=== PATIENT | female | born 1935 | race Caucasian/White ===

== ENCOUNTER 2016-12-20 07:10 | Emergency (ER) | payer MEDICARE, OTHER ==
--- NOTE | 2016-12-20 08:10 | EDM.PDOC ---
ED HPI ENT - General Chief Complaint: ENT Problem Stated Complaint: [facility] Time Seen by Provider: 12/20/16 07:18 Source of Information: Reports: Patient, EMS, RN notes reviewed - History of Present Illness INITIAL COMMENTS - FREE TEXT/NARRATIVE: 81-year-old female comes in with bleeding from the left nares. That started about 5:00 this morning. She was unable to control the bleeding at home and therefore called EMS. They did place some type a tampon into the left nares and bleeding history while stopped upon arrival to ED. She had been having difficulty with intermittent bleeding last week but had been able to control it with pressure. This morning the bleeding was worse and she also was having significant drainage down the back of her throat. She is on Coumadin for chronic atrial fib. She has not yet taken her morning Coumadin for today. No chest pain or difficulty breathing. No unusual dizziness or lightheadedness. - Related Data Allergies/ADRs: Allergies Allergy/AdvReac Type Severity Reaction Status Date / Time amoxicillin Allergy Rash Verified 12/20/16 07:20 codeine Allergy Itching Verified 12/20/16 07:20 Penicillins Allergy Itching Verified 12/20/16 07:20 Home Meds: Home Meds Carvedilol 12.5 mg PO BID 12/20/16 [History] Furosemide 40 mg PO BID 12/20/16 [History] Lisinopril 20 mg PO DAILY 12/20/16 [History] Metolazone 2.5 mg PO ASDIRECTED 12/20/16 [History] Warfarin [Coumadin] 5 mg PO DAILY 12/20/16 [History] Past Medical History HEENT History: Reports: Epistaxis Cardiovascular History: Reports: Afib, Hypertension - Past Surgical History GI Surgical History: Reports: Appendectomy, Cholecystectomy Female Surgical History: Reports: Hysterectomy Musculoskeletal Surgical History: Reports: Shoulder surgery, Other (see below) Other Musculoskeletal Surgeries/Procedures:: murali Soto Social & Family History - Tobacco Use Smoking Status *Q: Never Smoker - Caffeine Use Caffeine Use: Reports: None - Recreational Drug Use Recreational Drug Use: No ED ROS ENT - Review of Systems Review Of Systems: See Below Constitutional: Reports: no symptoms HEENT: Reports: Nosebleed, Other (There has been drainage down her throat) Respiratory: Denies: Shortness of Breath Cardiovascular: Denies: Chest pain GI/Abdominal: Denies: Abdominal pain, Nausea, Vomiting Musculoskeletal: Reports: no symptoms Skin: Reports: no symptoms Neurological: Reports: No Symptoms ED EXAM, ENT - Physical Exam Exam: See Below General Appearance: alert Nose: other (She does have some type of tampon in the left nares. That is soaked with blood, not actively bleeding at this time.). No: active bleeding Mouth/Throat: Other (The back of her throat is clear of blood at this time, no clots visible) Neck: supple, full range of motion Respiratory/Chest: no respiratory distress, lungs clear Cardiovascular: regular rate, rhythm Extremities: normal inspection, pedal edema (Mild bilateral). No: leg pain Neurological: alert, oriented, no motor/sensory deficits Skin: Warm, Dry, Normal color Course - Vital Signs Last Recorded V/S: Last Vital Signs Temp 97.3 F 12/20/16 07:16 Pulse 67 12/20/16 07:16 Resp 16 12/20/16 07:16 BP 138/78 12/20/16 07:16 Pulse Ox 97 12/20/16 07:16 - Orders/Labs/Meds Labs: Laboratory Tests 12/20/16 12/20/16 12/20/16 Range/Units 07:45 07:45 07:45 WBC 6.62 (3.98-10.04) K/mm3 RBC 4.14 (3.98-5.22) M/mm3 Hgb 12.3 (11.2-15.7) gm/L Hct 38.7 (34.1-44.9) % MCV 93.5 (79.4-94.8) fl MCH 29.7 (25.6-32.2) pg MCHC 31.8 L (32.2-35.5) g/dl RDW Std Deviation 47.6 H (36.4-46.3) fL Plt Count 249 (182-369) K/mm3 MPV 9.8 (9.4-12.3) fl Neut % (Auto) 73.6 H (34.0-71.1) % Lymph % (Auto) 13.4 L (19.3-51.7) % [place] % (Auto) 10.0 (4.7-12.5) % Eos % (Auto) 2.3 (0.7-5.8) Baso % (Auto) 0.5 (0.1-1.2) % Neut # (Auto) 4.88 (1.56-6.13) K/mm3 Lymph # (Auto) 0.89 L (1.18-3.74) K/mm3 [place] # (Auto) 0.66 H (0.24-0.36) K/mm3 Eos # (Auto) 0.15 (0.04-0.36) K/mm3 Baso # (Auto) 0.03 (0.01-0.08) K/mm3 PT 42.4 H (8.0-13.0) SECONDS INR 3.59 Sodium 147 H (136-145) mEq/L Potassium 3.8 (3.5-5.1) mEq/L Chloride 108 H (98-107) mEq/L Carbon Dioxide 29 (21-32) mEq/L Anion Gap 13.8 (5-15) BUN 20 H (7-18) mg/dL Creatinine 0.8 (0.55-1.02) mg/dL Est Cr Clr Drug Dosing 39.61 mL/min Estimated GFR (MDRD) > 60 (>60) mL/min BUN/Creatinine Ratio 25.0 H (14-18) Glucose 131 H (83-115) mg/dL Calcium 9.0 (8.5-10.1) mg/dL Total Bilirubin 0.6 (0.2-1.0) mg/dL AST 16 (15-37) U/L ALT 20 (14-59) U/L Alkaline Phosphatase 90 (46-116) U/L Total Protein 7.5 (6.4-8.2) g/dl Albumin 3.3 L (3.4-5.0) g/dl Globulin 4.2 gm/dL Albumin/Globulin Ratio 0.8 L (1-2) - Re-Assessments/Exams Free Text/Narrative Re-Assessment/Exam: 12/20/16 08:30. INR is elevated close to 4, he continues to have no active bleeding while here in the ED, slight oozing when she does dab tissue against the tampon but nothing more than that. The back of her throat remains clear of blood or clots. A glide have her not take her Coumadin today or tomorrow. Discharge instructions as documented. Departure - Departure Time of Disposition: 08:33 Disposition: Home, Self-Care 01 Clinical Impression: Epistaxis Referrals: Jaimie Sexton PA-C [Primary Care Provider] - Forms: ED Department Discharge Additional Instructions: leave the tampon placed L nares in place until Saturday. Have that removed Saturday at the clinic. Your INR this morning is high. Do not take your coumadin today and tomorrow. You can resume that Saturday regular dosage. Drink plenty of water. Pressure if needed for any further bleeding. Return to ED as needed.
[2016-12-20 09:09] VITALS: BP 148/94
== END 2016-12-20 09:07 | disposition home or self-care (01) ==
LOC: JD.ED 07:10
DX: R04.0 Epistaxis (principal); I48.91 Unspecified atrial fibrillation; I10 Essential (primary) hypertension; Z90.49 Acquired absence of other specified parts of digestive tract; Z90.710 Acquired absence of both cervix and uterus; Z88.0 Allergy status to penicillin; Z88.1 Allergy status to other antibiotic agents; Z88.5 Allergy status to narcotic agent; Z79.01 Long term (current) use of anticoagulants; Z79.899 Other long term (current) drug therapy
CPT/HCPCS: 36415; 80053; 85025; 85610; 99282; 99284

== ENCOUNTER 2018-09-29 11:24 | Inpatient (IN) | payer MEDICARE, OTHER ==
[2018-09-29] MEDS ORDERED: Sodium Chloride 0.9% 10 ML Syringe FLUSH PRN (11:38)
--- NOTE | 2018-09-29 11:39 | EDM.PDOC ---
ED HPI GENERAL MEDICAL PROBLEM - General Chief Complaint: Respiratory Problem Stated Complaint: [facility] Time Seen by Provider: 09/29/18 11:36 Source of Information: Reports: Patient, EMS, Provider History Limitations: Reports: No Limitations - History of Present Illness INITIAL COMMENTS - FREE TEXT/NARRATIVE: 83-year-old female presents to the ED per [place] [facility]. She was seen initially in the clinic in [place] and identified to be suffering an exacerbation of her congestive heart failure. A Carmona catheter placed at the clinic and was given initial dose of Lasix 40 mg IV at the clinic. At this time she states she is breathing a bit better. After 98% on 2 L/m by nasal cannula. She states she was up most of last night because of dyspnea. She states her legs are really bothering her last 3-4 days because they are so swollen they feel like they're going to explode. Eyes any wounds on the legs or losing any serous material. She is known to have chronic dependent edema. She states she's been sitting with an elevated with pillows hoping that they would get better over the weekend. It didn't seem to help. She reports developed gradual shortness of breath with increased cough of clear to white sputum over the last 3 days. Eyes any central chest pain. No recent changes to any of her medications. She did take her normal meds this morning including Lasix 40 mg by mouth. Patient is also chronically anticoagulated with Coumadin. Onset: Gradual Onset Date: 09/26/18 Duration: Day(s):, Getting Worse Location: Reports: Chest, Lower Extremity, Left (Increased shortness of breath on minimal exertion and even at rest.), Lower Extremity, Right ( Increased dependent edema with leg pain increased lower extremity edema with leg pain.) Quality: Reports: Ache, Other (She has restless leg syndrome and the increased edema has made him very sensitive and actually making her's not be able to sleep.) Severity: Severe Improves with: Reports: None Worsens with: Reports: None Context: Reports: Other (Gradually worsening shortness of breath and dependent edema.). Denies: Activity, Exercise, Lifting, Sick Contact, Trauma Associated Symptoms: Reports: Cough, cough w sputum, Loss of Appetite, Malaise, Shortness of Breath, Weakness. Denies: Confusion, Chest Pain, Diaphoresis ( Sputum is usually clear to white.), Fever/Chills, Headaches, Nausea/Vomiting Treatments SHRUB PLANTER: Reports: Other (see below) (She did take her regular medications at home this morning.) Other Treatments SHRUB PLANTER: lasix, carmona insertion - Related Data Allergies Allergy/AdvReac Type Severity Reaction Status Date / Time amoxicillin Allergy Rash Verified 09/29/18 11:34 aspirin Allergy Rash Verified 09/29/18 11:34 codeine Allergy Itching Verified 09/29/18 11:34 hydrocodone Allergy Rash Verified 09/29/18 11:34 morphine Allergy Rash Verified 09/29/18 11:34 naproxen [From Naprosyn] Allergy Rash Verified 09/29/18 11:34 Penicillins Allergy Itching Verified 09/29/18 11:34 weed pollen Allergy Rash Verified 09/29/18 11:34 Home Meds: Home Meds Warfarin [Coumadin] 5 mg PO DAILY 12/20/16 [History] Calcium Carb & Citrate/Vit D3 [Calcium + D3 ER Tablet] 2 tab PO DAILY 07/13/18 [ History] Carvedilol 12.5 mg PO BID 07/13/18 [History] Furosemide 40 mg PO BID 07/13/18 [History] Lisinopril 20 mg PO DAILY 07/13/18 [History] Potassium Chloride [Klor-Con 10] 10 meq PO DAILY 07/13/18 [History] Pramipexole [Mirapex] 1 mg PO BEDTIME 07/13/18 [History] Spironolactone [Aldactone] 25 mg PO DAILY 07/13/18 [History] metOLazone [Metolazone] 2.5 mg PO WEEKLY 07/13/18 [History] Past Medical History HEENT History: Reports: Cataract, Epistaxis Cardiovascular History: Reports: Afib, Heart Failure, Hypertension, SOB on Exertion Psychiatric History: Reports: Depression - Past Surgical History HEENT Surgical History: Reports: Cataract Surgery GI Surgical History: Reports: Appendectomy, Cholecystectomy Female Surgical History: Reports: Hysterectomy Musculoskeletal Surgical History: Reports: Shoulder Surgery Social & Family History - Family History Family Medical History: Noncontributory - Caffeine Use Caffeine Use: Reports: None ED ROS GENERAL - Review of Systems Review Of Systems: See Below Constitutional: Reports: Malaise, Weakness, Fatigue, Decreased Appetite (Did not eat yet today.). Denies: Fever, Chills HEENT: Reports: Glasses, Other (Has had previous cataract extractions.) Respiratory: Reports: Shortness of Breath, Cough (Mostly of clear to white sputum). Denies: Wheezing, Pleuritic Chest Pain Cardiovascular: Reports: Blood Pressure Problem, Dyspnea on Exertion (Increased edema in her lower extremities over the last 3 days), Edema, Orthopnea, Palpitations (Chronic atrial fibrillation). Denies: Chest Pain, Claudication ( Usually runs low.), Lightheadedness (Last 3 days.) Endocrine: Reports: Fatigue GI/Abdominal: Reports: Constipation : Reports: Frequency, Incontinence (Urge and stress components) Musculoskeletal: Reports: Joint Pain (Knees hips low back and neck and shoulders at times) Skin: Reports: Bruising (Bruises easily as she is on Coumadin.) Neurological: Reports: No Symptoms, Other (Has restless leg syndrome and uses Mirapex at bedtime) Psychiatric: Reports: No Symptoms Hematologic/Lymphatic: Reports: No Symptoms Immunologic: Reports: No Symptoms ED EXAM, GENERAL - Physical Exam Exam: See Below Exam Limited By: No Limitations General Appearance: Alert, WD/WN, Mild Distress (Mild respiratory distress.), Other (O2 sats were apparently 8889% on room air. There are 96-98% on 2 L/m by nasal cannula. She reports she is already feeling better since she was given Lasix intravenously at the clinic prior to transport to [place] per ambulance. ) Eye Exam: Bilateral Eye: Normal Inspection Throat/Mouth: Other (Tongue is mildly dry.) Head: Atraumatic, Normocephalic Neck: Normal Inspection, Limited Range of Motion, Other (No JVD appreciated.). No: Lymphadenopathy (L), Lymphadenopathy (R) Respiratory/Chest: Decreased Breath Sounds (Fine rales both lung bases. Air entry is diminished to the lower 30% of lung garsia posteriorly bilaterally), Rales Cardiovascular: No Gallop, No Murmur, Irregularly Irregular (Monitor reveals atrial fibrillation.). No: Normal Peripheral Pulses, JVD Peripheral Pulses: 0: Posterior Tibial (L) (No pulses are palpable wearing her feet due to gross edema of the lower extremities.), Posterior Tibial (R), Dorsalis Pedis (L), Dorsalis Pedis (R) GI/Abdominal: Distended (Abdomen is slightly distended and tympanitic to percussion upper abdomen compatible with mild aerophagia.), Other (Firm to palpation with no obvious organomegaly palpable. Abdominal girth limits ability to palpate solid organs.) Extremities: Pedal Edema (Has 4+ pitting edema both lower extremities up past the knees. No open wounds or ulcers on the lower extremities), Leg Pain Neurological: Alert, Oriented, CN II-XII Intact, Normal Cognition Psychiatric: Normal Affect, Normal Mood Skin Exam: Warm, Dry, Intact, Normal Color, No Rash EKG INTERPRETATION EKG Date: 09/29/18 Time: 12:00 Rhythm: Other Rate (Beats/Min): 62 Ashby: LAD-Left Ashby Deviation (Minimal left axis deviation at -1) P-Wave: Absent QRS: Other (There is a nonspecific intraventricular conduction delay.) ST-T: Other (T wave inverted leads 3 and aVF nonspecific finding mild diffuse early repolarization pattern.) QT: Prolonged (QT is moderately prolonged) EKG Interpretation Comments: Abnormal ECG Course - Vital Signs Last Recorded V/S: Last Vital Signs Temp 36.3 C 09/29/18 11:29 Pulse 74 09/29/18 11:29 Resp 14 09/29/18 11:29 BP 91/55 L 09/29/18 11:29 Pulse Ox 97 09/29/18 11:43 - Orders/Labs/Meds Orders: Active Orders 24 hr Category Date Time Status EKG Documentation Completion [RC] STAT Care 09/29/18 11:36 Active Oxygen Therapy [RC] ASDIRECTED Care 09/29/18 11:38 Active Peripheral IV Care [RC] . DIRECTED Care 09/29/18 11:38 Active Sodium Chloride 0.9% [Saline Flush] Med 09/29/18 11:38 Active 10 ml FLUSH ASDIRECTED PRN Peripheral IV Insertion Adult [OM.PC] Stat Oth 09/29/18 11:38 Ordered Medication Orders Sodium Chloride (Saline Flush) 10 ml FLUSH ASDIRECTED PRN PRN Reason: Keep Vein Open Last Admin: 09/29/18 11:42 Dose: 10 ml Labs: Laboratory Tests 09/29/18 09/29/18 09/29/18 Range/Units 11:55 11:55 11:55 WBC 5.53 (3.98-10.04) K/mm3 RBC 4.07 (3.98-5.22) M/mm3 Hgb 12.0 (11.2-15.7) gm/L Hct 38.9 (34.1-44.9) % MCV 95.6 H (79.4-94.8) fl MCH 29.5 (25.6-32.2) pg MCHC 30.8 L (32.2-35.5) g/dl RDW Std Deviation 46.1 (36.4-46.3) fL Plt Count 243 (182-369) K/mm3 MPV 9.7 (9.4-12.3) fl Neutrophils % (Manual) 75 H (40-60) % Band Neutrophils % 0 (0-10) % Lymphocytes % (Manual) 21 (20-40) % Atypical Lymphs % 0 % Monocytes % (Manual) 3 (2-10) % Eosinophils % (Manual) 1 (0.7-5.8) % Basophils % (Manual) 0 L (0.1-1.2) Platelet Estimate Adequate RBC Morph Comment Normal PT 12.7 H (9.5-12.1) SECONDS INR 1.17 Sodium 139 (136-145) mEq/L Potassium 4.3 (3.5-5.1) mEq/L Chloride 101 (98-107) mEq/L Carbon Dioxide 33 H (21-32) mEq/L Anion Gap 9.3 (5-15) BUN 29 H (7-18) mg/dL Creatinine 1.1 H (0.55-1.02) mg/dL Est Cr Clr Drug Dosing 27.83 mL/min Estimated GFR (MDRD) 47 (>60) mL/min BUN/Creatinine Ratio 26.4 H (14-18) Glucose 111 (83-115) mg/dL Calcium 9.0 (8.5-10.1) mg/dL Magnesium 2.3 (1.8-2.4) mg/dl Total Bilirubin 0.4 (0.2-1.0) mg/dL AST 21 (15-37) U/L ALT 18 (14-59) U/L Alkaline Phosphatase 86 (46-116) U/L CK-MB (CK-2) 1.5 (0-3.6) ng/ml Troponin I < 0.017 (0.00-0.056) ng/mL NT-Pro-B Natriuret Pep (0-450) pg/mL Total Protein 7.8 (6.4-8.2) g/dl Albumin 3.4 (3.4-5.0) g/dl Globulin 4.4 gm/dL Albumin/Globulin Ratio 0.8 L (1-2) 09/29/18 Range/Units 11:55 WBC (3.98-10.04) K/mm3 RBC (3.98-5.22) M/mm3 Hgb (11.2-15.7) gm/L Hct (34.1-44.9) % MCV (79.4-94.8) fl MCH (25.6-32.2) pg MCHC (32.2-35.5) g/dl RDW Std Deviation (36.4-46.3) fL Plt Count (182-369) K/mm3 MPV (9.4-12.3) fl Neutrophils % (Manual) (40-60) % Band Neutrophils % (0-10) % Lymphocytes % (Manual) (20-40) % Atypical Lymphs % % Monocytes % (Manual) (2-10) % Eosinophils % (Manual) (0.7-5.8) % Basophils % (Manual) (0.1-1.2) Platelet Estimate RBC Morph Comment PT (9.5-12.1) SECONDS INR Sodium (136-145) mEq/L Potassium (3.5-5.1) mEq/L Chloride (98-107) mEq/L Carbon Dioxide (21-32) mEq/L Anion Gap (5-15) BUN (7-18) mg/dL Creatinine (0.55-1.02) mg/dL Est Cr Clr Drug Dosing mL/min Estimated GFR (MDRD) (>60) mL/min BUN/Creatinine Ratio (14-18) Glucose (83-115) mg/dL Calcium (8.5-10.1) mg/dL Magnesium (1.8-2.4) mg/dl Total Bilirubin (0.2-1.0) mg/dL AST (15-37) U/L ALT (14-59) U/L Alkaline Phosphatase (46-116) U/L CK-MB (CK-2) (0-3.6) ng/ml Troponin I (0.00-0.056) ng/mL NT-Pro-B Natriuret Pep 1390 H (0-450) pg/mL Total Protein (6.4-8.2) g/dl Albumin (3.4-5.0) g/dl Globulin gm/dL Albumin/Globulin Ratio (1-2) Meds: Medications Generic Name Dose Route Start Last Admin Trade Name Angel PRN Reason Stop Dose Admin Sodium Chloride 10 ml 09/29/18 11:38 09/29/18 11:42 Saline Flush FLUSH 10 ml ASDIRECTED PRN Administration Keep Vein Open - Radiology Interpretation Free Text/Narrative:: 83-year-old female presents the ED per ambulance from [facility]. She attended the clinic there this morning because of increased dyspnea over the last 3-4 days. Was up all night because she could not lie down to sleep. And her legs were bothering her severely. She has restless leg syndrome aggravated by chronic dependent edema which is much worse the last few days as well. She's been trying to keep her legs elevated with pillows over the weekend but they did not go down. She denies any recent changes to any of her medications. She denies any chest pain. She has chronic atrial fibrillation with rate controlled on ECG today. She is chronically anticoagulated with Coumadin. Exam reveals fine crackles both lung bases. Marked dependent edema both lower extremities. She has a Carmona catheter in place Lasix at the clinic this morning. She took her 40 mg of Lasix orally as well as was given 40 mg intravenously prior to leaving the clinic. She has apparently has diuresed greater than 1000 mils. She reports she is feeling somewhat better in terms of her ability to get it breath. Currently satting at 98% on 2 L/m. Plan saline lock. Cardiac workup to see why she decompensated. Clinically she appears to have terminal congestive heart failure. But pressure initially was 91/46. - Re-Assessments/Exams Free Text/Narrative Re-Assessment/Exam: 09/29/18 12:17 current blood pressure is 96/58. Chest x-ray reveals moderate cardiomegaly with diffuse vascular congestion pattern. There is no pleural effusions both costophrenic angles are visible. 09/29/18 12:28 Hematology is back showing a white count of 5.53 with 75% neutrophils and no bands reported. Hemoglobin is 12.0 with hematocrit of 38.9. MCV is slightly elevated at 95.6. Platelet count normal 243,000. 01/21/19 13:13 Chemistry is back. PT is 12.7 with an INR 1.17 i.e. subtherapeutic INR for atrial fibrillation treatment. Sodium 139 with a potassium of 4.3. Port 11 with a bicarbonate of 33. And a gap is 9.3. B1 is 29 with a running of 1.1. GFR is estimated to be around 47. BUN/creatinine ratio is elevated at 26.4. Glucose is 111 with a calcium of 9.0. Magnesium is normal at 2.3. Liver function is normal. She can be fraction is 1.5 with a troponin I of less than 0.017. BNP is 1390. Total protein is 7.8 with an albumin of 3.4, 09/29/18 13:[address] Merritt --rehabilitation caseworker hospitalist and she will see her in the Ed with a view to admission to the med surgery unit on telemetry. I Have contacted [facility] as well and they will send most recent echo cardiograms on patient as well. Departure - Departure Time of Disposition: 13:26 Disposition: Admitted As Inpatient 66 Condition: Poor Clinical Impression: Lower extremity pain, bilateral, Dependent edema Acute exacerbation of CHF (congestive heart failure) Qualifiers: Heart failure type: diastolic Qualified Code(s): I50.33 - Acute on chronic diastolic (congestive) heart failure Atrial fibrillation Qualifiers: Atrial fibrillation type: chronic Qualified Code(s): I48.2 - Chronic atrial fibrillation - Discharge Information *PRESCRIPTION DRUG MONITORING PROGRAM REVIEWED*: Not Applicable *COPY OF PRESCRIPTION DRUG MONITORING REPORT IN PATIENT SAGE: Not Applicable Forms: ED Department Discharge - My Orders Last 24 Hours: My Active Orders 09/29/18 11:36 EKG Documentation Completion [RC] STAT 09/29/18 11:38 Oxygen Therapy [RC] ASDIRECTED Peripheral IV Care [RC] . DIRECTED Sodium Chloride 0.9% [Saline Flush] 10 ml FLUSH ASDIRECTED PRN Peripheral IV Insertion Adult [OM.PC] Stat - Assessment/Plan Last 24 Hours: My Active Orders 09/29/18 11:36 EKG Documentation Completion [RC] STAT 09/29/18 11:38 Oxygen Therapy [RC] ASDIRECTED Peripheral IV Care [RC] . DIRECTED Sodium Chloride 0.9% [Saline Flush] 10 ml FLUSH ASDIRECTED PRN Peripheral IV Insertion Adult [OM.PC] Stat
--- NOTE | 2018-09-29 11:57 | CR ---
Chest: Frontal view of the chest was obtained utilizing portable technique. Comparison: Prior chest x-ray of 07/15/16. Heart is enlarged. Pulmonary vessels felt to be slightly congested. Lungs otherwise are clear. Previous right shoulder surgery is seen. Scoliosis is noted within the spine. Impression: 1. Cardiomegaly with mild pulmonary vascular congestion. 2. Other incidental findings. Diagnostic code #3
[2018-09-29] MEDS: Furosemide 100 MG in Sodium Chloride 0.9% 90 ML IV SCH (17:41)
[2018-09-29] MEDS ORDERED: Loratadine 10 MG Tab PO PRN (19:00)
--- NOTE | 2018-09-29 19:00 | PCM.HP ---
H&P History of Present Illness - General Date of Service: 09/29/18 Admit Problem/Dx: Admission Diagnosis/Problem Admission Diagnosis/Problem Dyspnea Source of Information: Patient, Provider History Limitations: Reports: No Limitations - History of Present Illness Initial Comments - Free Text/Narative: 83 year old female with PMH of HFpEF, her last 2D echo was 12/25. It documented a LVEF of 55-60%, diastolic dysfunction is indeterminate in A Fib. The NYHA function class is unknown. She has been experiencing progressive SOB associated with fatigue. Denies orthopnea, PND. No chest pain, fever/chills, nausea/vomiting has been noted. The patient had been sen in [place] prior to ED evaluation. At that time a Arce was placed and Lasix 40 mg IV was given. The patient is DNR/DNI, and will be admitted to [place] with telemetry. Onset of Symptoms: Reports: Gradual Symptom Onset Date: 09/26/18 Duration of Symptoms: Reports: Day(s):, Getting Worse Location: Reports: Generalized Quality: Reports: Same as Previous Episode Severity: Moderate Improves with: Reports: Medication Worsens with: Reports: Movement Context: Reports: Exertion Associated Symptoms: Reports: Cough, Nausea/Vomiting, Shortness of Breath, Weakness - Related Data Allergies/Adverse Reactions: Allergies Allergy/AdvReac Type Severity Reaction Status Date / Time amoxicillin Allergy Rash Verified 09/29/18 11:34 aspirin Allergy Rash Verified 09/29/18 11:34 codeine Allergy Itching Verified 09/29/18 11:34 hydrocodone Allergy Rash Verified 09/29/18 11:34 morphine Allergy Rash Verified 09/29/18 11:34 naproxen [From Naprosyn] Allergy Rash Verified 09/29/18 11:34 Penicillins Allergy Itching Verified 09/29/18 11:34 weed pollen Allergy Rash Verified 09/29/18 11:34 Home Medications: Home Meds Warfarin [Coumadin] 5 mg PO DAILY 12/20/16 [History] Carvedilol 12.5 mg PO BIDMEALS 07/13/18 [History] Furosemide 80 mg PO DAILY 07/13/18 [History] Lisinopril 20 mg PO DAILY 07/13/18 [History] Pramipexole [Mirapex] 1 - 2 mg PO BEDTIME 07/13/18 [History] metOLazone [Metolazone] 2.5 mg PO TUSA 07/13/18 [History] B2/Vit A,C & E/Lut/Zeaxanth/Mn [Icaps] 1 tab PO DAILY 09/29/18 [History] Cholecalciferol (Vitamin D3) [Vitamin D3] 1,000 unit PO DAILY 09/29/18 [History] Loratadine [Claritin] 10 mg PO DAILY PRN 09/29/18 [History] Spironolactone [Aldactone] 25 mg PO DAILY 09/29/18 [History] Past Medical History HEENT History: Reports: Cataract, Epistaxis, Impaired Vision Other HEENT History: Left side "Wall eye" Cardiovascular History: Reports: Afib, Heart Failure, Hypertension, SOB on Exertion Respiratory History: Reports: Sleep Apnea Gastrointestinal History: Reports: Cholelithiasis Genitourinary History: Reports: Urinary Incontinence [employer] ENG[employer]ER History: Reports: Musculoskeletal History: Reports: Arthritis, Osteoporosis Neurological History: Reports: Concussion, Other (See Below) Other Neuro History: mild concussion, restless legs Psychiatric History: Reports: Anxiety, Depression Endocrine/Metabolic History: Reports: Diabetes, Type II, Obesity/BMI 30+ Hematologic History: Reports: Anticoagulation Therapy Dermatologic History: Reports: Urticaria - Infectious Disease History Infectious Disease History: Reports: Chicken Pox, Measles, Mumps - Past Surgical History HEENT Surgical History: Reports: Cataract Surgery Cardiovascular Surgical History: Reports: None GI Surgical History: Reports: Appendectomy, Cholecystectomy, Colonoscopy Female Surgical History: Reports: Hysterectomy Endocrine Surgical History: Reports: None Neurological Surgical History: Reports: None Musculoskeletal Surgical History: Reports: Shoulder Surgery Other Musculoskeletal Surgeries/Procedures:: Rotator cuff sx bilaterally. Left great toe-bunion removal Dermatological Surgical History: Reports: None Social & Family History - Family History Family Medical History: Noncontributory HEENT: Reports: Cataract, Impaired Vision, Macular Degeneration Cardiac: Reports: Afib, Heart Failure, DE Respiratory: Reports: Sleep Apnea Musculoskeletal: Reports: Arthritis, Back pain, Chronic Neurological: Reports: Migraines Endocrine/Metabolic: Reports: Diabetes, type II, Obesity/MBI 30+ Dermatologic: Reports: Urticaria Oncologic: Reports: Colon, Liver, Lung, Pancreatic, Prostate, Uterine, Other ( See Below) - Tobacco Use Smoking Status *Q: Never Smoker Second Hand Smoke Exposure: Yes - Caffeine Use Caffeine Use: Reports: None - Recreational Drug Use Recreational Drug Use: No H&P Review of Systems - Review of Systems: Review Of Systems: See Below General: Reports: Weakness, Fatigue, Weight Gain HEENT: Reports: No Symptoms Pulmonary: Reports: Shortness of Breath Cardiovascular: Reports: Palpitations, Lightheadedness Gastrointestinal: Reports: No Symptoms, Mucous in Stool Genitourinary: Reports: No Symptoms Musculoskeletal: Reports: No Symptoms Skin: Reports: No Symptoms Psychiatric: Reports: No Symptoms Neurological: Reports: No Symptoms Hematologic/Lymphatic: Reports: No Symptoms Immunologic: Reports: No Symptoms Exam - Exam Exam: See Below - Vital Signs Vital Signs: Last Vital Signs Temp 36.4 C 09/29/18 14:18 Pulse 53 L 09/29/18 15:26 Resp 18 09/29/18 14:22 BP 114/72 09/29/18 14:29 Pulse Ox 92 L 09/29/18 15:26 Weight: 100.244 kg - Exam Quality Assessment: Supplemental Oxygen, DVT Prophylaxis General: Alert, Oriented, Cooperative, Mild Distress HEENT: Conjunctiva Clear, EACs Clear, EOMI, Pupils Equal, Pupils Reactive, PERRLA Neck: Supple, Trachea Midline Lungs: Normal Respiratory Effort Cardiovascular: Regular Rate, Regular Rhythm GI/Abdominal Exam: Normal Bowel Sounds, Soft, Non-Tender, No Organomegaly, No Distention, No Abnormal Bruit, No Mass (Female) Exam: Deferred Rectal (Female) Exam: Deferred Back Exam: Normal Inspection Extremities: Pedal Edema (+3-4), Leg Pain, Increased Warmth Skin: Warm Neurological: Cranial Nerves Intact Neuro Extensive - Mental Status: Alert, Oriented x3 Neuro Extensive - Motor, Sensory, Reflexes: CN II-XII Intact Psychiatric: Alert, Normal Affect, Normal Mood - Patient Data Lab Results Last 24 hrs: Laboratory Results - last 24 hr 09/29/18 09/29/18 09/29/18 Range/Units 11:55 11:55 11:55 WBC 5.53 (3.98-10.04) K/mm3 RBC 4.07 (3.98-5.22) M/mm3 Hgb 12.0 (11.2-15.7) gm/L Hct 38.9 (34.1-44.9) % MCV 95.6 H (79.4-94.8) fl MCH 29.5 (25.6-32.2) pg MCHC 30.8 L (32.2-35.5) g/dl RDW Std Deviation 46.1 (36.4-46.3) fL Plt Count 243 (182-369) K/mm3 MPV 9.7 (9.4-12.3) fl Neutrophils % (Manual) 75 H (40-60) % Band Neutrophils % 0 (0-10) % Lymphocytes % (Manual) 21 (20-40) % Atypical Lymphs % 0 % Monocytes % (Manual) 3 (2-10) % Eosinophils % (Manual) 1 (0.7-5.8) % Basophils % (Manual) 0 L (0.1-1.2) Platelet Estimate Adequate RBC Morph Comment Normal PT 12.7 H (9.5-12.1) SECONDS INR 1.17 Sodium 139 (136-145) mEq/L Potassium 4.3 (3.5-5.1) mEq/L Chloride 101 (98-107) mEq/L Carbon Dioxide 33 H (21-32) mEq/L Anion Gap 9.3 (5-15) BUN 29 H (7-18) mg/dL Creatinine 1.1 H (0.55-1.02) mg/dL Est Cr Clr Drug Dosing 27.83 mL/min Estimated GFR (MDRD) 47 (>60) mL/min BUN/Creatinine Ratio 26.4 H (14-18) Glucose 111 (83-115) mg/dL Calcium 9.0 (8.5-10.1) mg/dL Magnesium 2.3 (1.8-2.4) mg/dl Total Bilirubin 0.4 (0.2-1.0) mg/dL AST 21 (15-37) U/L ALT 18 (14-59) U/L Alkaline Phosphatase 86 (46-116) U/L CK-MB (CK-2) 1.5 (0-3.6) ng/ml Troponin I < 0.017 (0.00-0.056) ng/mL NT-Pro-B Natriuret Pep (0-450) pg/mL Total Protein 7.8 (6.4-8.2) g/dl Albumin 3.4 (3.4-5.0) g/dl Globulin 4.4 gm/dL Albumin/Globulin Ratio 0.8 L (1-2) Mycoplasma pneumon IgM (NEGATIVE) 09/29/18 09/29/18 Range/Units 11:55 11:55 WBC (3.98-10.04) K/mm3 RBC (3.98-5.22) M/mm3 Hgb (11.2-15.7) gm/L Hct (34.1-44.9) % MCV (79.4-94.8) fl MCH (25.6-32.2) pg MCHC (32.2-35.5) g/dl RDW Std Deviation (36.4-46.3) fL Plt Count (182-369) K/mm3 MPV (9.4-12.3) fl Neutrophils % (Manual) (40-60) % Band Neutrophils % (0-10) % Lymphocytes % (Manual) (20-40) % Atypical Lymphs % % Monocytes % (Manual) (2-10) % Eosinophils % (Manual) (0.7-5.8) % Basophils % (Manual) (0.1-1.2) Platelet Estimate RBC Morph Comment PT (9.5-12.1) SECONDS INR Sodium (136-145) mEq/L Potassium (3.5-5.1) mEq/L Chloride (98-107) mEq/L Carbon Dioxide (21-32) mEq/L Anion Gap (5-15) BUN (7-18) mg/dL Creatinine (0.55-1.02) mg/dL Est Cr Clr Drug Dosing mL/min Estimated GFR (MDRD) (>60) mL/min BUN/Creatinine Ratio (14-18) Glucose (83-115) mg/dL Calcium (8.5-10.1) mg/dL Magnesium (1.8-2.4) mg/dl Total Bilirubin (0.2-1.0) mg/dL AST (15-37) U/L ALT (14-59) U/L Alkaline Phosphatase (46-116) U/L CK-MB (CK-2) (0-3.6) ng/ml Troponin I (0.00-0.056) ng/mL NT-Pro-B Natriuret Pep 1390 H (0-450) pg/mL Total Protein (6.4-8.2) g/dl Albumin (3.4-5.0) g/dl Globulin gm/dL Albumin/Globulin Ratio (1-2) Mycoplasma pneumon IgM Negative (NEGATIVE) Result Diagrams: 09/30/18 06:20 09/30/18 06:20 Zack Results Last 24 hrs: Microbiology 09/29/18 13:30 Influenza Type A Antigen Screen - Final Nasal Aspirate, Unspecified NEGATIVE INFLUENZA A VIRUS AG Influenza Type B Antigen Screen - Final NEGATIVE INFLUENZA B VIRUS AG Problem List Initiated/Reviewed/Updated: Yes Orders Last 24hrs: Active Orders 24 hr Category Date Time Status Admission Status [Patient Status] [ADT] Routine ADT 09/29/18 13:21 Active EKG Documentation Completion [RC] STAT Care 09/29/18 11:36 Active Oxygen Therapy [RC] ASDIRECTED Care 09/29/18 11:38 Active Peripheral IV Care [RC] . DIRECTED Care 09/29/18 11:38 Active Urinary Catheter Assessment [RC] Care 09/29/18 16:57 Active Fluid Restriction [DIET] Diet 09/29/18 Dinner Active Heart Healthy Diet [DIET] Diet 09/29/18 Dinner Active Furosemide [Lasix] 100 mg Med 09/29/18 17:30 Active Sodium Chloride 0.9% [Normal Saline] 90 ml IV TITRATE Sodium Chloride 0.9% [Saline Flush] Med 09/29/18 11:38 Active 10 ml FLUSH ASDIRECTED PRN Peripheral IV Insertion Adult [OM.PC] Stat Oth 09/29/18 11:38 Ordered Resuscitation Status Routine Resus Stat 09/29/18 15:22 Ordered Medication Orders Furosemide 100 mg/ Sodium (Chloride) 100 mls @ 4 mls/hr IV TITRATE NIRALI Last Admin: 09/29/18 17:41 Dose: 4 mg/hr, 4 mls/hr Sodium Chloride (Saline Flush) 10 ml FLUSH ASDIRECTED PRN PRN Reason: Keep Vein Open Last Admin: 09/29/18 11:42 Dose: 10 ml Assessment/Plan Comment:: Impression: Acute decompensation of DNF/HFpEF Query resp infection History of A fib on Coumadin, subtherapeutic Chronic Depression HTN Query HLD Urinary Incontinence Restless Leg Syndrome CKD, stage 3 Obesity, class 3 Plan: Lasix gtt Home meds, adjust as needed; hold ACEI while diuresing Daily labs Query resp infection Query ischemia Recheck home meds, clarify Coumadin use DVT/GI prophylaxis
[2018-09-29] MEDS: Pramipexole 0.5 MG Tab PO SCH (20:55)
[2018-09-30] MEDS: Carvedilol 6.25 MG Tab PO SCH ×2 (06:42→16:08)
[2018-09-30] MEDS: Cholecalciferol (Vitamin D3) 1,000 Unit Tab PO SCH (08:05)
[2018-09-30] MEDS: Spironolactone 25 MG Tab PO SCH (08:05)
--- NOTE | 2018-09-30 13:56 | PCM.PN ---
- General Info Date of Service: 09/30/18 Functional Status: Reports: Pain Controlled, Tolerating Diet, Ambulating, Urinating - Review of Systems General: Reports: Weakness, Fatigue HEENT: Reports: No Symptoms Pulmonary: Reports: No Symptoms Cardiovascular: Reports: No Symptoms Gastrointestinal: Reports: No Symptoms Genitourinary: Reports: No Symptoms Musculoskeletal: Reports: No Symptoms Skin: Reports: No Symptoms Neurological: Reports: No Symptoms Psychiatric: Reports: No Symptoms - Patient Data Vitals - Most Recent: Last Vital Signs Temp 36.4 C 09/30/18 11:25 Pulse 63 09/30/18 11:25 Resp 18 09/30/18 11:25 BP 122/66 09/30/18 11:25 Pulse Ox 91 L 09/30/18 11:25 Weight - Most Recent: 100.244 kg I&O - Last 24 Hours: Intake & Output 09/29/18 09/30/18 09/30/18 22:59 06:59 14:59 Intake Total 220 342 240 Output Total 1150 800 900 Balance -416 -593 -519 Lab Results Last 24 Hours: Laboratory Results - last 24 hr 09/30/18 09/30/18 09/30/18 Range/Units 06:20 06:20 06:20 WBC 5.73 (3.98-10.04) K/mm3 RBC 3.71 L (3.98-5.22) M/mm3 Hgb 11.1 L (11.2-15.7) gm/L Hct 35.6 (34.1-44.9) % MCV 96.0 H (79.4-94.8) fl MCH 29.9 (25.6-32.2) pg MCHC 31.2 L (32.2-35.5) g/dl RDW Std Deviation 45.1 (36.4-46.3) fL Plt Count 211 (182-369) K/mm3 MPV 10.3 (9.4-12.3) fl Neut % (Auto) 69.4 (34.0-71.1) % Lymph % (Auto) 16.8 L (19.3-51.7) % [place] % (Auto) 11.0 (4.7-12.5) % Eos % (Auto) 2.3 (0.7-5.8) Baso % (Auto) 0.3 (0.1-1.2) % Neut # (Auto) 3.98 (1.56-6.13) K/mm3 Lymph # (Auto) 0.96 L (1.18-3.74) K/mm3 [place] # (Auto) 0.63 H (0.24-0.36) K/mm3 Eos # (Auto) 0.13 (0.04-0.36) K/mm3 Baso # (Auto) 0.02 (0.01-0.08) K/mm3 PT (9.5-12.1) SECONDS INR Sodium 139 (136-145) mEq/L Potassium 4.0 (3.5-5.1) mEq/L Chloride 102 (98-107) mEq/L Carbon Dioxide 31 (21-32) mEq/L Anion Gap 10.0 (5-15) BUN 32 H (7-18) mg/dL Creatinine 1.1 H (0.55-1.02) mg/dL Est Cr Clr Drug Dosing 27.83 mL/min Estimated GFR (MDRD) 47 (>60) mL/min BUN/Creatinine Ratio 29.1 H (14-18) Glucose 106 (83-115) mg/dL Calcium 8.9 (8.5-10.1) mg/dL Magnesium 2.1 (1.8-2.4) mg/dl NT-Pro-B Natriuret Pep 1356 H (0-450) pg/mL 09/30/18 Range/Units 06:20 WBC (3.98-10.04) K/mm3 RBC (3.98-5.22) M/mm3 Hgb (11.2-15.7) gm/L Hct (34.1-44.9) % MCV (79.4-94.8) fl MCH (25.6-32.2) pg MCHC (32.2-35.5) g/dl RDW Std Deviation (36.4-46.3) fL Plt Count (182-369) K/mm3 MPV (9.4-12.3) fl Neut % (Auto) (34.0-71.1) % Lymph % (Auto) (19.3-51.7) % [place] % (Auto) (4.7-12.5) % Eos % (Auto) (0.7-5.8) Baso % (Auto) (0.1-1.2) % Neut # (Auto) (1.56-6.13) K/mm3 Lymph # (Auto) (1.18-3.74) K/mm3 [place] # (Auto) (0.24-0.36) K/mm3 Eos # (Auto) (0.04-0.36) K/mm3 Baso # (Auto) (0.01-0.08) K/mm3 PT 12.5 H (9.5-12.1) SECONDS INR 1.15 Sodium (136-145) mEq/L Potassium (3.5-5.1) mEq/L Chloride (98-107) mEq/L Carbon Dioxide (21-32) mEq/L Anion Gap (5-15) BUN (7-18) mg/dL Creatinine (0.55-1.02) mg/dL Est Cr Clr Drug Dosing mL/min Estimated GFR (MDRD) (>60) mL/min BUN/Creatinine Ratio (14-18) Glucose (83-115) mg/dL Calcium (8.5-10.1) mg/dL Magnesium (1.8-2.4) mg/dl NT-Pro-B Natriuret Pep (0-450) pg/mL Zack Results Last 24 Hours: Microbiology 09/29/18 13:30 Influenza Type A Antigen Screen - Final Nasal Aspirate, Unspecified NEGATIVE INFLUENZA A VIRUS AG Influenza Type B Antigen Screen - Final NEGATIVE INFLUENZA B VIRUS AG Med Orders - Current: Current Medications Carvedilol (Coreg) 6.25 mg PO BIDMEALS [facility] Last Admin: 09/30/18 06:42 Dose: 6.25 mg Cholecalciferol (Vitamin D3) 1,000 units PO DAILY [facility] Last Admin: 09/30/18 08:05 Dose: 1,000 units Furosemide 100 mg/ Sodium (Chloride) 100 mls @ 4 mls/hr IV TITRATE [facility] Last Admin: 09/29/18 17:41 Dose: 4 mg/hr, 4 mls/hr Loratadine (Claritin) 10 mg PO DAILY PRN PRN Reason: Allergies Pramipexole Dihydrochloride (Mirapex) 2 mg PO BEDTIME [facility] Last Admin: 09/29/18 20:55 Dose: 2 mg Sodium Chloride (Saline Flush) 10 ml FLUSH ASDIRECTED PRN PRN Reason: Keep Vein Open Last Admin: 09/29/18 11:42 Dose: 10 ml Spironolactone (Aldactone) 25 mg PO DAILY [facility] Last Admin: 09/30/18 08:05 Dose: 25 mg Warfarin Sodium (Coumadin) 5 mg PO DAILY@1800 [facility] - Exam Quality Assessment: Urine Catheter, DVT Prophylaxis General: Alert, Oriented, Cooperative, No Acute Distress HEENT: Pupils Equal, Pupils Reactive, EOMI Neck: Trachea Midline, No JVD Lungs: Normal Respiratory Effort Cardiovascular: Regular Rate GI/Abdominal Exam: Normal Bowel Sounds, Soft, Non-Tender, No Organomegaly, No Distention (Female) Exam: Deferred Back Exam: Normal Inspection Extremities: Normal Inspection, Non-Tender, Normal Capillary Refill, Pedal Edema Skin: Warm Neurological: No New Focal Deficit, Cranial Nerves Intact Psy/Mental Status: Normal Affect, Normal Mood - Problem List Review Problem List Initiated/Reviewed/Updated: Yes - My Orders Last 24 Hours: My Active Orders 09/29/18 15:22 Resuscitation Status Routine 09/29/18 16:57 Urinary Catheter Assessment [RC] 09/29/18 17:30 Furosemide [Lasix] 100 mg Sodium Chloride 0.9% [Normal Saline] 90 ml IV TITRATE 09/29/18 19:00 Loratadine [Claritin] 10 mg PO DAILY PRN 09/29/18 19:21 Consult to Case Management/Construction Site Crossing Guard [CONS] Routine 09/29/18 21:00 Pramipexole [Mirapex] 2 mg PO BEDTIME 09/29/18 Dinner Fluid Restriction [DIET] Heart Healthy Diet [DIET] 09/30/18 07:00 Carvedilol [Coreg] 6.25 mg PO BIDMEALS 09/30/18 09:00 Consult to Occupational Therapy [OT Evaluation and Treatment] [CONS] Routine Consult to Physical Therapy [PT Evaluation and Treatment] [CONS] Routine Cholecalciferol (Vitamin D3) [Vitamin D3] 1,000 units PO DAILY Spironolactone [Aldactone] 25 mg PO DAILY 09/30/18 18:00 Warfarin [Coumadin] 5 mg PO DAILY@1800 10/01/18 05:00 BMP [BASIC METABOLIC PANEL,BMP] [CHEM] DAILY CBC WITH AUTO DIFF [HEME] DAILY INR,PT,PROTHROMBIN TIME [COAG] DAILY MAGNESIUM [CHEM] DAILY PRO B-TYPE NATRIUR PEPT,BNPPRO [CHEM] DAILY 10/02/18 05:00 BMP [BASIC METABOLIC PANEL,BMP] [CHEM] DAILY CBC WITH AUTO DIFF [HEME] DAILY INR,PT,PROTHROMBIN TIME [COAG] DAILY MAGNESIUM [CHEM] DAILY PRO B-TYPE NATRIUR PEPT,BNPPRO [CHEM] DAILY 10/03/18 05:00 BMP [BASIC METABOLIC PANEL,BMP] [CHEM] DAILY CBC WITH AUTO DIFF [HEME] DAILY INR,PT,PROTHROMBIN TIME [COAG] DAILY MAGNESIUM [CHEM] DAILY PRO B-TYPE NATRIUR PEPT,BNPPRO [CHEM] DAILY 10/04/18 05:00 BMP [BASIC METABOLIC PANEL,BMP] [CHEM] DAILY CBC WITH AUTO DIFF [HEME] DAILY INR,PT,PROTHROMBIN TIME [COAG] DAILY MAGNESIUM [CHEM] DAILY PRO B-TYPE NATRIUR PEPT,BNPPRO [CHEM] DAILY - Plan Plan:: Impression: Acute decompensation of DNF/HFpEF Query resp infection History of A fib on Coumadin, subtherapeutic Confirmed active Coumadin use, will consult pharmacy Chronic Depression HTN Query HLD Urinary Incontinence Restless Leg Syndrome CKD, stage 3 Obesity, class 3 Plan: Lasix gtt Home meds, adjust as needed; hold ACEI while diuresing Daily labs Query resp infection Query ischemia Recheck home meds, clarify Coumadin use DVT/GI prophylaxis
[2018-09-30] MEDS: Furosemide 100 MG in Sodium Chloride 0.9% 90 ML IV SCH (16:08)
[2018-09-30] MEDS ORDERED: Warfarin 5 MG Tab PO SCH (18:00)
[2018-09-30] MEDS ORDERED: Warfarin 2.5 MG Tab PO ONE (19:30)
[2018-09-30] MEDS: Pramipexole 0.5 MG Tab PO SCH (20:04)
[2018-10-01] MEDS: Acetaminophen 325 MG Tab PO PRN ×2 (01:09→22:17)
[2018-10-01] MEDS: Carvedilol 6.25 MG Tab PO SCH ×2 (06:09→17:51)
[2018-10-01] MEDS: Spironolactone 25 MG Tab PO SCH (08:14)
[2018-10-01] MEDS: Cholecalciferol (Vitamin D3) 1,000 Unit Tab PO SCH (08:15)
--- NOTE | 2018-10-01 12:20 | PCM.PN ---
- General Info Date of Service: 10/01/18 Functional Status: Reports: Pain Controlled, Tolerating Diet, Ambulating, Urinating - Review of Systems General: Reports: No Symptoms HEENT: Reports: No Symptoms Pulmonary: Reports: No Symptoms Cardiovascular: Reports: No Symptoms Gastrointestinal: Reports: No Symptoms Genitourinary: Reports: No Symptoms Musculoskeletal: Reports: No Symptoms Skin: Reports: No Symptoms Neurological: Reports: No Symptoms Psychiatric: Reports: No Symptoms - Patient Data Vitals - Most Recent: Last Vital Signs Temp 36.2 C 10/01/18 11:37 Pulse 65 10/01/18 11:37 Resp 19 10/01/18 11:37 BP 125/93 H 10/01/18 11:37 Pulse Ox 95 10/01/18 11:37 Weight - Most Recent: 100.153 kg I&O - Last 24 Hours: Intake & Output 09/30/18 10/01/18 10/01/18 22:59 06:59 14:59 Intake Total 648 254 220 Output Total 810 1050 950 Balance -360 -888 -712 Lab Results Last 24 Hours: Laboratory Results - last 24 hr 10/01/18 10/01/18 10/01/18 Range/Units 06:00 06:00 06:00 WBC 6.16 (3.98-10.04) K/mm3 RBC 3.89 L (3.98-5.22) M/mm3 Hgb 11.5 (11.2-15.7) gm/L Hct 37.3 (34.1-44.9) % MCV 95.9 H (79.4-94.8) fl MCH 29.6 (25.6-32.2) pg MCHC 30.8 L (32.2-35.5) g/dl RDW Std Deviation 45.0 (36.4-46.3) fL Plt Count 224 (182-369) K/mm3 MPV 10.1 (9.4-12.3) fl Neut % (Auto) 69.7 (34.0-71.1) % Lymph % (Auto) 16.7 L (19.3-51.7) % [place] % (Auto) 10.7 (4.7-12.5) % Eos % (Auto) 2.4 (0.7-5.8) Baso % (Auto) 0.3 (0.1-1.2) % Neut # (Auto) 4.29 (1.56-6.13) K/mm3 Lymph # (Auto) 1.03 L (1.18-3.74) K/mm3 [place] # (Auto) 0.66 H (0.24-0.36) K/mm3 Eos # (Auto) 0.15 (0.04-0.36) K/mm3 Baso # (Auto) 0.02 (0.01-0.08) K/mm3 PT (9.5-12.1) SECONDS INR Sodium 141 (136-145) mEq/L Potassium 3.6 (3.5-5.1) mEq/L Chloride 102 (98-107) mEq/L Carbon Dioxide 32 (21-32) mEq/L Anion Gap 10.6 (5-15) BUN 31 H (7-18) mg/dL Creatinine 1.2 H (0.55-1.02) mg/dL Est Cr Clr Drug Dosing 25.51 mL/min Estimated GFR (MDRD) 43 (>60) mL/min BUN/Creatinine Ratio 25.8 H (14-18) Glucose 111 (83-115) mg/dL Calcium 8.9 (8.5-10.1) mg/dL Magnesium 2.2 (1.8-2.4) mg/dl NT-Pro-B Natriuret Pep 1933 H (0-450) pg/mL 10/01/18 Range/Units 06:00 WBC (3.98-10.04) K/mm3 RBC (3.98-5.22) M/mm3 Hgb (11.2-15.7) gm/L Hct (34.1-44.9) % MCV (79.4-94.8) fl MCH (25.6-32.2) pg MCHC (32.2-35.5) g/dl RDW Std Deviation (36.4-46.3) fL Plt Count (182-369) K/mm3 MPV (9.4-12.3) fl Neut % (Auto) (34.0-71.1) % Lymph % (Auto) (19.3-51.7) % [place] % (Auto) (4.7-12.5) % Eos % (Auto) (0.7-5.8) Baso % (Auto) (0.1-1.2) % Neut # (Auto) (1.56-6.13) K/mm3 Lymph # (Auto) (1.18-3.74) K/mm3 [place] # (Auto) (0.24-0.36) K/mm3 Eos # (Auto) (0.04-0.36) K/mm3 Baso # (Auto) (0.01-0.08) K/mm3 PT 12.3 H (9.5-12.1) SECONDS INR 1.13 Sodium (136-145) mEq/L Potassium (3.5-5.1) mEq/L Chloride (98-107) mEq/L Carbon Dioxide (21-32) mEq/L Anion Gap (5-15) BUN (7-18) mg/dL Creatinine (0.55-1.02) mg/dL Est Cr Clr Drug Dosing mL/min Estimated GFR (MDRD) (>60) mL/min BUN/Creatinine Ratio (14-18) Glucose (83-115) mg/dL Calcium (8.5-10.1) mg/dL Magnesium (1.8-2.4) mg/dl NT-Pro-B Natriuret Pep (0-450) pg/mL Med Orders - Current: Current Medications Acetaminophen (Tylenol) 650 mg PO Q4H PRN PRN Reason: Pain/Fever Last Admin: 10/01/18 01:09 Dose: 650 mg Carvedilol (Coreg) 6.25 mg PO BIDMEALS [facility] Last Admin: 10/01/18 06:09 Dose: 6.25 mg Cholecalciferol (Vitamin D3) 1,000 units PO DAILY [facility] Last Admin: 10/01/18 08:15 Dose: 1,000 units Furosemide 100 mg/ Sodium (Chloride) 100 mls @ 4 mls/hr IV TITRATE [facility] Stop: 10/01/18 16:00 Last Admin: 09/30/18 16:08 Dose: 4 mg/hr, 4 mls/hr Loratadine (Claritin) 10 mg PO DAILY PRN PRN Reason: Allergies Pramipexole Dihydrochloride (Mirapex) 2 mg PO BEDTIME [facility] Last Admin: 09/30/18 20:04 Dose: 2 mg Sodium Chloride (Saline Flush) 10 ml FLUSH ASDIRECTED PRN PRN Reason: Keep Vein Open Last Admin: 09/29/18 11:42 Dose: 10 ml Spironolactone (Aldactone) 25 mg PO DAILY [facility] Last Admin: 10/01/18 08:14 Dose: 25 mg Warfarin Sodium (Pharmacy To Dose - Warfarin) 0 dose .XX ASDIRECTED PRN PRN Reason: RX TO DOSE WARFARIN Warfarin Sodium (Coumadin) 7.5 mg PO QPM [facility] Stop: 10/01/18 18:01 Discontinued Medications Warfarin Sodium (Coumadin) 5 mg PO DAILY@1800 [facility] Last Admin: 09/30/18 17:34 Dose: 5 mg Warfarin Sodium (Coumadin) 2.5 mg PO ONETIME ONE Stop: 09/30/18 19:31 Last Admin: 09/30/18 20:04 Dose: 2.5 mg - Exam Quality Assessment: DVT Prophylaxis General: Alert, Oriented, Cooperative, No Acute Distress HEENT: Pupils Equal, Pupils Reactive, EOMI Neck: Trachea Midline, No JVD Lungs: Normal Respiratory Effort Cardiovascular: Regular Rate, Irregular Rhythm GI/Abdominal Exam: Normal Bowel Sounds, Soft, Non-Tender, No Organomegaly, No Distention (Female) Exam: Deferred Back Exam: Normal Inspection Extremities: Normal Inspection, Non-Tender, Normal Capillary Refill Skin: Warm Neurological: No New Focal Deficit Psy/Mental Status: Alert, Normal Affect, Normal Mood - Problem List Review Problem List Initiated/Reviewed/Updated: Yes - My Orders Last 24 Hours: My Active Orders 10/01/18 00:58 Acetaminophen [Tylenol] 650 mg PO Q4H PRN 10/01/18 10:54 Consult to Dietary [Consult to Wireless Operator] [CONS] Routine 10/01/18 18:00 Pharmacy to Dose - Warfarin 0 dose .XX ASDIRECTED PRN Warfarin [Coumadin] 7.5 mg PO QPM 10/02/18 05:00 BMP [BASIC METABOLIC PANEL,BMP] [CHEM] DAILY CBC WITH AUTO DIFF [HEME] DAILY INR,PT,PROTHROMBIN TIME [COAG] DAILY MAGNESIUM [CHEM] DAILY PRO B-TYPE NATRIUR PEPT,BNPPRO [CHEM] DAILY 10/03/18 05:00 BMP [BASIC METABOLIC PANEL,BMP] [CHEM] DAILY CBC WITH AUTO DIFF [HEME] DAILY INR,PT,PROTHROMBIN TIME [COAG] DAILY MAGNESIUM [CHEM] DAILY PRO B-TYPE NATRIUR PEPT,BNPPRO [CHEM] DAILY 10/04/18 05:00 BMP [BASIC METABOLIC PANEL,BMP] [CHEM] DAILY CBC WITH AUTO DIFF [HEME] DAILY INR,PT,PROTHROMBIN TIME [COAG] DAILY MAGNESIUM [CHEM] DAILY PRO B-TYPE NATRIUR PEPT,BNPPRO [CHEM] DAILY - Plan Plan:: Impression: Acute decompensation of DNF/HFpEF Query resp infection History of A fib on Coumadin, subtherapeutic Confirmed active Coumadin use, will consult pharmacy Chronic Depression HTN Query HLD Urinary Incontinence Restless Leg Syndrome CKD, stage 3 Obesity, class 3 Plan: Lasix gtt, finish today. Home meds, adjust as needed; hold ACEI while diuresing Daily labs; watch Cr Query resp infection Query ischemia Recheck home meds, clarify Coumadin use DVT/GI prophylaxis DC 24-48 hours; true accurate fluid weight loss is unknown.
[2018-10-01] MEDS ORDERED: Warfarin 7.5 MG Tab PO SCH (18:00)
[2018-10-01] MEDS ORDERED: Magnesium Hydroxide 400 MG/5 ML Susp 30 ML Cup PO ONE (18:32)
[2018-10-01] MEDS: Pramipexole 0.5 MG Tab PO SCH (21:16)
[2018-10-02] MEDS: Carvedilol 6.25 MG Tab PO SCH (06:04)
[2018-10-02] MEDS: Cholecalciferol (Vitamin D3) 1,000 Unit Tab PO SCH (08:25)
[2018-10-02] MEDS: Spironolactone 25 MG Tab PO SCH (08:25)
--- NOTE | 2018-10-02 12:13 | PCM.DCSUM1 ---
Discharge Summary - Hospital Course Free Text/Narrative:: 83 year old patient living near [place] had progressive SOB with LE swelling. Has NYHA functional class II at [place], however by history had class III. The patient has HFpEF based on a 2D echo < 12 months old. LVEF 50-55%, grade 1 diastolic dysfunction. It was never determined if she is noncompliant with her meds. She has Coumadin for A Fib, and was subtherapeutic this was restarted. She had reported stopping it for epistaxis but did not seek confirmation on when to restart it from her provider. Maintaining independence is a strong motivator based on history provided. She hasd a Arce and was on a Lasix gtt for 48 hours. LE edema decreased from 4+ to <1+ bilaterally. She ambulates well with a walker when assessed by PT. She would consider foot surgery but was discouraged by an orthopedic surgeon who does not specialize in foot procedures. Minimal medication changes were made except stopping metolazone and splitting up her Lasix 40 mg BID for improved diureses. Primary Diagnosis Acute decompensated HF, HFpEF NYHA, class III ARF A fib on Coumadin, subtherapeutic Meds See list Instructions AM daily weight Fluid restriction, 2 liters Heart healthy diet Labs, 10/06/18 BMP re: potassium; BUN/Cr INR re: subtherapeutic INR Appts [facility], 1 week Activity No driving until seen by PCP next week HPI Initial Comments: 83 year old female with PMH of HFpEF, her last 2D echo was 12/25. It documented a LVEF of 55-60%, diastolic dysfunction is indeterminate in A Fib. The NYHA function class is unknown. She has been experiencing progressive SOB associated with fatigue. Denies orthopnea, PND. No chest pain, fever/chills, nausea/vomiting has been noted. The patient had been sen in [place] prior to ED evaluation. At that time a Arce was placed and Lasix 40 mg IV was given. The patient is DNR/DNI, and will be admitted to [facility] with telemetry. Diagnosis: Stroke: No - Discharge Data Discharge Date: 10/02/18 Discharge Disposition: Home, Self-Care Condition: Good - Patient Summary/Data Consults: Consultations 09/29/18 19:21 Consult to Case Management/Certified Credit Counselor [CONS] Routine 09/30/18 09:00 Consult to Occupational Therapy [OT Evaluation and Treatment] [CONS] Routine Consult to Physical Therapy [PT Evaluation and Treatment] [CONS] Routine 10/01/18 10:54 Consult to Dietary [Consult to Correction Officer] [CONS] Routine - Patient Instructions Diet: Heart Healthy Diet Fluid Restriction: 2000 mL Activity: As Tolerated Driving: Do Not Drive Showering/Bathing: May Shower Notify Provider of: Fever, Increased Pain, Nausea and/or Vomiting - Discharge Plan *PRESCRIPTION DRUG MONITORING PROGRAM REVIEWED*: Not Applicable *COPY OF PRESCRIPTION DRUG MONITORING REPORT IN PATIENT SAGE: Not Applicable Prescriptions/Med Rec: Furosemide 40 mg PO BIDAC #60 tablet Home Medications: Home Meds Warfarin [Coumadin] 5 mg PO ASDIRECTED 12/20/16 [History] Carvedilol 12.5 mg PO BIDMEALS 07/13/18 [History] Lisinopril 20 mg PO DAILY 07/13/18 [History] Pramipexole [Mirapex] 1 - 2 mg PO BEDTIME 07/13/18 [History] B2/Vit A,C & E/Lut/Zeaxanth/Mn [Icaps] 1 tab PO DAILY 09/29/18 [History] Cholecalciferol (Vitamin D3) [Vitamin D3] 1,000 unit PO DAILY 09/29/18 [History] Loratadine [Claritin] 10 mg PO DAILY PRN 09/29/18 [History] Spironolactone [Aldactone] 25 mg PO DAILY 09/29/18 [History] Furosemide 40 mg PO BIDAC #60 tablet 10/02/18 [Rx] Pharmacy to Dose - Warfarin 0 dose .XX ASDIRECTED PRN each 10/02/18 [Rx] Other Amb Orders: BASIC METABOLIC PANEL,BMP [CHEM] Time Frame: 10/06/18, Location: None Selected INR,PT,PROTHROMBIN TIME [COAG] Time Frame: 10/06/18, Location: None Selected Oxygen Therapy Mode: Room Air Patient Handouts: Heart Failure, [id number], Living With Heart Failure, Atrial Fibrillation, [id number] Referrals: PCP,None [Primary Care Provider] - - Discharge Summary/Plan Comment DC Time >30 min.: No Discharge Summary/Plan Comment: Impression: Acute decompensation of DNF/HFpEF Query resp infection History of A fib on Coumadin, subtherapeutic Confirmed active Coumadin use, will consult pharmacy Chronic Depression HTN Query HLD Urinary Incontinence Restless Leg Syndrome CKD, stage 3 Obesity, class 3 Plan: Lasix gtt, finish today. Home meds, adjust as needed; hold ACEI while diuresing Daily labs; watch Cr Query resp infection Query ischemia Recheck home meds, clarify Coumadin use DVT/GI prophylaxis - General Info Date of Service: 09/29/18 Functional Status: Reports: Tolerating Diet, Ambulating, Urinating - Review of Systems General: Reports: No Symptoms HEENT: Reports: No Symptoms Pulmonary: Reports: No Symptoms Gastrointestinal: Reports: No Symptoms Genitourinary: Reports: No Symptoms Musculoskeletal: Reports: No Symptoms Skin: Reports: No Symptoms Neurological: Reports: No Symptoms Psychiatric: Reports: No Symptoms - Patient Data Vitals - Most Recent: Last Vital Signs Temp 36.7 C 10/02/18 08:22 Pulse 64 10/02/18 08:22 Resp 18 10/02/18 08:22 BP 117/63 10/02/18 08:22 Pulse Ox 94 L 10/02/18 08:22 Weight - Most Recent: 98.021 kg I&O - Last 24 hours: Intake & Output 10/01/18 10/02/18 10/02/18 22:59 06:59 14:59 Intake Total 452 400 300 Output Total 325 600 Balance 127 -200 300 Lab Results - Last 24 hrs: Laboratory Results - last 24 hr 10/02/18 10/02/18 10/02/18 Range/Units 07:19 07:19 07:19 WBC 5.53 (3.98-10.04) K/mm3 RBC 4.07 (3.98-5.22) M/mm3 Hgb 12.0 (11.2-15.7) gm/L Hct 39.0 (34.1-44.9) % MCV 95.8 H (79.4-94.8) fl MCH 29.5 (25.6-32.2) pg MCHC 30.8 L (32.2-35.5) g/dl RDW Std Deviation 45.6 (36.4-46.3) fL Plt Count 237 (182-369) K/mm3 MPV 9.8 (9.4-12.3) fl Neut % (Auto) 68.6 (34.0-71.1) % Lymph % (Auto) 17.0 L (19.3-51.7) % [place] % (Auto) 10.1 (4.7-12.5) % Eos % (Auto) 3.6 (0.7-5.8) Baso % (Auto) 0.5 (0.1-1.2) % Neut # (Auto) 3.79 (1.56-6.13) K/mm3 Lymph # (Auto) 0.94 L (1.18-3.74) K/mm3 [place] # (Auto) 0.56 H (0.24-0.36) K/mm3 Eos # (Auto) 0.20 (0.04-0.36) K/mm3 Baso # (Auto) 0.03 (0.01-0.08) K/mm3 PT (9.5-12.1) SECONDS INR Sodium 140 (136-145) mEq/L Potassium 4.0 (3.5-5.1) mEq/L Chloride 102 (98-107) mEq/L Carbon Dioxide 31 (21-32) mEq/L Anion Gap 11.0 (5-15) BUN 27 H (7-18) mg/dL Creatinine 1.0 (0.55-1.02) mg/dL Est Cr Clr Drug Dosing 30.62 mL/min Estimated GFR (MDRD) 53 (>60) mL/min BUN/Creatinine Ratio 27.0 H (14-18) Glucose 108 (83-115) mg/dL Calcium 9.5 (8.5-10.1) mg/dL Magnesium 2.7 H (1.8-2.4) mg/dl NT-Pro-B Natriuret Pep 1507 H (0-450) pg/mL 10/02/18 Range/Units 07:19 WBC (3.98-10.04) K/mm3 RBC (3.98-5.22) M/mm3 Hgb (11.2-15.7) gm/L Hct (34.1-44.9) % MCV (79.4-94.8) fl MCH (25.6-32.2) pg MCHC (32.2-35.5) g/dl RDW Std Deviation (36.4-46.3) fL Plt Count (182-369) K/mm3 MPV (9.4-12.3) fl Neut % (Auto) (34.0-71.1) % Lymph % (Auto) (19.3-51.7) % [place] % (Auto) (4.7-12.5) % Eos % (Auto) (0.7-5.8) Baso % (Auto) (0.1-1.2) % Neut # (Auto) (1.56-6.13) K/mm3 Lymph # (Auto) (1.18-3.74) K/mm3 [place] # (Auto) (0.24-0.36) K/mm3 Eos # (Auto) (0.04-0.36) K/mm3 Baso # (Auto) (0.01-0.08) K/mm3 PT 13.4 H (9.5-12.1) SECONDS INR 1.23 Sodium (136-145) mEq/L Potassium (3.5-5.1) mEq/L Chloride (98-107) mEq/L Carbon Dioxide (21-32) mEq/L Anion Gap (5-15) BUN (7-18) mg/dL Creatinine (0.55-1.02) mg/dL Est Cr Clr Drug Dosing mL/min Estimated GFR (MDRD) (>60) mL/min BUN/Creatinine Ratio (14-18) Glucose (83-115) mg/dL Calcium (8.5-10.1) mg/dL Magnesium (1.8-2.4) mg/dl NT-Pro-B Natriuret Pep (0-450) pg/mL Med Orders - Current: Current Medications Acetaminophen (Tylenol) 650 mg PO Q4H PRN PRN Reason: Pain/Fever Last Admin: 10/01/18 22:17 Dose: 650 mg Carvedilol (Coreg) 6.25 mg PO BIDMEALS [facility] Last Admin: 10/02/18 06:04 Dose: 6.25 mg Cholecalciferol (Vitamin D3) 1,000 units PO DAILY [facility] Last Admin: 10/02/18 08:25 Dose: 1,000 units Loratadine (Claritin) 10 mg PO DAILY PRN PRN Reason: Allergies Pramipexole Dihydrochloride (Mirapex) 2 mg PO BEDTIME [facility] Last Admin: 10/01/18 21:16 Dose: 2 mg Sodium Chloride (Saline Flush) 10 ml FLUSH ASDIRECTED PRN PRN Reason: Keep Vein Open Last Admin: 09/29/18 11:42 Dose: 10 ml Spironolactone (Aldactone) 25 mg PO DAILY [facility] Last Admin: 10/02/18 08:25 Dose: 25 mg Warfarin Sodium (Pharmacy To Dose - Warfarin) 0 dose .XX ASDIRECTED PRN PRN Reason: RX TO DOSE WARFARIN Warfarin Sodium (Coumadin) 7.5 mg PO QPM [facility] Stop: 10/02/18 18:01 Discontinued Medications Furosemide 100 mg/ Sodium (Chloride) 100 mls @ 4 mls/hr IV TITRATE [facility] Stop: 10/01/18 16:00 Last Admin: 09/30/18 16:08 Dose: 4 mg/hr, 4 mls/hr Magnesium Hydroxide (Milk Of Magnesia) 30 ml PO ONETIME ONE Stop: 10/01/18 18:33 Last Admin: 10/01/18 18:44 Dose: 30 ml Warfarin Sodium (Coumadin) 5 mg PO DAILY@1800 [facility] Last Admin: 09/30/18 17:34 Dose: 5 mg Warfarin Sodium (Coumadin) 2.5 mg PO ONETIME ONE Stop: 09/30/18 19:31 Last Admin: 09/30/18 20:04 Dose: 2.5 mg Warfarin Sodium (Coumadin) 7.5 mg PO QPM [facility] Stop: 10/01/18 18:01 Last Admin: 10/01/18 17:51 Dose: 7.5 mg - Exam Quality Assessment: Reports: DVT Prophylaxis General: Reports: Alert, Oriented, Cooperative, No Acute Distress HEENT: Reports: Pupils Equal, Pupils Reactive, EOMI Neck: Reports: Trachea Midline, No JVD Lungs: Reports: Normal Respiratory Effort Cardiovascular: Reports: Regular Rate GI/Abdominal Exam: Normal Bowel Sounds, Soft, Non-Tender, No Organomegaly (Female) Exam: Deferred Rectal (Female) Exam: Deferred Back Exam: Reports: Normal Inspection Extremities: Normal Inspection, Normal Capillary Refill, Pedal Edema (decreased to <1+) Skin: Reports: Warm Neurological: Reports: No New Focal Deficit, Normal Gait, Normal Speech Psy/Mental Status: Reports: Alert, Normal Affect, Normal Mood
[2018-10-02 15:57] VITALS: BP 126/60
[2018-10-02] MEDS ORDERED: Warfarin 7.5 MG Tab PO SCH (18:00)
== END 2018-10-02 14:13 | disposition home or self-care (01) | DRG 291 ==
LOC: JD.ED 11:24 → JD.MS 13:21 → UNDOADMIN 14:06
PROVIDERS: ADMIT Internal Medicine Cardiovascular Disease; ATTEND Internal Medicine Cardiovascular Disease
DX: I11.0 Hypertensive heart disease with heart failure (principal); I13.0 Hypertensive heart and chronic kidney disease with heart failure and stage 1 through stage 4 chronic kidney disease, or unspecified chronic kidney disease; I50.33 Acute on chronic diastolic (congestive) heart failure; I48.2 Chronic atrial fibrillation; G25.81 Restless legs syndrome; M19.90 Unspecified osteoarthritis, unspecified site; H54.7 Unspecified visual loss; G47.30 Sleep apnea, unspecified; E66.9 Obesity, unspecified; L50.9 Urticaria, unspecified; E11.22 Type 2 diabetes mellitus with diabetic chronic kidney disease; N18.3 Chronic kidney disease, stage 3 (moderate); E78.5 Hyperlipidemia, unspecified; R79.1 Abnormal coagulation profile; K59.00 Constipation, unspecified; R06.02 Shortness of breath; R05 Cough; R53.81 Other malaise; R53.1 Weakness; R06.00 Dyspnea, unspecified; R53.83 Other fatigue; R60.0 Localized edema; R42 Dizziness and giddiness; F32.9 Major depressive disorder, single episode, unspecified; N39.46 Mixed incontinence; M54.5 Low back pain; Z88.6 Allergy status to analgesic agent; Z88.1 Allergy status to other antibiotic agents; Z88.5 Allergy status to narcotic agent; Z88.0 Allergy status to penicillin; Z88.8 Allergy status to other drugs, medicaments and biological substances; Z91.048 Other nonmedicinal substance allergy status; Z79.899 Other long term (current) drug therapy; Z90.49 Acquired absence of other specified parts of digestive tract; Z90.710 Acquired absence of both cervix and uterus; Z79.01 Long term (current) use of anticoagulants; Z66 Do not resuscitate
CPT/HCPCS: 36415; 71045; 71045-26; 80048; 80053; 82553; 83735; 83880; 84484; 85007; 85025; 85027; 85610; 86738; 87804; 93005; 93010; 97110-GP; 97116-GP; 97162-GP; 97165-GO; 97530-GO; 99285; 99285-25; A9270-GY; J1940; J7030

== ENCOUNTER 2018-11-07 10:54 | Observation (INO) | payer MEDICARE, OTHER ==
--- NOTE | 2018-11-07 11:10 | EDM.PDOC ---
ED HPI GENERAL MEDICAL PROBLEM - General Stated Complaint: CONSTIPATION Time Seen by Provider: 11/07/18 11:09 Source of Information: Reports: Patient - History of Present Illness INITIAL COMMENTS - FREE TEXT/NARRATIVE: Patient is brought here today by a friend for evaluation of constipation and feeling overall weak and fatigued.. She states that she has had her diuretic adjust recently and this caused her to be feel dehydrated and she has had difficulty passing her bowels. He was evaluated in the clinic yesterday by her PCP, x-ray at that time demonstrated mild increase in stool throughout the colon. Patient received 2 enemas in the clinic without results. She was told to take MiraLAX at home, she took this and it caused her to vomit. Patient states that she has not tried any other medications at home. She does not take any stool softeners. She was also recently started on iron, has been taking this daily for the past week. Patient denies any abdominal pain. She does not feel bloated. She does not have any chest pain or shortness of breath. Primary complaint is constipation and weakness. Patient reports an 18 pound weight loss in the last month or 2. She is doing this intentionally through [employer] and increased activity. History of CHF. She was previously on the metaxalone once weekly, this was increased to daily and now stopped yesterday. - Related Data Allergies Allergy/AdvReac Type Severity Reaction Status Date / Time amoxicillin Allergy Rash Verified 11/07/18 11:25 aspirin Allergy Rash Verified 11/07/18 11:25 codeine Allergy Itching Verified 11/07/18 11:25 hydrocodone Allergy Rash Verified 11/07/18 11:25 morphine Allergy Rash Verified 11/07/18 11:25 naproxen [From Naprosyn] Allergy Rash Verified 11/07/18 11:25 Penicillins Allergy Itching Verified 11/07/18 11:25 weed pollen Allergy Rash Verified 11/07/18 11:25 Home Meds: Home Meds Warfarin [Coumadin] 5 mg PO ASDIRECTED 12/20/16 [History] Carvedilol 12.5 mg PO BIDMEALS 07/13/18 [History] Lisinopril 20 mg PO DAILY 07/13/18 [History] Pramipexole [Mirapex] 1 - 2 mg PO BEDTIME PRN 07/13/18 [History] B2/Vit A,C & E/Lut/Zeaxanth/Mn [Icaps] 1 tab PO DAILY 09/29/18 [History] Cholecalciferol (Vitamin D3) [Vitamin D3] 1,000 unit PO DAILY 09/29/18 [History] Loratadine [Claritin] 10 mg PO DAILY PRN 09/29/18 [History] Spironolactone [Aldactone] 25 mg PO DAILY 09/29/18 [History] Pharmacy to Dose - Warfarin 0 dose .XX ASDIRECTED PRN each 10/02/18 [Rx] Furosemide 80 mg PO DAILY 11/07/18 [History] Potassium Chloride 20 meq PO DAILY #10 tablet.er 11/07/18 [Rx] Past Medical History HEENT History: Reports: Impaired Vision Other HEENT History: Left side "Wall eye" Cardiovascular History: Reports: Afib (chronic), Heart Failure (diastolic), Hypertension Respiratory History: Reports: Sleep Apnea (untreated) Gastrointestinal History: Reports: Cholelithiasis Genitourinary History: Reports: Urinary Incontinence [employer]MITE [employer] REPRESENTATIVE History: Reports: Musculoskeletal History: Reports: Osteoarthritis, Osteoporosis Neurological History: Reports: Other (See Below) (Restless leg syndrome) Other Neuro History: mild concussion, restless legs Psychiatric History: Reports: Anxiety, Depression Endocrine/Metabolic History: Reports: Diabetes, Type II, Obesity/BMI 30+ Hematologic History: Reports: Anticoagulation Therapy (coumadin) Dermatologic History: Reports: Urticaria - Infectious Disease History Infectious Disease History: Reports: Chicken Pox, Measles, Mumps - Past Surgical History HEENT Surgical History: Reports: Cataract Surgery GI Surgical History: Reports: Appendectomy, Cholecystectomy, Colonoscopy Female Surgical History: Reports: Hysterectomy, Salpingo-Oophorectomy Musculoskeletal Surgical History: Reports: Shoulder Surgery (bilateral, arthroscopic), Other (See Below) (Left bunionectomy) Social & Family History - Family History Family Medical History: Noncontributory HEENT: Reports: Cataract, Impaired Vision, Macular Degeneration Cardiac: Reports: Afib, Heart Failure, [place] Respiratory: Reports: Sleep Apnea Musculoskeletal: Reports: Arthritis, Back pain, Chronic Neurological: Reports: Migraines Endocrine/Metabolic: Reports: Diabetes, type II, Obesity/MBI 30+ Dermatologic: Reports: Urticaria Oncologic: Reports: Colon, Liver, Lung, Pancreatic, Prostate, Uterine, Other ( See Below) - Caffeine Use Caffeine Use: Reports: Coffee - Living Situation & Occupation Living situation: Reports: , Alone Occupation: Retired ED ROS GENERAL - Review of Systems Review Of Systems: See Below Constitutional: Denies: Fever, Chills, Malaise, Weakness, Decreased Appetite Respiratory: Reports: No Symptoms Cardiovascular: Denies: Chest Pain, Blood Pressure Problem, Claudication, Edema , Lightheadedness GI/Abdominal: Reports: Vomiting (x1 yesterday after taking Miralax). Denies: Abdominal Pain, Decreased Appetite, Flatus, Nausea Skin: Reports: No Symptoms Neurological: Reports: No Symptoms ED EXAM, GI/ABD - Physical Exam Exam: See Below General Appearance: Alert, WD/WN, No Apparent Distress, Obese Throat/Mouth: Normal Inspection, Normal Oropharynx, Other (Dentures) Head: Atraumatic, Normocephalic Neck: Normal Inspection, Supple, Non-Tender Respiratory/Chest: No Respiratory Distress, Lungs Clear, Normal Breath Sounds Cardiovascular: Normal Peripheral Pulses, Regular Rate, Rhythm, No Murmur GI/Abdominal Exam: Normal Bowel Sounds, Soft, Tender (Mild LUQ/LLQ tenderness). No: Distended Neurological: Alert, Oriented Psychiatric: Normal Affect, Normal Mood EKG INTERPRETATION EKG Date: 11/07/18 Time: 01:28 Rhythm: NSR Rate (Beats/Min): 59 EKG Interpretation Comments: atrial fibrillation Course - Vital Signs Last Recorded V/S: Last Vital Signs Temp 97.1 F 11/07/18 11:30 Pulse 66 11/07/18 11:30 Resp 20 11/07/18 11:30 BP 114/53 L 11/07/18 11:30 Pulse Ox 95 11/07/18 11:30 Orthostatic Blood Pressure [ 83/61 Standing] Orthostatic Blood Pressure [ 101/63 Sitting] Orthostatic Blood Pressure [ 110/70 Supine] - Orders/Labs/Meds Orders: Active Orders 24 hr Category Date Time Status EKG 12 Lead [EKG Documentation Completion] [RC] STAT Care 11/07/18 11:46 Active Orthostatic Vital Signs [RC] ONETIME Care 11/07/18 11:45 Active PRO B-TYPE NATRIUR PEPT,BNPPRO [CHEM] Stat Lab 11/07/18 12:10 Received Sodium Chloride 0.9% [Saline Flush] Med 11/07/18 11:46 Active 10 ml FLUSH ASDIRECTED PRN Saline Lock Insert [OM.PC] Routine Oth 11/07/18 11:46 Ordered Medication Orders Sodium Chloride (Saline Flush) 10 ml FLUSH ASDIRECTED PRN PRN Reason: Keep Vein Open Last Admin: 11/07/18 14:32 Dose: 10 ml Admin: 11/07/18 12:29 Dose: 10 ml Labs: Laboratory Tests 11/07/18 11/07/18 11/07/18 Range/Units 12:10 12:10 12:10 WBC 7.53 (3.98-10.04) K/mm3 RBC 5.11 (3.98-5.22) M/mm3 Hgb 15.0 (11.2-15.7) gm/L Hct 45.7 H (34.1-44.9) % MCV 89.4 (79.4-94.8) fl MCH 29.4 (25.6-32.2) pg MCHC 32.8 (32.2-35.5) g/dl RDW Std Deviation 44.0 (36.4-46.3) fL Plt Count 252 (182-369) K/mm3 MPV 10.4 (9.4-12.3) fl Neutrophils % (Manual) 77 H (40-60) % Band Neutrophils % 1 (0-10) % Lymphocytes % (Manual) 19 L (20-40) % Atypical Lymphs % 0 % Monocytes % (Manual) 3 (2-10) % Eosinophils % (Manual) 0 L (0.7-5.8) % Basophils % (Manual) 0 L (0.1-1.2) Platelet Estimate Adequate RBC Morph Comment Normal Sodium 134 L (136-145) mEq/L Potassium 3.2 L (3.5-5.1) mEq/L Chloride 92 L (98-107) mEq/L Carbon Dioxide 33 H (21-32) mEq/L Anion Gap 12.2 (5-15) BUN 58 H (7-18) mg/dL Creatinine 1.2 H (0.55-1.02) mg/dL Est Cr Clr Drug Dosing 25.51 mL/min Estimated GFR (MDRD) 43 (>60) mL/min BUN/Creatinine Ratio 48.3 H (14-18) Glucose 145 H (83-115) mg/dL Calcium 10.1 (8.5-10.1) mg/dL Magnesium 3.1 H (1.8-2.4) mg/dl Total Bilirubin 0.8 (0.2-1.0) mg/dL AST 21 (15-37) U/L ALT 26 (14-59) U/L Alkaline Phosphatase 95 (46-116) U/L Troponin I 0.031 (0.00-0.056) ng/mL Total Protein 8.6 H (6.4-8.2) g/dl Albumin 3.8 (3.4-5.0) g/dl Globulin 4.8 gm/dL Albumin/Globulin Ratio 0.8 L (1-2) Urine Color (Yellow) Urine Appearance (Clear) Urine pH (5.0-8.0) Ur Specific [place] (1.005-1.030) Urine Protein (Negative) Urine Glucose (UA) (Negative) Urine Ketones (Negative) Urine Occult Blood (Negative) Urine Nitrite (Negative) Urine Bilirubin (Negative) Urine Urobilinogen (0.2-1.0) Ur Leukocyte Esterase (Negative) Urine RBC (0-5) /hpf Urine WBC (0-5) /hpf Ur Epithelial Cells (0-5) /hpf Urine Bacteria (FEW) /hpf Urine Mucus (FEW) /hpf 11/07/18 11/07/18 Range/Units 12:19 16:05 WBC (3.98-10.04) K/mm3 RBC (3.98-5.22) M/mm3 Hgb (11.2-15.7) gm/L Hct (34.1-44.9) % MCV (79.4-94.8) fl MCH (25.6-32.2) pg MCHC (32.2-35.5) g/dl RDW Std Deviation (36.4-46.3) fL Plt Count (182-369) K/mm3 MPV (9.4-12.3) fl Neutrophils % (Manual) (40-60) % Band Neutrophils % (0-10) % Lymphocytes % (Manual) (20-40) % Atypical Lymphs % % Monocytes % (Manual) (2-10) % Eosinophils % (Manual) (0.7-5.8) % Basophils % (Manual) (0.1-1.2) Platelet Estimate RBC Morph Comment Sodium (136-145) mEq/L Potassium (3.5-5.1) mEq/L Chloride (98-107) mEq/L Carbon Dioxide (21-32) mEq/L Anion Gap (5-15) BUN (7-18) mg/dL Creatinine (0.55-1.02) mg/dL Est Cr Clr Drug Dosing mL/min Estimated GFR (MDRD) (>60) mL/min BUN/Creatinine Ratio (14-18) Glucose (83-115) mg/dL Calcium (8.5-10.1) mg/dL Magnesium (1.8-2.4) mg/dl Total Bilirubin (0.2-1.0) mg/dL AST (15-37) U/L ALT (14-59) U/L Alkaline Phosphatase (46-116) U/L Troponin I 0.050 (0.00-0.056) ng/mL Total Protein (6.4-8.2) g/dl Albumin (3.4-5.0) g/dl Globulin gm/dL Albumin/Globulin Ratio (1-2) Urine Color Yellow (Yellow) Urine Appearance Clear (Clear) Urine pH 6.0 (5.0-8.0) Ur Specific [place] 1.015 (1.005-1.030) Urine Protein Negative (Negative) Urine Glucose (UA) Negative (Negative) Urine Ketones Trace H (Negative) Urine Occult Blood Negative (Negative) Urine Nitrite Negative (Negative) Urine Bilirubin Negative (Negative) Urine Urobilinogen 0.2 (0.2-1.0) Ur Leukocyte Esterase Negative (Negative) Urine RBC 0-5 (0-5) /hpf Urine WBC 0-5 (0-5) /hpf Ur Epithelial Cells 5-10 H (0-5) /hpf Urine Bacteria Moderate H (FEW) /hpf Urine Mucus Not seen (FEW) /hpf Meds: Medications Generic Name Dose Route Start Last Admin Trade Name Freq PRN Reason Stop Dose Admin Sodium Chloride 10 ml 11/07/18 11:46 11/07/18 14:32 Saline Flush FLUSH 10 ml ASDIRECTED PRN Administration Keep Vein Open Discontinued Medications Generic Name Dose Route Start Last Admin Trade Name Freq PRN Reason Stop Dose Admin Diatrizoate Meglum/Diatrizoate Sod 120 ml 11/07/18 13:30 11/07/18 14:32 Gastrografin 37% PO 11/07/18 13:31 90 ml ONETIME ONE Administration Sodium Chloride 1,000 mls @ 250 mls/hr 11/07/18 12:12 11/07/18 12:29 Normal Saline IV 11/07/18 16:11 250 mls/hr ONETIME ONE Administration Iopamidol 100 ml 11/07/18 13:30 11/07/18 14:32 Isovue-300 (61%) IVPUSH 11/07/18 13:31 100 ml ONETIME ONE Administration Polyethylene Glycol 17 gm 11/07/18 12:38 11/07/18 12:59 Miralax PO 11/07/18 12:39 17 gm ONETIME ONE Administration Potassium Chloride 20 meq 11/07/18 15:11 11/07/18 16:55 Klor-Con M20 PO 11/07/18 15:12 20 meq ONETIME ONE Administration - Re-Assessments/Exams Free Text/Narrative Re-Assessment/Exam: CBC is normal. Creatinine 1.2, GFR 43 and a BUN of 58. Her potassium is low at 3.2. Magnesium is high at 3.1. She needs to avoid using anything for her constipation that contains magnesium in it. CT abdomen and pelvis demonstrates mild increased stool without the colon. Patient was given MiraLAX here in the emergency department. She did have a "pretty good size"soft bowel movement while here. Troponin undetectable but not still within normal range so this was repeated in 4 hours. This showed elevation from .031 to 0.05, while still normal this did rise. Discussed with hospitalist/Dr. Merritt who agrees to evaluate the patient as well to see if she should be admitted observation with her non-specific feelings of weakness, electrolyte abnormalities and rising troponin. 11/07/18 17:29 Dr Merritt agrees to admit patient to observation. 11/07/18 17:50 Departure - Departure Time of Disposition: 17:57 Disposition: Refer to Observation Condition: Fair Clinical Impression: Hypokalemia, Hypermagnesemia, Weakness Constipation Qualifiers: Constipation type: unspecified constipation type Qualified Code(s): K59.00 - Constipation, unspecified - Discharge Information - My Orders Last 24 Hours: My Active Orders 11/07/18 11:45 Orthostatic Vital Signs [RC] ONETIME 11/07/18 11:46 EKG 12 Lead [EKG Documentation Completion] [RC] STAT Sodium Chloride 0.9% [Saline Flush] 10 ml FLUSH ASDIRECTED PRN Saline Lock Insert [OM.PC] Routine 11/07/18 12:10 PRO B-TYPE NATRIUR PEPT,BNPPRO [CHEM] Stat - Assessment/Plan Last 24 Hours: My Active Orders 11/07/18 11:45 Orthostatic Vital Signs [RC] ONETIME 11/07/18 11:46 EKG 12 Lead [EKG Documentation Completion] [RC] STAT Sodium Chloride 0.9% [Saline Flush] 10 ml FLUSH ASDIRECTED PRN Saline Lock Insert [OM.PC] Routine 11/07/18 12:10 PRO B-TYPE NATRIUR PEPT,BNPPRO [CHEM] Stat
[2018-11-07] MEDS ORDERED: Sodium Chloride 0.9% 1,000 ML IV ONE (12:12)
[2018-11-07] MEDS: Sodium Chloride 0.9% 10 ML Syringe FLUSH PRN ×2 (12:29→14:32)
[2018-11-07] MEDS ORDERED: Polyethylene Glycol 3350 Powder 17 GM Packet PO ONE (12:38)
[2018-11-07] MEDS ORDERED: Iopamidol 612 MG/ML 100 ML Bottle IVPUSH ONE (13:30)
[2018-11-07] MEDS ORDERED: Sodium Chloride 0.9% 10 ML Syringe IARTIC ONE (13:30)
[2018-11-07] MEDS ORDERED: Diatrizoate Meglumine/Diatrizoate Sodium 37% 120 ML Bottle PO ONE (13:30)
--- NOTE | 2018-11-07 15:02 | CT ---
CT abdomen and pelvis Technique: Multiple axial sections were obtained from above the dome of the diaphragm inferiorly through the pubic symphysis. Intravenous and oral contrast was utilized. Delayed images were also obtained through the bladder. Comparison: Prior abdominal x-ray of 11/06/18. Findings: Slight nodular areas of pleural thickening are seen within both lung bases which are believed to be incidental. Heart is enlarged. Liver contains no focal abnormality. Surgical clips are seen from prior cholecystectomy. Spleen appears within normal limits. Adrenal glands show no nodule. Pancreas is within normal limits. Right kidney shows a small nonobstructing stone within the midpole. Very small cyst is noted within the right kidney. Kidneys are otherwise unremarkable. Aorta shows no aneurysm. No retroperitoneal adenopathy or mesenteric abnormalities are seen. No pelvic mass or adenopathy is seen. Small fat-containing umbilical hernia is seen. Appendix not visualized. No pelvic mass or adenopathy is seen. Delayed images shows contrast within the ureters and bladder. Mild increased stool is seen throughout colon. Bone window settings were reviewed which shows spondylolisthesis at L5-S1 measuring 1.1 cm. This is due to bilateral spondylolytic defects. Scattered degenerative change is seen throughout the spine. Impression: 1. Incidental findings as noted above. 2. Mild increased stool within the colon. 3. Nothing acute is appreciated on CT study of the abdomen and pelvis. Diagnostic code #2
[2018-11-07] MEDS ORDERED: Potassium Chloride 20 MEQ Tab.ER PO ONE (15:11)
[2018-11-07] MEDS ORDERED: Polyethylene Glycol 3350 Powder 17 GM Packet PO PRN (19:11)
[2018-11-07] MEDS ORDERED: Docusate Sodium 100 MG Cap PO PRN (19:11)
[2018-11-07] MEDS ORDERED: Bisacodyl 5 MG Tab PO PRN (19:11)
[2018-11-07] MEDS ORDERED: Temazepam 7.5 MG Cap PO PRN (19:11)
[2018-11-07] MEDS ORDERED: Promethazine 25 MG Tab PO PRN (19:11)
[2018-11-07] MEDS ORDERED: Promethazine 6.25 MG in Sodium Chloride 0.9% 50 ML IV PRN (19:11)
--- NOTE | 2018-11-07 19:27 | PCM.HP ---
H&P History of Present Illness - General Date of Service: 11/07/18 Admit Problem/Dx: Admission Diagnosis/Problem Admission Diagnosis/Problem Weakness Source of Information: Patient, Provider History Limitations: Reports: No Limitations - History of Present Illness Initial Comments - Free Text/Narative: This is an 83 yo female with past medical h/o HTN, CHF (diastolic), Afib on Warfarin, DM2, NYASIA, Urinary Incontinence, RLS, Depression, Anxiety who comes in for constipation and hypermagnesemia, hypokalemia, hyponatremia. Pt c/o constipation, feeling overall weak, fatigued. Pt denies CP, SOB, abdominal pain , bloating. She has had an 18lb weight loss x1-2 months through Weight Watchers and increased activity. She states that she has had her diuretic adjust recently and this caused her to be feel dehydrated and she has had difficulty passing her bowels. Ab XR at clinic yesterday showed increased stool in colon. 2 enemas in clinic with no results. Miralax made her vomit. She was also recently started on iron, has been taking this daily for the past week. Her initial work up in ED shows a CBC remarkable for Hct 45.7, Neut 77%, Lymph 19%. Chemistry is significant for Na 134, K 3.2, Cl 92, CO2 33, BUN 58, Cr 1.2, GFR 43, Glu 145, Mg 3.1, Protein 8.6. UA not impressive for UTI. CT abdomen shows mild increased stool within the colon, nothing acute. She is subsequently admitted to the medical floor for observation. She is a DNR/ DNI. Her PCP is Jaimie Sexton PA-C. - Related Data Allergies/Adverse Reactions: Allergies Allergy/AdvReac Type Severity Reaction Status Date / Time amoxicillin Allergy Rash Verified 11/07/18 11:25 aspirin Allergy Rash Verified 11/07/18 11:25 codeine Allergy Itching Verified 11/07/18 11:25 hydrocodone Allergy Rash Verified 11/07/18 11:25 morphine Allergy Rash Verified 11/07/18 11:25 naproxen [From Naprosyn] Allergy Rash Verified 11/07/18 11:25 Penicillins Allergy Itching Verified 11/07/18 11:25 weed pollen Allergy Rash Verified 11/07/18 11:25 Home Medications: Home Meds Warfarin [Coumadin] 5 mg PO ASDIRECTED 04/13/17 [History] Carvedilol 12.5 mg PO BIDMEALS 07/13/18 [History] Lisinopril 20 mg PO DAILY 07/13/18 [History] Pramipexole [Mirapex] 1 - 2 mg PO BEDTIME PRN 07/13/18 [History] B2/Vit A,C & E/Lut/Zeaxanth/Mn [Icaps] 1 tab PO DAILY 09/29/18 [History] Cholecalciferol (Vitamin D3) [Vitamin D3] 1,000 unit PO DAILY 09/29/18 [History] Loratadine [Claritin] 10 mg PO DAILY PRN 09/29/18 [History] Spironolactone [Aldactone] 25 mg PO DAILY 09/29/18 [History] Pharmacy to Dose - Warfarin 0 dose .XX ASDIRECTED PRN each 10/02/18 [Rx] Furosemide 80 mg PO DAILY 11/07/18 [History] Potassium Chloride 20 meq PO DAILY #10 tablet.er 11/07/18 [Rx] Past Medical History HEENT History: Reports: Impaired Vision Other HEENT History: Left side "Wall eye" Cardiovascular History: Reports: Afib (chronic), Heart Failure (diastolic), Hypertension Respiratory History: Reports: Sleep Apnea (untreated) Gastrointestinal History: Reports: Cholelithiasis Genitourinary History: Reports: Urinary Incontinence 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: Reports: Musculoskeletal History: Reports: Osteoarthritis, Osteoporosis Neurological History: Reports: Other (See Below) (Restless leg syndrome) Other Neuro History: mild concussion, restless legs Psychiatric History: Reports: Anxiety, Depression Endocrine/Metabolic History: Reports: Diabetes, Type II, Obesity/BMI 30+ Hematologic History: Reports: Anticoagulation Therapy (coumadin) Dermatologic History: Reports: Urticaria - Infectious Disease History Infectious Disease History: Reports: Chicken Pox, Measles, Mumps - Past Surgical History HEENT Surgical History: Reports: Cataract Surgery GI Surgical History: Reports: Appendectomy, Cholecystectomy, Colonoscopy Female Surgical History: Reports: Hysterectomy, Salpingo-Oophorectomy Musculoskeletal Surgical History: Reports: Shoulder Surgery (bilateral, arthroscopic), Other (See Below) (Left bunionectomy) Social & Family History - Family History Family Medical History: Noncontributory HEENT: Reports: Cataract, Impaired Vision, Macular Degeneration Cardiac: Reports: Afib, Heart Failure, [place] Respiratory: Reports: Sleep Apnea Musculoskeletal: Reports: Arthritis, Back pain, Chronic Neurological: Reports: Migraines Endocrine/Metabolic: Reports: Diabetes, type II, Obesity/MBI 30+ Dermatologic: Reports: Urticaria Oncologic: Reports: Colon, Liver, Lung, Pancreatic, Prostate, Uterine, Other ( See Below) - Tobacco Use Smoking Status *Q: Never Smoker Second Hand Smoke Exposure: No - Caffeine Use Caffeine Use: Reports: Coffee - Recreational Drug Use Recreational Drug Use: No - Living Situation & Occupation Living situation: Reports: , Alone Occupation: Retired H&P Review of Systems - Review of Systems: Review Of Systems: See Below General: Reports: No Symptoms. Denies: Fever, Chills HEENT: Reports: No Symptoms Pulmonary: Reports: No Symptoms Cardiovascular: Reports: No Symptoms Gastrointestinal: Reports: Abdominal Pain, Constipation. Denies: Hematochezia Genitourinary: Reports: No Symptoms Musculoskeletal: Reports: No Symptoms Skin: Reports: No Symptoms Psychiatric: Reports: No Symptoms Neurological: Reports: No Symptoms Hematologic/Lymphatic: Reports: No Symptoms Immunologic: Reports: No Symptoms Exam - Exam Exam: See Below - Vital Signs Vital Signs: Last Vital Signs Temp 97.1 F 11/07/18 11:30 Pulse 66 11/07/18 11:30 Resp 20 11/07/18 11:30 BP 114/53 L 11/07/18 11:30 Pulse Ox 95 11/07/18 11:30 Orthostatic Blood Pressure [ 83/61 Standing] Orthostatic Blood Pressure [ 101/63 Sitting] Orthostatic Blood Pressure [ 110/70 Supine] Weight: 189 lb - Exam Quality Assessment: DVT Prophylaxis General: Alert, Oriented, Cooperative HEENT: Conjunctiva Clear, EACs Clear, EOMI, Hearing Intact, Mucosa Moist & [place] , Nares Patent, Normal Nasal Septum, Posterior Pharynx Clear, PERRLA Neck: Supple, Trachea Midline, 2 Lungs: Clear to Auscultation, Normal Respiratory Effort Cardiovascular: Regular Rate, Regular Rhythm GI/Abdominal Exam: Normal Bowel Sounds, Soft, Non-Tender, No Organomegaly, No Distention, No Abnormal Bruit, No Mass, Pelvis Stable (Female) Exam: Deferred Rectal (Female) Exam: Deferred Back Exam: Normal Inspection Extremities: Normal Inspection, Normal Range of Motion, Non-Tender, No Pedal Edema, Normal Capillary Refill Peripheral Pulses: 2+: Posterior Tibial (L), Posterior Tibial (R), Dorsalis Pedis (L), Dorsalis Pedis (R) Skin: Warm, Dry, Intact Neurological: Cranial Nerves Intact (grossly) Neuro Extensive - Mental Status: Alert, Oriented x3, Normal Mood/Affect, Normal Cognition, Memory Intact Psychiatric: Alert, Normal Affect, Normal Mood - Patient Data Lab Results Last 24 hrs: Laboratory Results - last 24 hr 11/07/18 11/07/18 11/07/18 Range/Units 12:10 12:10 12:10 WBC 7.53 (3.98-10.04) K/mm3 RBC 5.11 (3.98-5.22) M/mm3 Hgb 15.0 (11.2-15.7) gm/L Hct 45.7 H (34.1-44.9) % MCV 89.4 (79.4-94.8) fl MCH 29.4 (25.6-32.2) pg MCHC 32.8 (32.2-35.5) g/dl RDW Std Deviation 44.0 (36.4-46.3) fL Plt Count 252 (182-369) K/mm3 MPV 10.4 (9.4-12.3) fl Neutrophils % (Manual) 77 H (40-60) % Band Neutrophils % 1 (0-10) % Lymphocytes % (Manual) 19 L (20-40) % Atypical Lymphs % 0 % Monocytes % (Manual) 3 (2-10) % Eosinophils % (Manual) 0 L (0.7-5.8) % Basophils % (Manual) 0 L (0.1-1.2) Platelet Estimate Adequate RBC Morph Comment Normal Sodium 134 L (136-145) mEq/L Potassium 3.2 L (3.5-5.1) mEq/L Chloride 92 L (98-107) mEq/L Carbon Dioxide 33 H (21-32) mEq/L Anion Gap 12.2 (5-15) BUN 58 H (7-18) mg/dL Creatinine 1.2 H (0.55-1.02) mg/dL Est Cr Clr Drug Dosing 25.51 mL/min Estimated GFR (MDRD) 43 (>60) mL/min BUN/Creatinine Ratio 48.3 H (14-18) Glucose 145 H (83-115) mg/dL Calcium 10.1 (8.5-10.1) mg/dL Magnesium 3.1 H (1.8-2.4) mg/dl Total Bilirubin 0.8 (0.2-1.0) mg/dL AST 21 (15-37) U/L ALT 26 (14-59) U/L Alkaline Phosphatase 95 (46-116) U/L Troponin I 0.031 (0.00-0.056) ng/mL Total Protein 8.6 H (6.4-8.2) g/dl Albumin 3.8 (3.4-5.0) g/dl Globulin 4.8 gm/dL Albumin/Globulin Ratio 0.8 L (1-2) Urine Color (Yellow) Urine Appearance (Clear) Urine pH (5.0-8.0) Ur Specific [place] (1.005-1.030) Urine Protein (Negative) Urine Glucose (UA) (Negative) Urine Ketones (Negative) Urine Occult Blood (Negative) Urine Nitrite (Negative) Urine Bilirubin (Negative) Urine Urobilinogen (0.2-1.0) Ur Leukocyte Esterase (Negative) Urine RBC (0-5) /hpf Urine WBC (0-5) /hpf Ur Epithelial Cells (0-5) /hpf Urine Bacteria (FEW) /hpf Urine Mucus (FEW) /hpf 11/07/18 11/07/18 Range/Units 12:19 16:05 WBC (3.98-10.04) K/mm3 RBC (3.98-5.22) M/mm3 Hgb (11.2-15.7) gm/L Hct (34.1-44.9) % MCV (79.4-94.8) fl MCH (25.6-32.2) pg MCHC (32.2-35.5) g/dl RDW Std Deviation (36.4-46.3) fL Plt Count (182-369) K/mm3 MPV (9.4-12.3) fl Neutrophils % (Manual) (40-60) % Band Neutrophils % (0-10) % Lymphocytes % (Manual) (20-40) % Atypical Lymphs % % Monocytes % (Manual) (2-10) % Eosinophils % (Manual) (0.7-5.8) % Basophils % (Manual) (0.1-1.2) Platelet Estimate RBC Morph Comment Sodium (136-145) mEq/L Potassium (3.5-5.1) mEq/L Chloride (98-107) mEq/L Carbon Dioxide (21-32) mEq/L Anion Gap (5-15) BUN (7-18) mg/dL Creatinine (0.55-1.02) mg/dL Est Cr Clr Drug Dosing mL/min Estimated GFR (MDRD) (>60) mL/min BUN/Creatinine Ratio (14-18) Glucose (83-115) mg/dL Calcium (8.5-10.1) mg/dL Magnesium (1.8-2.4) mg/dl Total Bilirubin (0.2-1.0) mg/dL AST (15-37) U/L ALT (14-59) U/L Alkaline Phosphatase (46-116) U/L Troponin I 0.050 (0.00-0.056) ng/mL Total Protein (6.4-8.2) g/dl Albumin (3.4-5.0) g/dl Globulin gm/dL Albumin/Globulin Ratio (1-2) Urine Color Yellow (Yellow) Urine Appearance Clear (Clear) Urine pH 6.0 (5.0-8.0) Ur Specific [place] 1.015 (1.005-1.030) Urine Protein Negative (Negative) Urine Glucose (UA) Negative (Negative) Urine Ketones Trace H (Negative) Urine Occult Blood Negative (Negative) Urine Nitrite Negative (Negative) Urine Bilirubin Negative (Negative) Urine Urobilinogen 0.2 (0.2-1.0) Ur Leukocyte Esterase Negative (Negative) Urine RBC 0-5 (0-5) /hpf Urine WBC 0-5 (0-5) /hpf Ur Epithelial Cells 5-10 H (0-5) /hpf Urine Bacteria Moderate H (FEW) /hpf Urine Mucus Not seen (FEW) /hpf Result Diagrams: 11/07/18 12:10 11/07/18 12:10 - Problem List (1) Constipation SNOMED Code(s): 10918781 ICD Code: K59.00 - CONSTIPATION, UNSPECIFIED Status: Acute Priority: High Current Visit: Yes Qualifiers: Constipation type: unspecified constipation type Qualified Code(s): K59.00 - Constipation, unspecified (2) Hypermagnesemia SNOMED Code(s): 29690297 ICD Code: E83.41 - HYPERMAGNESEMIA Status: Acute Priority: High Current Visit: Yes (3) Hypokalemia SNOMED Code(s): 43995769 ICD Code: E87.6 - HYPOKALEMIA Status: Acute Priority: High Current Visit: Yes (4) Hyponatremia SNOMED Code(s): 65020913 ICD Code: E87.1 - HYPO-OSMOLALITY AND HYPONATREMIA Status: Acute Priority : High Current Visit: Yes Problem List Initiated/Reviewed/Updated: Yes Orders Last 24hrs: Active Orders 24 hr Category Date Time Status Patient Status [ADT] Routine ADT 11/07/18 17:57 Active Antiembolic Devices [RC] PER UNIT ROUTINE Care 11/07/18 19:14 Ordered Dietary Supplements [RC] TIDMEALS Care 11/07/18 19:08 Ordered EKG 12 Lead [EKG Documentation Completion] [RC] STAT Care 11/07/18 11:46 Active Enema [RC] ASDIRECTED Care 11/07/18 19:10 Ordered Height and Weight [RC] DAILY Care 11/07/18 19:11 Ordered Intake and Output [RC] QSHIFT Care 11/07/18 19:12 Ordered May Shower [RC] ASDIRECTED Care 11/07/18 19:11 Ordered Orthostatic Vital Signs [RC] ONETIME Care 11/07/18 11:45 Active Oxygen Therapy [RC] PRN Care 11/07/18 19:11 Ordered Up ad Inge [RC] ASDIRECTED Care 11/07/18 19:11 Ordered VTE/DVT Education [RC] PER UNIT ROUTINE Care 11/07/18 19:11 Ordered Vital Signs [RC] Q6H Care 11/07/18 19:11 Ordered Consult to Tire Curer [CONS] Routine Cons 11/07/18 19:11 Ordered Clear Liquid Diet [DIET] Diet 11/08/18 Breakfast Ordered BASIC METABOLIC PANEL,BMP [CHEM] AM Lab 11/08/18 05:11 Ordered BASIC METABOLIC PANEL,BMP [CHEM] AM Lab 11/09/18 05:11 Ordered BASIC METABOLIC PANEL,BMP [CHEM] AM Lab 11/10/18 05:11 Ordered BASIC METABOLIC PANEL,BMP [CHEM] AM Lab 11/11/18 05:11 Ordered BASIC METABOLIC PANEL,BMP [CHEM] AM Lab 11/12/18 05:11 Ordered C-REACTIVE PROTEIN [CHEM] AM Lab 11/08/18 05:11 Ordered C-REACTIVE PROTEIN [CHEM] AM Lab 11/09/18 05:11 Ordered C-REACTIVE PROTEIN [CHEM] AM Lab 11/10/18 05:11 Ordered C-REACTIVE PROTEIN [CHEM] AM Lab 11/11/18 05:11 Ordered C-REACTIVE PROTEIN [CHEM] AM Lab 11/12/18 05:11 Ordered CBC WITH AUTO DIFF [HEME] AM Lab 11/08/18 05:11 Ordered CBC WITH AUTO DIFF [HEME] AM Lab 11/09/18 05:11 Ordered CBC WITH AUTO DIFF [HEME] AM Lab 11/10/18 05:11 Ordered CBC WITH AUTO DIFF [HEME] AM Lab 11/11/18 05:11 Ordered CBC WITH AUTO DIFF [HEME] AM Lab 11/12/18 05:11 Ordered MAGNESIUM [CHEM] AM Lab 11/08/18 05:11 Ordered MAGNESIUM [CHEM] AM Lab 11/09/18 05:11 Ordered MAGNESIUM [CHEM] AM Lab 11/10/18 05:11 Ordered MAGNESIUM [CHEM] AM Lab 11/11/18 05:11 Ordered MAGNESIUM [CHEM] AM Lab 11/12/18 05:11 Ordered PRO B-TYPE NATRIUR PEPT,BNPPRO [CHEM] AM Lab 11/08/18 05:11 Ordered PRO B-TYPE NATRIUR PEPT,BNPPRO [CHEM] AM Lab 11/09/18 05:11 Ordered PRO B-TYPE NATRIUR PEPT,BNPPRO [CHEM] AM Lab 11/10/18 05:11 Ordered PRO B-TYPE NATRIUR PEPT,BNPPRO [CHEM] AM Lab 11/11/18 05:11 Ordered PRO B-TYPE NATRIUR PEPT,BNPPRO [CHEM] AM Lab 11/12/18 05:11 Ordered PRO B-TYPE NATRIUR PEPT,BNPPRO [CHEM] Stat Lab 11/07/18 12:10 Received Acetaminophen [Tylenol] Med 11/07/18 19:11 Ordered 650 mg PO Q4H PRN Alum Hydrox/Mag Hydrox/Simeth [Mag-Al Plus] Med 11/07/18 21:00 Ordered 30 ml PO TID Bisacodyl [Dulcolax] Med 11/07/18 19:11 Ordered 5 mg PO DAILY PRN Docusate Sodium [Colace] Med 11/07/18 19:11 Ordered 100 mg PO BID PRN Docusate Sodium/Sennosides [Senna Plus] Med 11/07/18 19:11 Ordered 1 tab PO BID PRN Polyethylene Glycol 3350 [MiraLAX] Med 11/07/18 19:11 Ordered 17 gm PO DAILY PRN Promethazine [Phenergan] Med 11/07/18 19:11 Ordered 25 mg PO Q6H PRN Promethazine [Phenergan] 6.25 mg Med 11/07/18 19:11 Ordered Sodium Chloride 0.9% [Normal Saline] 50 ml IV Q6H Sodium Chloride 0.9% [Normal Saline] 1,000 ml Med 11/07/18 19:15 Ordered IV ASDIRECTED Sodium Chloride 0.9% [Saline Flush] Med 11/07/18 11:46 Active 10 ml FLUSH ASDIRECTED PRN Temazepam [Restoril] Med 11/07/18 19:11 Ordered 7.5 mg PO BEDTIME PRN Saline Lock Insert [OM.PC] Routine Oth 11/07/18 11:46 Ordered Resuscitation Status Routine Resus Stat 11/07/18 19:11 Ordered Medication Orders Acetaminophen (Tylenol) 650 mg PO Q4H PRN PRN Reason: Pain (Mild 1-3)/fever Al Hydroxide/Mg Hydroxide (Mag-Al Plus) 30 ml PO TIDMEALS NIRALI Bisacodyl (Dulcolax) 5 mg PO DAILY PRN PRN Reason: Constipation Docusate Sodium (Colace) 100 mg PO BID PRN PRN Reason: Constipation Sodium Chloride (Normal Saline) 1,000 mls @ 75 mls/hr IV ASDIRECTED NIRALI Promethazine HCl 6.25 mg/ (Sodium Chloride) 50.25 mls @ 100 mls/hr IV Q6H PRN PRN Reason: Nausea/Vomiting Polyethylene Glycol (Miralax) 17 gm PO DAILY PRN PRN Reason: Constipation Promethazine HCl (Phenergan) 25 mg PO Q6H PRN PRN Reason: Nausea/Vomiting Senna/Docusate Sodium (Senna Plus) 1 tab PO BID PRN PRN Reason: Constipation Sodium Chloride (Saline Flush) 10 ml FLUSH ASDIRECTED PRN PRN Reason: Keep Vein Open Last Admin: 11/07/18 14:32 Dose: 10 ml Admin: 11/07/18 12:29 Dose: 10 ml Temazepam (Restoril) 7.5 mg PO BEDTIME PRN PRN Reason: Sleep Assessment/Plan Comment:: Assessment/Plan: Acute: Constipation * Risk factors: Recently dieting (lost 18lb on weight watchers and inc activity) , recent adjustment to diuretic causing dehydration, started on daily iron supplement x 1 week * Mylanta and Prune juice at meals * Fleet enema * Dietary consult for healthy weight loss diet for diabetic and high fiber Chronic: HTN CHF, diastolic Afib on Warfarin DM2 * A1C pending * Glucose checks and ISS QID NYASIA Urinary Incontinence RLS Depression Anxiety Plan: Admit to Observation Home meds as above Routine AM Labs Clear liquid diet---> advance as tolerated (ADA) DVT/GI Prophylaxis: On warfarin/ Pepcid Code status: DNR/DNI; PCP: Jaimie Sexton PA-C
[2018-11-07] MEDS ORDERED: 50% Dextrose in Water 50 ML Syringe IVPUSH PRN (19:47)
[2018-11-07] MEDS: Insulin Lispro 100 Units/ML 3 ML Vial SUBCUT SCH (21:36)
[2018-11-07] MEDS: Aluminum Hydroxide/Magnesium Hydroxide/Simethicone Susp 30 ML Cup PO SCH (21:36)
[2018-11-07] MEDS: Sodium Chloride 0.9% 1,000 ML IV SCH (21:38)
[2018-11-08] MEDS: Acetaminophen 325 MG Tab PO PRN (05:32)
[2018-11-08] MEDS: Insulin Lispro 100 Units/ML 3 ML Vial SUBCUT SCH ×4 (07:50→22:07)
[2018-11-08] MEDS: Famotidine 20 MG Tab PO SCH (09:04)
[2018-11-08] MEDS: Aluminum Hydroxide/Magnesium Hydroxide/Simethicone Susp 30 ML Cup PO SCH ×3 (09:04→17:51)
--- NOTE | 2018-11-08 10:41 | PCM.PN ---
- General Info Date of Service: 11/08/18 Admission Dx/Problem (Free Text): Feels much better after IVF and at least 2 BMs. Functional Status: Reports: Pain Controlled, Tolerating Diet, Ambulating, Urinating - Review of Systems General: Reports: Weakness (decreased) HEENT: Reports: No Symptoms Pulmonary: Reports: No Symptoms Cardiovascular: Reports: No Symptoms Gastrointestinal: Reports: No Symptoms Genitourinary: Reports: No Symptoms Musculoskeletal: Reports: No Symptoms Skin: Reports: No Symptoms Neurological: Reports: No Symptoms Psychiatric: Reports: No Symptoms - Patient Data Vitals - Most Recent: Last Vital Signs Temp 36.4 C 11/08/18 01:38 Pulse 63 11/08/18 09:21 Resp 16 11/08/18 01:38 BP 101/79 11/08/18 09:21 Pulse Ox 95 11/08/18 09:21 Orthostatic Blood Pressure [ 83/61 Standing] Orthostatic Blood Pressure [ 101/63 Sitting] Orthostatic Blood Pressure [ 110/70 Supine] Weight - Most Recent: 90.537 kg I&O - Last 24 Hours: Intake & Output 11/07/18 11/08/18 11/08/18 22:59 06:59 14:59 Intake Total 743 Balance 743 Lab Results Last 24 Hours: Laboratory Results - last 24 hr 11/07/18 11/07/18 11/07/18 Range/Units 12:10 12:10 12:10 WBC 7.53 (3.98-10.04) K/mm3 RBC 5.11 (3.98-5.22) M/mm3 Hgb 15.0 (11.2-15.7) gm/L Hct 45.7 H (34.1-44.9) % MCV 89.4 (79.4-94.8) fl MCH 29.4 (25.6-32.2) pg MCHC 32.8 (32.2-35.5) g/dl RDW Std Deviation 44.0 (36.4-46.3) fL Plt Count 252 (182-369) K/mm3 MPV 10.4 (9.4-12.3) fl Neut % (Auto) (34.0-71.1) % Lymph % (Auto) (19.3-51.7) % [place] % (Auto) (4.7-12.5) % Eos % (Auto) (0.7-5.8) Baso % (Auto) (0.1-1.2) % Neut # (Auto) (1.56-6.13) K/mm3 Lymph # (Auto) (1.18-3.74) K/mm3 [place] # (Auto) (0.24-0.36) K/mm3 Eos # (Auto) (0.04-0.36) K/mm3 Baso # (Auto) (0.01-0.08) K/mm3 Neutrophils % (Manual) 77 H (40-60) % Band Neutrophils % 1 (0-10) % Lymphocytes % (Manual) 19 L (20-40) % Atypical Lymphs % 0 % Monocytes % (Manual) 3 (2-10) % Eosinophils % (Manual) 0 L (0.7-5.8) % Basophils % (Manual) 0 L (0.1-1.2) Manual Slide Review Platelet Estimate Adequate RBC Morph Comment Normal Sodium 134 L (136-145) mEq/L Potassium 3.2 L (3.5-5.1) mEq/L Chloride 92 L (98-107) mEq/L Carbon Dioxide 33 H (21-32) mEq/L Anion Gap 12.2 (5-15) BUN 58 H (7-18) mg/dL Creatinine 1.2 H (0.55-1.02) mg/dL Est Cr Clr Drug Dosing 25.51 mL/min Estimated GFR (MDRD) 43 (>60) mL/min BUN/Creatinine Ratio 48.3 H (14-18) Glucose 145 H (83-115) mg/dL POC Glucose (83-110) mg/dL Calcium 10.1 (8.5-10.1) mg/dL Magnesium 3.1 H (1.8-2.4) mg/dl Total Bilirubin 0.8 (0.2-1.0) mg/dL AST 21 (15-37) U/L ALT 26 (14-59) U/L Alkaline Phosphatase 95 (46-116) U/L Troponin I 0.031 (0.00-0.056) ng/mL C-Reactive Protein (<1.0) mg/dL Total Protein 8.6 H (6.4-8.2) g/dl Albumin 3.8 (3.4-5.0) g/dl Globulin 4.8 gm/dL Albumin/Globulin Ratio 0.8 L (1-2) Urine Color (Yellow) Urine Appearance (Clear) Urine pH (5.0-8.0) Ur Specific [place] (1.005-1.030) Urine Protein (Negative) Urine Glucose (UA) (Negative) Urine Ketones (Negative) Urine Occult Blood (Negative) Urine Nitrite (Negative) Urine Bilirubin (Negative) Urine Urobilinogen (0.2-1.0) Ur Leukocyte Esterase (Negative) Urine RBC (0-5) /hpf Urine WBC (0-5) /hpf Ur Epithelial Cells (0-5) /hpf Urine Bacteria (FEW) /hpf Urine Mucus (FEW) /hpf 11/07/18 11/07/18 11/07/18 Range/Units 12:19 16:05 21:33 WBC (3.98-10.04) K/mm3 RBC (3.98-5.22) M/mm3 Hgb (11.2-15.7) gm/L Hct (34.1-44.9) % MCV (79.4-94.8) fl MCH (25.6-32.2) pg MCHC (32.2-35.5) g/dl RDW Std Deviation (36.4-46.3) fL Plt Count (182-369) K/mm3 MPV (9.4-12.3) fl Neut % (Auto) (34.0-71.1) % Lymph % (Auto) (19.3-51.7) % [place] % (Auto) (4.7-12.5) % Eos % (Auto) (0.7-5.8) Baso % (Auto) (0.1-1.2) % Neut # (Auto) (1.56-6.13) K/mm3 Lymph # (Auto) (1.18-3.74) K/mm3 [place] # (Auto) (0.24-0.36) K/mm3 Eos # (Auto) (0.04-0.36) K/mm3 Baso # (Auto) (0.01-0.08) K/mm3 Neutrophils % (Manual) (40-60) % Band Neutrophils % (0-10) % Lymphocytes % (Manual) (20-40) % Atypical Lymphs % % Monocytes % (Manual) (2-10) % Eosinophils % (Manual) (0.7-5.8) % Basophils % (Manual) (0.1-1.2) Manual Slide Review Platelet Estimate RBC Morph Comment Sodium (136-145) mEq/L Potassium (3.5-5.1) mEq/L Chloride (98-107) mEq/L Carbon Dioxide (21-32) mEq/L Anion Gap (5-15) BUN (7-18) mg/dL Creatinine (0.55-1.02) mg/dL Est Cr Clr Drug Dosing mL/min Estimated GFR (MDRD) (>60) mL/min BUN/Creatinine Ratio (14-18) Glucose (83-115) mg/dL POC Glucose 136 H (83-110) mg/dL Calcium (8.5-10.1) mg/dL Magnesium (1.8-2.4) mg/dl Total Bilirubin (0.2-1.0) mg/dL AST (15-37) U/L ALT (14-59) U/L Alkaline Phosphatase (46-116) U/L Troponin I 0.050 (0.00-0.056) ng/mL C-Reactive Protein (<1.0) mg/dL Total Protein (6.4-8.2) g/dl Albumin (3.4-5.0) g/dl Globulin gm/dL Albumin/Globulin Ratio (1-2) Urine Color Yellow (Yellow) Urine Appearance Clear (Clear) Urine pH 6.0 (5.0-8.0) Ur Specific [place] 1.015 (1.005-1.030) Urine Protein Negative (Negative) Urine Glucose (UA) Negative (Negative) Urine Ketones Trace H (Negative) Urine Occult Blood Negative (Negative) Urine Nitrite Negative (Negative) Urine Bilirubin Negative (Negative) Urine Urobilinogen 0.2 (0.2-1.0) Ur Leukocyte Esterase Negative (Negative) Urine RBC 0-5 (0-5) /hpf Urine WBC 0-5 (0-5) /hpf Ur Epithelial Cells 5-10 H (0-5) /hpf Urine Bacteria Moderate H (FEW) /hpf Urine Mucus Not seen (FEW) /hpf 11/08/18 11/08/18 11/08/18 Range/Units 06:26 06:27 06:27 WBC 5.41 (3.98-10.04) K/mm3 RBC 4.60 (3.98-5.22) M/mm3 Hgb 13.5 (11.2-15.7) gm/L Hct 42.3 (34.1-44.9) % MCV 92.0 (79.4-94.8) fl MCH 29.3 (25.6-32.2) pg MCHC 31.9 L (32.2-35.5) g/dl RDW Std Deviation 45.8 (36.4-46.3) fL Plt Count 224 (182-369) K/mm3 MPV 10.5 (9.4-12.3) fl Neut % (Auto) 64.1 (34.0-71.1) % Lymph % (Auto) 18.1 L (19.3-51.7) % [place] % (Auto) 15.2 H (4.7-12.5) % Eos % (Auto) 2.0 (0.7-5.8) Baso % (Auto) 0.4 (0.1-1.2) % Neut # (Auto) 3.47 (1.56-6.13) K/mm3 Lymph # (Auto) 0.98 L (1.18-3.74) K/mm3 [place] # (Auto) 0.82 H (0.24-0.36) K/mm3 Eos # (Auto) 0.11 (0.04-0.36) K/mm3 Baso # (Auto) 0.02 (0.01-0.08) K/mm3 Neutrophils % (Manual) (40-60) % Band Neutrophils % (0-10) % Lymphocytes % (Manual) (20-40) % Atypical Lymphs % % Monocytes % (Manual) (2-10) % Eosinophils % (Manual) (0.7-5.8) % Basophils % (Manual) (0.1-1.2) Manual Slide Review Normal smear Platelet Estimate RBC Morph Comment Sodium 137 (136-145) mEq/L Potassium 3.2 L (3.5-5.1) mEq/L Chloride 98 (98-107) mEq/L Carbon Dioxide 35 H (21-32) mEq/L Anion Gap 7.2 (5-15) BUN 36 H (7-18) mg/dL Creatinine 1.0 (0.55-1.02) mg/dL Est Cr Clr Drug Dosing 30.62 mL/min Estimated GFR (MDRD) 53 (>60) mL/min BUN/Creatinine Ratio 36.0 H (14-18) Glucose 107 (83-115) mg/dL POC Glucose 114 H (83-110) mg/dL Calcium 8.8 (8.5-10.1) mg/dL Magnesium 2.8 H (1.8-2.4) mg/dl Total Bilirubin (0.2-1.0) mg/dL AST (15-37) U/L ALT (14-59) U/L Alkaline Phosphatase (46-116) U/L Troponin I (0.00-0.056) ng/mL C-Reactive Protein < 0.2 (<1.0) mg/dL Total Protein (6.4-8.2) g/dl Albumin (3.4-5.0) g/dl Globulin gm/dL Albumin/Globulin Ratio (1-2) Urine Color (Yellow) Urine Appearance (Clear) Urine pH (5.0-8.0) Ur Specific [place] (1.005-1.030) Urine Protein (Negative) Urine Glucose (UA) (Negative) Urine Ketones (Negative) Urine Occult Blood (Negative) Urine Nitrite (Negative) Urine Bilirubin (Negative) Urine Urobilinogen (0.2-1.0) Ur Leukocyte Esterase (Negative) Urine RBC (0-5) /hpf Urine WBC (0-5) /hpf Ur Epithelial Cells (0-5) /hpf Urine Bacteria (FEW) /hpf Urine Mucus (FEW) /hpf 11/08/18 Range/Units 10:07 WBC (3.98-10.04) K/mm3 RBC (3.98-5.22) M/mm3 Hgb (11.2-15.7) gm/L Hct (34.1-44.9) % MCV (79.4-94.8) fl MCH (25.6-32.2) pg MCHC (32.2-35.5) g/dl RDW Std Deviation (36.4-46.3) fL Plt Count (182-369) K/mm3 MPV (9.4-12.3) fl Neut % (Auto) (34.0-71.1) % Lymph % (Auto) (19.3-51.7) % [place] % (Auto) (4.7-12.5) % Eos % (Auto) (0.7-5.8) Baso % (Auto) (0.1-1.2) % Neut # (Auto) (1.56-6.13) K/mm3 Lymph # (Auto) (1.18-3.74) K/mm3 [place] # (Auto) (0.24-0.36) K/mm3 Eos # (Auto) (0.04-0.36) K/mm3 Baso # (Auto) (0.01-0.08) K/mm3 Neutrophils % (Manual) (40-60) % Band Neutrophils % (0-10) % Lymphocytes % (Manual) (20-40) % Atypical Lymphs % % Monocytes % (Manual) (2-10) % Eosinophils % (Manual) (0.7-5.8) % Basophils % (Manual) (0.1-1.2) Manual Slide Review Platelet Estimate RBC Morph Comment Sodium (136-145) mEq/L Potassium (3.5-5.1) mEq/L Chloride (98-107) mEq/L Carbon Dioxide (21-32) mEq/L Anion Gap (5-15) BUN (7-18) mg/dL Creatinine (0.55-1.02) mg/dL Est Cr Clr Drug Dosing mL/min Estimated GFR (MDRD) (>60) mL/min BUN/Creatinine Ratio (14-18) Glucose (83-115) mg/dL POC Glucose 213 H (83-110) mg/dL Calcium (8.5-10.1) mg/dL Magnesium (1.8-2.4) mg/dl Total Bilirubin (0.2-1.0) mg/dL AST (15-37) U/L ALT (14-59) U/L Alkaline Phosphatase (46-116) U/L Troponin I (0.00-0.056) ng/mL C-Reactive Protein (<1.0) mg/dL Total Protein (6.4-8.2) g/dl Albumin (3.4-5.0) g/dl Globulin gm/dL Albumin/Globulin Ratio (1-2) Urine Color (Yellow) Urine Appearance (Clear) Urine pH (5.0-8.0) Ur Specific [place] (1.005-1.030) Urine Protein (Negative) Urine Glucose (UA) (Negative) Urine Ketones (Negative) Urine Occult Blood (Negative) Urine Nitrite (Negative) Urine Bilirubin (Negative) Urine Urobilinogen (0.2-1.0) Ur Leukocyte Esterase (Negative) Urine RBC (0-5) /hpf Urine WBC (0-5) /hpf Ur Epithelial Cells (0-5) /hpf Urine Bacteria (FEW) /hpf Urine Mucus (FEW) /hpf Med Orders - Current: Current Medications Acetaminophen (Tylenol) 650 mg PO Q4H PRN PRN Reason: Pain (Mild 1-3)/fever Last Admin: 11/08/18 05:32 Dose: 650 mg Al Hydroxide/Mg Hydroxide (Mag-Al Plus) 30 ml PO TIDMEALS [facility] Last Admin: 11/08/18 09:04 Dose: 30 ml Bisacodyl (Dulcolax) 5 mg PO DAILY PRN PRN Reason: Constipation Dextrose/Water (Dextrose 50% In Water) 50 ml IVPUSH ASDIRECTED PRN PRN Reason: Hypoglycemia Docusate Sodium (Colace) 100 mg PO BID PRN PRN Reason: Constipation Last Admin: 11/07/18 21:37 Dose: 100 mg Famotidine (Pepcid) 20 mg PO DAILY [facility] Last Admin: 11/08/18 09:04 Dose: 20 mg Sodium Chloride (Normal Saline) 1,000 mls @ 75 mls/hr IV ASDIRECTED [facility] Last Admin: 11/07/18 21:38 Dose: 75 mls/hr Promethazine HCl 6.25 mg/ (Sodium Chloride) 50.25 mls @ 100 mls/hr IV Q6H PRN PRN Reason: Nausea/Vomiting Insulin Human Lispro (Humalog) 0 unit SUBCUT QIDACANDBED [facility]; Protocol Last Admin: 11/08/18 07:50 Dose: Not Given Polyethylene Glycol (Miralax) 17 gm PO DAILY PRN PRN Reason: Constipation Promethazine HCl (Phenergan) 25 mg PO Q6H PRN PRN Reason: Nausea/Vomiting Senna/Docusate Sodium (Senna Plus) 1 tab PO BID PRN PRN Reason: Constipation Last Admin: 11/07/18 21:37 Dose: 1 tab Sodium Chloride (Saline Flush) 10 ml FLUSH ASDIRECTED PRN PRN Reason: Keep Vein Open Last Admin: 11/07/18 14:32 Dose: 10 ml Temazepam (Restoril) 7.5 mg PO BEDTIME PRN PRN Reason: Sleep Discontinued Medications Diatrizoate Meglum/Diatrizoate Sod (Gastrografin 37%) 120 ml PO ONETIME ONE Stop: 11/07/18 13:31 Last Admin: 11/07/18 14:32 Dose: 90 ml Sodium Chloride (Normal Saline) 1,000 mls @ 250 mls/hr IV ONETIME ONE Stop: 11/07/18 16:11 Last Admin: 11/07/18 12:29 Dose: 250 mls/hr Iopamidol (Isovue-300 (61%)) 100 ml IVPUSH ONETIME ONE Stop: 11/07/18 13:31 Last Admin: 11/07/18 14:32 Dose: 100 ml Polyethylene Glycol (Miralax) 17 gm PO ONETIME ONE Stop: 11/07/18 12:39 Last Admin: 11/07/18 12:59 Dose: 17 gm Potassium Chloride (Klor-Con M20) 20 meq PO ONETIME ONE Stop: 11/07/18 15:12 Last Admin: 11/07/18 16:55 Dose: 20 meq - Exam Quality Assessment: DVT Prophylaxis General: Alert, Oriented, Cooperative, No Acute Distress HEENT: Pupils Equal, Pupils Reactive, EOMI Neck: Trachea Midline, No JVD Lungs: Normal Respiratory Effort Cardiovascular: Regular Rate GI/Abdominal Exam: Normal Bowel Sounds, Soft, Non-Tender, No Organomegaly, No Distention (Female) Exam: Deferred Back Exam: Normal Inspection Extremities: Normal Inspection, Non-Tender, Normal Capillary Refill Skin: Warm Neurological: No New Focal Deficit Psy/Mental Status: Alert, Normal Affect, Normal Mood - Problem List Review Problem List Initiated/Reviewed/Updated: Yes - Plan Plan:: Assessment/Plan: Acute: Constipation * Risk factors: Recently dieting (lost 18lb on weight watchers and inc activity) , recent adjustment to diuretic causing dehydration, started on daily iron supplement x 1 week * Mylanta and Prune juice at meals * Fleet enema * Dietary consult for healthy weight loss diet for diabetic and high fiber Chronic: HTN CHF, diastolic Afib on Warfarin DM2 * A1C pending * Glucose checks and ISS QID [place] Urinary Incontinence RLS Depression Anxiety Plan: Admit to Observation Home meds as above Routine AM Labs Clear liquid diet---> advance as tolerated (ADA) DVT/GI Prophylaxis: On warfarin/ Pepcid Code status: DNR/DNI; PCP: Jaimie Sexton PA-C DC 24 hours, will adjust home meds as needed.
[2018-11-08] MEDS: Sodium Chloride 0.9% 1,000 ML IV SCH (11:20)
[2018-11-08] MEDS ORDERED: Docusate Sodium 100 MG Cap PO SCH (14:45)
[2018-11-08] MEDS: Potassium Chloride 20 MEQ Tab.ER PO SCH ×2 (14:54→22:02)
[2018-11-09] MEDS: Acetaminophen 325 MG Tab PO PRN (03:00)
[2018-11-09] MEDS: Sodium Chloride 0.9% 1,000 ML IV SCH (04:30)
[2018-11-09] MEDS: Insulin Lispro 100 Units/ML 3 ML Vial SUBCUT SCH (08:09)
[2018-11-09] MEDS: Famotidine 20 MG Tab PO SCH (08:32)
[2018-11-09 08:39] VITALS: BP 120/84
--- NOTE | 2018-11-09 09:12 | PCM.DCSUM1 ---
Discharge Summary - Hospital Course Free Text/Narrative:: 83 year old female with abnormal electrolytes associated with dehydration and constipation. The patient received IV hydration and minor adjustments of medication. Dietary restrictions were also used as well as laxatives. The patient was DCd with resumption of her home meds ad education on bowel healthy habits. Labs have been scheduled for abnormal electrolytes including: Na, K, Mg. HPI Initial Comments: This is an 83 yo female with past medical h/o HTN, CHF (diastolic), Afib on Warfarin, DM2, [place]ASIA, Urinary Incontinence, RLS, Depression, Anxiety who comes in for constipation and hypermagnesemia, hypokalemia, hyponatremia. Pt c/o constipation, feeling overall weak, fatigued. Pt denies CP, SOB, abdominal pain , bloating. She has had an 18lb weight loss x1-2 months through Weight Watchers and increased activity. She states that she has had her diuretic adjust recently and this caused her to be feel dehydrated and she has had difficulty passing her bowels. Ab XR at clinic yesterday showed increased stool in colon. 2 enemas in clinic with no results. Miralax made her vomit. She was also recently started on iron, has been taking this daily for the past week. Her initial work up in ED shows a CBC remarkable for Hct 45.7, Neut 77%, Lymph 19%. Chemistry is significant for Na 134, K 3.2, Cl 92, CO2 33, BUN 58, Cr 1.2, GFR 43, Glu 145, Mg 3.1, Protein 8.6. UA not impressive for UTI. CT abdomen shows mild increased stool within the colon, nothing acute. She is subsequently admitted to the medical floor for observation. She is a DNR/ DNI. Her PCP is Jaimie Sexton PA-C. Diagnosis: Stroke: No - Discharge Data Discharge Date: 11/09/18 Discharge Disposition: Home, Self-Care 01 Condition: Good - Patient Summary/Data Consults: Consultations 11/07/18 19:11 Consult to Statement Processor [CONS] Routine - Patient Instructions Diet: Usual Diet as Tolerated Activity: As Tolerated Driving: Do Not Drive Showering/Bathing: May Shower Notify Provider of: Fever, Increased Pain, Nausea and/or Vomiting - Discharge Plan *PRESCRIPTION DRUG MONITORING PROGRAM REVIEWED*: Not Applicable *COPY OF PRESCRIPTION DRUG MONITORING REPORT IN PATIENT SAGE: Not Applicable Prescriptions/Med Rec: Bisacodyl [Dulcolax] 5 mg PO DAILY PRN #14 tablet PRN Reason: Constipation Docusate Sodium [Colace] 100 mg PO DAILY #100 cap Potassium Chloride 20 meq PO DAILY #10 tablet.er Home Medications: Home Meds Warfarin [Coumadin] 5 mg PO ASDIRECTED 12/20/16 [History] Carvedilol 12.5 mg PO BIDMEALS 07/13/18 [History] Lisinopril 20 mg PO DAILY 07/13/18 [History] Pramipexole [Mirapex] 1 - 2 mg PO BEDTIME PRN 07/13/18 [History] B2/Vit A,C & E/Lut/Zeaxanth/Mn [Icaps] 1 tab PO DAILY 09/29/18 [History] Cholecalciferol (Vitamin D3) [Vitamin D3] 1,000 unit PO DAILY 09/29/18 [History] Loratadine [Claritin] 10 mg PO DAILY PRN 09/29/18 [History] Spironolactone [Aldactone] 25 mg PO DAILY 09/29/18 [History] Pharmacy to Dose - Warfarin 0 dose .XX ASDIRECTED PRN each 10/02/18 [Rx] Potassium Chloride 20 meq PO DAILY #10 tablet.er 11/07/18 [Rx] Bisacodyl [Dulcolax] 5 mg PO DAILY PRN #14 tablet 11/09/18 [Rx] Docusate Sodium [Colace] 100 mg PO DAILY #100 cap 11/09/18 [Rx] Furosemide 80 mg PO DAILY #0 11/09/18 [Rx] Other Amb Orders: BASIC METABOLIC PANEL,BMP [CHEM] Time Frame: 11/12/18, Location: None Selected MAGNESIUM [CHEM] Time Frame: 11/12/18, Location: None Selected Oxygen Therapy Mode: Room Air Patient Handouts: Constipation, Adult Forms: ED Department Discharge Referrals: Jaimie Sexton PA-C [Primary Care Provider] - (Please follow up in 1 week.) - Discharge Summary/Plan Comment DC Time >30 min.: No Discharge Summary/Plan Comment: Assessment/Plan: Acute: Constipation * Risk factors: Recently dieting (lost 18lb on weight watchers and inc activity) , recent adjustment to diuretic causing dehydration, started on daily iron supplement x 1 week * Mylanta and Prune juice at meals * Fleet enema * Dietary consult for healthy weight loss diet for diabetic and high fiber Chronic: HTN CHF, diastolic Afib on Warfarin DM2 * A1C pending * Glucose checks and ISS QID [place] Urinary Incontinence RLS Depression Anxiety Plan: Admit to Observation Home meds as above Routine AM Labs Clear liquid diet---> advance as tolerated (ADA) DVT/GI Prophylaxis: On warfarin/ Pepcid Code status: DNR/DNI; PCP: Jaimie Sexton PA-C DC 24 hours, will adjust home meds as needed. - General Info Date of Service: 11/07/18 Functional Status: Reports: Tolerating Diet, Ambulating, Urinating - Review of Systems General: Reports: No Symptoms HEENT: Reports: No Symptoms Pulmonary: Reports: No Symptoms Cardiovascular: Reports: No Symptoms Gastrointestinal: Reports: No Symptoms Genitourinary: Reports: No Symptoms Musculoskeletal: Reports: No Symptoms Skin: Reports: No Symptoms Neurological: Reports: No Symptoms Psychiatric: Reports: No Symptoms - Patient Data Vitals - Most Recent: Last Vital Signs Temp 36.2 C 11/09/18 08:38 Pulse 54 L 11/09/18 08:38 Resp 18 11/09/18 08:38 BP 120/84 11/09/18 08:38 Pulse Ox 96 11/09/18 08:38 Orthostatic Blood Pressure [ 83/61 Standing] Orthostatic Blood Pressure [ 101/63 Sitting] Orthostatic Blood Pressure [ 110/70 Supine] Weight - Most Recent: 91.081 kg I&O - Last 24 hours: Intake & Output 11/08/18 11/09/18 11/09/18 22:59 06:59 14:59 Intake Total 0 1050 Balance 2080 1050 Lab Results - Last 24 hrs: Laboratory Results - last 24 hr 11/08/18 11/08/18 11/09/18 Range/Units 10:07 16:59 06:30 Sodium 138 (136-145) mEq/L Potassium 4.2 (3.5-5.1) mEq/L Chloride 103 (98-107) mEq/L Carbon Dioxide 29 (21-32) mEq/L Anion Gap 10.2 (5-15) BUN 17 (7-18) mg/dL Creatinine 0.8 (0.55-1.02) mg/dL Est Cr Clr Drug Dosing 38.27 mL/min Estimated GFR (MDRD) > 60 (>60) mL/min BUN/Creatinine Ratio 21.3 H (14-18) Glucose 101 (83-115) mg/dL POC Glucose 213 H 106 (83-110) mg/dL Calcium 8.9 (8.5-10.1) mg/dL Magnesium 2.6 H (1.8-2.4) mg/dl C-Reactive Protein 0.3 (<1.0) mg/dL Med Orders - Current: Current Medications Acetaminophen (Tylenol) 650 mg PO Q4H PRN PRN Reason: Pain (Mild 1-3)/fever Last Admin: 11/08/18 05:32 Dose: 650 mg Bisacodyl (Dulcolax) 5 mg PO DAILY PRN PRN Reason: Constipation Dextrose/Water (Dextrose 50% In Water) 50 ml IVPUSH ASDIRECTED PRN PRN Reason: Hypoglycemia Famotidine (Pepcid) 20 mg PO DAILY [facility] Last Admin: 11/09/18 08:32 Dose: 20 mg Sodium Chloride (Normal Saline) 1,000 mls @ 50 mls/hr IV ASDIRECTED [facility] Last Infusion: 11/08/18 13:52 Dose: 50 mls/hr Promethazine HCl 6.25 mg/ (Sodium Chloride) 50.25 mls @ 100 mls/hr IV Q6H PRN PRN Reason: Nausea/Vomiting Insulin Human Lispro (Humalog) 0 unit SUBCUT QIDACANDBED [facility]; Protocol Last Admin: 11/09/18 08:09 Dose: Not Given Polyethylene Glycol (Miralax) 17 gm PO DAILY PRN PRN Reason: Constipation Promethazine HCl (Phenergan) 25 mg PO Q6H PRN PRN Reason: Nausea/Vomiting Senna/Docusate Sodium (Senna Plus) 1 tab PO BID PRN PRN Reason: Constipation Last Admin: 11/07/18 21:37 Dose: 1 tab Sodium Chloride (Saline Flush) 10 ml FLUSH ASDIRECTED PRN PRN Reason: Keep Vein Open Last Admin: 11/07/18 14:32 Dose: 10 ml Temazepam (Restoril) 7.5 mg PO BEDTIME PRN PRN Reason: Sleep Discontinued Medications Al Hydroxide/Mg Hydroxide (Mag-Al Plus) 30 ml PO TIDMEALS [facility] Last Admin: 11/08/18 17:51 Dose: Not Given Diatrizoate Meglum/Diatrizoate Sod (Gastrografin 37%) 120 ml PO ONETIME ONE Stop: 11/07/18 13:31 Last Admin: 11/07/18 14:32 Dose: 90 ml Docusate Sodium (Colace) 100 mg PO BID PRN PRN Reason: Constipation Last Admin: 11/07/18 21:37 Dose: 100 mg Docusate Sodium (Colace) 100 mg PO BID [facility] Last Admin: 11/08/18 14:43 Dose: Not Given Sodium Chloride (Normal Saline) 1,000 mls @ 250 mls/hr IV ONETIME ONE Stop: 11/07/18 16:11 Last Admin: 11/07/18 12:29 Dose: 250 mls/hr Iopamidol (Isovue-300 (61%)) 100 ml IVPUSH ONETIME ONE Stop: 11/07/18 13:31 Last Admin: 11/07/18 14:32 Dose: 100 ml Polyethylene Glycol (Miralax) 17 gm PO ONETIME ONE Stop: 11/07/18 12:39 Last Admin: 11/07/18 12:59 Dose: 17 gm Potassium Chloride (Klor-Con M20) 20 meq PO ONETIME ONE Stop: 11/07/18 15:12 Last Admin: 11/07/18 16:55 Dose: 20 meq Potassium Chloride (Klor-Con M20) 40 meq PO BID [facility] Stop: 11/08/18 21:01 Last Admin: 11/08/18 22:02 Dose: 40 meq - Exam Quality Assessment: Reports: DVT Prophylaxis General: Reports: Alert, Oriented, Cooperative, No Acute Distress HEENT: Reports: Pupils Equal, Pupils Reactive, EOMI Neck: Reports: Trachea Midline, No JVD Lungs: Reports: Normal Respiratory Effort Cardiovascular: Reports: Regular Rate GI/Abdominal Exam: Normal Bowel Sounds, Soft, Non-Tender, No Organomegaly, No Distention (Female) Exam: Deferred Rectal (Female) Exam: Deferred Back Exam: Reports: Normal Inspection Extremities: Normal Inspection, Non-Tender, Normal Capillary Refill Skin: Reports: Warm, Dry Neurological: Reports: No New Focal Deficit Psy/Mental Status: Reports: Alert, Normal Affect, Normal Mood
[2018-11-10] MEDS ORDERED: Docusate Sodium 100 MG Cap PO SCH (09:00)
[2018-11-10 18:48] LABS: HEMOGLOBIN A1C 6.5 % (4.50-6.20)
== END 2018-11-09 10:59 | disposition home or self-care (01) ==
LOC: JD.ED 10:54 → JD.ICU 17:57 → JD.MS 18:52
PROVIDERS: ADMIT Internal Medicine Cardiovascular Disease; ATTEND Internal Medicine Cardiovascular Disease
DX: K59.00 Constipation, unspecified (principal); E87.6 Hypokalemia; E83.41 Hypermagnesemia; E87.1 Hypo-osmolality and hyponatremia; E86.0 Dehydration; I48.91 Unspecified atrial fibrillation; I11.0 Hypertensive heart disease with heart failure; M19.90 Unspecified osteoarthritis, unspecified site; F41.9 Anxiety disorder, unspecified; F32.9 Major depressive disorder, single episode, unspecified; E11.9 Type 2 diabetes mellitus without complications; E66.9 Obesity, unspecified; G47.33 Obstructive sleep apnea (adult) (pediatric); I50.30 Unspecified diastolic (congestive) heart failure; Z88.1 Allergy status to other antibiotic agents; Z88.6 Allergy status to analgesic agent; Z88.5 Allergy status to narcotic agent; Z91.09 Other allergy status, other than to drugs and biological substances; Z79.01 Long term (current) use of anticoagulants; Z79.899 Other long term (current) drug therapy
CPT/HCPCS: 36415; 74177; 80048; 80053; 81001; 82962; 83036; 83735; 83880; 84484; 85007; 85025; 85027; 86140; 93005; 96360; 96361; 99284; A9270; J7040; Q9963; Q9967; 93010; G0378

== ENCOUNTER 2020-05-20 13:00 | Emergency (ER) | payer MEDICARE, OTHER ==
--- NOTE | 2020-05-20 13:34 | CT ---
Head CT Technique: Multiple axial sections through the brain were obtained. Intravenous contrast was not utilized. Comparison: No prior intracranial imaging is available. Findings: Ventricles along with basal cisterns and sulci over the convexities appear mildly prominent. No abnormal parenchymal densities are seen. Small subcutaneous hematoma is seen within this upper left scalp. No evidence of intracranial hemorrhage. No midline shift or mass-effect is seen. Visualized paranasal sinuses shows nothing acute. No acute findings within the mastoid sinus. No acute calvarial abnormality is seen. Small lipoma is noted within the right forehead. Impression: 1. Findings as noted above. 2. No acute intracranial abnormality is appreciated. Diagnostic code #2 This report was dictated in MDT
--- NOTE | 2020-05-20 13:44 | EDM.PDOC ---
ED HPI GENERAL MEDICAL PROBLEM - General Chief Complaint: General Stated Complaint: [facility] Time Seen by Provider: 05/20/20 13:06 Source of Information: Reports: Patient, EMS History Limitations: Reports: No Limitations - History of Present Illness INITIAL COMMENTS - FREE TEXT/NARRATIVE: The patient presents by [facility] for a fall. She is on eliquis and she did hit her head. She has no LOC and she has a mild headache now. She has no neck pain, chest pain, shortness of breath, hip or leg pain. She no numbness or weakness. She does have some erythema and edema of the left leg. She was seen at the [facility] and they have her on antibiotics. Onset: Sudden Duration: Minutes: Location: Reports: Head Quality: Reports: Ache Severity: Mild Improves with: Reports: None Worsens with: Reports: None Associated Symptoms: Reports: Headaches. Denies: Fever/Chills, Nausea/Vomiting - Related Data Allergies Allergy/AdvReac Type Severity Reaction Status Date / Time amoxicillin Allergy Rash Verified 11/08/18 09:49 aspirin Allergy Rash Verified 11/08/18 09:49 codeine Allergy Itching Verified 11/08/18 09:49 hydrocodone Allergy Rash Verified 11/08/18 09:49 morphine Allergy Rash Verified 11/08/18 09:49 naproxen [From Naprosyn] Allergy Rash Verified 11/08/18 09:49 Penicillins Allergy Itching Verified 11/08/18 09:49 weed pollen Allergy Rash Verified 11/08/18 09:49 Home Meds: Home Meds Lisinopril 20 mg PO DAILY 07/13/18 [History] Pramipexole [Mirapex] 1 - 2 mg PO BEDTIME PRN 07/13/18 [History] carvediloL [Carvedilol] 12.5 mg PO BIDMEALS 07/13/18 [History] B2/Vits A,C,E/Lut/Zeaxanth/Min [Icaps] 1 tab PO DAILY 09/29/18 [History] Cholecalciferol (Vitamin D3) [Vitamin D3] 1,000 unit PO DAILY 09/29/18 [History] Loratadine [Claritin] 10 mg PO DAILY PRN 09/29/18 [History] Spironolactone [Aldactone] 25 mg PO DAILY 09/29/18 [History] Potassium Chloride 20 meq PO DAILY #10 tablet.er 11/07/18 [Rx] Docusate Sodium [Colace] 100 mg PO DAILY #100 cap 11/09/18 [Rx] Furosemide 80 mg PO DAILY #0 11/09/18 [Rx] bisacodyL [Dulcolax] 5 mg PO DAILY PRN #14 tablet 11/09/18 [Rx] Apixaban [Eliquis] 5 mg PO BID 05/20/20 [History] cephALEXin [Keflex] 500 mg PO TID 05/20/20 [History] Past Medical History HEENT History: Reports: Impaired Vision Other HEENT History: Left side "Wall eye" Cardiovascular History: Reports: Afib, Heart Failure, Hypertension Respiratory History: Reports: Sleep Apnea Other Respiratory History: has c-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 Gastrointestinal History: Reports: Cholelithiasis Genitourinary History: Reports: Urinary Incontinence [employer] History: Reports: Musculoskeletal History: Reports: Osteoarthritis, Osteoporosis Neurological History: Reports: Other (See Below) Other Neuro History: mild concussion, restless legs Psychiatric History: Reports: Anxiety, Depression Endocrine/Metabolic History: Reports: Diabetes, Type II, Obesity/BMI 30+ Hematologic History: Reports: Anticoagulation Therapy Dermatologic History: Reports: Urticaria - Infectious Disease History Infectious Disease History: Reports: Chicken Pox, Measles, Mumps - Past Surgical History HEENT Surgical History: Reports: Cataract Surgery GI Surgical History: Reports: Appendectomy, Cholecystectomy, Colonoscopy Female Surgical History: Reports: Hysterectomy, Salpingo-Oophorectomy Musculoskeletal Surgical History: Reports: Shoulder Surgery, Other (See Below) Social & Family History - Family History Family Medical History: Noncontributory HEENT: Reports: Cataract, Impaired Vision, Macular Degeneration Cardiac: Reports: Afib, Heart Failure, MA Respiratory: Reports: Sleep Apnea Musculoskeletal: Reports: Arthritis, Back pain, Chronic Neurological: Reports: Migraines Endocrine/Metabolic: Reports: Diabetes, type II, Obesity/MBI 30+ Dermatologic: Reports: Urticaria Oncologic: Reports: Colon, Liver, Lung, Pancreatic, Prostate, Uterine, Other (See Below) - Tobacco Use Smoking Status *Q: Never Smoker - Caffeine Use Caffeine Use: Reports: Coffee - Recreational Drug Use Recreational Drug Use: No - Living Situation & Occupation Living situation: Reports: , Alone Occupation: Retired [employer] Review of Systems Review Of Systems: See Below Constitutional: Reports: No Symptoms HEENT: Reports: No Symptoms Respiratory: Reports: No Symptoms Cardiovascular: Reports: No Symptoms Endocrine: Reports: No Symptoms GI/Abdominal: Reports: No Symptoms : Reports: No Symptoms Musculoskeletal: Reports: Other (left leg erythema and edema) Neurological: Reports: Headache ED EXAM, GENERAL - Physical Exam Exam: See Below Exam Limited By: No Limitations General Appearance: Alert, No Apparent Distress Ears: Normal External Exam Nose: Normal Inspection Throat/Mouth: Normal Inspection Head: Atraumatic, Normocephalic Neck: Normal Inspection, Supple, Non-Tender Respiratory/Chest: No Respiratory Distress, Lungs Clear, Normal Breath Sounds Cardiovascular: Regular Rate, Rhythm, No Edema, No Murmur GI/Abdominal: Soft, Non-Tender, No Organomegaly, No Mass Back Exam: Normal Inspection Extremities: Other (Erythema and edema of left lower leg) Neurological: Alert, Oriented, No Motor/Sensory Deficits Course - Vital Signs Last Recorded V/S: Last Vital Signs Temp 97.2 F 05/20/20 13:27 Pulse 77 05/20/20 13:27 Resp 20 05/20/20 13:27 BP 119/81 05/20/20 13:27 Pulse Ox 94 L 05/20/20 13:27 - Re-Assessments/Exams Free Text/Narrative Re-Assessment/Exam: 05/20/20 13:[address] of her head and it shows nothing acute. Departure - Departure Time of Disposition: 13:50 Disposition: Home, Self-Care 01 Condition: Good Clinical Impression: Left leg cellulitis Fall Qualifiers: Encounter type: initial encounter Qualified Code(s): W19.XXXA - Unspecified fall, initial encounter Head injury Qualifiers: Encounter type: initial encounter Qualified Code(s): S09.90XA - Unspecified injury of head, initial encounter - Discharge Information *PRESCRIPTION DRUG MONITORING PROGRAM REVIEWED*: Not Applicable *COPY OF PRESCRIPTION DRUG MONITORING REPORT IN PATIENT SAGE: Not Applicable Referrals: Jaimie Sexton PA-C [Primary Care Provider] - 1 Week Forms: ED Department Discharge Additional Instructions: Take the keflex of prescribed. Clean your leg with warm soapy water 2 times per day and apply antibiotic ointment after. Please return if you are worse. Sepsis Event Note (ED) - Evaluation Sepsis Screening Result: No Definite Risk - Focused Exam Vital Signs: Vital Signs Temp Pulse Resp BP Pulse Ox 05/20/20 13:27 97.2 F 77 20 119/81 94 L
[2020-05-20 14:42] VITALS: BP 117/78; PULSE 80
== END 2020-05-20 14:12 | disposition home or self-care (01) ==
LOC: JD.ED 13:00 → SUPCPDRO 13:00 → JD.ED 14:30
DX: S09.90XA Unspecified injury of head, initial encounter (principal); L03.116 Cellulitis of left lower limb; I48.91 Unspecified atrial fibrillation; I11.0 Hypertensive heart disease with heart failure; I50.9 Heart failure, unspecified; E11.9 Type 2 diabetes mellitus without complications; E66.9 Obesity, unspecified; Z68.41 Body mass index [BMI] 40.0-44.9, adult; Z88.1 Allergy status to other antibiotic agents; Z88.6 Allergy status to analgesic agent; Z88.5 Allergy status to narcotic agent; Z88.0 Allergy status to penicillin; Z91.048 Other nonmedicinal substance allergy status; Z79.01 Long term (current) use of anticoagulants; Z79.899 Other long term (current) drug therapy; W19.XXXA Unspecified fall, initial encounter
CPT/HCPCS: 70450; 70450-26; 99283; 99284-25

== ENCOUNTER 2020-09-05 11:30 | Inpatient (IN) | payer MEDICARE, OTHER ==
[2020-09-05] MEDS ORDERED: Sodium Chloride 0.9% 10 ML Syringe FLUSH PRN (12:16)
[2020-09-05] MEDS ORDERED: Furosemide 40 MG/4 ML VIAL IVPUSH ONE (12:20)
--- NOTE | 2020-09-05 12:22 | EDM.PDOC ---
ED HPI GENERAL MEDICAL PROBLEM - General Chief Complaint: Lower Extremity Injury/Pain Stated Complaint: SENT BY [facility] FOR LEG ISSUES Time Seen by Provider: 09/05/20 12:04 Source of Information: Reports: Patient, Provider (I did speak with her provider in [facility] Shanti Sexton and patient was referred to the ED for further evaluation work-up of developing cellulitis left lower extremity due to chronic severe dependent edema and heart failure.) History Limitations: Reports: No Limitations - History of Present Illness INITIAL COMMENTS - FREE TEXT/NARRATIVE: 85-year-old female sent to the ED by primary care provider Shanti Sexton at [facility]. She had not seen this patient since May. Patient apparently has chronic dependent edema and congestive heart failure. Gradually getting worse over the last 2 weeks. She is developed increased pain swelling and redness in both lower extremities worse on the left as compared to the right. She denies any obvious fever or chills. Denies any change in appetite. She is short of breath on minimal exertion. She has orthopnea and cannot lay flat for the last 2 weeks and has been sleeping in the easy chair upright. This of course is created some increased dependent edema. The history suggest that she has been on high-dose Lasix for many years. Patient feels the Lasix is no longer helping. There is some suggestion in the Shanti's notes that the patient was also on insulin every other day but this is not listed in her current med list. Patient is also apparently on Eliquis 5 mg BID . Notes indicate that she is currently on 80 mg of Lasix once daily in the morning and Aldactone 25 mg once every morning. Patient reports dyspnea on minimal exertion. She apparently does use a walker to aid her gait at home. Onset: Gradual Onset Date: 08/22/20 (She states she is developed increased shortness of breath and orthopnea and increased dependent edema over the last 14 days or so.) Duration: Week(s):, Chronic, Getting Worse Location: Reports: Chest (Dyspnea on minimal exertion and orthopnea.), Lower E xtremity, Left (Pain swelling and redness left lower extremity with oozing of serous fluid.), Lower Extremity, Right (Pain and redness and swelling both lower extremities with oozing of serous fluid.) Quality: Reports: Ache (Left leg.) Severity: Moderate Improves with: Reports: None Worsens with: Reports: Movement Context: Denies: Activity, Exercise, Lifting, Sick Contact, Trauma, Other Associated Symptoms: Reports: Cough (Minimal cough.), Malaise, Shortness of Breath, Weakness (Generalized but mostly in her legs.). Denies: No Other Symptoms, Confusion, Chest Pain, cough w sputum ( Denies any sputum production), Diaphoresis, Fever/Chills, Headaches, Loss of Appetite, Nausea/Vomiting, Rash, Seizure (Held on exertion. 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 GRADER: Reports: Other (see below) (No recent changes to medications.) Bilateral Lower Leg Pain Score (Numeric/FACES): 4 - Related Data Allergies Allergy/AdvReac Type Severity Reaction Status Date / Time amoxicillin Allergy Rash Verified 09/05/20 12:09 aspirin Allergy Rash Verified 09/05/20 12:09 codeine Allergy Itching Verified 09/05/20 12:09 hydrocodone Allergy Rash Verified 09/05/20 12:09 morphine Allergy Rash Verified 09/05/20 12:09 naproxen [From Naprosyn] Allergy Rash Verified 09/05/20 12:09 Penicillins Allergy Itching Verified 09/05/20 12:09 weed pollen Allergy Rash Verified 09/05/20 12:09 Home Meds: Home Meds Lisinopril 20 mg PO DAILY 07/13/18 [History] Pramipexole [Mirapex] 1 - 2 mg PO BEDTIME PRN 07/13/18 [History] carvediloL [Carvedilol] 12.5 mg PO BIDMEALS 07/13/18 [History] B2/Vits A,C,E/Lut/Zeaxanth/Min [Icaps] 1 tab PO DAILY 09/29/18 [History] Cholecalciferol (Vitamin D3) [Vitamin D3] 1,000 unit PO DAILY 09/29/18 [History] Loratadine [Claritin] 10 mg PO DAILY PRN 09/29/18 [History] Spironolactone [Aldactone] 25 mg PO DAILY 09/29/18 [History] Potassium Chloride 20 meq PO DAILY #10 tablet.er 11/07/18 [Rx] Docusate Sodium [Colace] 100 mg PO DAILY #100 cap 11/09/18 [Rx] Furosemide 80 mg PO DAILY #0 11/09/18 [Rx] bisacodyL [Dulcolax] 5 mg PO DAILY PRN #14 tablet 11/09/18 [Rx] Apixaban [Eliquis] 5 mg PO BID 05/20/20 [History] cephALEXin [Keflex] 500 mg PO TID 05/20/20 [History] Past Medical History HEENT History: Reports: Impaired Vision Other HEENT History: 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 She reports very poor vision left visual field since . Cardiovascular History: Reports: Afib (History of atrial fibrillation and is on Eliquis 5 mg twice daily.), Heart Failure, Hypertension Respiratory History: Reports: Sleep Apnea Other Respiratory History: has c-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 Gastrointestinal History: Reports: Cholelithiasis Genitourinary History: Reports: Urinary Incontinence [facility] NURSE History: Reports: Musculoskeletal History: Reports: Osteoarthritis, Osteoporosis Neurological History: Reports: Other (See Below) Other Neuro History: mild concussion, restless legs. She reports severe restless leg syndrome and attempts at medication usage made her very sick. She states restless legs keep her up at night and this is another reason that she sits in the easy chair to sleep. Psychiatric History: Reports: Anxiety, Depression Endocrine/Metabolic History: Reports: Diabetes, Type II, Obesity/BMI 30+ Hematologic History: Reports: Anticoagulation Therapy Dermatologic History: Reports: Urticaria - Infectious Disease History Infectious Disease History: Reports: Chicken Pox, Measles, Mumps - Past Surgical History HEENT Surgical History: Reports: Cataract Surgery GI Surgical History: Reports: Appendectomy, Cholecystectomy, Colonoscopy Female Surgical History: Reports: Hysterectomy, Salpingo-Oophorectomy Musculoskeletal Surgical History: Reports: Shoulder Surgery, Other (See Below) Social & Family History - Family History Family Medical History: No Pertinent Family History HEENT: Reports: Cataract, Impaired Vision, Macular Degeneration Cardiac: Reports: Afib, Heart Failure, [place] Respiratory: Reports: Sleep Apnea Musculoskeletal: Reports: Arthritis, Back pain, Chronic Neurological: Reports: Migraines Endocrine/Metabolic: Reports: Diabetes, type II, Obesity/MBI 30+ Dermatologic: Reports: Urticaria Oncologic: Reports: Colon, Liver, Lung, Pancreatic, Prostate, Uterine, Other (See Below) - Caffeine Use Caffeine Use: Reports: Coffee - Living Situation & Occupation Living situation: Reports: , Alone Occupation: Retired Review of Systems - Review of Systems Review Of Systems: See Below Constitutional: Reports: No Symptoms Eyes: Reports: Other (Patient does have bilateral mild macular degeneration.) Ears: Reports: No Symptoms Nose: Reports: No Symptoms Mouth/Throat: Reports: Other (Ports her mouth and tongue are always dry.) Respiratory: Reports: Shortness of Breath, Other (Orthopnea for the last 2 weeks. She has had to sleep in an upright in an easy chair.). Denies: Wheezing, Pleuritic Chest Pain, Cough, Hemoptysis Cardiovascular: Reports: Edema (Dependent edema with history of cellulitis lower extremities.), Irregular Heart Rate (Struve atrial fibrillation). Denies: Chest Pain, Lightheadedness, Palpitations, Syncope, Other GI/Abdominal: Reports: Constipation. Denies: Decreased Appetite Genitourinary: Reports: Other (Occasional stress and urge incontinence.) Musculoskeletal: Reports: Joint Pain (Knees hips low back neck and shoulders at times.) Skin: Reports: Erythema (With lower extremities left lower extremity worse than the right. Erythema and skin breakdown encompasses approximately the two thirds of the distal tib-fib and leg.), Other (Wounds were dressed today in the clinic with Telfa dressings and wrapped with Дмитрий wraps.) Neurological: Reports: Difficulty Walking (Street of rest severe restless leg syndrome. Uses a walker to aid her gait.), Other Psychiatric: Reports: No Symptoms ED EXAM, GENERAL - Physical Exam Exam: See Below Exam Limited By: No Limitations General Appearance: Alert, WD/WN, No Apparent Distress, Other (Temperature is 36.2. Heart rate was 88 and I thought sinus on exam. Respiratory rate is 18/min. O2 sats 92% room air placed on 2 L of oxygen per nasal cannula. BP 130/87.) Throat/Mouth: Other Head: Atraumatic (Tongue is dry and coated.), Normocephalic Neck: Normal Inspection, Supple, Non-Tender, Full Range of Motion. No: Carotid Bruit, Lymphadenopathy (L), Lymphadenopathy (R), Thyromegaly Respiratory/Chest: No Respiratory Distress, Lungs Clear, No Accessory Muscle Use, Decreased Breath Sounds (Decreased air entry to the lower). No: Normal Breath Sounds, Respiratory Distress, Rales, Rhonchi ( 30% of lung garsia posteriorly. No adventitious sounds noted.), Wheezing Cardiovascular: No Gallop, No Murmur, No Rub, JVD (3 cm below the angle of the mandible.). No: Normal Peripheral Pulses, No Edema Peripheral Pulses: 0: Posterior Tibial (L), Posterior Tibial (R), Dorsalis Pedis (L), Dorsalis Pedis (R), 2+: Carotid (L), Carotid (R) GI/Abdominal: Normal Bowel Sounds, Soft, Non-Tender, No Organomegaly, No Mass, Pelvis Stable Back Exam: Normal Inspection, Full Range of Motion, Other (Crease lordotic curvature. Diffuse tenderness on palpation paraspinal tissues adjacent to the lumbar vertebra.). No: CVA Tenderness (L), CVA Tenderness (R) Extremities: Pedal Edema (Diffuse significant edema I 4+ pitting up to knees bilaterally.), Other (No gangrene of the toes. No palpable pulses dorsal foot or posterior tibials. Feet are both cool to touch. There is marked erythema of both lower extremities involving two thirds of the distal leg bilaterally. It is circumferential with superficial skin loss in multiple areas on both extremities. The left leg feels warm to touch and clinically is developing a cellulitis in this area. The right leg is erythematous but not warm to palpation or tender.) Neurological: Alert, Oriented, CN II-XII Intact, Normal Cognition. No: Normal Gait Psychiatric: Normal Affect, Normal Mood Skin Exam: Warm, Dry, Erythema (Left lower extremity both lower extremities), Increased Warmth. No: Intact, Normal Color #1 Interpretation EKG Date: 09/05/20 Time: 12:49 Rhythm: A-Fib (With rate of 64 to 125/min) Rate (Beats/Min): 82 [place]: Normal P-Wave: Variable QRS: Other (Nonspecific intraventricular conduction delay decreased voltage limb leads) QT: Prolonged (Mildly prolonged) EKG Interpretation Comments: Abnormal ECG Course - Vital Signs Last Recorded V/S: Last Vital Signs Temp 36.2 C 09/05/20 12:10 Pulse 88 09/05/20 12:10 Resp 18 09/05/20 12:10 BP 130/87 09/05/20 12:10 Pulse Ox 92 L 09/05/20 12:10 - Orders/Labs/Meds Orders: Active Orders 24 hr Category Date Time Status EKG Documentation Completion [RC] STAT Care 09/05/20 12:15 Active Oxygen Therapy [RC] ASDIRECTED Care 09/05/20 12:16 Active Peripheral IV Care [RC] . DIRECTED Care 09/05/20 12:16 Active Sodium Chloride 0.9% [Saline Flush] Med 09/05/20 12:16 Active 10 ml FLUSH ASDIRECTED PRN cefTRIAXone [Rocephin] 2 gm Med 09/05/20 14:15 Ordered Sodium Chloride 0.9% [Normal Saline] 100 ml IV Q24H Peripheral IV Insertion Adult [OM.PC] Stat Oth 09/05/20 12:16 Ordered Medication Orders Sodium Chloride (Saline Flush) 10 ml FLUSH ASDIRECTED PRN PRN Reason: Keep Vein Open Last Admin: 09/05/20 13:32 Dose: 10 ml Documented by: GORDO Labs: Laboratory Tests 09/05/20 09/05/20 09/05/20 Range/Units 12:32 12:32 12:32 WBC 9.17 (3.98-10.04) K/mm3 RBC 4.62 (3.98-5.22) M/mm3 Hgb 13.5 (11.2-15.7) gm/dl Hct 42.9 (34.1-44.9) % MCV 92.9 (79.4-94.8) fl MCH 29.2 (25.6-32.2) pg MCHC 31.5 L (32.2-35.5) g/dl RDW Std Deviation 45.8 (36.4-46.3) fL Plt Count 377 H D (182-369) K/mm3 MPV 9.5 (9.4-12.3) fl Neut % (Auto) 80.6 H (34.0-71.1) % Lymph % (Auto) 8.4 L (19.3-51.7) % [place] % (Auto) 7.5 (4.7-12.5) % Eos % (Auto) 2.9 (0.7-5.8) Baso % (Auto) 0.4 (0.1-1.2) % Neut # (Auto) 7.38 H (1.56-6.13) K/mm3 Lymph # (Auto) 0.77 L (1.18-3.74) K/mm3 [place] # (Auto) 0.69 H (0.24-0.36) K/mm3 Eos # (Auto) 0.27 (0.04-0.36) K/mm3 Baso # (Auto) 0.04 (0.01-0.08) K/mm3 Manual Slide Review Normal smear ESR (0-20) mm/hr PT 12.7 H (9.7-12.0) SECONDS INR 1.19 APTT 36.2 H (21.7-31.4) SECONDS Sodium 137 (136-145) mEq/L Potassium 4.2 (3.5-5.1) mEq/L Chloride 101 (98-107) mEq/L Carbon Dioxide 30 (21-32) mEq/L Anion Gap 10.2 (5-15) BUN 23 H (7-18) mg/dL Creatinine 1.0 (0.55-1.02) mg/dL Est Cr Clr Drug Dosing TNP Estimated GFR (MDRD) 53 (>60) mL/min BUN/Creatinine Ratio 23.0 H (14-18) Glucose 121 H (83-115) mg/dL Lactic Acid (0.4-2.0) mmol/L Calcium 9.5 (8.5-10.1) mg/dL Magnesium 2.3 (1.8-2.4) mg/dl Total Bilirubin 0.6 (0.2-1.0) mg/dL AST 27 (15-37) U/L ALT 17 (14-59) U/L Alkaline Phosphatase 91 (46-116) U/L Troponin I < 0.017 (0.00-0.056) ng/mL C-Reactive Protein 3.5 H* (<1.0) mg/dL NT-Pro-B Natriuret Pep (0-450) pg/mL Total Protein 8.9 H (6.4-8.2) g/dl Albumin 3.3 L (3.4-5.0) g/dl Globulin 5.6 gm/dL Albumin/Globulin Ratio 0.6 L (1-2) Urine Color (Yellow) Urine Appearance (Clear) Urine pH (5.0-8.0) Ur Specific [place] (1.005-1.030) Urine Protein (Negative) Urine Glucose (UA) (Negative) Urine Ketones (Negative) Urine Occult Blood (Negative) Urine Nitrite (Negative) Urine Bilirubin (Negative) Urine Urobilinogen (0.2-1.0) Ur Leukocyte Esterase (Negative) Urine RBC (0-5) /hpf Urine WBC (0-5) /hpf Ur Squamous Epith Cells (0-5) /hpf Urine Bacteria (FEW) /hpf Urine Mucus (FEW) /hpf SARS-CoV-2 RNA (AMADOU) (NEGATIVE) 09/05/20 09/05/20 09/05/20 Range/Units 12:32 12:32 12:32 WBC (3.98-10.04) K/mm3 RBC (3.98-5.22) M/mm3 Hgb (11.2-15.7) gm/dl Hct (34.1-44.9) % MCV (79.4-94.8) fl MCH (25.6-32.2) pg MCHC (32.2-35.5) g/dl RDW Std Deviation (36.4-46.3) fL Plt Count (182-369) K/mm3 MPV (9.4-12.3) fl Neut % (Auto) (34.0-71.1) % Lymph % (Auto) (19.3-51.7) % [place] % (Auto) (4.7-12.5) % Eos % (Auto) (0.7-5.8) Baso % (Auto) (0.1-1.2) % Neut # (Auto) (1.56-6.13) K/mm3 Lymph # (Auto) (1.18-3.74) K/mm3 [place] # (Auto) (0.24-0.36) K/mm3 Eos # (Auto) (0.04-0.36) K/mm3 Baso # (Auto) (0.01-0.08) K/mm3 Manual Slide Review ESR 77 H (0-20) mm/hr PT (9.7-12.0) SECONDS INR APTT (21.7-31.4) SECONDS Sodium (136-145) mEq/L Potassium (3.5-5.1) mEq/L Chloride (98-107) mEq/L Carbon Dioxide (21-32) mEq/L Anion Gap (5-15) BUN (7-18) mg/dL Creatinine (0.55-1.02) mg/dL Est Cr Clr Drug Dosing Estimated GFR (MDRD) (>60) mL/min BUN/Creatinine Ratio (14-18) Glucose (83-115) mg/dL Lactic Acid 1.1 (0.4-2.0) mmol/L Calcium (8.5-10.1) mg/dL Magnesium (1.8-2.4) mg/dl Total Bilirubin (0.2-1.0) mg/dL AST (15-37) U/L ALT (14-59) U/L Alkaline Phosphatase (46-116) U/L Troponin I (0.00-0.056) ng/mL C-Reactive Protein (<1.0) mg/dL NT-Pro-B Natriuret Pep 1285 H (0-450) pg/mL Total Protein (6.4-8.2) g/dl Albumin (3.4-5.0) g/dl Globulin gm/dL Albumin/Globulin Ratio (1-2) Urine Color (Yellow) Urine Appearance (Clear) Urine pH (5.0-8.0) Ur Specific [place] (1.005-1.030) Urine Protein (Negative) Urine Glucose (UA) (Negative) Urine Ketones (Negative) Urine Occult Blood (Negative) Urine Nitrite (Negative) Urine Bilirubin (Negative) Urine Urobilinogen (0.2-1.0) Ur Leukocyte Esterase (Negative) Urine RBC (0-5) /hpf Urine WBC (0-5) /hpf Ur Squamous Epith Cells (0-5) /hpf Urine Bacteria (FEW) /hpf Urine Mucus (FEW) /hpf SARS-CoV-2 RNA (AMADOU) (NEGATIVE) 09/05/20 09/05/20 Range/Units 12:52 13:40 WBC (3.98-10.04) K/mm3 RBC (3.98-5.22) M/mm3 Hgb (11.2-15.7) gm/dl Hct (34.1-44.9) % MCV (79.4-94.8) fl MCH (25.6-32.2) pg MCHC (32.2-35.5) g/dl RDW Std Deviation (36.4-46.3) fL Plt Count (182-369) K/mm3 MPV (9.4-12.3) fl Neut % (Auto) (34.0-71.1) % Lymph % (Auto) (19.3-51.7) % [place] % (Auto) (4.7-12.5) % Eos % (Auto) (0.7-5.8) Baso % (Auto) (0.1-1.2) % Neut # (Auto) (1.56-6.13) K/mm3 Lymph # (Auto) (1.18-3.74) K/mm3 [place] # (Auto) (0.24-0.36) K/mm3 Eos # (Auto) (0.04-0.36) K/mm3 Baso # (Auto) (0.01-0.08) K/mm3 Manual Slide Review ESR (0-20) mm/hr PT (9.7-12.0) SECONDS INR APTT (21.7-31.4) SECONDS Sodium (136-145) mEq/L Potassium (3.5-5.1) mEq/L Chloride (98-107) mEq/L Carbon Dioxide (21-32) mEq/L Anion Gap (5-15) BUN (7-18) mg/dL Creatinine (0.55-1.02) mg/dL Est Cr Clr Drug Dosing Estimated GFR (MDRD) (>60) mL/min BUN/Creatinine Ratio (14-18) Glucose (83-115) mg/dL Lactic Acid (0.4-2.0) mmol/L Calcium (8.5-10.1) mg/dL Magnesium (1.8-2.4) mg/dl Total Bilirubin (0.2-1.0) mg/dL AST (15-37) U/L ALT (14-59) U/L Alkaline Phosphatase (46-116) U/L Troponin I (0.00-0.056) ng/mL C-Reactive Protein (<1.0) mg/dL NT-Pro-B Natriuret Pep (0-450) pg/mL Total Protein (6.4-8.2) g/dl Albumin (3.4-5.0) g/dl Globulin gm/dL Albumin/Globulin Ratio (1-2) Urine Color Yellow (Yellow) Urine Appearance Clear (Clear) Urine pH 6.0 (5.0-8.0) Ur Specific [place] 1.020 (1.005-1.030) Urine Protein Negative (Negative) Urine Glucose (UA) Negative (Negative) Urine Ketones Negative (Negative) Urine Occult Blood Negative (Negative) Urine Nitrite Negative (Negative) Urine Bilirubin Negative (Negative) Urine Urobilinogen 0.2 (0.2-1.0) Ur Leukocyte Esterase Trace H (Negative) Urine RBC 0-5 (0-5) /hpf Urine WBC 5-10 H (0-5) /hpf Ur Squamous Epith Cells 0-5 (0-5) /hpf Urine Bacteria Few (FEW) /hpf Urine Mucus Not seen (FEW) /hpf SARS-CoV-2 RNA (AMADOU) Negative (NEGATIVE) Meds: Medications Generic Name Dose Route Start Last Admin Trade Name Freq PRN Reason Stop Dose Admin Sodium Chloride 10 ml 09/05/20 12:16 09/05/20 13:32 Saline Flush FLUSH 10 ml ASDIRECTED PRN Administration Keep Vein Open Discontinued Medications Generic Name Dose Route Start Last Admin Trade Name Freq PRN Reason Stop Dose Admin Furosemide 60 mg 09/05/20 12:20 09/05/20 13:32 Lasix IVPUSH 09/05/20 12:21 60 mg NOW ONE Administration - Radiology Interpretation Free Text/Narrative:: 85-year-old female presents to the ED at the request of her primary care provider Shanti Sexton from [facility]. Patient has not been seen through the clinic for about 3 months. When she was seen last in May she had a cellulitis of left lower extremity was on a course of cephalexin which apparently did clear things up. Patient has a history of chronic right-sided heart failure and is on Lasix 80 mg daily. Over the last 2 weeks patient has developed increased lower extremity edema and now erythema and increased pain left lower extremity compared with the developing cellulitis on exam. She is superficial skin breakdown circumferentially on both lower extremities involving the lower two thirds of both legs. They are oozing serous material from both legs. Wounds have been dressed today at through the clinic. Patient has no fever. Lungs were clear to all station percussion. Patient clinically has significant peripheral vascular disease with no palpable pulses in either foot. Plan routine labs. Blood cultures will not be ordered since she is afebrile. There is really nothing to culture from left lower extremity. Saline lock to be started and Lasix 80 mg to be given IV. Cardiac labs to be done. ECG as well. - Re-Assessments/Exams Free Text/Narrative Re-Assessment/Exam: 09/05/20 13:28: Chest x-ray done portably reveals moderate cardiomegaly minimal upper lobe pulmonary vascular congestion appreciated lungs are otherwise clear bony structures are grossly intact. 09/05/20 14:11 White count is normal at 9.17 with a left shift however 80.6% neutrophils. Hemoglobin is 13.5 with hematocrit of 42.9. Platelet count is elevated at 377,000. Sed rate is elevated at 77. PT is 12.7 with an INR of 1.19. PTT is 36.2. Sodium 137 with potassium of 4.2. Chloride 101 with a bicarb of 30. Anion gap is 10.2. BUN is 23 with a creatinine of 1.0 and a GFR of 53. Glucose 121. Lactic acid 1.1. Calcium 9.5. Magnesium 2.3. Liver function normal. Troponin I less than 0.017. C-reactive protein mildly elevated at 3.5. BNP 1285. Total protein 8.9 with an albumin fraction of 3.3. I.e. elevated total protein suggest protein electrophoresis. Urinalysis shows trace leukocyte Estrace with 5-10 WBCs per high-power field. Urine culture ordered. COVID-19 screen is negative. 09/05/20 14:15 I have discussed the case with on-call hospitalist Dr. Morgan and the patient will be admitted to the [facility] surgery floor for treatment of cellulitis left lower extremity and chronic dependent edema with primarily right-sided heart failure. Her renal function is satisfactory and she reports a rash to her skin and itching from penicillin in the past. No anaphylactic reaction. She will therefore receive Rocephin 2 gm IV at this time for cellulitis left lower extremity. Departure - Departure Time of Disposition: 14:26 Disposition: Admitted As Inpatient 66 Condition: Fair Clinical Impression: Cellulitis of leg, left, Chronic atrial fibrillation Congestive heart failure Qualifiers: Heart failure type: unspecified Heart failure chronicity: chronic Qualified Code(s): I50.9 - Heart failure, unspecified - Discharge Information *PRESCRIPTION DRUG MONITORING PROGRAM REVIEWED*: Not Applicable *COPY OF PRESCRIPTION DRUG MONITORING REPORT IN PATIENT SAGE: Not Applicable Referrals: Jaimie Sexton PA-C [Primary Care Provider] - Forms: ED Department Discharge Sepsis Event Note (ED) - Evaluation Sepsis Screening Result: No Definite Risk - Focused Exam Vital Signs: Vital Signs Temp Pulse Resp BP Pulse Ox 09/05/20 12:10 36.2 C 88 18 130/87 92 L - My Orders Last 24 Hours: My Active Orders 09/05/20 12:15 EKG Documentation Completion [RC] STAT 09/05/20 12:16 Oxygen Therapy [RC] ASDIRECTED Peripheral IV Care [RC] . DIRECTED Sodium Chloride 0.9% [Saline Flush] 10 ml FLUSH ASDIRECTED PRN Peripheral IV Insertion Adult [OM.PC] Stat 09/05/20 14:15 cefTRIAXone [Rocephin] 2 gm Sodium Chloride 0.9% [Normal Saline] 100 ml IV Q24H - Assessment/Plan Last 24 Hours: My Active Orders 09/05/20 12:15 EKG Documentation Completion [RC] STAT 09/05/20 12:16 Oxygen Therapy [RC] ASDIRECTED Peripheral IV Care [RC] . DIRECTED Sodium Chloride 0.9% [Saline Flush] 10 ml FLUSH ASDIRECTED PRN Peripheral IV Insertion Adult [OM.PC] Stat 09/05/20 14:15 cefTRIAXone [Rocephin] 2 gm Sodium Chloride 0.9% [Normal Saline] 100 ml IV Q24H
--- NOTE | 2020-09-05 13:19 | CR ---
Chest: Portable view of the chest was obtained. Comparison: Prior chest x-ray of 12/03/18. Heart is enlarged. Minimal upper lobe pulmonary vascular redistribution is seen. Lungs otherwise are clear. Bony structures are grossly intact. Impression: 1. Cardiomegaly and slight upper lobe pulmonary vascular redistribution. Diagnostic code #3
[2020-09-05] MEDS: cefTRIAXone 2 GM in Sodium Chloride 0.9% 100 ML IV SCH (15:27)
[2020-09-05] MEDS ORDERED: Ondansetron 4 MG/2 ML SDV IV PRN (16:21)
--- NOTE | 2020-09-05 16:37 | PCM.HP.2 ---
H&P History of Present Illness - General Date of Service: 09/05/20 Admit Problem/Dx: Admission Diagnosis/Problem Admission Diagnosis/Problem Cellulitis - History of Present Illness Initial Comments - Free Text/Narative: 85-year-old female with history of congestive heart failure with pulmonary hypertension presented to the emergency department from the [facility] secondary to increased swelling of her lower extremities with erythema and weeping. Patient states that over the last 2 to 3 weeks her legs have been increasing in size and redness. She has been putting topical antibiotic ointment on them and wrapping them without success. She also states that she has had worsening shortness of breath and he can only walk 5 feet without getting short of breath. She sleeps in a recliner because of back pain but does state that she would get short of breath if she laid flat. Patient denies any fever or chills. No chest pain. She states she is a prediabetic and has atrial fibrillation in which she takes Eliquis 5 mg twice daily. In the emergency department patient was found to have a proBNP of 1285, sed rate of 77, and C-reactive protein of 3.5. White count was normal with a normal slide review. She was given 80 mg of IV Lasix and 2 g of Rocephin. Bilateral Lower Leg Pain Score (Numeric/FACES): 4 - Related Data Allergies/Adverse Reactions: Allergies Allergy/AdvReac Type Severity Reaction Status Date / Time amoxicillin Allergy Rash Verified 09/05/20 12:09 aspirin Allergy Rash Verified 09/05/20 12:09 codeine Allergy Itching Verified 09/05/20 12:09 hydrocodone Allergy Rash Verified 09/05/20 12:09 morphine Allergy Rash Verified 09/05/20 12:09 naproxen [From Naprosyn] Allergy Rash Verified 09/05/20 12:09 Penicillins Allergy Itching Verified 09/05/20 12:09 weed pollen Allergy Rash Verified 09/05/20 12:09 Home Medications: Home Meds carvediloL [Carvedilol] 12.5 mg PO BIDMEALS 07/13/18 [History] B2/Vits A,C,E/Lut/Zeaxanth/Min [Icaps] 1 tab PO DAILY 09/29/18 [History] Furosemide 80 mg PO DAILY #0 11/09/18 [Rx] Apixaban [Eliquis] 5 mg PO BID 05/20/20 [History] Acetaminophen 500 mg PO ASDIRECTED PRN 09/05/20 [History] Calcium Carb/Vitamin D3/Vit K1 [Calcium + D Soft Chewable Tab] 1 tab PO BID 09/05/20 [History] Docusate Sodium [Dulcoease] 100 mg PO BID PRN 09/05/20 [History] Iron,Carbonyl/Ascorbic Acid [Vitron-C Tablet] 1 tab PO DAILY 09/05/20 [History] Multivitamin [Multi-Vitamin Daily] 1 tab PO DAILY 09/05/20 [History] Nystatin [Nystatin Crm] 15 gm TOP BID 09/05/20 [History] Potassium Chloride 20 meq PO BID 09/05/20 [History] Spironolactone [Aldactone] 25 mg PO DAILY 09/05/20 [History] Ubidecarenone [Co Q-10] 100 mg PO DAILY 09/05/20 [History] metOLazone [Metolazone] 2.5 mg PO ASDIRECTED 09/05/20 [History] Past Medical History HEENT History: Reports: Impaired Vision Other HEENT History: 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 She reports very poor vision left visual field since . Cardiovascular History: Reports: Afib, Heart Failure, Hypertension, SOB on Exertion Respiratory History: Reports: Sleep Apnea Other Respiratory History: has c-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 Gastrointestinal History: Reports: Cholelithiasis Genitourinary History: Reports: Urinary Incontinence [employer] History: Reports: Musculoskeletal History: Reports: Osteoarthritis, Osteoporosis Neurological History: Reports: Other (See Below) Other Neuro History: mild concussion, restless legs. She reports severe restless leg syndrome and attempts at medication usage made her very sick. She states restless legs keep her up at night and this is another reason that she sits in the easy chair to sleep. Psychiatric History: Reports: Anxiety, Depression Endocrine/Metabolic History: Reports: Diabetes, Type II, Obesity/BMI 30+ Hematologic History: Reports: Anticoagulation Therapy Dermatologic History: Reports: Urticaria - Infectious Disease History Infectious Disease History: Reports: Chicken Pox, Measles, Mumps - Past Surgical History HEENT Surgical History: Reports: Cataract Surgery Cardiovascular Surgical History: Reports: None GI Surgical History: Reports: Appendectomy, Cholecystectomy, Colonoscopy Female Surgical History: Reports: Hysterectomy, Salpingo-Oophorectomy Endocrine Surgical History: Reports: None Neurological Surgical History: Reports: None Musculoskeletal Surgical History: Reports: Shoulder Surgery, Other (See Below) Other Musculoskeletal Surgeries/Procedures:: Rotator cuff sx bilaterally. Left great toe-bunion removal Dermatological Surgical History: Reports: None Social & Family History - Family History Family Medical History: No Pertinent Family History HEENT: Reports: Cataract, Impaired Vision, Macular Degeneration Cardiac: Reports: Afib, Heart Failure, [place] Respiratory: Reports: Sleep Apnea Musculoskeletal: Reports: Arthritis, Back pain, Chronic Neurological: Reports: Migraines Endocrine/Metabolic: Reports: Diabetes, type II, Obesity/MBI 30+ Dermatologic: Reports: Urticaria Oncologic: Reports: Colon, Liver, Lung, Pancreatic, Prostate, Uterine, Other (See Below) - Tobacco Use Tobacco Use Status *Q: Never Tobacco User - Caffeine Use Caffeine Use: Reports: Coffee - Recreational Drug Use Recreational Drug Use: No - Living Situation & Occupation Living situation: Reports: , Alone Occupation: Retired H&P Review of Systems - Review of Systems: Review Of Systems: Comprehensive ROS is negative, except as noted in HPI. Exam - Exam Exam: See Below - Vital Signs Vital Signs: Last Vital Signs Temp 98.1 F 09/05/20 15:23 Pulse 71 09/05/20 15:23 Resp 20 09/05/20 15:23 BP 120/49 L 09/05/20 15:23 Pulse Ox 93 L 09/05/20 15:23 Weight: 209 lb 4.8 oz - Exam Quality Assessment: No: Supplemental Oxygen General: Alert, Oriented, 4 HEENT: Conjunctiva Clear, Hearing Intact, Mucosa Moist & [place], Normal Nasal Septum Neck: Supple, Trachea Midline, 2 Lungs: Clear to Auscultation, Normal Respiratory Effort Cardiovascular: Irregular Rhythm (Rate and rhythm) GI/Abdominal Exam: Normal Bowel Sounds, Soft, Non-Tender, No Organomegaly, No Distention, No Abnormal Bruit Extremities: Normal Capillary Refill, Pedal Edema (4+ pitting edema below the knee.), Leg Pain, Increased Warmth, Redness (Up to proximal tib-fib), Other (Tender along the lower extremity bilaterally) Peripheral Pulses: 0: Dorsalis Pedis (L) (Unable to obtain secondary to edema), Dorsalis Pedis (R) (Unable to obtain secondary to edema), 1+: Posterior Tibial (L), Posterior Tibial (R) - Patient Data Lab Results Last 24 hrs: Laboratory Results - last 24 hr 09/05/20 09/05/20 09/05/20 Range/Units 12:32 12:32 12:32 WBC 9.17 (3.98-10.04) K/mm3 RBC 4.62 (3.98-5.22) M/mm3 Hgb 13.5 (11.2-15.7) gm/dl Hct 42.9 (34.1-44.9) % MCV 92.9 (79.4-94.8) fl MCH 29.2 (25.6-32.2) pg MCHC 31.5 L (32.2-35.5) g/dl RDW Std Deviation 45.8 (36.4-46.3) fL Plt Count 377 H D (182-369) K/mm3 MPV 9.5 (9.4-12.3) fl Neut % (Auto) 80.6 H (34.0-71.1) % Lymph % (Auto) 8.4 L (19.3-51.7) % [place]roy[place] % (Auto) 7.5 (4.7-12.5) % Eos % (Auto) 2.9 (0.7-5.8) Baso % (Auto) 0.4 (0.1-1.2) % Neut # (Auto) 7.38 H (1.56-6.13) K/mm3 Lymph # (Auto) 0.77 L (1.18-3.74) K/mm3 [place] # (Auto) 0.69 H (0.24-0.36) K/mm3 Eos # (Auto) 0.27 (0.04-0.36) K/mm3 Baso # (Auto) 0.04 (0.01-0.08) K/mm3 Manual Slide Review Normal smear ESR (0-20) mm/hr PT 12.7 H (9.7-12.0) SECONDS INR 1.19 APTT 36.2 H (21.7-31.4) SECONDS Sodium 137 (136-145) mEq/L Potassium 4.2 (3.5-5.1) mEq/L Chloride 101 (98-107) mEq/L Carbon Dioxide 30 (21-32) mEq/L Anion Gap 10.2 (5-15) BUN 23 H (7-18) mg/dL Creatinine 1.0 (0.55-1.02) mg/dL Est Cr Clr Drug Dosing TNP Estimated GFR (MDRD) 53 (>60) mL/min BUN/Creatinine Ratio 23.0 H (14-18) Glucose 121 H (83-115) mg/dL Lactic Acid (0.4-2.0) mmol/L Calcium 9.5 (8.5-10.1) mg/dL Magnesium 2.3 (1.8-2.4) mg/dl Total Bilirubin 0.6 (0.2-1.0) mg/dL AST 27 (15-37) U/L ALT 17 (14-59) U/L Alkaline Phosphatase 91 (46-116) U/L Troponin I < 0.017 (0.00-0.056) ng/mL C-Reactive Protein 3.5 H* (<1.0) mg/dL NT-Pro-B Natriuret Pep (0-450) pg/mL Total Protein 8.9 H (6.4-8.2) g/dl Albumin 3.3 L (3.4-5.0) g/dl Globulin 5.6 gm/dL Albumin/Globulin Ratio 0.6 L (1-2) Urine Color (Yellow) Urine Appearance (Clear) Urine pH (5.0-8.0) Ur Specific Barrow (1.005-1.030) Urine Protein (Negative) Urine Glucose (UA) (Negative) Urine Ketones (Negative) Urine Occult Blood (Negative) Urine Nitrite (Negative) Urine Bilirubin (Negative) Urine Urobilinogen (0.2-1.0) Ur Leukocyte Esterase (Negative) Urine RBC (0-5) /hpf Urine WBC (0-5) /hpf Ur Squamous Epith Cells (0-5) /hpf Urine Bacteria (FEW) /hpf Urine Mucus (FEW) /hpf SARS-CoV-2 RNA (AMADOU) (NEGATIVE) 09/05/20 09/05/20 09/05/20 Range/Units 12:32 12:32 12:32 WBC (3.98-10.04) K/mm3 RBC (3.98-5.22) M/mm3 Hgb (11.2-15.7) gm/dl Hct (34.1-44.9) % MCV (79.4-94.8) fl MCH (25.6-32.2) pg MCHC (32.2-35.5) g/dl RDW Std Deviation (36.4-46.3) fL Plt Count (182-369) K/mm3 MPV (9.4-12.3) fl Neut % (Auto) (34.0-71.1) % Lymph % (Auto) (19.3-51.7) % Arroy[place] % (Auto) (4.7-12.5) % Eos % (Auto) (0.7-5.8) Baso % (Auto) (0.1-1.2) % Neut # (Auto) (1.56-6.13) K/mm3 Lymph # (Auto) (1.18-3.74) K/mm3 Arroy[place] # (Auto) (0.24-0.36) K/mm3 Eos # (Auto) (0.04-0.36) K/mm3 Baso # (Auto) (0.01-0.08) K/mm3 Manual Slide Review ESR 77 H (0-20) mm/hr PT (9.7-12.0) SECONDS INR APTT (21.7-31.4) SECONDS Sodium (136-145) mEq/L Potassium (3.5-5.1) mEq/L Chloride (98-107) mEq/L Carbon Dioxide (21-32) mEq/L Anion Gap (5-15) BUN (7-18) mg/dL Creatinine (0.55-1.02) mg/dL Est Cr Clr Drug Dosing Estimated GFR (MDRD) (>60) mL/min BUN/Creatinine Ratio (14-18) Glucose (83-115) mg/dL Lactic Acid 1.1 (0.4-2.0) mmol/L Calcium (8.5-10.1) mg/dL Magnesium (1.8-2.4) mg/dl Total Bilirubin (0.2-1.0) mg/dL AST (15-37) U/L ALT (14-59) U/L Alkaline Phosphatase (46-116) U/L Troponin I (0.00-0.056) ng/mL C-Reactive Protein (<1.0) mg/dL NT-Pro-B Natriuret Pep 1285 H (0-450) pg/mL Total Protein (6.4-8.2) g/dl Albumin (3.4-5.0) g/dl Globulin gm/dL Albumin/Globulin Ratio (1-2) Urine Color (Yellow) Urine Appearance (Clear) Urine pH (5.0-8.0) Ur Specific Barrow (1.005-1.030) Urine Protein (Negative) Urine Glucose (UA) (Negative) Urine Ketones (Negative) Urine Occult Blood (Negative) Urine Nitrite (Negative) Urine Bilirubin (Negative) Urine Urobilinogen (0.2-1.0) Ur Leukocyte Esterase (Negative) Urine RBC (0-5) /hpf Urine WBC (0-5) /hpf Ur Squamous Epith Cells (0-5) /hpf Urine Bacteria (FEW) /hpf Urine Mucus (FEW) /hpf SARS-CoV-2 RNA (AMADOU) (NEGATIVE) 09/05/20 09/05/20 Range/Units 12:52 13:40 WBC (3.98-10.04) K/mm3 RBC (3.98-5.22) M/mm3 Hgb (11.2-15.7) gm/dl Hct (34.1-44.9) % MCV (79.4-94.8) fl MCH (25.6-32.2) pg MCHC (32.2-35.5) g/dl RDW Std Deviation (36.4-46.3) fL Plt Count (182-369) K/mm3 MPV (9.4-12.3) fl Neut % (Auto) (34.0-71.1) % Lymph % (Auto) (19.3-51.7) % Arroyo % (Auto) (4.7-12.5) % Eos % (Auto) (0.7-5.8) Baso % (Auto) (0.1-1.2) % Neut # (Auto) (1.56-6.13) K/mm3 Lymph # (Auto) (1.18-3.74) K/mm3 [place] # (Auto) (0.24-0.36) K/mm3 Eos # (Auto) (0.04-0.36) K/mm3 Baso # (Auto) (0.01-0.08) K/mm3 Manual Slide Review ESR (0-20) mm/hr PT (9.7-12.0) SECONDS INR APTT (21.7-31.4) SECONDS Sodium (136-145) mEq/L Potassium (3.5-5.1) mEq/L Chloride (98-107) mEq/L Carbon Dioxide (21-32) mEq/L Anion Gap (5-15) BUN (7-18) mg/dL Creatinine (0.55-1.02) mg/dL Est Cr Clr Drug Dosing Estimated GFR (MDRD) (>60) mL/min BUN/Creatinine Ratio (14-18) Glucose (83-115) mg/dL Lactic Acid (0.4-2.0) mmol/L Calcium (8.5-10.1) mg/dL Magnesium (1.8-2.4) mg/dl Total Bilirubin (0.2-1.0) mg/dL AST (15-37) U/L ALT (14-59) U/L Alkaline Phosphatase (46-116) U/L Troponin I (0.00-0.056) ng/mL C-Reactive Protein (<1.0) mg/dL NT-Pro-B Natriuret Pep (0-450) pg/mL Total Protein (6.4-8.2) g/dl Albumin (3.4-5.0) g/dl Globulin gm/dL Albumin/Globulin Ratio (1-2) Urine Color Yellow (Yellow) Urine Appearance Clear (Clear) Urine pH 6.0 (5.0-8.0) Ur Specific B[place] 1.020 (1.005-1.030) Urine Protein Negative (Negative) Urine Glucose (UA) Negative (Negative) Urine Ketones Negative (Negative) Urine Occult Blood Negative (Negative) Urine Nitrite Negative (Negative) Urine Bilirubin Negative (Negative) Urine Urobilinogen 0.2 (0.2-1.0) Ur Leukocyte Esterase Trace H (Negative) Urine RBC 0-5 (0-5) /hpf Urine WBC 5-10 H (0-5) /hpf Ur Squamous Epith Cells 0-5 (0-5) /hpf Urine Bacteria Few (FEW) /hpf Urine Mucus Not seen (FEW) /hpf SARS-CoV-2 RNA (AMADOU) Negative (NEGATIVE) Result Diagrams: 09/05/20 12:32 09/05/20 12:32 Imaging Impressions Last 24 hrs: Chest x-ray shows some cardiomegaly with mild pulmonary vascular congestion. Sepsis Event Note - Evaluation Sepsis Screening Result: No Definite Risk - Focused Exam Vital Signs: Vital Signs Temp Temp Pulse Pulse Resp BP BP 09/05/20 15:23 98.1 F 71 20 120/49 L 09/05/20 12:10 97.1 F 88 18 130/87 Pulse Ox 09/05/20 15:23 93 L 09/05/20 12:10 92 L - Problem List (1) Bilateral cellulitis of lower leg SNOMED Code(s): 976885506 ICD Code: L03.116 - CELLULITIS OF LEFT LOWER LIMB; L03.115 - CELLULITIS OF RIGHT LOWER LIMB Status: Acute Current Visit: Yes (2) Chronic atrial fibrillation SNOMED Code(s): 922668826 ICD Code: I48.20 - CHRONIC ATRIAL FIBRILLATION, UNSPECIFIED Status: Acute Current Visit: Yes (3) Congestive heart failure SNOMED Code(s): 83920968 ICD Code: I50.9 - HEART FAILURE, UNSPECIFIED Status: Acute Current Visit: Yes Qualifiers: Heart failure type: unspecified Heart failure chronicity: chronic Qualified Code(s): I50.9 - Heart failure, unspecified (4) Acute exacerbation of CHF (congestive heart failure) SNOMED Code(s): 868840609, 30835204426622 ICD Code: I50.9 - HEART FAILURE, UNSPECIFIED Status: Acute Current Visit: No Qualifiers: Heart failure type: diastolic Qualified Code(s): I50.33 - Acute on chronic diastolic (congestive) heart failure (5) Dependent edema SNOMED Code(s): 975739722 ICD Code: R60.9 - EDEMA, UNSPECIFIED Status: Acute Current Visit: No (6) Peripheral edema SNOMED Code(s): 800612615 ICD Code: R60.9 - EDEMA, UNSPECIFIED Status: Acute Current Visit: No Problem List Initiated/Reviewed/Updated: Yes Orders Last 24hrs: Active Orders 24 hr Category Date Time Status Admission Status [Patient Status] [ADT] Routine ADT 09/05/20 16:10 Active EKG Documentation Completion [RC] STAT Care 09/05/20 12:15 Active Intake and Output Strict [RC] Q2HR Care 09/05/20 16:19 Active Oxygen Therapy [RC] ASDIRECTED Care 09/05/20 12:16 Active Peripheral IV Care [RC] . DIRECTED Care 09/05/20 12:16 Active Up With Assistance [RC] ASDIRECTED Care 09/05/20 16:21 Ordered VTE/DVT Education [RC] PER UNIT ROUTINE Care 09/05/20 16:21 Ordered Vital Signs [RC] Q4H Care 09/05/20 16:21 Ordered PT Evaluation and Treatment [CONS] Routine Cons 09/05/20 16:11 Ordered Heart Healthy Diet [DIET] Diet 09/05/20 Dinner Active Echo Comp wo Cont [US] Routine Exams 09/06/20 Ordered C-REACTIVE PROTEIN [CHEM] AM Lab 09/06/20 05:11 Ordered CBC WITH AUTO DIFF [HEME] AM Lab 09/06/20 05:11 Ordered CMP [COMPREHENSIVE METABOLIC PN,CMP] [CHEM] AM Lab 09/06/20 05:11 Ordered CULTURE URINE [RM] Stat Lab 09/05/20 13:46 Received GLYCOSYLATED HEMOGLOBIN,HGBA1C [CHEM] AM Lab 09/06/20 05:11 Ordered MAGNESIUM [CHEM] AM Lab 09/06/20 05:11 Ordered PHOSPHORUS [CHEM] AM Lab 09/06/20 05:11 Ordered PROCALCITONIN [REF] Routine Lab 09/05/20 16:27 Ordered Acetaminophen [TylenoL] Med 09/05/20 16:21 Ordered 650 mg PO Q4H PRN Furosemide [Lasix] Med 09/06/20 09:00 Ordered 40 mg IVPUSH DAILY Ondansetron [Zofran] Med 09/05/20 16:21 Ordered 4 mg IV Q4H PRN Sodium Chloride 0.9% [Saline Flush] Med 09/05/20 12:16 Active 10 ml FLUSH ASDIRECTED PRN cefTRIAXone [Rocephin] 2 gm Med 09/05/20 14:15 Active Sodium Chloride 0.9% [Normal Saline] 100 ml IV Q24H Peripheral IV Insertion Adult [OM.PC] Stat Oth 09/05/20 12:16 Ordered Code Status [Resuscitation Status] Routine Resus Stat 09/05/20 16:16 Ordered Medication Orders Acetaminophen (Tylenol) 650 mg PO Q4H PRN PRN Reason: Pain (Mild 1-3)/fever Ceftriaxone Sodium 2 gm/ (Sodium Chloride) 100 mls @ 200 mls/hr IV Q24H [facility] Last Admin: 09/05/20 15:27 Dose: 200 mls/hr Documented by: MONROE Ondansetron HCl (Zofran) 4 mg IV Q4H PRN PRN Reason: Nausea/Vomiting Sodium Chloride (Saline Flush) 10 ml FLUSH ASDIRECTED PRN PRN Reason: Keep Vein Open Last Admin: 09/05/20 13:32 Dose: 10 ml Documented by: GORDO Assessment/Plan Comment:: Assessment 09/05/2020 85-year-old female with history of heart failure with preserved ejection fraction presents to emergency department with 2 weeks of worsening erythema and swelling of her lower extremities. Lower extremity cellulitis Exacerbation of CHF * Last echocardiogram 2018 showed: Left ventricular ejection fraction 55 to 60% with normal left ventricular systolic function. The right ventricular systolic pressure was moderately to severely elevated at 56.0 mmHg. Severe biatrial dilatation. * Patient does not use her CPAP machine. * She states that oral Lasix is stopped working for her but she is on 80 mg daily * Spironolactone 25 mg daily * Also on Eliquis 5 mg twice daily for stroke prevention * Blood cultures were not done in the emergency department prior to antibiotics Atrial fibrillation * EKG showed rate controlled around 82. She did have episodes of 100 and above in the ED. * On Coreg for rate control. Obstructive sleep apnea Restless leg syndrome * She states that she does not wear her CPAP because of her restless leg synd sara. It appears she is on Mirapex at bedtime. * Education was given in regards to obstructive sleep apnea and pulmonary hypertension. Prediabetes * No recent hemoglobin A1c available Plan * Admit to medical floor on telemetry * Continue Rocephin 2 g every 24 hours * IV Lasix for diuresis * Strict I's and O's and daily weights * Echocardiogram * PT consult * Heart healthy diet * Continue Eliquis, spironolactone, Coreg * CODE STATUS: DNR/DNI * VTE prophylaxis with Eliquis * Length of stay likely 2 days. - Mortality Measure Prognosis:: Good
[2020-09-05] MEDS: Carvedilol 12.5 MG Tab PO SCH (17:55)
[2020-09-05] MEDS: Apixaban 5 MG Tab PO SCH (20:39)
[2020-09-05] MEDS: Acetaminophen 325 MG Tab PO PRN (22:55)
[2020-09-05] MEDS ORDERED: oxyCODONE 5 MG Tab PO PRN ×2 (23:42)
[2020-09-06] MEDS: Acetaminophen 325 MG Tab PO PRN ×2 (03:25→22:34)
[2020-09-06] MEDS: Furosemide 100 MG/10 ML SDV IVPUSH SCH (06:07)
[2020-09-06] MEDS: Carvedilol 12.5 MG Tab PO SCH ×2 (06:08→21:11)
[2020-09-06] MEDS ORDERED: Potassium Chloride 20 MEQ Tab.ER PO ONE (07:00)
[2020-09-06] MEDS ORDERED: Metolazone 5 MG Tab PO ONE (07:00)
[2020-09-06 08:18] LABS: HEMOGLOBIN A1C 6.8 % (4.50-6.20)
[2020-09-06] MEDS ORDERED: Furosemide 40 MG/4 ML VIAL IVPUSH SCH (09:00)
[2020-09-06] MEDS: Apixaban 5 MG Tab PO SCH ×2 (09:20→21:11)
[2020-09-06] MEDS: Spironolactone 25 MG Tab PO SCH (09:20)
[2020-09-06] MEDS: cefTRIAXone 2 GM in Sodium Chloride 0.9% 100 ML IV SCH (13:17)
--- NOTE | 2020-09-06 13:18 | PCM.PN ---
- General Info Date of Service: 09/06/20 Admission Dx/Problem (Free Text): Admission Diagnosis/Problem Admission Diagnosis/Problem Cellulitis Subjective Update: Patient mated for lower extremity edema and congestive heart failure with cellulitis had a 2 pound weight gain overnight even after getting 80 mg of IV Lasix. I's and O's were positive overnight. Patient apparently drank over a liter overnight. She was given IV Lasix and metaxalone p.o. this morning with good urine output. She was placed on a fluid restriction. Appetite is good. She has not a bowel movement. Functional Status: Reports: Pain Controlled - Review of Systems General: Reports: No Symptoms HEENT: Reports: No Symptoms Pulmonary: Reports: No Symptoms Cardiovascular: Reports: Edema - Patient Data Vitals - Most Recent: Last Vital Signs Temp 97.5 F 09/06/20 11:37 Pulse 64 09/06/20 11:37 Resp 16 09/06/20 11:37 BP 132/87 09/06/20 11:37 Pulse Ox 93 L 09/06/20 11:37 Weight - Most Recent: 211 lb I&O - Last 24 Hours: Intake & Output 09/05/20 09/06/20 09/06/20 22:59 06:59 14:59 Intake Total 797 1010 560 Output Total 200 341 6438 Balance 47 760 -790 Lab Results Last 24 Hours: Laboratory Results - last 24 hr 09/05/20 09/05/20 09/05/20 Range/Units 12:32 12:52 13:40 WBC (3.98-10.04) K/mm3 RBC (3.98-5.22) M/mm3 Hgb (11.2-15.7) gm/dl Hct (34.1-44.9) % MCV (79.4-94.8) fl MCH (25.6-32.2) pg MCHC (32.2-35.5) g/dl RDW Std Deviation (36.4-46.3) fL Plt Count (182-369) K/mm3 MPV (9.4-12.3) fl Neut % (Auto) (34.0-71.1) % Lymph % (Auto) (19.3-51.7) % [place] % (Auto) (4.7-12.5) % Eos % (Auto) (0.7-5.8) Baso % (Auto) (0.1-1.2) % Neut # (Auto) (1.56-6.13) K/mm3 Lymph # (Auto) (1.18-3.74) K/mm3 [place] # (Auto) (0.24-0.36) K/mm3 Eos # (Auto) (0.04-0.36) K/mm3 Baso # (Auto) (0.01-0.08) K/mm3 Sodium (136-145) mEq/L Potassium (3.5-5.1) mEq/L Chloride (98-107) mEq/L Carbon Dioxide (21-32) mEq/L Anion Gap (5-15) BUN (7-18) mg/dL Creatinine (0.55-1.02) mg/dL Est Cr Clr Drug Dosing mL/min Estimated GFR (MDRD) (>60) mL/min BUN/Creatinine Ratio (14-18) Glucose (83-115) mg/dL POC Glucose (83-110) mg/dL Hemoglobin A1c (4.50-6.20) % Calcium (8.5-10.1) mg/dL Phosphorus (2.6-4.7) mg/dL Magnesium (1.8-2.4) mg/dl Total Bilirubin (0.2-1.0) mg/dL AST (15-37) U/L ALT (14-59) U/L Alkaline Phosphatase (46-116) U/L C-Reactive Protein (<1.0) mg/dL NT-Pro-B Natriuret Pep 1285 H (0-450) pg/mL Total Protein (6.4-8.2) g/dl Albumin (3.4-5.0) g/dl Globulin gm/dL Albumin/Globulin Ratio (1-2) Urine Color Yellow (Yellow) Urine Appearance Clear (Clear) Urine pH 6.0 (5.0-8.0) Ur Specific [place] 1.020 (1.005-1.030) Urine Protein Negative (Negative) Urine Glucose (UA) Negative (Negative) Urine Ketones Negative (Negative) Urine Occult Blood Negative (Negative) Urine Nitrite Negative (Negative) Urine Bilirubin Negative (Negative) Urine Urobilinogen 0.2 (0.2-1.0) Ur Leukocyte Esterase Trace H (Negative) Urine RBC 0-5 (0-5) /hpf Urine WBC 5-10 H (0-5) /hpf Ur Squamous Epith Cells 0-5 (0-5) /hpf Urine Bacteria Few (FEW) /hpf Urine Mucus Not seen (FEW) /hpf SARS-CoV-2 RNA (AMADOU) Negative (NEGATIVE) 09/06/20 09/06/20 09/06/20 Range/Units 04:26 04:26 04:26 WBC 6.88 (3.98-10.04) K/mm3 RBC 3.97 L (3.98-5.22) M/mm3 Hgb 11.8 D (11.2-15.7) gm/dl Hct 36.3 (34.1-44.9) % MCV 91.4 (79.4-94.8) fl MCH 29.7 (25.6-32.2) pg MCHC 32.5 (32.2-35.5) g/dl RDW Std Deviation 45.5 (36.4-46.3) fL Plt Count 305 (182-369) K/mm3 MPV 9.8 (9.4-12.3) fl Neut % (Auto) 67.3 (34.0-71.1) % Lymph % (Auto) 16.0 L (19.3-51.7) % [place] % (Auto) 11.9 (4.7-12.5) % Eos % (Auto) 4.4 (0.7-5.8) Baso % (Auto) 0.4 (0.1-1.2) % Neut # (Auto) 4.63 (1.56-6.13) K/mm3 Lymph # (Auto) 1.10 L (1.18-3.74) K/mm3 [place] # (Auto) 0.82 H (0.24-0.36) K/mm3 Eos # (Auto) 0.30 (0.04-0.36) K/mm3 Baso # (Auto) 0.03 (0.01-0.08) K/mm3 Sodium 137 (136-145) mEq/L Potassium 3.6 (3.5-5.1) mEq/L Chloride 100 (98-107) mEq/L Carbon Dioxide 28 (21-32) mEq/L Anion Gap 12.6 (5-15) BUN 24 H (7-18) mg/dL Creatinine 1.2 H (0.55-1.02) mg/dL Est Cr Clr Drug Dosing 24.62 mL/min Estimated GFR (MDRD) 43 (>60) mL/min BUN/Creatinine Ratio 20.0 H (14-18) Glucose 206 H (83-115) mg/dL POC Glucose (83-110) mg/dL Hemoglobin A1c 6.80 H (4.50-6.20) % Calcium 8.6 (8.5-10.1) mg/dL Phosphorus 3.3 (2.6-4.7) mg/dL Magnesium 2.2 (1.8-2.4) mg/dl Total Bilirubin 0.4 (0.2-1.0) mg/dL AST 13 L (15-37) U/L ALT 13 L (14-59) U/L Alkaline Phosphatase 73 (46-116) U/L C-Reactive Protein 4.6 H* (<1.0) mg/dL NT-Pro-B Natriuret Pep (0-450) pg/mL Total Protein 7.4 (6.4-8.2) g/dl Albumin 2.6 L (3.4-5.0) g/dl Globulin 4.8 gm/dL Albumin/Globulin Ratio 0.5 L (1-2) Urine Color (Yellow) Urine Appearance (Clear) Urine pH (5.0-8.0) Ur Specific [place] (1.005-1.030) Urine Protein (Negative) Urine Glucose (UA) (Negative) Urine Ketones (Negative) Urine Occult Blood (Negative) Urine Nitrite (Negative) Urine Bilirubin (Negative) Urine Urobilinogen (0.2-1.0) Ur Leukocyte Esterase (Negative) Urine RBC (0-5) /hpf Urine WBC (0-5) /hpf Ur Squamous Epith Cells (0-5) /hpf Urine Bacteria (FEW) /hpf Urine Mucus (FEW) /hpf SARS-CoV-2 RNA (AMADOU) (NEGATIVE) 09/06/20 Range/Units 11:33 WBC (3.98-10.04) K/mm3 RBC (3.98-5.22) M/mm3 Hgb (11.2-15.7) gm/dl Hct (34.1-44.9) % MCV (79.4-94.8) fl MCH (25.6-32.2) pg MCHC (32.2-35.5) g/dl RDW Std Deviation (36.4-46.3) fL Plt Count (182-369) K/mm3 MPV (9.4-12.3) fl Neut % (Auto) (34.0-71.1) % Lymph % (Auto) (19.3-51.7) % [place] % (Auto) (4.7-12.5) % Eos % (Auto) (0.7-5.8) Baso % (Auto) (0.1-1.2) % Neut # (Auto) (1.56-6.13) K/mm3 Lymph # (Auto) (1.18-3.74) K/mm3 [place] # (Auto) (0.24-0.36) K/mm3 Eos # (Auto) (0.04-0.36) K/mm3 Baso # (Auto) (0.01-0.08) K/mm3 Sodium (136-145) mEq/L Potassium (3.5-5.1) mEq/L Chloride (98-107) mEq/L Carbon Dioxide (21-32) mEq/L Anion Gap (5-15) BUN (7-18) mg/dL Creatinine (0.55-1.02) mg/dL Est Cr Clr Drug Dosing mL/min Estimated GFR (MDRD) (>60) mL/min BUN/Creatinine Ratio (14-18) Glucose (83-115) mg/dL POC Glucose 150 H (83-110) mg/dL Hemoglobin A1c (4.50-6.20) % Calcium (8.5-10.1) mg/dL Phosphorus (2.6-4.7) mg/dL Magnesium (1.8-2.4) mg/dl Total Bilirubin (0.2-1.0) mg/dL AST (15-37) U/L ALT (14-59) U/L Alkaline Phosphatase (46-116) U/L C-Reactive Protein (<1.0) mg/dL NT-Pro-B Natriuret Pep (0-450) pg/mL Total Protein (6.4-8.2) g/dl Albumin (3.4-5.0) g/dl Globulin gm/dL Albumin/Globulin Ratio (1-2) Urine Color (Yellow) Urine Appearance (Clear) Urine pH (5.0-8.0) Ur Specific [place] (1.005-1.030) Urine Protein (Negative) Urine Glucose (UA) (Negative) Urine Ketones (Negative) Urine Occult Blood (Negative) Urine Nitrite (Negative) Urine Bilirubin (Negative) Urine Urobilinogen (0.2-1.0) Ur Leukocyte Esterase (Negative) Urine RBC (0-5) /hpf Urine WBC (0-5) /hpf Ur Squamous Epith Cells (0-5) /hpf Urine Bacteria (FEW) /hpf Urine Mucus (FEW) /hpf SARS-CoV-2 RNA (AMADOU) (NEGATIVE) Med Orders - Current: Current Medications Acetaminophen (Tylenol) 650 mg PO Q4H PRN PRN Reason: Pain (Mild 1-3)/fever Last Admin: 09/06/20 03:25 Dose: 650 mg Documented by: Apixaban (Eliquis) 5 mg PO BID [facility] Last Admin: 09/06/20 09:20 Dose: 5 mg Documented by: Carvedilol (Coreg) 12.5 mg PO BIDMEALS [facility] Last Admin: 09/06/20 06:08 Dose: 12.5 mg Documented by: Docusate Sodium (Colace) 100 mg PO BID PRN PRN Reason: Constipation Furosemide (Lasix) 60 mg IVPUSH Q24H [facility] Last Admin: 09/06/20 06:07 Dose: 60 mg Documented by: Ceftriaxone Sodium 2 gm/ (Sodium Chloride) 100 mls @ 200 mls/hr IV Q24H [facility] Last Admin: 09/06/20 13:17 Dose: 200 mls/hr Documented by: Insulin Human Lispro (Humalog) 0 unit SUBCUT QIDACANDBED [facility]; Protocol Last Admin: 09/06/20 12:05 Dose: 1 unit Documented by: Ondansetron HCl (Zofran) 4 mg IV Q4H PRN PRN Reason: Nausea/Vomiting Oxycodone HCl (Oxycodone) 5 mg PO Q4H PRN PRN Reason: Pain (moderate 4-6) Oxycodone HCl (Oxycodone) 10 mg PO Q4H PRN PRN Reason: Pain (severe 7-10) Sodium Chloride (Saline Flush) 10 ml FLUSH ASDIRECTED PRN PRN Reason: Keep Vein Open Last Admin: 09/05/20 13:32 Dose: 10 ml Documented by: Spironolactone (Aldactone) 25 mg PO DAILY NIRALI Last Admin: 09/06/20 09:20 Dose: 25 mg Documented by: Discontinued Medications Furosemide (Lasix) 60 mg IVPUSH NOW ONE Stop: 09/05/20 12:21 Last Admin: 09/05/20 13:32 Dose: 60 mg Documented by: Furosemide (Lasix) 40 mg IVPUSH DAILY [facility] Metolazone (Zaroxolyn) 5 mg PO ONETIME ONE Stop: 09/06/20 07:01 Last Admin: 09/06/20 06:08 Dose: 5 mg Documented by: Potassium Chloride (Klor-Con M20) 40 meq PO ONETIME ONE Stop: 09/06/20 07:01 Last Admin: 09/06/20 06:08 Dose: 40 meq Documented by: - Exam Quality Assessment: No: Supplemental Oxygen General: Alert, Oriented HEENT: Pupils Equal, Mucous Membr. Moist/[place] Neck: Supple Lungs: Clear to Auscultation, Normal Respiratory Effort Cardiovascular: Regular Rate, Regular Rhythm GI/Abdominal Exam: Normal Bowel Sounds, Soft, Non-Tender, No Distention Extremities: Pedal Edema, Other (Wrapped with Дмитрий wraps) Skin: Warm, Dry, Intact Psy/Mental Status: Alert, Normal Affect, Normal Mood Sepsis Event Note - Evaluation Sepsis Screening Result: No Definite Risk - Focused Exam Vital Signs: Vital Signs Temp Pulse Resp BP BP Pulse Ox 09/06/20 11:37 97.5 F 64 16 132/87 93 L 09/06/20 09:25 103/58 L 09/06/20 09:20 97.9 F 58 L 18 92/62 92 L 09/06/20 06:08 70 114/62 09/06/20 05:46 114/62 09/06/20 04:16 97.5 F 70 16 141/112 H 95 - Problem List & Annotations (1) Bilateral cellulitis of lower leg SNOMED Code(s): 607876318 Code(s): L03.116 - CELLULITIS OF LEFT LOWER LIMB; L03.115 - CELLULITIS OF RIGHT LOWER LIMB Status: Acute Current Visit: Yes (2) Chronic atrial fibrillation SNOMED Code(s): 505262186 Code(s): I48.20 - CHRONIC ATRIAL FIBRILLATION, UNSPECIFIED Status: Acute Current Visit: Yes (3) Congestive heart failure SNOMED Code(s): 48892479 Code(s): I50.9 - HEART FAILURE, UNSPECIFIED Status: Acute Current Visit: Yes Qualifiers: Heart failure type: unspecified Heart failure chronicity: chronic Qualified Code(s): I50.9 - Heart failure, unspecified (4) Acute exacerbation of CHF (congestive heart failure) SNOMED Code(s): 428542822, 08407403205030 Code(s): I50.9 - HEART FAILURE, UNSPECIFIED Status: Acute Current Visit: No Qualifiers: Heart failure type: diastolic Qualified Code(s): I50.33 - Acute on chronic diastolic (congestive) heart failure (5) Dependent edema SNOMED Code(s): 756965617 Code(s): R60.9 - EDEMA, UNSPECIFIED Status: Acute Current Visit: No (6) Peripheral edema SNOMED Code(s): 936028436 Code(s): R60.9 - EDEMA, UNSPECIFIED Status: Acute Current Visit: No - Problem List Review Problem List Initiated/Reviewed/Updated: Yes - My Orders Last 24 Hours: My Active Orders 09/05/20 16:10 Admission Status [Patient Status] [ADT] Routine 09/05/20 16:11 PT Evaluation and Treatment [CONS] Routine 09/05/20 16:16 Code Status [Resuscitation Status] Routine 09/05/20 16:19 Intake and Output Strict [RC] Q2HR 09/05/20 16:21 Up With Assistance [RC] BID VTE/DVT Education [RC] DAILY Vital Signs [RC] Q4HR Acetaminophen [TylenoL] 650 mg PO Q4H PRN Ondansetron [Zofran] 4 mg IV Q4H PRN 09/05/20 16:27 PROCALCITONIN [REF] Routine 09/05/20 16:54 Docusate Sodium [Colace] 100 mg PO BID PRN 09/05/20 Dinner Heart Healthy Diet [DIET] carvediloL [Coreg] 12.5 mg PO BIDMEALS 09/05/20 21:00 Apixaban [Eliquis] 5 mg PO BID 09/05/20 23:42 oxyCODONE 10 mg PO Q4H PRN oxyCODONE 5 mg PO Q4H PRN 09/06/20 07:00 Furosemide [Lasix] 60 mg IVPUSH Q24H 09/06/20 09:00 Spironolactone [Aldactone] 25 mg PO DAILY 09/06/20 09:57 Blood Glucose Check, Bedside [] WITHMEALSANDBED 09/06/20 Lunch Fluid Restriction [DIET] Insulin Lispro [HumaLOG] See Protocol SUBCUT QIDACANDBED - Plan Plan:: Assessment 09/05/2020 85-year-old female with history of heart failure with preserved ejection fraction presents to emergency department with 2 weeks of worsening erythema and swelling of her lower extremities. Lower extremity cellulitis Exacerbation of CHF * Last echocardiogram 2017 showed: Left ventricular ejection fraction 55 to 60% with normal left ventricular systolic function. The right ventricular systolic pressure was moderately to severely elevated at 56.0 mmHg. Severe biatrial dilatation. * Patient does not use her CPAP machine. * She states that oral Lasix is stopped working for her but she is on 80 mg daily * Spironolactone 25 mg daily * Also on Eliquis 5 mg twice daily for stroke prevention * Blood cultures were not done in the emergency department prior to antibiotics Atrial fibrillation * EKG showed rate controlled around 82. She did have episodes of 100 and above in the ED. * On Coreg for rate control. Obstructive sleep apnea Restless leg syndrome * She states that she does not wear her CPAP because of her restless leg syndrome. It appears she is on Mirapex at bedtime. * Education was given in regards to obstructive sleep apnea and pulmonary hypertension. Prediabetes * No recent hemoglobin A1c available Plan * Admit to medical floor on telemetry * Continue Rocephin 2 g every 24 hours * IV Lasix for diuresis * Strict I's and O's and daily weights * Echocardiogram * PT consult * Heart healthy diet * Continue Eliquis, spironolactone, Coreg * CODE STATUS: DNR/DNI * VTE prophylaxis with Eliquis * Length of stay likely 2 days. 09/06/2020 Patient has had no significant change overnight, which is not surprising. Increase in Lasix dose today should help with the edema and antibiotics are on board and should have significant improvement over 24-48 hrs. Fluid restriction was placed and patient will be followed closely. Letter jeff will be followed. Her hemoglobin A1c was 6.8 so a sliding-scale insulin was started. Fasting blood sugar this morning was 206, which may be up secondary to infection. Anticipate length of stay 2 more days.
[2020-09-06] MEDS ORDERED: Furosemide 40 MG/4 ML VIAL IVPUSH ONE (13:24)
[2020-09-06] MEDS: Docusate Sodium 100 MG Cap PO PRN (21:17)
[2020-09-07] MEDS: diphenhydrAMINE 25 MG Cap PO PRN ×2 (02:08→19:51)
[2020-09-07] MEDS: Furosemide 100 MG/10 ML SDV IVPUSH SCH (07:09)
--- NOTE | 2020-09-07 07:58 | PCM.PN ---
- General Info Date of Service: 09/07/20 Admission Dx/Problem (Free Text): Admission Diagnosis/Problem Admission Diagnosis/Problem Cellulitis Subjective Update: The patient is an 85-year-old lady who was admitted on September 05, 2020 out of concern for bilateral lower leg edema and infection. The patient has a history of pulmonary hypertension with congestive heart failure and she is on medication for this. The patient says that today she is doing much better. She feels better. She has been breathing well. She has denied shortness of breath. The patient also has denied any pain and she has been tolerating her diet. Functional Status: Reports: Pain Controlled, Tolerating Diet - Review of Systems General: Reports: No Symptoms HEENT: Reports: No Symptoms Pulmonary: Reports: No Symptoms Cardiovascular: Reports: No Symptoms Gastrointestinal: Reports: No Symptoms Genitourinary: Reports: No Symptoms Musculoskeletal: Reports: No Symptoms Skin: Reports: No Symptoms Neurological: Reports: No Symptoms Psychiatric: Reports: No Symptoms - Patient Data Vitals - Most Recent: Last Vital Signs Temp 36.6 C 09/07/20 04:19 Pulse 68 09/07/20 04:19 Resp 18 09/07/20 04:19 BP 109/58 L 09/07/20 04:19 Pulse Ox 94 L 09/07/20 04:19 Weight - Most Recent: 94.03 kg I&O - Last 24 Hours: Intake & Output 09/06/20 09/07/20 09/07/20 22:59 06:59 14:59 Intake Total 500 100 Output Total 1700 450 Balance -1200 -350 Lab Results Last 24 Hours: Laboratory Results - last 24 hr 09/05/20 09/06/20 09/06/20 Range/Units 16:27 04:26 11:33 Sodium (136-145) mEq/L Potassium (3.5-5.1) mEq/L Chloride (98-107) mEq/L Carbon Dioxide (21-32) mEq/L Anion Gap (5-15) BUN (7-18) mg/dL Creatinine (0.55-1.02) mg/dL Est Cr Clr Drug Dosing mL/min Estimated GFR (MDRD) (>60) mL/min BUN/Creatinine Ratio (14-18) Glucose (83-115) mg/dL POC Glucose 150 H (83-110) mg/dL Hemoglobin A1c 6.80 H (4.50-6.20) % Calcium (8.5-10.1) mg/dL Magnesium (1.8-2.4) mg/dl Procalcitonin <0.05 ng/mL 09/06/20 09/06/20 09/06/20 Range/Units 17:13 20:50 22:23 Sodium 139 (136-145) mEq/L Potassium 3.1 L (3.5-5.1) mEq/L Chloride 98 (98-107) mEq/L Carbon Dioxide 34 H (21-32) mEq/L Anion Gap 10.1 (5-15) BUN 32 H (7-18) mg/dL Creatinine 1.5 H (0.55-1.02) mg/dL Est Cr Clr Drug Dosing 19.70 mL/min Estimated GFR (MDRD) 33 (>60) mL/min BUN/Creatinine Ratio 21.3 H (14-18) Glucose 138 H (83-115) mg/dL POC Glucose 122 H 172 H (83-110) mg/dL Hemoglobin A1c (4.50-6.20) % Calcium 8.7 (8.5-10.1) mg/dL Magnesium 2.2 (1.8-2.4) mg/dl Procalcitonin ng/mL 09/07/20 Range/Units 07:12 Sodium (136-145) mEq/L Potassium (3.5-5.1) mEq/L Chloride (98-107) mEq/L Carbon Dioxide (21-32) mEq/L Anion Gap (5-15) BUN (7-18) mg/dL Creatinine (0.55-1.02) mg/dL Est Cr Clr Drug Dosing mL/min Estimated GFR (MDRD) (>60) mL/min BUN/Creatinine Ratio (14-18) Glucose (83-115) mg/dL POC Glucose 169 H (83-110) mg/dL Hemoglobin A1c (4.50-6.20) % Calcium (8.5-10.1) mg/dL Magnesium (1.8-2.4) mg/dl Procalcitonin ng/mL Med Orders - Current: Current Medications Acetaminophen (Tylenol) 650 mg PO Q4H PRN PRN Reason: Pain (Mild 1-3)/fever Last Admin: 09/06/20 22:34 Dose: 650 mg Documented by: Apixaban (Eliquis) 5 mg PO BID [facility] Last Admin: 09/06/20 21:11 Dose: 5 mg Documented by: Carvedilol (Coreg) 12.5 mg PO BID [facility] Last Admin: 09/06/20 21:11 Dose: 12.5 mg Documented by: Diphenhydramine HCl (Benadryl) 25 mg PO Q4H PRN PRN Reason: Itching Last Admin: 09/07/20 02:08 Dose: 25 mg Documented by: Docusate Sodium (Colace) 100 mg PO BID PRN PRN Reason: Constipation Last Admin: 09/06/20 21:17 Dose: 100 mg Documented by: Furosemide (Lasix) 60 mg IVPUSH Q24H [facility] Last Admin: 09/07/20 07:09 Dose: 60 mg Documented by: Ceftriaxone Sodium 2 gm/ (Sodium Chloride) 100 mls @ 200 mls/hr IV Q24H [facility] Last Admin: 09/06/20 13:17 Dose: 200 mls/hr Documented by: Insulin Human Lispro (Humalog) 0 unit SUBCUT QIDACANDBED [facility]; Protocol Last Admin: 09/06/20 22:35 Dose: 1 unit Documented by: Ondansetron HCl (Zofran) 4 mg IV Q4H PRN PRN Reason: Nausea/Vomiting Oxycodone HCl (Oxycodone) 5 mg PO Q4H PRN PRN Reason: Pain (moderate 4-6) Last Admin: 09/06/20 22:35 Dose: 5 mg Documented by: Oxycodone HCl (Oxycodone) 10 mg PO Q4H PRN PRN Reason: Pain (severe 7-10) Sodium Chloride (Saline Flush) 10 ml FLUSH ASDIRECTED PRN PRN Reason: Keep Vein Open Last Admin: 09/05/20 13:32 Dose: 10 ml Documented by: Spironolactone (Aldactone) 25 mg PO DAILY [facility] Last Admin: 09/06/20 09:20 Dose: 25 mg Documented by: Discontinued Medications Carvedilol (Coreg) 12.5 mg PO BIDMEALS [facility] Last Admin: 09/06/20 06:08 Dose: 12.5 mg Documented by: Furosemide (Lasix) 60 mg IVPUSH NOW ONE Stop: 12/28/20 12:21 Last Admin: 09/05/20 13:32 Dose: 60 mg Documented by: Furosemide (Lasix) 40 mg IVPUSH DAILY NIRALI Furosemide (Lasix) 60 mg IVPUSH NOW ONE Stop: 09/06/20 13:25 Last Admin: 09/06/20 13:58 Dose: 60 mg Documented by: Metolazone (Zaroxolyn) 5 mg PO ONETIME ONE Stop: 09/06/20 07:01 Last Admin: 09/06/20 06:08 Dose: 5 mg Documented by: Potassium Chloride (Klor-Con M20) 40 meq PO ONETIME ONE Stop: 09/06/20 07:01 Last Admin: 09/06/20 06:08 Dose: 40 meq Documented by: - Exam Quality Assessment: DVT Prophylaxis. No: Supplemental Oxygen General: Alert, Oriented, Cooperative, No Acute Distress HEENT: Pupils Equal, Pupils Reactive, Mucous Membr. Moist/[place]. No: EOMI ([place]) Neck: Supple, Trachea Midline Lungs: Normal Respiratory Effort, Rales Cardiovascular: Regular Rate, Irregular Rhythm GI/Abdominal Exam: Normal Bowel Sounds, Soft, No Distention (Female) Exam: Deferred Back Exam: Normal Inspection, Full Range of Motion Extremities: Normal Inspection, No Pedal Edema Skin: Warm, Dry, Intact Neurological: No New Focal Deficit Psy/Mental Status: Alert, Normal Affect Sepsis Event Note - Evaluation Sepsis Screening Result: No Definite Risk - Focused Exam Vital Signs: Vital Signs Temp Pulse Resp BP Pulse Ox 09/07/20 04:19 36.6 C 68 18 109/58 L 94 L 09/06/20 21:11 64 116/70 09/06/20 20:29 36.7 C 64 20 116/70 93 L - Problem List & Annotations (1) Peripheral edema SNOMED Code(s): 853060111 Code(s): R60.9 - EDEMA, UNSPECIFIED Status: Chronic Priority: High Current Visit: Yes (2) Acute exacerbation of CHF (congestive heart failure) SNOMED Code(s): 960277666, 48865330326986 Code(s): I50.9 - HEART FAILURE, UNSPECIFIED Status: Chronic Priority: High Current Visit: Yes Qualifiers: Heart failure type: diastolic Qualified Code(s): I50.33 - Acute on chronic diastolic (congestive) heart failure (3) Lower extremity pain, bilateral SNOMED Code(s): 99310691 Code(s): M79.604 - PAIN IN RIGHT LEG; M79.605 - PAIN IN LEFT LEG Status: Chronic Priority: Medium Current Visit: Yes (4) Left leg cellulitis SNOMED Code(s): 838737428 Code(s): L03.116 - CELLULITIS OF LEFT LOWER LIMB Status: Acute Priority: High Current Visit: Yes - Problem List Review Problem List Initiated/Reviewed/Updated: Yes - Plan Plan:: Assessment 09/05/2020 85-year-old female with history of heart failure with preserved ejection fraction presents to emergency department with 2 weeks of worsening erythema and swelling of her lower extremities. Lower extremity cellulitis Exacerbation of CHF * Last echocardiogram 2018 showed: Left ventricular ejection fraction 55 to 60% with normal left ventricular systolic function. The right ventricular systolic pressure was moderately to severely elevated at 56.0 mmHg. Severe biatrial dilatation. * Patient does not use her CPAP machine. * She states that oral Lasix is stopped working for her but she is on 80 mg daily * Spironolactone 25 mg daily * Also on Eliquis 5 mg twice daily for stroke prevention * Blood cultures were not done in the emergency department prior to antibiotics Atrial fibrillation * EKG showed rate controlled around 82. She did have episodes of 100 and above in the ED. * On Coreg for rate control. Obstructive sleep apnea Restless leg syndrome * She states that she does not wear her CPAP because of her restless leg syndrome. It appears she is on Mirapex at bedtime. * Education was given in regards to obstructive sleep apnea and pulmonary hypertension. Prediabetes * No recent hemoglobin A1c available Plan * Admit to medical floor on telemetry * Continue Rocephin 2 g every 24 hours * IV Lasix for diuresis * Strict I's and O's and daily weights * Echocardiogram * PT consult * Heart healthy diet * Continue Eliquis, spironolactone, Coreg * CODE STATUS: DNR/DNI * VTE prophylaxis with Eliquis * Length of stay likely 2 days. 09/06/2020 Patient has had no significant change overnight, which is not surprising. Increase in Lasix dose today should help with the edema and antibiotics are on board and should have significant improvement over 24-48 hrs. Fluid restriction was placed and patient will be followed closely. Letter lites will be followed. Her hemoglobin A1c was 6.8 so a sliding-scale insulin was started. Fasting blood sugar this morning was 206, which may be up secondary to infection. Anticipate length of stay 2 more days. 09/07/2020 The patient is an 85-year-old lady who is doing better today. She is in significantly less pain. We will continue with the fluid restrictions for her congestive heart failure. The patient also will continue with physical therapy as needed although she has been walking well. Patient will have her diabetic diet as tolerated with insulin on sliding scale as necessary for hyperglycemia. DVT prophylaxis is completed with the use of Eliquis. Physical therapy should be evaluating the patient with regards to possible placement. The patient also has been encouraged to ambulate. Repeat laboratory studies may be ordered in the morning.
[2020-09-07] MEDS: Carvedilol 12.5 MG Tab PO SCH ×2 (08:41→20:57)
[2020-09-07] MEDS: Apixaban 5 MG Tab PO SCH (08:43)
[2020-09-07] MEDS: Spironolactone 25 MG Tab PO SCH (08:43)
[2020-09-07] MEDS: Nystatin Crm 30 GM Tube TOP SCH ×2 (11:32→20:59)
[2020-09-07] MEDS ORDERED: Potassium Chloride 10 MEQ in Premix Bag 1 BAG IV ONE (12:30)
[2020-09-07] MEDS: cefTRIAXone 2 GM in Sodium Chloride 0.9% 100 ML IV SCH (13:43)
[2020-09-07] MEDS: Docusate Sodium 100 MG Cap PO PRN (18:25)
[2020-09-07] MEDS ORDERED: traZODone 50 MG Tab PO PRN (20:21)
[2020-09-07] MEDS: Acetaminophen 325 MG Tab PO PRN (20:57)
[2020-09-07] MEDS ORDERED: Apixaban 2.5 MG Tab PO SCH (21:00)
[2020-09-08] MEDS: diphenhydrAMINE 25 MG Cap PO PRN (01:44)
[2020-09-08] MEDS ORDERED: Magnesium Hydroxide 400 MG/5 ML Susp 30 ML Cup PO ONE (04:16)
[2020-09-08] MEDS: Furosemide 100 MG/10 ML SDV IVPUSH SCH (07:58)
[2020-09-08] MEDS: Carvedilol 12.5 MG Tab PO SCH (08:43)
[2020-09-08] MEDS: Spironolactone 25 MG Tab PO SCH (08:43)
[2020-09-08] MEDS: Potassium Chloride 10 MEQ in Premix Bag 1 BAG IV SCH ×2 (08:45→12:28)
[2020-09-08] MEDS: Nystatin Crm 30 GM Tube TOP SCH (08:46)
[2020-09-08] MEDS ORDERED: Apixaban 5 MG Tab PO SCH (09:00)
[2020-09-08] MEDS ORDERED: Potassium Chloride 20 MEQ Tab.ER PO ONE (11:00)
[2020-09-08] MEDS ORDERED: Potassium Chloride 10 MEQ in Premix Bag 1 BAG IV SCH (12:30)
[2020-09-08] MEDS: cefTRIAXone 2 GM in Sodium Chloride 0.9% 100 ML IV SCH (13:23)
--- NOTE | 2020-09-08 14:22 | PCM.DCSUM1 ---
Discharge Summary - Hospital Course Free Text/Narrative:: The patient originally was admitted due to cellulitis of her lower extremities. Diagnosis: Stroke: No - Discharge Data Discharge Date: 09/08/20 Discharge Disposition: Home, Self-Care 01 Condition: Fair - Referral to Home Health Primary Care Physician: Jaimie Sexton PA-C - Discharge Diagnosis/Problem(s) (1) Peripheral edema SNOMED Code(s): 991456851 ICD Code: R60.9 - EDEMA, UNSPECIFIED Status: Chronic Priority: High (2) Acute exacerbation of CHF (congestive heart failure) SNOMED Code(s): 196859458, 77280451363989 ICD Code: I50.9 - HEART FAILURE, UNSPECIFIED Status: Chronic Priority: High Qualifiers: Heart failure type: diastolic Qualified Code(s): I50.33 - Acute on chronic diastolic (congestive) heart failure (3) Lower extremity pain, bilateral SNOMED Code(s): 20491564 ICD Code: M79.604 - PAIN IN RIGHT LEG; M79.605 - PAIN IN LEFT LEG Status: Chronic Priority: Medium (4) Left leg cellulitis SNOMED Code(s): 633207306 ICD Code: L03.116 - CELLULITIS OF LEFT LOWER LIMB Status: Acute Priority: High - Patient Summary/Data Consults: Consultations 09/05/20 16:11 PT Evaluation and Treatment [CONS] Routine Hospital Course: The patient is an 85-year-old female who has a history of congestive heart failure and pulmonary hypertension was admitted to acute hospitalization on September 05, 2020. In the emergency department the patient was noted to have a proBNP of 1285. The patient also had been given IV Lasix and metaxalone p.o. The patient also had good urinary output. She had been placed on fluid restriction. The patient had a urine culture which was suggestive of contamination and reported out as mixed rom. Day of discharge the patient was noted to have a potassium level of 2.5 mmol/L and this was replaced both IV and orally prior to discharge. The patient's potassium was retested and this had improved to 3.8 mmol/L. It was felt that the potassium had dropped secondary to the patient's use of Lasix. When the patient's Lasix was started she had been placed on additional potassium and her potassium was low normal to low through out the hospitalization. The patient did have a history of prediabetes and she had a hemoglobin A1c which was noted to be 6.8%. The patient had been continued on a carb constant diet along with insulin to help control her hyperglycemic excursions. Patient's last blood sugar tested was at 149 mg/dL. The patient has been recommended to follow-up with her primary care physician for this. Thus far the patient's diabetes has been fairly well controlled with the use of diet. She did experience significant improvement in her lower extremity edema. It was felt that this was not due to cellulitis but chronic skin changes as a result of chronic edema. The patient also has a history of atrial fibrillation and he apixaban has been continued for her. The patient had continued to improve through the short course of hospitalization and by day of discharge she felt that she can go home safely. The pain in her legs had improved significantly. The patient has been recommended to continue with appropriate carb constant diabetic diet as tolerated. She is also to have activity as tolerated. The patient is to follow-up with her primary care physician. The patient should also follow-up with cardiology as necessary for her pulmonary hypertension and her right heart failure. The patient should also weigh herself on a daily basis. The patient has been hemodynamically stable and she is di scharged from acute hospitalization with the recommendations listed above. - Patient Instructions Diet: Diabetic Diet Activity: As Tolerated - Discharge Plan *PRESCRIPTION DRUG MONITORING PROGRAM REVIEWED*: Not Applicable *COPY OF PRESCRIPTION DRUG MONITORING REPORT IN PATIENT SAGE: Not Applicable Home Medications: Home Meds carvediloL [Carvedilol] 12.5 mg PO BIDMEALS 07/13/18 [History] B2/Vits A,C,E/Lut/Zeaxanth/Min [Icaps] 1 tab PO DAILY 09/29/18 [History] Furosemide 80 mg PO DAILY #0 11/09/18 [Rx] Apixaban [Eliquis] 5 mg PO BID 05/20/20 [History] Acetaminophen 500 mg PO ASDIRECTED PRN 09/05/20 [History] Calcium Carb/Vitamin D3/Vit K1 [Calcium + D Soft Chewable Tab] 1 tab PO BID 09/05/20 [History] Docusate Sodium [Dulcoease] 100 mg PO BID PRN 09/05/20 [History] Iron,Carbonyl/Ascorbic Acid [Vitron-C Tablet] 1 tab PO DAILY 09/05/20 [History] Multivitamin [Multi-Vitamin Daily] 1 tab PO DAILY 09/05/20 [History] Nystatin [Nystatin Crm] 15 gm TOP BID 09/05/20 [History] Potassium Chloride 20 meq PO BID 09/05/20 [History] Spironolactone [Aldactone] 25 mg PO DAILY 09/05/20 [History] Ubidecarenone [Co Q-10] 100 mg PO DAILY 09/05/20 [History] metOLazone [Metolazone] 2.5 mg PO ASDIRECTED 09/05/20 [History] Oxygen Therapy Mode: Room Air Patient Handouts: Heart Failure, Self Care, [id number], Cellulitis, Adult, [id number], How to Change Your Wound Dressing, [id number], Living With Heart Failure, Heart Failure and Exercise, Sepsis, Self Care, Adult Referrals: Jaimie Sexton PA-C [Primary Care Provider] - 09/16/20 10:00 am - Discharge Summary/Plan Comment DC Time >30 min.: Yes - General Info Date of Service: 09/08/20 Admission Dx/Problem (Free Text: Admission Diagnosis/Problem Admission Diagnosis/Problem Cellulitis Subjective Update: Patient is doing very well today. She is denied any pain. She has been tolerating her diet. The patient says that she feels like she can go home. Functional Status: Reports: Pain Controlled - Review of Systems General: Reports: No Symptoms HEENT: Reports: No Symptoms Pulmonary: Reports: No Symptoms Cardiovascular: Reports: Edema Gastrointestinal: Reports: No Symptoms Genitourinary: Reports: No Symptoms Musculoskeletal: Reports: No Symptoms Skin: Reports: No Symptoms Neurological: Reports: No Symptoms Psychiatric: Reports: No Symptoms - Patient Data Vitals - Most Recent: Last Vital Signs Temp 36.4 C 09/08/20 12:33 Pulse 60 09/08/20 12:33 Resp 16 09/08/20 12:33 BP 129/45 L 09/08/20 12:33 Pulse Ox 91 L 09/08/20 12:33 Weight - Most Recent: 93.44 kg I&O - Last 24 hours: Intake & Output 09/07/20 09/08/20 09/08/20 22:59 06:59 14:59 Intake Total 775 120 300 Output Total 256 800 650 Balance 56 -731 -698 Lab Results - Last 24 hrs: Laboratory Results - last 24 hr 09/07/20 09/07/20 09/07/20 Range/Units 10:31 17:00 20:56 WBC (3.98-10.04) K/mm3 RBC (3.98-5.22) M/mm3 Hgb (11.2-15.7) gm/dl Hct (34.1-44.9) % MCV (79.4-94.8) fl MCH (25.6-32.2) pg MCHC (32.2-35.5) g/dl RDW Std Deviation (36.4-46.3) fL Plt Count (182-369) K/mm3 MPV (9.4-12.3) fl Neut % (Auto) (34.0-71.1) % Lymph % (Auto) (19.3-51.7) % Kay % (Auto) (4.7-12.5) % Eos % (Auto) (0.7-5.8) Baso % (Auto) (0.1-1.2) % Neut # (Auto) (1.56-6.13) K/mm3 Lymph # (Auto) (1.18-3.74) K/mm3 Kay # (Auto) (0.24-0.36) K/mm3 Eos # (Auto) (0.04-0.36) K/mm3 Baso # (Auto) (0.01-0.08) K/mm3 Sodium (136-145) mEq/L Potassium (3.5-5.1) mEq/L Chloride (98-107) mEq/L Carbon Dioxide (21-32) mEq/L Anion Gap (5-15) BUN (7-18) mg/dL Creatinine (0.55-1.02) mg/dL Est Cr Clr Drug Dosing mL/min Estimated GFR (MDRD) (>60) mL/min BUN/Creatinine Ratio (14-18) Glucose (83-115) mg/dL POC Glucose 125 H 145 H 128 H (83-110) mg/dL Calcium (8.5-10.1) mg/dL Magnesium (1.8-2.4) mg/dl Total Bilirubin (0.2-1.0) mg/dL AST (15-37) U/L ALT (14-59) U/L Alkaline Phosphatase (46-116) U/L C-Reactive Protein (<1.0) mg/dL Total Protein (6.4-8.2) g/dl Albumin (3.4-5.0) g/dl Globulin gm/dL Albumin/Globulin Ratio (1-2) 09/08/20 09/08/20 09/08/20 Range/Units 05:50 05:50 06:56 WBC 4.74 (3.98-10.04) K/mm3 RBC 4.23 (3.98-5.22) M/mm3 Hgb 12.3 (11.2-15.7) gm/dl Hct 39.4 (34.1-44.9) % MCV 93.1 (79.4-94.8) fl MCH 29.1 (25.6-32.2) pg MCHC 31.2 L (32.2-35.5) g/dl RDW Std Deviation 45.0 (36.4-46.3) fL Plt Count 317 (182-369) K/mm3 MPV 9.6 (9.4-12.3) fl Neut % (Auto) 54.1 (34.0-71.1) % Lymph % (Auto) 27.4 (19.3-51.7) % Kay % (Auto) 10.3 (4.7-12.5) % Eos % (Auto) 6.5 H (0.7-5.8) Baso % (Auto) 1.5 H (0.1-1.2) % Neut # (Auto) 2.56 (1.56-6.13) K/mm3 Lymph # (Auto) 1.30 (1.18-3.74) K/mm3 Kay # (Auto) 0.49 H (0.24-0.36) K/mm3 Eos # (Auto) 0.31 (0.04-0.36) K/mm3 Baso # (Auto) 0.07 (0.01-0.08) K/mm3 Sodium 138 (136-145) mEq/L Potassium 2.5 L (3.5-5.1) mEq/L Chloride 98 (98-107) mEq/L Carbon Dioxide 34 H (21-32) mEq/L Anion Gap 8.5 (5-15) BUN 35 H (7-18) mg/dL Creatinine 1.0 (0.55-1.02) mg/dL Est Cr Clr Drug Dosing 29.54 mL/min Estimated GFR (MDRD) 53 (>60) mL/min BUN/Creatinine Ratio 35.0 H (14-18) Glucose 119 H (83-115) mg/dL POC Glucose 122 H (83-110) mg/dL Calcium 8.8 (8.5-10.1) mg/dL Magnesium 2.4 (1.8-2.4) mg/dl Total Bilirubin 0.4 (0.2-1.0) mg/dL AST 14 L (15-37) U/L ALT 9 L (14-59) U/L Alkaline Phosphatase 71 (46-116) U/L C-Reactive Protein 2.4 H* (<1.0) mg/dL Total Protein 7.3 (6.4-8.2) g/dl Albumin 2.6 L (3.4-5.0) g/dl Globulin 4.7 gm/dL Albumin/Globulin Ratio 0.6 L (1-2) 09/08/20 Range/Units 11:19 WBC (3.98-10.04) K/mm3 RBC (3.98-5.22) M/mm3 Hgb (11.2-15.7) gm/dl Hct (34.1-44.9) % MCV (79.4-94.8) fl MCH (25.6-32.2) pg MCHC (32.2-35.5) g/dl RDW Std Deviation (36.4-46.3) fL Plt Count (182-369) K/mm3 MPV (9.4-12.3) fl Neut % (Auto) (34.0-71.1) % Lymph % (Auto) (19.3-51.7) % Kay % (Auto) (4.7-12.5) % Eos % (Auto) (0.7-5.8) Baso % (Auto) (0.1-1.2) % Neut # (Auto) (1.56-6.13) K/mm3 Lymph # (Auto) (1.18-3.74) K/mm3 Kay # (Auto) (0.24-0.36) K/mm3 Eos # (Auto) (0.04-0.36) K/mm3 Baso # (Auto) (0.01-0.08) K/mm3 Sodium (136-145) mEq/L Potassium (3.5-5.1) mEq/L Chloride (98-107) mEq/L Carbon Dioxide (21-32) mEq/L Anion Gap (5-15) BUN (7-18) mg/dL Creatinine (0.55-1.02) mg/dL Est Cr Clr Drug Dosing mL/min Estimated GFR (MDRD) (>60) mL/min BUN/Creatinine Ratio (14-18) Glucose (83-115) mg/dL POC Glucose 182 H (83-110) mg/dL Calcium (8.5-10.1) mg/dL Magnesium (1.8-2.4) mg/dl Total Bilirubin (0.2-1.0) mg/dL AST (15-37) U/L ALT (14-59) U/L Alkaline Phosphatase (46-116) U/L C-Reactive Protein (<1.0) mg/dL Total Protein (6.4-8.2) g/dl Albumin (3.4-5.0) g/dl Globulin gm/dL Albumin/Globulin Ratio (1-2) FRAN Results - Last 24 hrs: Microbiology 09/05/20 13:46 Urine Culture - Final Urine, Bladder MIXED ROM SUGGESTIVE OF CONTAMINATION. Med Orders - Current: Current Medications Acetaminophen (Tylenol) 650 mg PO Q4H PRN PRN Reason: Pain (Mild 1-3)/fever Last Admin: 09/07/20 20:57 Dose: 650 mg Documented by: Apixaban (Eliquis) 5 mg PO BID [facility] Last Admin: 09/08/20 08:43 Dose: 5 mg Documented by: Carvedilol (Coreg) 12.5 mg PO BID [facility] Last Admin: 09/08/20 08:43 Dose: 12.5 mg Documented by: Diphenhydramine HCl (Benadryl) 25 mg PO Q4H PRN PRN Reason: Itching Last Admin: 09/08/20 01:44 Dose: 25 mg Documented by: Docusate Sodium (Colace) 100 mg PO BID PRN PRN Reason: Constipation Last Admin: 09/07/20 18:25 Dose: 100 mg Documented by: Furosemide (Lasix) 60 mg IVPUSH Q24H [facility] Last Admin: 09/08/20 07:58 Dose: Not Given Documented by: Ceftriaxone Sodium 2 gm/ (Sodium Chloride) 100 mls @ 200 mls/hr IV Q24H [facility] Last Admin: 09/08/20 13:23 Dose: 200 mls/hr Documented by: Insulin Human Lispro (Humalog) 0 unit SUBCUT QIDACANDBED [facility]; Protocol Last Admin: 09/08/20 12:27 Dose: 1 unit Documented by: Nystatin (Nystatin Crm) 0 gm TOP BID [facility] Last Admin: 09/08/20 08:46 Dose: Not Given Documented by: Ondansetron HCl (Zofran) 4 mg IV Q4H PRN PRN Reason: Nausea/Vomiting Oxycodone HCl (Oxycodone) 5 mg PO Q4H PRN PRN Reason: Pain (moderate 4-6) Last Admin: 09/06/20 22:35 Dose: 5 mg Documented by: Oxycodone HCl (Oxycodone) 10 mg PO Q4H PRN PRN Reason: Pain (severe 7-10) Sodium Chloride (Saline Flush) 10 ml FLUSH ASDIRECTED PRN PRN Reason: Keep Vein Open Last Admin: 09/05/20 13:32 Dose: 10 ml Documented by: Spironolactone (Aldactone) 25 mg PO DAILY [facility] Last Admin: 09/08/20 08:43 Dose: 25 mg Documented by: Trazodone HCl (Trazodone) 50 mg PO BEDTIME PRN PRN Reason: Sleep Last Admin: 09/07/20 20:57 Dose: 50 mg Documented by: Discontinued Medications Apixaban (Eliquis) 5 mg PO BID [facility] Last Admin: 09/07/20 08:43 Dose: 5 mg Documented by: Apixaban (Eliquis) 2.5 mg PO BID [facility] Last Admin: 09/07/20 20:59 Dose: 2.5 mg Documented by: Carvedilol (Coreg) 12.5 mg PO BIDMEALS [facility] Last Admin: 09/06/20 06:08 Dose: 12.5 mg Documented by: Furosemide (Lasix) 60 mg IVPUSH NOW ONE Stop: 09/05/20 12:21 Last Admin: 09/05/20 13:32 Dose: 60 mg Documented by: Furosemide (Lasix) 40 mg IVPUSH DAILY [facility] Furosemide (Lasix) 60 mg IVPUSH NOW ONE Stop: 09/06/20 13:25 Last Admin: 09/06/20 13:58 Dose: 60 mg Documented by: Potassium Chloride 10 meq/ (Premix) 100 mls @ 100 mls/hr IV ONETIME ONE Stop: 09/07/20 13:29 Last Admin: 09/07/20 13:04 Dose: 100 mls/hr Documented by: Potassium Chloride 10 meq/ (Premix) 100 mls @ 100 mls/hr IV Q1H [facility] Stop: 09/08/20 09:59 Last Admin: 09/08/20 12:28 Dose: 100 mls/hr Documented by: Potassium Chloride 10 meq/ (Premix) 100 mls @ 100 mls/hr IV Q1H [facility] Stop: 09/08/20 13:29 Last Admin: 09/08/20 12:59 Dose: Not Given Documented by: Magnesium Hydroxide (Milk Of Magnesia) 30 ml PO ONETIME ONE Stop: 09/08/20 04:17 Last Admin: 09/08/20 06:57 Dose: 30 ml Documented by: Metolazone (Zaroxolyn) 5 mg PO ONETIME ONE Stop: 09/06/20 07:01 Last Admin: 09/06/20 06:08 Dose: 5 mg Documented by: Potassium Chloride (Klor-Con M20) 40 meq PO ONETIME ONE Stop: 09/06/20 07:01 Last Admin: 09/06/20 06:08 Dose: 40 meq Documented by: Potassium Chloride (Klor-Con M20) 40 meq PO ONETIME ONE Stop: 09/08/20 11:01 Last Admin: 09/08/20 12:27 Dose: 40 meq Documented by: - Exam Quality Assessment: Reports: DVT Prophylaxis. Denies: Supplemental Oxygen General: Reports: Alert, Oriented, Cooperative, No Acute Distress HEENT: Reports: Pupils Equal, Pupils Reactive, EOMI, Mucous Membr. Moist/[place]: Reports: Supple, Trachea Midline Lungs: Reports: Clear to Auscultation, Normal Respiratory Effort Cardiovascular: Reports: Regular Rate, Irregular Rhythm GI/Abdominal Exam: Normal Bowel Sounds, Soft, Non-Tender, No Distention. No: Guarding, Rigid (Female) Exam: Deferred Rectal (Female) Exam: Deferred Back Exam: Reports: Normal Inspection (Appropriate for age), Full Range of Motion Extremities: Normal Inspection, Pedal Edema Skin: Reports: Warm, Dry, Intact Neurological: Reports: No New Focal Deficit Psy/Mental Status: Reports: Alert, Normal Affect
[2020-09-08 15:47] VITALS: BP 130/74; PULSE 75
== END 2020-09-08 19:10 | disposition home or self-care (01) | DRG 602 ==
LOC: JD.ED 11:30 → JD.MS 14:19
PROVIDERS: ADMIT Family Medicine; ATTEND Family Medicine
DX: L03.116 Cellulitis of left lower limb (principal); I50.33 Acute on chronic diastolic (congestive) heart failure; I50.9 Heart failure, unspecified; I48.20 Chronic atrial fibrillation, unspecified; Z68.41 Body mass index [BMI] 40.0-44.9, adult; G47.30 Sleep apnea, unspecified; I11.0 Hypertensive heart disease with heart failure; L03.115 Cellulitis of right lower limb; Z66 Do not resuscitate; G25.81 Restless legs syndrome; G47.33 Obstructive sleep apnea (adult) (pediatric); Z20.828 Contact with and (suspected) exposure to other viral communicable diseases; Z88.1 Allergy status to other antibiotic agents; I50.810 Right heart failure, unspecified; E11.9 Type 2 diabetes mellitus without complications; Z88.8 Allergy status to other drugs, medicaments and biological substances; E66.9 Obesity, unspecified; F41.9 Anxiety disorder, unspecified; F32.9 Major depressive disorder, single episode, unspecified; H54.7 Unspecified visual loss; R32 Unspecified urinary incontinence; M19.90 Unspecified osteoarthritis, unspecified site; M81.0 Age-related osteoporosis without current pathological fracture; Z79.01 Long term (current) use of anticoagulants; Z88.0 Allergy status to penicillin; Z88.5 Allergy status to narcotic agent; Z88.6 Allergy status to analgesic agent; Z79.899 Other long term (current) drug therapy; Z98.49 Cataract extraction status, unspecified eye; Z90.49 Acquired absence of other specified parts of digestive tract; Z90.710 Acquired absence of both cervix and uterus
CPT/HCPCS: 36415; 71045; 71045-26; 80048; 80053; 81001; 82962; 83036; 83605; 83735; 83880; 84100; 84132; 84145; 84484; 85025; 85610; 85652; 85730; 86140; 87086; 93005; 93010; 93306; 96374; 97110-GP; 97116-GP; 97161-GP; 99221; 99232; 99239; 99285; 99285-25; A9270-GY; J0696; J1815-GY; J1940; J3480; J7050; U0002

== ENCOUNTER 2020-09-23 12:52 | Emergency (ER) | payer MEDICARE, OTHER ==
--- NOTE | 2020-09-23 13:37 | CT ---
Head CT Technique: Multiple axial sections through the brain were obtained. Intravenous contrast was not utilized. Reconstructed coronal and sagittal images were obtained. Comparison: No prior intracranial imaging is available. Findings: Ventricles along with basal cisterns and sulci over the convexities are mildly prominent. Minimal diminished density is noted within the periventricular white matter which is felt compatible with slight small vessel ischemic demyelination change. Mild atherosclerotic calcification is seen within the vertebral vessels and within the carotid siphon. No midline shift or mass-effect is seen. Mastoid sinuses and visualized paranasal sinuses show nothing acute. No acute calvarial abnormality is appreciated. Incidental lipoma is noted within the right frontal scalp measuring about 2.0 cm in size which is felt to be incidental. Impression: 1. Slight senescent change. 2. Nothing acute is appreciated on noncontrast head CT study. There is specifically no evidence of intracranial hemorrhage. Diagnostic code #2
--- NOTE | 2020-09-23 13:54 | CR ---
Pelvis and left hip: AP view of the pelvis were obtained as well as AP and frog-leg lateral views of the left hip. Comparison: Previous pelvis and hip exam of 10/17/17. Slight medial joint space narrowing is seen within the left hip. Mild degenerative change is partially seen within the visualized lower lumbar spine. Osteopenia is noted. No acute fracture or other abnormality is appreciated. Impression: 1. Findings as noted above. 2. Nothing acute is appreciated on AP pelvis or 2 view left hip exam. Diagnostic code #2
--- NOTE | 2020-09-23 14:27 | EDM.PDOC ---
ED HPI GENERAL MEDICAL PROBLEM - General Chief Complaint: Trauma Stated Complaint: FALL/HEAD INJURY AND L HIP Time Seen by Provider: 09/23/20 13:01 Source of Information: Reports: Patient History Limitations: Reports: No Limitations - History of Present Illness INITIAL COMMENTS - FREE TEXT/NARRATIVE: The patient presents from [facility] for a fall. She was walking into the [facility] for a follow up appointment for a hospital admission here. She tripped and fell and hit her head. She had no LOC. She also landed on her left hip. She could stand on it but it did hurt. She has no headache, neck pain, chest pain, or abdominal pain. She is on eliquis. Onset: Sudden Duration: Hour(s): Location: Reports: Lower Extremity, Left (hip) Quality: Reports: Sharp Severity: Moderate Improves with: Reports: Immobilization Worsens with: Reports: Movement Context: Reports: Trauma (fall) Associated Symptoms: Reports: No Other Symptoms Left Hip Pain Score (Numeric/FACES): 8 - Related Data Allergies Allergy/AdvReac Type Severity Reaction Status Date / Time amoxicillin Allergy Severe Rash Verified 09/23/20 13:15 aspirin Allergy Severe Rash Verified 09/23/20 13:15 codeine Allergy Severe Itching Verified 09/23/20 13:15 hydrocodone Allergy Severe Rash Verified 09/23/20 13:15 morphine Allergy Severe Rash Verified 09/23/20 13:15 naproxen [From Naprosyn] Allergy Severe Rash Verified 09/23/20 13:15 Penicillins Allergy Severe Itching Verified 09/23/20 13:15 weed pollen Allergy Rash Verified 09/23/20 13:15 Home Meds: Home Meds carvediloL [Carvedilol] 12.5 mg PO BIDMEALS 07/13/18 [History] B2/Vits A,C,E/Lut/Zeaxanth/Min [Icaps] 1 tab PO DAILY 09/29/18 [History] Furosemide 80 mg PO DAILY #0 11/09/18 [Rx] Apixaban [Eliquis] 5 mg PO BID 05/20/20 [History] Acetaminophen 500 mg PO ASDIRECTED PRN 09/05/20 [History] Calcium Carb/Vitamin D3/Vit K1 [Calcium + D Soft Chewable Tab] 1 tab PO BID 09/05/20 [History] Docusate Sodium [Dulcoease] 100 mg PO BID PRN 09/05/20 [History] Iron,Carbonyl/Ascorbic Acid [Vitron-C Tablet] 1 tab PO DAILY 09/05/20 [History] Multivitamin [Multi-Vitamin Daily] 1 tab PO DAILY 09/05/20 [History] Nystatin [Nystatin Crm] 15 gm TOP BID 09/05/20 [History] Potassium Chloride 20 meq PO BID 09/05/20 [History] Spironolactone [Aldactone] 25 mg PO DAILY 09/05/20 [History] Ubidecarenone [Co Q-10] 100 mg PO DAILY 09/05/20 [History] metOLazone [Metolazone] 2.5 mg PO ASDIRECTED 09/05/20 [History] Past Medical History HEENT History: Reports: Impaired Vision Other HEENT History: 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 She reports very poor vision left visual field since . Cardiovascular History: Reports: Afib, Heart Failure, Hypertension, SOB on Exertion Respiratory History: Reports: Sleep Apnea Other Respiratory History: has c-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 Gastrointestinal History: Reports: Cholelithiasis Genitourinary History: Reports: Urinary Incontinence [employer] PRINCIPAL History: Reports: Musculoskeletal History: Reports: Osteoarthritis, Osteoporosis Neurological History: Reports: Other (See Below) Other Neuro History: mild concussion, restless legs. She reports severe restless leg syndrome and attempts at medication usage made her very sick. She states restless legs keep her up at night and this is another reason that she sits in the easy chair to sleep. Psychiatric History: Reports: Anxiety, Depression Endocrine/Metabolic History: Reports: Diabetes, Type II, Obesity/BMI 30+ Hematologic History: Reports: Anticoagulation Therapy Dermatologic History: Reports: Urticaria - Infectious Disease History Infectious Disease History: Reports: Chicken Pox, Measles, Mumps - Past Surgical History HEENT Surgical History: Reports: Cataract Surgery Cardiovascular Surgical History: Reports: None GI Surgical History: Reports: Appendectomy, Cholecystectomy, Colonoscopy Female Surgical History: Reports: Hysterectomy, Salpingo-Oophorectomy Endocrine Surgical History: Reports: None Neurological Surgical History: Reports: None Musculoskeletal Surgical History: Reports: Shoulder Surgery, Other (See Below) Other Musculoskeletal Surgeries/Procedures:: Rotator cuff sx bilaterally. Left great toe-bunion removal Social & Family History - Family History Family Medical History: No Pertinent Family History HEENT: Reports: Cataract, Impaired Vision, Macular Degeneration Cardiac: Reports: Afib, Heart Failure, [place] Respiratory: Reports: Sleep Apnea Musculoskeletal: Reports: Arthritis, Back pain, Chronic Neurological: Reports: Migraines Endocrine/Metabolic: Reports: Diabetes, type II, Obesity/MBI 30+ Dermatologic: Reports: Urticaria Oncologic: Reports: Colon, Liver, Lung, Pancreatic, Prostate, Uterine, Other (See Below) - Tobacco Use Tobacco Use Status *Q: Never Tobacco User - Caffeine Use Caffeine Use: Reports: None - Recreational Drug Use Recreational Drug Use: No - Living Situation & Occupation Living situation: Reports: , Alone Occupation: Retired Review of Systems - Review of Systems Review Of Systems: See Below Constitutional: Reports: No Symptoms Eyes: Reports: No Symptoms Ears: Reports: No Symptoms Nose: Reports: No Symptoms Mouth/Throat: Reports: No Symptoms Respiratory: Reports: No Symptoms Cardiovascular: Reports: No Symptoms GI/Abdominal: Reports: No Symptoms Genitourinary: Reports: No Symptoms Musculoskeletal: Reports: Other (Left hip pain) ED EXAM, GENERAL - Physical Exam Exam: See Below Exam Limited By: No Limitations General Appearance: Alert, No Apparent Distress Ears: Normal External Exam Nose: Normal Inspection Head: Atraumatic, Normocephalic Neck: Normal Inspection, Supple, Non-Tender Respiratory/Chest: No Respiratory Distress, Lungs Clear, Normal Breath Sounds Cardiovascular: Regular Rate, Rhythm, No Edema, No Murmur GI/Abdominal: Soft, Non-Tender, No Organomegaly, No Mass Back Exam: Normal Inspection Extremities: Other (Pain upon palpation to the left hip. Good sensation and pulses distally. She does have a dressing to her lower leg and erythema to her lower leg) Course - Vital Signs Last Recorded V/S: Last Vital Signs Temp 97.1 F 09/23/20 13:10 Pulse 78 09/23/20 13:10 Resp 16 09/23/20 13:10 BP 122/71 09/23/20 13:15 Pulse Ox 92 L 09/23/20 13:10 - Orders/Labs/Meds Orders: Active Orders 24 hr Category Date Time Status Acetaminophen [TylenoL] Med 09/23/20 14:31 Once 975 mg PO NOW ONE - Re-Assessments/Exams Free Text/Narrative Re-Assessment/Exam: 09/23/20 14:[address] of her head and an x-ray of her left hip with pelvis. The CT of his head shows slight senescent change. Nothing acute is appreciated on noncontrast head CT study. There is specifically no evidence of intracranial hemorrhage. The x-ray of the hip and pelvis shows nothing acute is appreciated on AP pelvis or 2 view left hip exam. 09/23/20 14:32 I will give her some tylenol for pain. Departure - Departure Time of Disposition: 14:35 Disposition: Home, Self-Care 01 Condition: Good Clinical Impression: Fall Qualifiers: Encounter type: initial encounter Qualified Code(s): W19.XXXA - Unspecified fall, initial encounter Contusion of left hip Qualifiers: Encounter type: initial encounter Qualified Code(s): S70.02XA - Contusion of left hip, initial encounter - Discharge Information *PRESCRIPTION DRUG MONITORING PROGRAM REVIEWED*: Not Applicable *COPY OF PRESCRIPTION DRUG MONITORING REPORT IN PATIENT SAGE: Not Applicable Referrals: Jaimie Sexton PA-C [Primary Care Provider] - 1 Week Forms: ED Department Discharge Additional Instructions: Take your medication as prescribed. Take tylenol as needed for pain. Ice your hip for 15 minutes 3 times per day for 2 days. Please return if you are worse. Sepsis Event Note (ED) - Evaluation Sepsis Screening Result: No Definite Risk - Focused Exam Vital Signs: Vital Signs Temp Pulse Resp BP Pulse Ox 09/23/20 13:15 122/71 09/23/20 13:10 97.1 F 78 16 78/62 L 92 L - My Orders Last 24 Hours: My Active Orders 09/23/20 14:31 Acetaminophen [TylenoL] 975 mg PO NOW ONE - Assessment/Plan Last 24 Hours: My Active Orders 09/23/20 14:31 Acetaminophen [TylenoL] 975 mg PO NOW ONE
[2020-09-23] MEDS ORDERED: Acetaminophen 325 MG Tab PO ONE (14:31)
[2020-09-23 16:17] VITALS: BP 120/82; PULSE 66
== END 2020-09-23 15:30 | disposition home or self-care (01) ==
LOC: JD.ED 12:52
DX: S70.02XA Contusion of left hip, initial encounter (principal); I48.91 Unspecified atrial fibrillation; I11.0 Hypertensive heart disease with heart failure; I50.9 Heart failure, unspecified; E11.9 Type 2 diabetes mellitus without complications; E66.9 Obesity, unspecified; Z68.39 Body mass index [BMI] 39.0-39.9, adult; Z88.1 Allergy status to other antibiotic agents; Z88.6 Allergy status to analgesic agent; Z88.5 Allergy status to narcotic agent; Z88.0 Allergy status to penicillin; Z91.048 Other nonmedicinal substance allergy status; Z79.01 Long term (current) use of anticoagulants; Z79.899 Other long term (current) drug therapy; W01.10XA Fall on same level from slipping, tripping and stumbling with subsequent striking against unspecified object, initial encounter
CPT/HCPCS: 36415; 70450; 73502; 80053; 99284; A9270; 99283

== ENCOUNTER 2020-12-16 15:57 | Inpatient (IN) | payer MEDICARE, OTHER ==
[2020-12-16] MEDS ORDERED: Sodium Chloride 0.9% 10 ML Syringe FLUSH PRN (16:27)
--- NOTE | 2020-12-16 16:50 | EDM.PDOC ---
ED HPI GENERAL MEDICAL PROBLEM - General Chief Complaint: Lower Extremity Injury/Pain Stated Complaint: BOTH LEGS/SKIN COMPLAINT Time Seen by Provider: 12/16/20 16:07 Source of Information: Reports: Patient, RN Notes Reviewed History Limitations: Reports: No Limitations - History of Present Illness INITIAL COMMENTS - FREE TEXT/NARRATIVE: Patient is an 85-year-old female presenting to the emergency department today for evaluation with regards to redness and swelling of her bilateral lower extremities. She has a history of chronic dependent edema with cellulitis secondary to CHF. She had been having a home health nurse come to her house to provide wound care including Unna boot application. She states that he signed off in November as it had improved significantly and she has not had home health come since that time. On Saturday of this week, she began to develop some redness of her right lower extremity as well as weeping from an open area on the lateral aspect. Previously, the majority of her redness and swelling was in her left lower extremity; however, she has had redness and swelling to the right lower extremity as well just not to the degree that it is now. She denies any constant pain to the extremities, however states she does occasionally get a sharp "poking" pain to the lateral aspect of her right lower extremity. She has been trying to get a hold of her primary care provider, Niki Sexton, to arrange to have another home health nurse come to her house for continued wound care, however she has been out of the office. She spoke with her nurse today who recommended she come to the ER for evaluation. She states she has had chills occasionally but denies any fevers. She has chronic shortness of breath and orthopnea, but states that it been chronic over the last 3 months but may be slightly worse over the last few days. She has slept upright in a recliner due to orthopnea for quite some time. Denies any chest pain, cough, nausea, vomi ting, or diarrhea. She has been hospitalized in the past for cellulitis of the lower extremities, however she states that it was much worse than it is at this time. She has not been on any antibiotics for treatment of cellulitis since she was hospitalized last August. Vital signs in triage were stable. She was slightly tachypneic at 24. Oxygen was normal at 95% on room air. Temp 97.5, pulse 86, blood pressure 129/88. 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(s) Bilateral Ankle Pain Score (Numeric/FACES): 10 - Related Data Allergies Allergy/AdvReac Type Severity Reaction Status Date / Time amoxicillin Allergy Severe Rash Verified 12/16/20 16:15 aspirin Allergy Severe Rash Verified 12/16/20 16:15 codeine Allergy Severe Itching Verified 12/16/20 16:15 hydrocodone Allergy Severe Rash Verified 12/16/20 16:15 morphine Allergy Severe Rash Verified 12/16/20 16:15 naproxen [From Naprosyn] Allergy Severe Rash Verified 12/16/20 16:15 Penicillins Allergy Severe Itching Verified 12/16/20 16:15 weed pollen Allergy Rash Verified 12/16/20 16:15 Home Meds: Home Meds carvediloL [Carvedilol] 12.5 mg PO BIDMEALS 07/13/18 [History] B2/Vits A,C,E/Lut/Zeaxanth/Min [Icaps] 1 tab PO DAILY 09/29/18 [History] Furosemide 80 mg PO DAILY #0 11/09/18 [Rx] Apixaban [Eliquis] 5 mg PO BID 05/20/20 [History] Acetaminophen 500 mg PO ASDIRECTED PRN 09/05/20 [History] Calcium Carb/Vitamin D3/Vit K1 [Calcium + D Soft Chewable Tab] 1 tab PO BID 09/05/20 [History] Docusate Sodium [Dulcoease] 100 mg PO BID PRN 09/05/20 [History] Iron,Carbonyl/Ascorbic Acid [Vitron-C Tablet] 1 tab PO DAILY 09/05/20 [History] Multivitamin [Multi-Vitamin Daily] 1 tab PO DAILY 09/05/20 [History] Nystatin [Nystatin Crm] 15 gm TOP BID 09/05/20 [History] Potassium Chloride 20 meq PO BID 09/05/20 [History] Ubidecarenone [Co Q-10] 100 mg PO DAILY 09/05/20 [History] Past Medical History HEENT History: Reports: Impaired Vision Other HEENT History: 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 She reports very poor vision left visual field since . 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 She reports severe restless leg syndrome and attempts at medication usage made her very sick. She states restless legs keep her up at night and this is another reason that she sits in the easy chair to sleep. Psychiatric History: Reports: Anxiety, Depression Endocrine/Metabolic History: Reports: Diabetes, Type II, Obesity/BMI 30+ Hematologic History: Reports: Anticoagulation Therapy Dermatologic History: Reports: Urticaria - Infectious Disease History Infectious Disease History: Reports: Chicken Pox, Measles, Mumps - Past Surgical History HEENT Surgical History: Reports: Cataract Surgery Cardiovascular Surgical History: Reports: None GI Surgical History: Reports: Appendectomy, Cholecystectomy, Colonoscopy Female Surgical History: Reports: Hysterectomy, Salpingo-Oophorectomy Endocrine Surgical History: Reports: None Neurological Surgical History: Reports: None Musculoskeletal Surgical History: Reports: Shoulder Surgery, Other (See Below) Other Musculoskeletal Surgeries/Procedures:: Rotator cuff sx bilaterally. Left great toe-bunion removal Dermatological Surgical History: Reports: None Social & Family History - Family History Family Medical History: No Pertinent Family History HEENT: Reports: Cataract, Impaired Vision, Macular Degeneration Cardiac: Reports: Afib, Heart Failure, IA Respiratory: Reports: Sleep Apnea Musculoskeletal: Reports: Arthritis, Back pain, Chronic Neurological: Reports: Migraines Endocrine/Metabolic: Reports: Diabetes, type II, Obesity/MBI 30+ Dermatologic: Reports: Urticaria Oncologic: Reports: Colon, Liver, Lung, Pancreatic, Prostate, Uterine, Other (See Below) - Tobacco Use Tobacco Use Status *Q: Never Tobacco User Second Hand Smoke Exposure: No - Caffeine Use Caffeine Use: Reports: None - Recreational Drug Use Recreational Drug Use: No - Living Situation & Occupation Living situation: Reports: , Alone Occupation: Retired Review of Systems - Review of Systems Review Of Systems: See Below Constitutional: Reports: Chills. Denies: Diaphoresis, Fever, Weakness Eyes: Reports: No Symptoms Ears: Reports: No Symptoms Nose: Reports: No Symptoms Mouth/Throat: Reports: No Symptoms Respiratory: Reports: Shortness of Breath. Denies: Wheezing, Cough Cardiovascular: Reports: Edema (bilateral lower extremities). Denies: Chest Pain, Lightheadedness, Syncope GI/Abdominal: Reports: No Symptoms Genitourinary: Reports: No Symptoms Musculoskeletal: Reports: No Symptoms Skin: Reports: Erythema (bilateral lower extremities), Lesions (right lateral lower extremity) Neurological: Reports: No Symptoms Psychiatric: Reports: No Symptoms ED EXAM, GENERAL - Physical Exam Exam: See Below Exam Limited By: No Limitations General Appearance: Alert, WD/WN, No Apparent Distress Respiratory/Chest: No Respiratory Distress, Chest Non-Tender, Respiratory Distre ss, Decreased Breath Sounds, Crackles (bilateral bases), Wheezing Cardiovascular: Normal Peripheral Pulses, No JVD, No Murmur, No Rub, Irregularly Irregular GI/Abdominal: Normal Bowel Sounds, Soft, Non-Tender, No Organomegaly, No Distention, No Abnormal Bruit, No Mass Extremities: Other (3+ pitting edema to BLE. Errythema extending half way up the calf bilaterally. 5 cm stasis ulcer to lateral aspect of RLE weeping serosanguinous fluid.) Neurological: Alert, Oriented, CN II-XII Intact, Normal Cognition, Normal Gait, Normal Reflexes, No Motor/Sensory Deficits Psychiatric: Normal Affect, Normal Mood #1 Interpretation EKG Date: 12/16/20 Time: 18:15 Rhythm: A-Fib Rate (Beats/Min): 78 [place]: Normal P-Wave: Present QRS: Normal ST-T: Normal QT: Prolonged EKG Interpretation Comments: EKG reviewed and interpreted by Dr. Cortez. Course - Vital Signs Last Recorded V/S: Last Vital Signs Temp 97.5 F 12/16/20 16:11 Pulse 86 12/16/20 16:11 Resp 24 H 12/16/20 16:11 BP 129/88 12/16/20 16:11 Pulse Ox 95 12/16/20 16:11 - Orders/Labs/Meds Orders: Active Orders 24 hr Category Date Time Status CULTURE BLOOD [BC] Stat Lab 12/16/20 16:50 Received CULTURE BLOOD [BC] Stat Lab 12/16/20 17:02 Received CULTURE URINE [RM] Stat Lab 12/16/20 17:10 Received Sodium Chloride 0.9% [Saline Flush] Med 12/16/20 16:27 Active 10 ml FLUSH ASDIRECTED PRN Blood Culture x2 Reflex Set [OM.PC] Stat Oth 12/16/20 16:27 Ordered Peripheral IV Insertion Adult [OM.PC] Stat Ot 12/16/20 16:27 Ordered Medication Orders Sodium Chloride (Sodium Chloride 0.9% 10 Ml Syringe) 10 ml FLUSH ASDIRECTED PRN PRN Reason: Keep Vein Open Last Admin: 12/16/20 17:10 Dose: 10 ml Documented by: LEIF Labs: Laboratory Tests 12/16/20 12/16/20 12/16/20 Range/Units 16:50 16:50 16:50 WBC 7.14 (3.98-10.04) K/mm3 RBC 4.27 (3.98-5.22) M/mm3 Hgb 12.5 (11.2-15.7) gm/dl Hct 40.7 (34.1-44.9) % MCV 95.3 H (79.4-94.8) fl MCH 29.3 (25.6-32.2) pg MCHC 30.7 L (32.2-35.5) g/dl RDW Std Deviation 48.1 H (36.4-46.3) fL Plt Count 245 D (182-369) K/mm3 MPV 9.7 (9.4-12.3) fl Neut % (Auto) 75.7 H (34.0-71.1) % Lymph % (Auto) 9.8 L (19.3-51.7) % [place] % (Auto) 10.6 (4.7-12.5) % Eos % (Auto) 3.2 (0.7-5.8) Baso % (Auto) 0.6 (0.1-1.2) % Neut # (Auto) 5.40 (1.56-6.13) K/mm3 Lymph # (Auto) 0.70 L (1.18-3.74) K/mm3 [place] # (Auto) 0.76 H (0.24-0.36) K/mm3 Eos # (Auto) 0.23 (0.04-0.36) K/mm3 Baso # (Auto) 0.04 (0.01-0.08) K/mm3 Manual Slide Review Sodium 141 (136-145) mEq/L Potassium 4.1 (3.5-5.1) mEq/L Chloride 102 (98-107) mEq/L Carbon Dioxide 33 H (21-32) mEq/L Anion Gap 10.1 (5-15) BUN 15 (7-18) mg/dL Creatinine 0.9 (0.55-1.02) mg/dL Est Cr Clr Drug Dosing 32.83 mL/min Estimated GFR (MDRD) 60 (>60) mL/min BUN/Creatinine Ratio 16.7 (14-18) Glucose 118 H (83-115) mg/dL Lactic Acid 0.8 (0.4-2.0) mmol/L Calcium 8.5 (8.5-10.1) mg/dL Total Bilirubin 0.6 (0.2-1.0) mg/dL AST 16 (15-37) U/L ALT 18 (14-59) U/L Alkaline Phosphatase 94 (46-116) U/L Troponin I (0.00-0.056) ng/mL C-Reactive Protein 1.5 H* (<1.0) mg/dL NT-Pro-B Natriuret Pep (0-450) pg/mL Total Protein 8.1 (6.4-8.2) g/dl Albumin 3.2 L (3.4-5.0) g/dl Globulin 4.9 gm/dL Albumin/Globulin Ratio 0.7 L (1-2) Urine Color (Yellow) Urine Appearance (Clear) Urine pH (5.0-8.0) Ur Specific [place] (1.005-1.030) Urine Protein (Negative) Urine Glucose (UA) (Negative) Urine Ketones (Negative) Urine Occult Blood (Negative) Urine Nitrite (Negative) Urine Bilirubin (Negative) Urine Urobilinogen (0.2-1.0) Ur Leukocyte Esterase (Negative) Urine RBC (0-5) /hpf Urine WBC (0-5) /hpf Ur Squamous Epith Cells (0-5) /hpf Urine Bacteria (FEW) /hpf Urine Mucus (FEW) /hpf SARS-CoV-2 RNA (AMADOU) (NEGATIVE) 12/16/20 12/16/20 12/16/20 Range/Units 16:50 16:50 17:10 WBC (3.98-10.04) K/mm3 RBC (3.98-5.22) M/mm3 Hgb (11.2-15.7) gm/dl Hct (34.1-44.9) % MCV (79.4-94.8) fl MCH (25.6-32.2) pg MCHC (32.2-35.5) g/dl RDW Std Deviation (36.4-46.3) fL Plt Count (182-369) K/mm3 MPV (9.4-12.3) fl Neut % (Auto) (34.0-71.1) % Lymph % (Auto) (19.3-51.7) % [place] % (Auto) (4.7-12.5) % Eos % (Auto) (0.7-5.8) Baso % (Auto) (0.1-1.2) % Neut # (Auto) (1.56-6.13) K/mm3 Lymph # (Auto) (1.18-3.74) K/mm3 [place] # (Auto) (0.24-0.36) K/mm3 Eos # (Auto) (0.04-0.36) K/mm3 Baso # (Auto) (0.01-0.08) K/mm3 Manual Slide Review Sodium (136-145) mEq/L Potassium (3.5-5.1) mEq/L Chloride (98-107) mEq/L Carbon Dioxide (21-32) mEq/L Anion Gap (5-15) BUN (7-18) mg/dL Creatinine (0.55-1.02) mg/dL Est Cr Clr Drug Dosing mL/min Estimated GFR (MDRD) (>60) mL/min BUN/Creatinine Ratio (14-18) Glucose (83-115) mg/dL Lactic Acid (0.4-2.0) mmol/L Calcium (8.5-10.1) mg/dL Total Bilirubin (0.2-1.0) mg/dL AST (15-37) U/L ALT (14-59) U/L Alkaline Phosphatase (46-116) U/L Troponin I < 0.017 (0.00-0.056) ng/mL C-Reactive Protein (<1.0) mg/dL NT-Pro-B Natriuret Pep 1761 H (0-450) pg/mL Total Protein (6.4-8.2) g/dl Albumin (3.4-5.0) g/dl Globulin gm/dL Albumin/Globulin Ratio (1-2) Urine Color Light yellow (Yellow) Urine Appearance Clear (Clear) Urine pH 7.5 (5.0-8.0) Ur Specific [place] 1.025 (1.005-1.030) Urine Protein Negative (Negative) Urine Glucose (UA) Negative (Negative) Urine Ketones Negative (Negative) Urine Occult Blood Negative (Negative) Urine Nitrite Negative (Negative) Urine Bilirubin Negative (Negative) Urine Urobilinogen 0.2 (0.2-1.0) Ur Leukocyte Esterase 1+ H (Negative) Urine RBC 0-5 (0-5) /hpf Urine WBC 5-10 H (0-5) /hpf Ur Squamous Epith Cells 5-10 H (0-5) /hpf Urine Bacteria Few (FEW) /hpf Urine Mucus Few (FEW) /hpf SARS-CoV-2 RNA (AMADOU) (NEGATIVE) 12/16/20 Range/Units 17:25 WBC (3.98-10.04) K/mm3 RBC (3.98-5.22) M/mm3 Hgb (11.2-15.7) gm/dl Hct (34.1-44.9) % MCV (79.4-94.8) fl MCH (25.6-32.2) pg MCHC (32.2-35.5) g/dl RDW Std Deviation (36.4-46.3) fL Plt Count (182-369) K/mm3 MPV (9.4-12.3) fl Neut % (Auto) (34.0-71.1) % Lymph % (Auto) (19.3-51.7) % [place] % (Auto) (4.7-12.5) % Eos % (Auto) (0.7-5.8) Baso % (Auto) (0.1-1.2) % Neut # (Auto) (1.56-6.13) K/mm3 Lymph # (Auto) (1.18-3.74) K/mm3 [place] # (Auto) (0.24-0.36) K/mm3 Eos # (Auto) (0.04-0.36) K/mm3 Baso # (Auto) (0.01-0.08) K/mm3 Manual Slide Review Sodium (136-145) mEq/L Potassium (3.5-5.1) mEq/L Chloride (98-107) mEq/L Carbon Dioxide (21-32) mEq/L Anion Gap (5-15) BUN (7-18) mg/dL Creatinine (0.55-1.02) mg/dL Est Cr Clr Drug Dosing mL/min Estimated GFR (MDRD) (>60) mL/min BUN/Creatinine Ratio (14-18) Glucose (83-115) mg/dL Lactic Acid (0.4-2.0) mmol/L Calcium (8.5-10.1) mg/dL Total Bilirubin (0.2-1.0) mg/dL AST (15-37) U/L ALT (14-59) U/L Alkaline Phosphatase (46-116) U/L Troponin I (0.00-0.056) ng/mL C-Reactive Protein (<1.0) mg/dL NT-Pro-B Natriuret Pep (0-450) pg/mL Total Protein (6.4-8.2) g/dl Albumin (3.4-5.0) g/dl Globulin gm/dL Albumin/Globulin Ratio (1-2) Urine Color (Yellow) Urine Appearance (Clear) Urine pH (5.0-8.0) Ur Specific [place] (1.005-1.030) Urine Protein (Negative) Urine Glucose (UA) (Negative) Urine Ketones (Negative) Urine Occult Blood (Negative) Urine Nitrite (Negative) Urine Bilirubin (Negative) Urine Urobilinogen (0.2-1.0) Ur Leukocyte Esterase (Negative) Urine RBC (0-5) /hpf Urine WBC (0-5) /hpf Ur Squamous Epith Cells (0-5) /hpf Urine Bacteria (FEW) /hpf Urine Mucus (FEW) /hpf SARS-CoV-2 RNA (AMADOU) Negative (NEGATIVE) Meds: Medications Generic Name Dose Route Start Last Admin Trade Name Freq PRN Reason Stop Dose Admin Sodium Chloride 10 ml 12/16/20 16:27 12/16/20 17:10 Sodium Chloride 0.9% 10 Ml Syringe FLUSH 10 ml ASDIRECTED PRN Administration Keep Vein Open Discontinued Medications Generic Name Dose Route Start Last Admin Trade Name Freq PRN Reason Stop Dose Admin Furosemide 40 mg 12/16/20 18:00 12/16/20 18:36 Furosemide 40 Mg/4 Ml Vial IV 12/16/20 18:01 40 mg NOW ONE Administration Furosemide 40 mg 12/16/20 18:39 12/16/20 18:58 Furosemide 40 Mg/4 Ml Vial IVPUSH 12/16/20 18:40 40 mg NOW ONE Administration Ceftriaxone Sodium 2 gm/ 100 mls @ 200 mls/hr 12/16/20 18:00 12/16/20 18:36 Sodium Chloride IV 12/16/20 18:29 200 mls/hr ONETIME ONE Administration - Re-Assessments/Exams Free Text/Narrative Re-Assessment/Exam: Patient is an 85-year-old female presenting to the emergency department with complaints of redness and swelling to her bilateral lower extremities. This has been a chronic issue for her for many months, however the right lower extremity has been worsening over the last week. She is also developed a stasis ulcer to the lateral aspect of her right lower extremity. She no longer has home health to do skin care. She reports being chronically short of breath but thinks it may be slightly worse. She denies any chest pain or shortness of breath at rest. I have ordered blood work and urinalysis. 12/16/20 17:29 Tomas RN notified me that pt become very SOB just with transferring from the commode to the bed. SpO2 dropped to 82% on RA, but quickly recovered to the low 90's. Visited with patient and she states that she did feel quite short of breath but that it was related to her having to climb up onto the bed as she is quite short in the cot was too high. She does report that she becomes winded at home if she overexerts herself but after she sits down she recovers quickly. She states that she feels comfortable at home with managing her shortness of breath. I have added on an EKG, chest x-ray, pro-BNP and Covid test. 12/16/20 18:12 Hematology was significant for CO2 slightly elevated at 33, CRP 1.5, proBNP 1761. Urinalysis shows 1+ leukocytes, 5-10 WBCs, and 5-10 squamous epithelial cells suggestive of likely contamination. This has been sent for culture. Chest x-ray shows diffuse pulmonary vascular congestion compatible with CHF. I assisted the patient to use the commode to observe her respiratory effort. She did become minimally winded getting onto the commode but was able to carry on a full conversation. Oxygen saturation with minimal exertion was 88% on room air. After transferring back into the bed which did require some exertion on her part as the bed is too high, her oxygen dropped to 85%, however quickly rebounded. She is currently 91% on room air. Patient states that she is comfortable going home. I have ordered lasix 80mg IV as well as Rocephin 2G IV. Plan will be to discharge her with an increased dose of Lasix as well as oral antibiotics 12/16/20 18:34 I was back into the room and to visit with the patient and her daughter who has returned. Patient has changed her mind and states that she is concerned with how short of breath she got with exertion. Her daughter agrees with this. They are requesting her to be admitted to the hospital to try to diurese her and improve her shortness of breath with exertion prior to going home. I will visit with Dr. Marques with regards to this. 12/16/20 18:[address] Marques. He has accepted the patient for admission. Departure - Departure Time of Disposition: 18:40 Disposition: Admitted As Inpatient 66 Condition: Good Clinical Impression: Peripheral edema, Bilateral cellulitis of lower leg, Dependent edema Acute exacerbation of CHF (congestive heart failure) Qualifiers: Heart failure type: diastolic Qualified Code(s): I50.33 - Acute on chronic diastolic (congestive) heart failure - Discharge Information Sepsis Event Note (ED) - Evaluation Sepsis Screening Result: No Definite Risk - Focused Exam Vital Signs: Vital Signs Temp Pulse Resp BP Pulse Ox 12/16/20 16:11 97.5 F 86 24 H 129/88 95 - My Orders Last 24 Hours: My Active Orders 12/16/20 16:27 Sodium Chloride 0.9% [Saline Flush] 10 ml FLUSH ASDIRECTED PRN Blood Culture x2 Reflex Set [OM.PC] Stat Peripheral IV Insertion Adult [OM.PC] Stat 12/16/20 16:50 CULTURE BLOOD [BC] Stat 12/16/20 17:02 CULTURE BLOOD [BC] Stat 12/16/20 17:10 CULTURE URINE [RM] Stat - Assessment/Plan Last 24 Hours: My Active Orders 12/16/20 16:27 Sodium Chloride 0.9% [Saline Flush] 10 ml FLUSH ASDIRECTED PRN Blood Culture x2 Reflex Set [OM.PC] Stat Peripheral IV Insertion Adult [OM.PC] Stat 12/16/20 16:50 CULTURE BLOOD [BC] Stat 12/16/20 17:02 CULTURE BLOOD [BC] Stat 12/16/20 17:10 CULTURE URINE [RM] Stat
--- NOTE | 2020-12-16 17:55 | CR ---
Chest: PA and lateral views of the chest were obtained. Comparison: Prior chest x-ray of 09/05/20. Heart is enlarged. Tortuous thoracic aorta is seen. Diffuse pulmonary vascular congestion is seen. No acute parenchymal change is seen. Bilateral shoulder surgery is seen. Slight scoliosis is noted within the spine with mild degenerative change. Impression: 1. Findings compatible with CHF as described above. 2. Other nonacute findings as noted above. Diagnostic code #3
[2020-12-16] MEDS ORDERED: cefTRIAXone 2 GM in Sodium Chloride 0.9% 100 ML IV ONE (18:00)
[2020-12-16] MEDS ORDERED: Furosemide 40 MG/4 ML VIAL IV ONE (18:00)
[2020-12-16] MEDS ORDERED: Furosemide 40 MG/4 ML VIAL IVPUSH ONE (18:39)
[2020-12-16] MEDS ORDERED: Ondansetron 4 MG/2 ML SDV IV PRN (20:52)
[2020-12-16] MEDS ORDERED: Acetaminophen 325 MG Tab PO PRN (20:52)
--- NOTE | 2020-12-16 21:06 | PCM.HP.2 ---
H&P History of Present Illness - General Date of Service: 12/16/20 Admit Problem/Dx: Admission Diagnosis/Problem Admission Diagnosis/Problem Congestive heart failure - History of Present Illness Initial Comments - Free Text/Narative: 85-year-old female with history of heart failure with preserved ejection fraction presents to the emergency department after worsening lower extremity cellulitis and edema. Patient has chronic venous stasis and recurrent lower extremity cellulitis. She had some ulceration on her left leg that was recently treated and healed on the right leg now has opened up and started weeping. She apparently has had a home health nurse come out and help her with her lower extremity cellulitis and dependent edema, but that stopped at the end of last month and they have been unable to restart her treatments. Patient is now here because of worsening symptoms. She does complain of some chills but no fever. She is known to the hospital service secondary to being admitted for similar i ssues in August of last year. Patient states that her shortness of breath has not worsened much, but on the note from the emergency department it appears it has worsened over the last 3 months. Appears to be chronic and moderate. She does have some orthopnea and she does have some dyspnea on exertion. She chronically sleeps in a recliner. In the emergency department patient was saturating in the low 90s on room air, but with any activity she dropped as low as 85%. Bilateral Ankle Pain Score (Numeric/FACES): 10 - Related Data Allergies/Adverse Reactions: Allergies Allergy/AdvReac Type Severity Reaction Status Date / Time amoxicillin Allergy Severe Rash Verified 12/16/20 20:40 aspirin Allergy Severe Rash Verified 12/16/20 20:40 codeine Allergy Severe Itching Verified 12/16/20 20:40 hydrocodone Allergy Severe Rash Verified 12/16/20 20:40 morphine Allergy Severe Rash Verified 12/16/20 20:40 naproxen [From Naprosyn] Allergy Severe Rash Verified 12/16/20 20:40 Penicillins Allergy Severe Itching Verified 12/16/20 20:40 weed pollen Allergy Rash Verified 12/16/20 20:40 Home Medications: Home Meds carvediloL [Carvedilol] 12.5 mg PO BIDMEALS 07/13/18 [History] B2/Vits A,C,E/Lut/Zeaxanth/Min [Icaps] 1 tab PO DAILY 09/29/18 [History] Furosemide 80 mg PO DAILY #0 11/09/18 [Rx] Apixaban [Eliquis] 5 mg PO BID 05/20/20 [History] Acetaminophen 500 mg PO ASDIRECTED PRN 09/05/20 [History] Calcium Carb/Vitamin D3/Vit K1 [Calcium + D Soft Chewable Tab] 1 tab PO BID [History] Docusate Sodium [Dulcoease] 100 mg PO BID PRN 09/05/20 [History] Iron,Carbonyl/Ascorbic Acid [Vitron-C Tablet] 1 tab PO DAILY 09/05/20 [History] Multivitamin [Multi-Vitamin Daily] 1 tab PO DAILY 09/05/20 [History] Nystatin [Nystatin Crm] 15 gm TOP BID 09/05/20 [History] Potassium Chloride 20 meq PO BID 09/05/20 [History] Ubidecarenone [Co Q-10] 100 mg PO DAILY 09/05/20 [History] Past Medical History HEENT History: Reports: Impaired Vision Other HEENT History: 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 She reports very poor vision left visual field since . wers glasses and full set of dentures. Cardiovascular History: Reports: Afib, Heart Failure, Hypertension, SOB on Exertion Respiratory History: Reports: Sleep Apnea Other Respiratory History: has c-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 Gastrointestinal History: Reports: Cholelithiasis Genitourinary History: Reports: Urinary Incontinence KAIAWHINA History: Reports: Musculoskeletal History: Reports: Osteoarthritis, Osteoporosis Neurological History: Reports: Other (See Below) Other Neuro History: mild concussion, restless legs. She reports severe restless leg syndrome and attempts at medication usage made her very sick. She states restless legs keep her up at night and this is another reason that she sits in the easy chair to sleep. Psychiatric History: Reports: Anxiety, Depression Endocrine/Metabolic History: Reports: Diabetes, Type II, Obesity/BMI 30+ Hematologic History: Reports: Anticoagulation Therapy Dermatologic History: Reports: Urticaria - Infectious Disease History Infectious Disease History: Reports: Chicken Pox, Influenza, Measles, Mumps - Past Surgical History HEENT Surgical History: Reports: Cataract Surgery, Other (See Below) Other HEENT Surgeries/Procedures: ccataract surgery in both eyes Cardiovascular Surgical History: Reports: None GI Surgical History: Reports: Appendectomy, Cholecystectomy, Colonoscopy Female Surgical History: Reports: Hysterectomy, Salpingo-Oophorectomy Endocrine Surgical History: Reports: None Neurological Surgical History: Reports: None Musculoskeletal Surgical History: Reports: Shoulder Surgery, Other (See Below) Other Musculoskeletal Surgeries/Procedures:: Rotator cuff sx bilaterally. Left great toe-bunion removal Dermatological Surgical History: Reports: None Social & Family History - Family History Family Medical History: No Pertinent Family History HEENT: Reports: Cataract, Impaired Vision, Macular Degeneration Cardiac: Reports: Afib, Heart Failure, GA Respiratory: Reports: Sleep Apnea Musculoskeletal: Reports: Arthritis, Back pain, Chronic Neurological: Reports: Migraines Endocrine/Metabolic: Reports: Diabetes, type II, Obesity/MBI 30+ Dermatologic: Reports: Urticaria Oncologic: Reports: Colon, Liver, Lung, Pancreatic, Prostate, Uterine, Other (See Below) - Tobacco Use Tobacco Use Status *Q: Never Tobacco User Second Hand Smoke Exposure: No - Caffeine Use Caffeine Use: Reports: None - Recreational Drug Use Recreational Drug Use: No - Living Situation & Occupation Living situation: Reports: , Alone Occupation: Retired H&P Review of Systems - Review of Systems: Review Of Systems: Comprehensive ROS is negative, except as noted in HPI. Exam - Exam Exam: See Below - Vital Signs Vital Signs: Last Vital Signs Temp 97.5 F 12/16/20 16:11 Pulse 86 12/16/20 16:11 Resp 24 H 12/16/20 16:11 BP 129/88 12/16/20 16:11 Pulse Ox 95 12/16/20 16:11 Weight: 205 lb - Exam Quality Assessment: No: Supplemental Oxygen General: Alert, Oriented, 4 HEENT: Conjunctiva Clear, Mucosa Moist & [place], Normal Nasal Septum Neck: Supple, Trachea Midline, 2 Lungs: Clear to Auscultation, Normal Respiratory Effort Cardiovascular: Regular Rate, Regular Rhythm GI/Abdominal Exam: Normal Bowel Sounds, Soft, Non-Tender, No Distention (Obese), No Abnormal Bruit Rectal (Female) Exam: Normal Exam Back Exam: Normal Inspection, Full Range of Motion, NT Extremities: Normal Range of Motion, Normal Capillary Refill, Pedal Edema (4+ p itting edema), Other (Erythema from upper calf down to the foot. Right leg on the lateral aspect has a weeping ulcer.) Peripheral Pulses: 0: Posterior Tibial (L) (Unable to palpate secondary to swelling in the lower extremities.) Skin: Warm. No: Dry Neuro Extensive - Mental Status: Alert, Oriented x3, Normal Mood/Affect, Normal Cognition, Memory Intact Psychiatric: Alert, Normal Affect, Normal Mood - Patient Data Lab Results Last 24 hrs: Laboratory Results - last 24 hr 12/16/20 12/16/20 12/16/20 Range/Units 16:50 16:50 16:50 WBC 7.14 (3.98-10.04) K/mm3 RBC 4.27 (3.98-5.22) M/mm3 Hgb 12.5 (11.2-15.7) gm/dl Hct 40.7 (34.1-44.9) % MCV 95.3 H (79.4-94.8) fl MCH 29.3 (25.6-32.2) pg MCHC 30.7 L (32.2-35.5) g/dl RDW Std Deviation 48.1 H (36.4-46.3) fL Plt Count 245 D (182-369) K/mm3 MPV 9.7 (9.4-12.3) fl Neut % (Auto) 75.7 H (34.0-71.1) % Lymph % (Auto) 9.8 L (19.3-51.7) % [place] % (Auto) 10.6 (4.7-12.5) % Eos % (Auto) 3.2 (0.7-5.8) Baso % (Auto) 0.6 (0.1-1.2) % Neut # (Auto) 5.40 (1.56-6.13) K/mm3 Lymph # (Auto) 0.70 L (1.18-3.74) K/mm3 [place] # (Auto) 0.76 H (0.24-0.36) K/mm3 Eos # (Auto) 0.23 (0.04-0.36) K/mm3 Baso # (Auto) 0.04 (0.01-0.08) K/mm3 Manual Slide Review Sodium 141 (136-145) mEq/L Potassium 4.1 (3.5-5.1) mEq/L Chloride 102 (98-107) mEq/L Carbon Dioxide 33 H (21-32) mEq/L Anion Gap 10.1 (5-15) BUN 15 (7-18) mg/dL Creatinine 0.9 (0.55-1.02) mg/dL Est Cr Clr Drug Dosing 32.83 mL/min Estimated GFR (MDRD) 60 (>60) mL/min BUN/Creatinine Ratio 16.7 (14-18) Glucose 118 H (83-115) mg/dL Lactic Acid 0.8 (0.4-2.0) mmol/L Calcium 8.5 (8.5-10.1) mg/dL Total Bilirubin 0.6 (0.2-1.0) mg/dL AST 16 (15-37) U/L ALT 18 (14-59) U/L Alkaline Phosphatase 94 (46-116) U/L Troponin I (0.00-0.056) ng/mL C-Reactive Protein 1.5 H* (<1.0) mg/dL NT-Pro-B Natriuret Pep (0-450) pg/mL Total Protein 8.1 (6.4-8.2) g/dl Albumin 3.2 L (3.4-5.0) g/dl Globulin 4.9 gm/dL Albumin/Globulin Ratio 0.7 L (1-2) Urine Color (Yellow) Urine Appearance (Clear) Urine pH (5.0-8.0) Ur Specific [place] (1.005-1.030) Urine Protein (Negative) Urine Glucose (UA) (Negative) Urine Ketones (Negative) Urine Occult Blood (Negative) Urine Nitrite (Negative) Urine Bilirubin (Negative) Urine Urobilinogen (0.2-1.0) Ur Leukocyte Esterase (Negative) Urine RBC (0-5) /hpf Urine WBC (0-5) /hpf Ur Squamous Epith Cells (0-5) /hpf Urine Bacteria (FEW) /hpf Urine Mucus (FEW) /hpf SARS-CoV-2 RNA (AMADOU) (NEGATIVE) 12/16/20 12/16/20 12/16/20 Range/Units 16:50 16:50 17:10 WBC (3.98-10.04) K/mm3 RBC (3.98-5.22) M/mm3 Hgb (11.2-15.7) gm/dl Hct (34.1-44.9) % MCV (79.4-94.8) fl MCH (25.6-32.2) pg MCHC (32.2-35.5) g/dl RDW Std Deviation (36.4-46.3) fL Plt Count (182-369) K/mm3 MPV (9.4-12.3) fl Neut % (Auto) (34.0-71.1) % Lymph % (Auto) (19.3-51.7) % Stephenson % (Auto) (4.7-12.5) % Eos % (Auto) (0.7-5.8) Baso % (Auto) (0.1-1.2) % Neut # (Auto) (1.56-6.13) K/mm3 Lymph # (Auto) (1.18-3.74) K/mm3 [place] # (Auto) (0.24-0.36) K/mm3 Eos # (Auto) (0.04-0.36) K/mm3 Baso # (Auto) (0.01-0.08) K/mm3 Manual Slide Review Sodium (136-145) mEq/L Potassium (3.5-5.1) mEq/L Chloride (98-107) mEq/L Carbon Dioxide (21-32) mEq/L Anion Gap (5-15) BUN (7-18) mg/dL Creatinine (0.55-1.02) mg/dL Est Cr Clr Drug Dosing mL/min Estimated GFR (MDRD) (>60) mL/min BUN/Creatinine Ratio (14-18) Glucose (83-115) mg/dL Lactic Acid (0.4-2.0) mmol/L Calcium (8.5-10.1) mg/dL Total Bilirubin (0.2-1.0) mg/dL AST (15-37) U/L ALT (14-59) U/L Alkaline Phosphatase (46-116) U/L Troponin I < 0.017 (0.00-0.056) ng/mL C-Reactive Protein (<1.0) mg/dL NT-Pro-B Natriuret Pep 1761 H (0-450) pg/mL Total Protein (6.4-8.2) g/dl Albumin (3.4-5.0) g/dl Globulin gm/dL Albumin/Globulin Ratio (1-2) Urine Color Light yellow (Yellow) Urine Appearance Clear (Clear) Urine pH 7.5 (5.0-8.0) Ur Specific [place] 1.025 (1.005-1.030) Urine Protein Negative (Negative) Urine Glucose (UA) Negative (Negative) Urine Ketones Negative (Negative) Urine Occult Blood Negative (Negative) Urine Nitrite Negative (Negative) Urine Bilirubin Negative (Negative) Urine Urobilinogen 0.2 (0.2-1.0) Ur Leukocyte Esterase 1+ H (Negative) Urine RBC 0-5 (0-5) /hpf Urine WBC 5-10 H (0-5) /hpf Ur Squamous Epith Cells 5-10 H (0-5) /hpf Urine Bacteria Few (FEW) /hpf Urine Mucus Few (FEW) /hpf SARS-CoV-2 RNA (AMADOU) (NEGATIVE) 12/16/20 Range/Units 17:25 WBC (3.98-10.04) K/mm3 RBC (3.98-5.22) M/mm3 Hgb (11.2-15.7) gm/dl Hct (34.1-44.9) % MCV (79.4-94.8) fl MCH (25.6-32.2) pg MCHC (32.2-35.5) g/dl RDW Std Deviation (36.4-46.3) fL Plt Count (182-369) K/mm3 MPV (9.4-12.3) fl Neut % (Auto) (34.0-71.1) % Lymph % (Auto) (19.3-51.7) % [place] % (Auto) (4.7-12.5) % Eos % (Auto) (0.7-5.8) Baso % (Auto) (0.1-1.2) % Neut # (Auto) (1.56-6.13) K/mm3 Lymph # (Auto) (1.18-3.74) K/mm3 [place] # (Auto) (0.24-0.36) K/mm3 Eos # (Auto) (0.04-0.36) K/mm3 Baso # (Auto) (0.01-0.08) K/mm3 Manual Slide Review Sodium (136-145) mEq/L Potassium (3.5-5.1) mEq/L Chloride (98-107) mEq/L Carbon Dioxide (21-32) mEq/L Anion Gap (5-15) BUN (7-18) mg/dL Creatinine (0.55-1.02) mg/dL Est Cr Clr Drug Dosing mL/min Estimated GFR (MDRD) (>60) mL/min BUN/Creatinine Ratio (14-18) Glucose (83-115) mg/dL Lactic Acid (0.4-2.0) mmol/L Calcium (8.5-10.1) mg/dL Total Bilirubin (0.2-1.0) mg/dL AST (15-37) U/L ALT (14-59) U/L Alkaline Phosphatase (46-116) U/L Troponin I (0.00-0.056) ng/mL C-Reactive Protein (<1.0) mg/dL NT-Pro-B Natriuret Pep (0-450) pg/mL Total Protein (6.4-8.2) g/dl Albumin (3.4-5.0) g/dl Globulin gm/dL Albumin/Globulin Ratio (1-2) Urine Color (Yellow) Urine Appearance (Clear) Urine pH (5.0-8.0) Ur Specific [place] (1.005-1.030) Urine Protein (Negative) Urine Glucose (UA) (Negative) Urine Ketones (Negative) Urine Occult Blood (Negative) Urine Nitrite (Negative) Urine Bilirubin (Negative) Urine Urobilinogen (0.2-1.0) Ur Leukocyte Esterase (Negative) Urine RBC (0-5) /hpf Urine WBC (0-5) /hpf Ur Squamous Epith Cells (0-5) /hpf Urine Bacteria (FEW) /hpf Urine Mucus (FEW) /hpf SARS-CoV-2 RNA (AMADOU) Negative (NEGATIVE) Result Diagrams: 12/16/20 16:50 12/16/20 16:50 Imaging Impressions Last 24 hrs: Chest x-ray: Diffuse pulmonary vascular congestion with cardiomegaly compatible with CHF. Sepsis Event Note - Evaluation Sepsis Screening Result: No Definite Risk - Focused Exam Vital Signs: Vital Signs Temp Pulse Resp BP Pulse Ox 12/16/20 16:11 97.5 F 86 24 H 129/88 95 - Problem List (1) Bilateral cellulitis of lower leg SNOMED Code(s): 259626950 ICD Code: L03.116 - CELLULITIS OF LEFT LOWER LIMB; L03.115 - CELLULITIS OF RIGHT LOWER LIMB Status: Acute Current Visit: Yes (2) Dependent edema SNOMED Code(s): 637561907 ICD Code: R60.9 - EDEMA, UNSPECIFIED Status: Acute Current Visit: Yes (3) Acute exacerbation of CHF (congestive heart failure) SNOMED Code(s): 159154080, 59627764733734 ICD Code: I50.9 - HEART FAILURE, UNSPECIFIED Status: Chronic Priority: High Current Visit: Yes Qualifiers: Heart failure type: diastolic Qualified Code(s): I50.33 - Acute on chronic diastolic (congestive) heart failure (4) Atrial fibrillation SNOMED Code(s): 07807443 ICD Code: I48.91 - UNSPECIFIED ATRIAL FIBRILLATION Status: Acute Current Visit: No Qualifiers: Atrial fibrillation type: chronic Problem List Initiated/Reviewed/Updated: Yes Orders Last 24hrs: Active Orders 24 hr Category Date Time Status Patient Status [ADT] Routine ADT 12/16/20 18:43 Active Oxygen Therapy [RC] PRN Care 12/16/20 20:52 Ordered Up With Assistance [RC] ASDIRECTED Care 12/16/20 20:52 Ordered VTE/DVT Education [RC] PER UNIT ROUTINE Care 12/16/20 20:52 Ordered Vital Signs [RC] Q4H Care 12/16/20 20:52 Ordered OT Evaluation and Treatment [CONS] Routine Cons 12/16/20 20:52 Ordered PT Evaluation and Treatment [CONS] Routine Cons 12/16/20 20:52 Ordered Consistent Carbohydrate Diet [DIET] Diet 12/17/20 Breakfast Ordered C-REACTIVE PROTEIN [CHEM] AM Lab 12/17/20 05:11 Ordered CBC WITH AUTO DIFF [HEME] AM Lab 12/17/20 05:11 Ordered COMPREHENSIVE METABOLIC PN,CMP [CHEM] AM Lab 12/17/20 05:11 Ordered CULTURE BLOOD [BC] Stat Lab 12/16/20 16:50 Received CULTURE BLOOD [BC] Stat Lab 12/16/20 17:02 Received CULTURE URINE [RM] Stat Lab 12/16/20 17:10 Received MAGNESIUM [CHEM] AM Lab 12/17/20 05:11 Ordered Acetaminophen [TylenoL] Med 12/16/20 20:52 Ordered 650 mg PO Q4H PRN Apixaban [Eliquis] Med 12/16/20 21:00 Ordered 5 mg PO BID Furosemide [Lasix] Med 12/17/20 09:00 Ordered 80 mg IVPUSH DAILY Nystatin Med 12/16/20 21:00 Ordered 15 gm TOP BID Ondansetron [Zofran] Med 12/16/20 20:52 Ordered 4 mg IV Q4H PRN Potassium Chloride [Potassium Chloride] Med 12/16/20 21:00 Ordered 20 meq PO BID Sodium Chloride 0.9% [Saline Flush] Med 12/16/20 16:27 Active 10 ml FLUSH ASDIRECTED PRN carvediloL [Coreg] Med 12/16/20 20:55 Ordered 12.5 mg PO BIDMEALS cefTRIAXone [Rocephin] 2 gm Med 12/17/20 18:00 Ordered Sodium Chloride 0.9% [Normal Saline] 100 ml IV Q24H Blood Culture x2 Reflex Set [OM.PC] Stat Oth 12/16/20 16:27 Ordered Isolation [COMM] Routine Oth 12/16/20 20:48 Ordered Peripheral IV Insertion Adult [OM.PC] Stat Oth 12/16/20 16:27 Ordered Resuscitation Status Routine Resus Stat 12/16/20 20:52 Ordered Medication Orders Acetaminophen (Acetaminophen 325 Mg Tab) 650 mg PO Q4H PRN PRN Reason: Pain (Mild 1-3)/fever Apixaban (Apixaban 5 Mg Tab) 5 mg PO BID NIRALI Carvedilol (Carvedilol 12.5 Mg Tab) 12.5 mg PO BIDMEALS NIRALI Furosemide (Furosemide 40 Mg/4 Ml Vial) 80 mg IVPUSH DAILY NIRALI Ceftriaxone Sodium 2 gm/ (Sodium Chloride) 100 mls @ 200 mls/hr IV Q24H NIRALI Non-Formulary Medication (Potassium Chloride [Potassium Chloride]) 20 meq PO BID NIRALI Non-Formulary Medication (Nystatin) 15 gm TOP BID NIRALI Ondansetron HCl (Ondansetron 4 Mg/2 Ml Sdv) 4 mg IV Q4H PRN PRN Reason: Nausea/Vomiting Sodium Chloride (Sodium Chloride 0.9% 10 Ml Syringe) 10 ml FLUSH ASDIRECTED PRN PRN Reason: Keep Vein Open Last Admin: 12/16/20 17:10 Dose: 10 ml Documented by: LEIF Assessment/Plan Comment:: Assessment 85-year-old female with heart failure with preserved ejection fraction presents to the emergency department with increasing lower extremity edema, increasing shortness of breath and dyspnea on exertion, lower extremity erythema with skin breakdown the right lower extremity. Acute exacerbation of heart failure with preserved ejection fraction Atrial fibrillation * Patient is slowly been getting worse over the last several weeks to months * Last echo was on 09/06/2020 which showed a normal left ventricular systolic function. * BNP 1700 * Chest x-ray shows increased vascular congestion consistent with CHF * Home dose of Lasix is 80 mg p.o. * Given Lasix 80 mg IV in the emergency department * Coreg for rate control * Eliquis for stroke prophylaxis Lower extremity cellulitis * Chronic dependent edema with stasis dermatitis and cellulitis * White blood cell count is normal at 7.14 with no significant left shift * C-reactive protein 1.5 * Lactic acid 0.8 * Received first dose of Rocephin in emergency department * Blood cultures drawn in the emergency department Prediabetes/diabetes * Random blood sugar is 118 * Unknown recent hemoglobin A1c * No home diabetic medications Chronic: Obstructive sleep apnea, restless leg syndrome, hypertension, urinary incontinence, anxiety, depression Plan * Admit to medical floor on telemetry * Lasix 80 mg every morning. Further dosing tomorrow as needed * Rocephin 2 g daily * Follow blood cultures * Strict I's and O's and daily weights * PT/OT consult * CBC, CMP, mag, hemoglobin A1c, C-reactive protein in the morning * VTE prophylaxis with Eliquis * CODE STATUS DNR/DNI - Mortality Measure Prognosis:: Poor
[2020-12-16] MEDS: Apixaban 5 MG Tab PO SCH (22:31)
[2020-12-16] MEDS: Carvedilol 12.5 MG Tab PO SCH (22:31)
[2020-12-17 08:23] LABS: HEMOGLOBIN A1C 6.4 %
--- NOTE | 2020-12-17 08:35 | PCM.PN ---
- General Info Date of Service: 12/17/20 Admission Dx/Problem (Free Text): Admission Diagnosis/Problem Admission Diagnosis/Problem Congestive heart failure Subjective Update: The patient is an 85-year-old lady who was admitted yesterday secondary to congestive heart failure. The patient says that she is doing better today. She is breathing better. The patient has been tolerating her diet. No other complaints today. Functional Status: Reports: Pain Controlled, Tolerating Diet - Review of Systems General: Reports: No Symptoms HEENT: Reports: No Symptoms Pulmonary: Reports: Shortness of Breath Cardiovascular: Reports: No Symptoms Gastrointestinal: Reports: No Symptoms Genitourinary: Reports: No Symptoms Musculoskeletal: Reports: No Symptoms Skin: Reports: No Symptoms Neurological: Reports: No Symptoms Psychiatric: Reports: No Symptoms - Patient Data Vitals - Most Recent: Last Vital Signs Temp 36.9 C 12/16/20 22:34 Pulse 85 12/16/20 22:47 Resp 20 12/16/20 22:34 BP 115/63 12/16/20 22:34 Pulse Ox 96 12/16/20 22:47 Weight - Most Recent: 95.572 kg Lab Results Last 24 Hours: Laboratory Results - last 24 hr 12/16/20 12/16/20 12/16/20 Range/Units 16:50 16:50 16:50 WBC 7.14 (3.98-10.04) K/mm3 RBC 4.27 (3.98-5.22) M/mm3 Hgb 12.5 (11.2-15.7) gm/dl Hct 40.7 (34.1-44.9) % MCV 95.3 H (79.4-94.8) fl MCH 29.3 (25.6-32.2) pg MCHC 30.7 L (32.2-35.5) g/dl RDW Std Deviation 48.1 H (36.4-46.3) fL Plt Count 245 D (182-369) K/mm3 MPV 9.7 (9.4-12.3) fl Neut % (Auto) 75.7 H (34.0-71.1) % Lymph % (Auto) 9.8 L (19.3-51.7) % [place] % (Auto) 10.6 (4.7-12.5) % Eos % (Auto) 3.2 (0.7-5.8) Baso % (Auto) 0.6 (0.1-1.2) % Neut # (Auto) 5.40 (1.56-6.13) K/mm3 Lymph # (Auto) 0.70 L (1.18-3.74) K/mm3 [place] # (Auto) 0.76 H (0.24-0.36) K/mm3 Eos # (Auto) 0.23 (0.04-0.36) K/mm3 Baso # (Auto) 0.04 (0.01-0.08) K/mm3 Manual Slide Review Sodium 141 (136-145) mEq/L Potassium 4.1 (3.5-5.1) mEq/L Chloride 102 (98-107) mEq/L Carbon Dioxide 33 H (21-32) mEq/L Anion Gap 10.1 (5-15) BUN 15 (7-18) mg/dL Creatinine 0.9 (0.55-1.02) mg/dL Est Cr Clr Drug Dosing 32.83 mL/min Estimated GFR (MDRD) 60 (>60) mL/min BUN/Creatinine Ratio 16.7 (14-18) Glucose 118 H (83-115) mg/dL Hemoglobin A1c ( - 5.6) % Lactic Acid 0.8 (0.4-2.0) mmol/L Calcium 8.5 (8.5-10.1) mg/dL Magnesium (1.8-2.4) mg/dl Total Bilirubin 0.6 (0.2-1.0) mg/dL AST 16 (15-37) U/L ALT 18 (14-59) U/L Alkaline Phosphatase 94 (46-116) U/L Troponin I (0.00-0.056) ng/mL C-Reactive Protein 1.5 H* (<1.0) mg/dL NT-Pro-B Natriuret Pep (0-450) pg/mL Total Protein 8.1 (6.4-8.2) g/dl Albumin 3.2 L (3.4-5.0) g/dl Globulin 4.9 gm/dL Albumin/Globulin Ratio 0.7 L (1-2) Urine Color (Yellow) Urine Appearance (Clear) Urine pH (5.0-8.0) Ur Specific [place] (1.005-1.030) Urine Protein (Negative) Urine Glucose (UA) (Negative) Urine Ketones (Negative) Urine Occult Blood (Negative) Urine Nitrite (Negative) Urine Bilirubin (Negative) Urine Urobilinogen (0.2-1.0) Ur Leukocyte Esterase (Negative) Urine RBC (0-5) /hpf Urine WBC (0-5) /hpf Ur Squamous Epith Cells (0-5) /hpf Urine Bacteria (FEW) /hpf Urine Mucus (FEW) /hpf SARS-CoV-2 RNA (AMADOU) (NEGATIVE) 12/16/20 12/16/20 12/16/20 Range/Units 16:50 16:50 17:10 WBC (3.98-10.04) K/mm3 RBC (3.98-5.22) M/mm3 Hgb (11.2-15.7) gm/dl Hct (34.1-44.9) % MCV (79.4-94.8) fl MCH (25.6-32.2) pg MCHC (32.2-35.5) g/dl RDW Std Deviation (36.4-46.3) fL Plt Count (182-369) K/mm3 MPV (9.4-12.3) fl Neut % (Auto) (34.0-71.1) % Lymph % (Auto) (19.3-51.7) % [place] % (Auto) (4.7-12.5) % Eos % (Auto) (0.7-5.8) Baso % (Auto) (0.1-1.2) % Neut # (Auto) (1.56-6.13) K/mm3 Lymph # (Auto) (1.18-3.74) K/mm3 [place] # (Auto) (0.24-0.36) K/mm3 Eos # (Auto) (0.04-0.36) K/mm3 Baso # (Auto) (0.01-0.08) K/mm3 Manual Slide Review Sodium (136-145) mEq/L Potassium (3.5-5.1) mEq/L Chloride (98-107) mEq/L Carbon Dioxide (21-32) mEq/L Anion Gap (5-15) BUN (7-18) mg/dL Creatinine (0.55-1.02) mg/dL Est Cr Clr Drug Dosing mL/min Estimated GFR (MDRD) (>60) mL/min BUN/Creatinine Ratio (14-18) Glucose (83-115) mg/dL Hemoglobin A1c ( - 5.6) % Lactic Acid (0.4-2.0) mmol/L Calcium (8.5-10.1) mg/dL Magnesium (1.8-2.4) mg/dl Total Bilirubin (0.2-1.0) mg/dL AST (15-37) U/L ALT (14-59) U/L Alkaline Phosphatase (46-116) U/L Troponin I < 0.017 (0.00-0.056) ng/mL C-Reactive Protein (<1.0) mg/dL NT-Pro-B Natriuret Pep 1761 H (0-450) pg/mL Total Protein (6.4-8.2) g/dl Albumin (3.4-5.0) g/dl Globulin gm/dL Albumin/Globulin Ratio (1-2) Urine Color Light yellow (Yellow) Urine Appearance Clear (Clear) Urine pH 7.5 (5.0-8.0) Ur Specific [place] 1.025 (1.005-1.030) Urine Protein Negative (Negative) Urine Glucose (UA) Negative (Negative) Urine Ketones Negative (Negative) Urine Occult Blood Negative (Negative) Urine Nitrite Negative (Negative) Urine Bilirubin Negative (Negative) Urine Urobilinogen 0.2 (0.2-1.0) Ur Leukocyte Esterase 1+ H (Negative) Urine RBC 0-5 (0-5) /hpf Urine WBC 5-10 H (0-5) /hpf Ur Squamous Epith Cells 5-10 H (0-5) /hpf Urine Bacteria Few (FEW) /hpf Urine Mucus Few (FEW) /hpf SARS-CoV-2 RNA (AMADOU) (NEGATIVE) 12/16/20 12/17/20 12/17/20 Range/Units 17:25 05:28 05:28 WBC 5.64 (3.98-10.04) K/mm3 RBC 3.87 L (3.98-5.22) M/mm3 Hgb 11.1 L (11.2-15.7) gm/dl Hct 37.0 (34.1-44.9) % MCV 95.6 H (79.4-94.8) fl MCH 28.7 (25.6-32.2) pg MCHC 30.0 L (32.2-35.5) g/dl RDW Std Deviation 48.5 H (36.4-46.3) fL Plt Count 231 (182-369) K/mm3 MPV 9.7 (9.4-12.3) fl Neut % (Auto) 69.6 (34.0-71.1) % Lymph % (Auto) 14.4 L (19.3-51.7) % [place] % (Auto) 12.1 (4.7-12.5) % Eos % (Auto) 3.2 (0.7-5.8) Baso % (Auto) 0.5 (0.1-1.2) % Neut # (Auto) 3.93 (1.56-6.13) K/mm3 Lymph # (Auto) 0.81 L (1.18-3.74) K/mm3 [place] # (Auto) 0.68 H (0.24-0.36) K/mm3 Eos # (Auto) 0.18 (0.04-0.36) K/mm3 Baso # (Auto) 0.03 (0.01-0.08) K/mm3 Manual Slide Review Sodium 144 (136-145) mEq/L Potassium 3.5 (3.5-5.1) mEq/L Chloride 105 (98-107) mEq/L Carbon Dioxide 33 H (21-32) mEq/L Anion Gap 9.5 (5-15) BUN 13 (7-18) mg/dL Creatinine 0.9 (0.55-1.02) mg/dL Est Cr Clr Drug Dosing 32.83 mL/min Estimated GFR (MDRD) 60 (>60) mL/min BUN/Creatinine Ratio 14.4 (14-18) Glucose 96 (83-115) mg/dL Hemoglobin A1c ( - 5.6) % Lactic Acid (0.4-2.0) mmol/L Calcium 8.2 L (8.5-10.1) mg/dL Magnesium 2.0 (1.8-2.4) mg/dl Total Bilirubin 0.5 (0.2-1.0) mg/dL AST 12 L (15-37) U/L ALT 12 L (14-59) U/L Alkaline Phosphatase 72 (46-116) U/L Troponin I (0.00-0.056) ng/mL C-Reactive Protein 1.7 H* (<1.0) mg/dL NT-Pro-B Natriuret Pep (0-450) pg/mL Total Protein 6.9 (6.4-8.2) g/dl Albumin 2.6 L (3.4-5.0) g/dl Globulin 4.3 gm/dL Albumin/Globulin Ratio 0.6 L (1-2) Urine Color (Yellow) Urine Appearance (Clear) Urine pH (5.0-8.0) Ur Specific [place] (1.005-1.030) Urine Protein (Negative) Urine Glucose (UA) (Negative) Urine Ketones (Negative) Urine Occult Blood (Negative) Urine Nitrite (Negative) Urine Bilirubin (Negative) Urine Urobilinogen (0.2-1.0) Ur Leukocyte Esterase (Negative) Urine RBC (0-5) /hpf Urine WBC (0-5) /hpf Ur Squamous Epith Cells (0-5) /hpf Urine Bacteria (FEW) /hpf Urine Mucus (FEW) /hpf SARS-CoV-2 RNA (AMADOU) Negative (NEGATIVE) 12/17/20 Range/Units 05:28 WBC (3.98-10.04) K/mm3 RBC (3.98-5.22) M/mm3 Hgb (11.2-15.7) gm/dl Hct (34.1-44.9) % MCV (79.4-94.8) fl MCH (25.6-32.2) pg MCHC (32.2-35.5) g/dl RDW Std Deviation (36.4-46.3) fL Plt Count (182-369) K/mm3 MPV (9.4-12.3) fl Neut % (Auto) (34.0-71.1) % Lymph % (Auto) (19.3-51.7) % [place] % (Auto) (4.7-12.5) % Eos % (Auto) (0.7-5.8) Baso % (Auto) (0.1-1.2) % Neut # (Auto) (1.56-6.13) K/mm3 Lymph # (Auto) (1.18-3.74) K/mm3 [place] # (Auto) (0.24-0.36) K/mm3 Eos # (Auto) (0.04-0.36) K/mm3 Baso # (Auto) (0.01-0.08) K/mm3 Manual Slide Review Sodium (136-145) mEq/L Potassium (3.5-5.1) mEq/L Chloride (98-107) mEq/L Carbon Dioxide (21-32) mEq/L Anion Gap (5-15) BUN (7-18) mg/dL Creatinine (0.55-1.02) mg/dL Est Cr Clr Drug Dosing mL/min Estimated GFR (MDRD) (>60) mL/min BUN/Creatinine Ratio (14-18) Glucose (83-115) mg/dL Hemoglobin A1c 6.4 H ( - 5.6) % Lactic Acid (0.4-2.0) mmol/L Calcium (8.5-10.1) mg/dL Magnesium (1.8-2.4) mg/dl Total Bilirubin (0.2-1.0) mg/dL AST (15-37) U/L ALT (14-59) U/L Alkaline Phosphatase (46-116) U/L Troponin I (0.00-0.056) ng/mL C-Reactive Protein (<1.0) mg/dL NT-Pro-B Natriuret Pep (0-450) pg/mL Total Protein (6.4-8.2) g/dl Albumin (3.4-5.0) g/dl Globulin gm/dL Albumin/Globulin Ratio (1-2) Urine Color (Yellow) Urine Appearance (Clear) Urine pH (5.0-8.0) Ur Specific [place] (1.005-1.030) Urine Protein (Negative) Urine Glucose (UA) (Negative) Urine Ketones (Negative) Urine Occult Blood (Negative) Urine Nitrite (Negative) Urine Bilirubin (Negative) Urine Urobilinogen (0.2-1.0) Ur Leukocyte Esterase (Negative) Urine RBC (0-5) /hpf Urine WBC (0-5) /hpf Ur Squamous Epith Cells (0-5) /hpf Urine Bacteria (FEW) /hpf Urine Mucus (FEW) /hpf SARS-CoV-2 RNA (AMADOU) (NEGATIVE) Zack Results Last 24 Hours: Microbiology 12/16/20 17:02 Anaerobic Blood Culture - Final Blood - Venous - Lab Draw Med Orders - Current: Current Medications Acetaminophen (Acetaminophen 325 Mg Tab) 650 mg PO Q4H PRN PRN Reason: Pain (Mild 1-3)/fever Apixaban (Apixaban 5 Mg Tab) 5 mg PO BID [facility] Last Admin: 12/16/20 22:31 Dose: 5 mg Documented by: Carvedilol (Carvedilol 12.5 Mg Tab) 12.5 mg PO BIDMEALS [facility] Last Admin: 12/16/20 22:31 Dose: 12.5 mg Documented by: Furosemide (Furosemide 40 Mg/4 Ml Vial) 80 mg IVPUSH DAILY [facility] Ceftriaxone Sodium 2 gm/ (Sodium Chloride) 100 mls @ 200 mls/hr IV Q24H [facility] Nystatin (Nystatin Crm 30 Gm Tube) 0 gm TOP BID [facility] Ondansetron HCl (Ondansetron 4 Mg/2 Ml Sdv) 4 mg IV Q4H PRN PRN Reason: Nausea/Vomiting Potassium Chloride (Potassium Chloride 20 Meq Tab.Er) 20 meq PO BID [facility] Sodium Chloride (Sodium Chloride 0.9% 10 Ml Syringe) 10 ml FLUSH ASDIRECTED PRN PRN Reason: Keep Vein Open Last Admin: 12/16/20 17:10 Dose: 10 ml Documented by: Discontinued Medications Furosemide (Furosemide 40 Mg/4 Ml Vial) 40 mg IV NOW ONE Stop: 12/16/20 18:01 Last Admin: 12/16/20 18:36 Dose: 40 mg Documented by: Furosemide (Furosemide 40 Mg/4 Ml Vial) 40 mg IVPUSH NOW ONE Stop: 12/16/20 18:40 Last Admin: 12/16/20 18:58 Dose: 40 mg Documented by: Ceftriaxone Sodium 2 gm/ (Sodium Chloride) 100 mls @ 200 mls/hr IV ONETIME ONE Stop: 12/16/20 18:29 Last Admin: 12/16/20 18:36 Dose: 200 mls/hr Documented by: - Exam Quality Assessment: Supplemental Oxygen, Skin Breakdown (Chronic) General: Alert, Oriented, No Acute Distress HEENT: Pupils Equal, Pupils Reactive Neck: Supple, Trachea Midline Lungs: Normal Respiratory Effort, Crackles Cardiovascular: Regular Rate, Irregular Rhythm GI/Abdominal Exam: Normal Bowel Sounds, No Distention (Female) Exam: Deferred Back Exam: Normal Inspection (Age-appropriate, kyphosis) Extremities: Normal Inspection, Pedal Edema Skin: Warm, Dry, Other (Chronic stasis dermatitis lower extremities) Neurological: No New Focal Deficit Psy/Mental Status: Alert, Normal Affect - Patient Data Lab Results Last 24 hrs: Laboratory Results - last 24 hr 12/16/20 12/16/20 12/16/20 Range/Units 16:50 16:50 16:50 WBC 7.14 (3.98-10.04) K/mm3 RBC 4.27 (3.98-5.22) M/mm3 Hgb 12.5 (11.2-15.7) gm/dl Hct 40.7 (34.1-44.9) % MCV 95.3 H (79.4-94.8) fl MCH 29.3 (25.6-32.2) pg MCHC 30.7 L (32.2-35.5) g/dl RDW Std Deviation 48.1 H (36.4-46.3) fL Plt Count 245 D (182-369) K/mm3 MPV 9.7 (9.4-12.3) fl Neut % (Auto) 75.7 H (34.0-71.1) % Lymph % (Auto) 9.8 L (19.3-51.7) % [place] % (Auto) 10.6 (4.7-12.5) % Eos % (Auto) 3.2 (0.7-5.8) Baso % (Auto) 0.6 (0.1-1.2) % Neut # (Auto) 5.40 (1.56-6.13) K/mm3 Lymph # (Auto) 0.70 L (1.18-3.74) K/mm3 [place] # (Auto) 0.76 H (0.24-0.36) K/mm3 Eos # (Auto) 0.23 (0.04-0.36) K/mm3 Baso # (Auto) 0.04 (0.01-0.08) K/mm3 Manual Slide Review Sodium 141 (136-145) mEq/L Potassium 4.1 (3.5-5.1) mEq/L Chloride 102 (98-107) mEq/L Carbon Dioxide 33 H (21-32) mEq/L Anion Gap 10.1 (5-15) BUN 15 (7-18) mg/dL Creatinine 0.9 (0.55-1.02) mg/dL Est Cr Clr Drug Dosing 32.83 mL/min Estimated GFR (MDRD) 60 (>60) mL/min BUN/Creatinine Ratio 16.7 (14-18) Glucose 118 H (83-115) mg/dL Hemoglobin A1c ( - 5.6) % Lactic Acid 0.8 (0.4-2.0) mmol/L Calcium 8.5 (8.5-10.1) mg/dL Magnesium (1.8-2.4) mg/dl Total Bilirubin 0.6 (0.2-1.0) mg/dL AST 16 (15-37) U/L ALT 18 (14-59) U/L Alkaline Phosphatase 94 (46-116) U/L Troponin I (0.00-0.056) ng/mL C-Reactive Protein 1.5 H* (<1.0) mg/dL NT-Pro-B Natriuret Pep (0-450) pg/mL Total Protein 8.1 (6.4-8.2) g/dl Albumin 3.2 L (3.4-5.0) g/dl Globulin 4.9 gm/dL Albumin/Globulin Ratio 0.7 L (1-2) Urine Color (Yellow) Urine Appearance (Clear) Urine pH (5.0-8.0) Ur Specific [place] (1.005-1.030) Urine Protein (Negative) Urine Glucose (UA) (Negative) Urine Ketones (Negative) Urine Occult Blood (Negative) Urine Nitrite (Negative) Urine Bilirubin (Negative) Urine Urobilinogen (0.2-1.0) Ur Leukocyte Esterase (Negative) Urine RBC (0-5) /hpf Urine WBC (0-5) /hpf Ur Squamous Epith Cells (0-5) /hpf Urine Bacteria (FEW) /hpf Urine Mucus (FEW) /hpf SARS-CoV-2 RNA (AMADOU) (NEGATIVE) 12/16/20 12/16/20 12/16/20 Range/Units 16:50 16:50 17:10 WBC (3.98-10.04) K/mm3 RBC (3.98-5.22) M/mm3 Hgb (11.2-15.7) gm/dl Hct (34.1-44.9) % MCV (79.4-94.8) fl MCH (25.6-32.2) pg MCHC (32.2-35.5) g/dl RDW Std Deviation (36.4-46.3) fL Plt Count (182-369) K/mm3 MPV (9.4-12.3) fl Neut % (Auto) (34.0-71.1) % Lymph % (Auto) (19.3-51.7) % [place] % (Auto) (4.7-12.5) % Eos % (Auto) (0.7-5.8) Baso % (Auto) (0.1-1.2) % Neut # (Auto) (1.56-6.13) K/mm3 Lymph # (Auto) (1.18-3.74) K/mm3 [place] # (Auto) (0.24-0.36) K/mm3 Eos # (Auto) (0.04-0.36) K/mm3 Baso # (Auto) (0.01-0.08) K/mm3 Manual Slide Review Sodium (136-145) mEq/L Potassium (3.5-5.1) mEq/L Chloride (98-107) mEq/L Carbon Dioxide (21-32) mEq/L Anion Gap (5-15) BUN (7-18) mg/dL Creatinine (0.55-1.02) mg/dL Est Cr Clr Drug Dosing mL/min Estimated GFR (MDRD) (>60) mL/min BUN/Creatinine Ratio (14-18) Glucose (83-115) mg/dL Hemoglobin A1c ( - 5.6) % Lactic Acid (0.4-2.0) mmol/L Calcium (8.5-10.1) mg/dL Magnesium (1.8-2.4) mg/dl Total Bilirubin (0.2-1.0) mg/dL AST (15-37) U/L ALT (14-59) U/L Alkaline Phosphatase (46-116) U/L Troponin I < 0.017 (0.00-0.056) ng/mL C-Reactive Protein (<1.0) mg/dL NT-Pro-B Natriuret Pep 1761 H (0-450) pg/mL Total Protein (6.4-8.2) g/dl Albumin (3.4-5.0) g/dl Globulin gm/dL Albumin/Globulin Ratio (1-2) Urine Color Light yellow (Yellow) Urine Appearance Clear (Clear) Urine pH 7.5 (5.0-8.0) Ur Specific [place] 1.025 (1.005-1.030) Urine Protein Negative (Negative) Urine Glucose (UA) Negative (Negative) Urine Ketones Negative (Negative) Urine Occult Blood Negative (Negative) Urine Nitrite Negative (Negative) Urine Bilirubin Negative (Negative) Urine Urobilinogen 0.2 (0.2-1.0) Ur Leukocyte Esterase 1+ H (Negative) Urine RBC 0-5 (0-5) /hpf Urine WBC 5-10 H (0-5) /hpf Ur Squamous Epith Cells 5-10 H (0-5) /hpf Urine Bacteria Few (FEW) /hpf Urine Mucus Few (FEW) /hpf SARS-CoV-2 RNA (AMADOU) (NEGATIVE) 12/16/20 12/17/20 12/17/20 Range/Units 17:25 05:28 05:28 WBC 5.64 (3.98-10.04) K/mm3 RBC 3.87 L (3.98-5.22) M/mm3 Hgb 11.1 L (11.2-15.7) gm/dl Hct 37.0 (34.1-44.9) % MCV 95.6 H (79.4-94.8) fl MCH 28.7 (25.6-32.2) pg MCHC 30.0 L (32.2-35.5) g/dl RDW Std Deviation 48.5 H (36.4-46.3) fL Plt Count 231 (182-369) K/mm3 MPV 9.7 (9.4-12.3) fl Neut % (Auto) 69.6 (34.0-71.1) % Lymph % (Auto) 14.4 L (19.3-51.7) % [place] % (Auto) 12.1 (4.7-12.5) % Eos % (Auto) 3.2 (0.7-5.8) Baso % (Auto) 0.5 (0.1-1.2) % Neut # (Auto) 3.93 (1.56-6.13) K/mm3 Lymph # (Auto) 0.81 L (1.18-3.74) K/mm3 [place] # (Auto) 0.68 H (0.24-0.36) K/mm3 Eos # (Auto) 0.18 (0.04-0.36) K/mm3 Baso # (Auto) 0.03 (0.01-0.08) K/mm3 Manual Slide Review Sodium 144 (136-145) mEq/L Potassium 3.5 (3.5-5.1) mEq/L Chloride 105 (98-107) mEq/L Carbon Dioxide 33 H (21-32) mEq/L Anion Gap 9.5 (5-15) BUN 13 (7-18) mg/dL Creatinine 0.9 (0.55-1.02) mg/dL Est Cr Clr Drug Dosing 32.83 mL/min Estimated GFR (MDRD) 60 (>60) mL/min BUN/Creatinine Ratio 14.4 (14-18) Glucose 96 (83-115) mg/dL Hemoglobin A1c ( - 5.6) % Lactic Acid (0.4-2.0) mmol/L Calcium 8.2 L (8.5-10.1) mg/dL Magnesium 2.0 (1.8-2.4) mg/dl Total Bilirubin 0.5 (0.2-1.0) mg/dL AST 12 L (15-37) U/L ALT 12 L (14-59) U/L Alkaline Phosphatase 72 (46-116) U/L Troponin I (0.00-0.056) ng/mL C-Reactive Protein 1.7 H* (<1.0) mg/dL NT-Pro-B Natriuret Pep (0-450) pg/mL Total Protein 6.9 (6.4-8.2) g/dl Albumin 2.6 L (3.4-5.0) g/dl Globulin 4.3 gm/dL Albumin/Globulin Ratio 0.6 L (1-2) Urine Color (Yellow) Urine Appearance (Clear) Urine pH (5.0-8.0) Ur Specific [place] (1.005-1.030) Urine Protein (Negative) Urine Glucose (UA) (Negative) Urine Ketones (Negative) Urine Occult Blood (Negative) Urine Nitrite (Negative) Urine Bilirubin (Negative) Urine Urobilinogen (0.2-1.0) Ur Leukocyte Esterase (Negative) Urine RBC (0-5) /hpf Urine WBC (0-5) /hpf Ur Squamous Epith Cells (0-5) /hpf Urine Bacteria (FEW) /hpf Urine Mucus (FEW) /hpf SARS-CoV-2 RNA (AMADOU) Negative (NEGATIVE) 12/17/20 Range/Units 05:28 WBC (3.98-10.04) K/mm3 RBC (3.98-5.22) M/mm3 Hgb (11.2-15.7) gm/dl Hct (34.1-44.9) % MCV (79.4-94.8) fl MCH (25.6-32.2) pg MCHC (32.2-35.5) g/dl RDW Std Deviation (36.4-46.3) fL Plt Count (182-369) K/mm3 MPV (9.4-12.3) fl Neut % (Auto) (34.0-71.1) % Lymph % (Auto) (19.3-51.7) % [place] % (Auto) (4.7-12.5) % Eos % (Auto) (0.7-5.8) Baso % (Auto) (0.1-1.2) % Neut # (Auto) (1.56-6.13) K/mm3 Lymph # (Auto) (1.18-3.74) K/mm3 [place] # (Auto) (0.24-0.36) K/mm3 Eos # (Auto) (0.04-0.36) K/mm3 Baso # (Auto) (0.01-0.08) K/mm3 Manual Slide Review Sodium (136-145) mEq/L Potassium (3.5-5.1) mEq/L Chloride (98-107) mEq/L Carbon Dioxide (21-32) mEq/L Anion Gap (5-15) BUN (7-18) mg/dL Creatinine (0.55-1.02) mg/dL Est Cr Clr Drug Dosing mL/min Estimated GFR (MDRD) (>60) mL/min BUN/Creatinine Ratio (14-18) Glucose (83-115) mg/dL Hemoglobin A1c 6.4 H ( - 5.6) % Lactic Acid (0.4-2.0) mmol/L Calcium (8.5-10.1) mg/dL Magnesium (1.8-2.4) mg/dl Total Bilirubin (0.2-1.0) mg/dL AST (15-37) U/L ALT (14-59) U/L Alkaline Phosphatase (46-116) U/L Troponin I (0.00-0.056) ng/mL C-Reactive Protein (<1.0) mg/dL NT-Pro-B Natriuret Pep (0-450) pg/mL Total Protein (6.4-8.2) g/dl Albumin (3.4-5.0) g/dl Globulin gm/dL Albumin/Globulin Ratio (1-2) Urine Color (Yellow) Urine Appearance (Clear) Urine pH (5.0-8.0) Ur Specific [place] (1.005-1.030) Urine Protein (Negative) Urine Glucose (UA) (Negative) Urine Ketones (Negative) Urine Occult Blood (Negative) Urine Nitrite (Negative) Urine Bilirubin (Negative) Urine Urobilinogen (0.2-1.0) Ur Leukocyte Esterase (Negative) Urine RBC (0-5) /hpf Urine WBC (0-5) /hpf Ur Squamous Epith Cells (0-5) /hpf Urine Bacteria (FEW) /hpf Urine Mucus (FEW) /hpf SARS-CoV-2 RNA (AMADOU) (NEGATIVE) Result Diagrams: 12/17/20 05:28 12/17/20 05:28 Zack Results Last 24 hrs: Microbiology 12/16/20 17:02 Anaerobic Blood Culture - Final Blood - Venous - Lab Draw Sepsis Event Note - Evaluation Sepsis Screening Result: No Definite Risk - Focused Exam Vital Signs: Vital Signs Temp Pulse Resp BP Pulse Ox 12/16/20 22:47 85 96 12/16/20 22:43 76 87 L 12/16/20 22:34 36.9 C 81 20 115/63 89 L 12/16/20 22:31 93 115/63 - Problem List & Annotations (1) Acute exacerbation of CHF (congestive heart failure) SNOMED Code(s): 894158049, 54252209254760 Code(s): I50.9 - HEART FAILURE, UNSPECIFIED Status: Chronic Priority: High Current Visit: Yes Qualifiers: Heart failure type: diastolic Qualified Code(s): I50.33 - Acute on chronic diastolic (congestive) heart failure (2) Bilateral cellulitis of lower leg SNOMED Code(s): 583063631 Code(s): L03.116 - CELLULITIS OF LEFT LOWER LIMB; L03.115 - CELLULITIS OF RIGHT LOWER LIMB Status: Acute Current Visit: Yes (3) Chronic atrial fibrillation SNOMED Code(s): 274506721 Code(s): I48.20 - CHRONIC ATRIAL FIBRILLATION, UNSPECIFIED Status: Acute Priority: High Current Visit: Yes - Problem List Review Problem List Initiated/Reviewed/Updated: Yes - Plan Plan:: Assessment 85-year-old female with heart failure with preserved ejection fraction presents to the emergency department with increasing lower extremity edema, increasing shortness of breath and dyspnea on exertion, lower extremity erythema with skin breakdown the right lower extremity. Acute exacerbation of heart failure with preserved ejection fraction Atrial fibrillation * Patient is slowly been getting worse over the last several weeks to months * Last echo was on 09/06/2020 which showed a normal left ventricular systolic function. * BNP 1700 * Chest x-ray shows increased vascular congestion consistent with CHF * Home dose of Lasix is 80 mg p.o. * Given Lasix 80 mg IV in the emergency department * Coreg for rate control * Eliquis for stroke prophylaxis Lower extremity cellulitis * Chronic dependent edema with stasis dermatitis and cellulitis * White blood cell count is normal at 7.14 with no significant left shift * C-reactive protein 1.5 * Lactic acid 0.8 * Received first dose of Rocephin in emergency department * Blood cultures drawn in the emergency department Prediabetes/diabetes * Random blood sugar is 118 * Unknown recent hemoglobin A1c * No home diabetic medications Chronic: Obstructive sleep apnea, restless leg syndrome, hypertension, urinary incontinence, anxiety, depression Plan * Admit to medical floor on telemetry * Lasix 80 mg every morning. Further dosing tomorrow as needed * Rocephin 2 g daily * Follow blood cultures * Strict I's and O's and daily weights * PT/OT consult * CBC, CMP, mag, hemoglobin A1c, C-reactive protein in the morning * VTE prophylaxis with Eliquis * CODE STATUS DNR/DNI * 12/17/2020 The patient is an 85-year-old lady who was admitted for acute on chronic congestive heart failure. She has a preserved ejection fraction. The patient is currently on ceftriaxone. This will be continued. Patient has 80 mg of Lasix ordered IV daily. Daily weights to be monitored for her fluid status. Repeat laboratory studies have been ordered. The patient is currently on the patient should be appropriate for discharge 1 to 2 days.
[2020-12-17] MEDS: Carvedilol 12.5 MG Tab PO SCH ×2 (09:52→18:30)
[2020-12-17] MEDS: Potassium Chloride 20 MEQ Tab.ER PO SCH ×2 (09:56→21:39)
[2020-12-17] MEDS: Apixaban 5 MG Tab PO SCH ×2 (09:56→21:39)
[2020-12-17] MEDS: Nystatin Crm 30 GM Tube TOP SCH ×2 (09:57→21:39)
[2020-12-17] MEDS: Furosemide 40 MG/4 ML VIAL IVPUSH SCH (09:57)
[2020-12-17] MEDS: cefTRIAXone 2 GM in Sodium Chloride 0.9% 100 ML IV SCH (18:31)
[2020-12-18] MEDS: Potassium Chloride 20 MEQ Tab.ER PO SCH ×2 (08:21→20:24)
[2020-12-18] MEDS: Apixaban 5 MG Tab PO SCH ×2 (08:21→20:24)
[2020-12-18] MEDS: Carvedilol 12.5 MG Tab PO SCH ×2 (08:22→17:01)
[2020-12-18] MEDS: Furosemide 40 MG/4 ML VIAL IVPUSH SCH (08:25)
[2020-12-18] MEDS: Nystatin Crm 30 GM Tube TOP SCH ×2 (10:05→20:25)
--- NOTE | 2020-12-18 10:50 | PCM.PN ---
- General Info Date of Service: 12/18/20 Admission Dx/Problem (Free Text): Admission Diagnosis/Problem Admission Diagnosis/Problem Congestive heart failure Subjective Update: The patient is an 85-year-old lady who had been admitted to acute hospitalization for congestive heart failure exacerbation. She had worsening lower extremity cellulitis and edema. The patient has been ambulating. She has been doing better today. She has been tolerating diet. The patient lives at home by herself and is wanting home health. Functional Status: Reports: Pain Controlled, Tolerating Diet - Review of Systems General: Reports: Weakness HEENT: Reports: No Symptoms Pulmonary: Reports: Shortness of Breath Cardiovascular: Reports: Edema Gastrointestinal: Reports: No Symptoms Genitourinary: Reports: No Symptoms Musculoskeletal: Reports: No Symptoms Skin: Reports: Other (Stasis dermatitis with ulcer on right leg) Neurological: Reports: No Symptoms Psychiatric: Reports: No Symptoms - Patient Data Vitals - Most Recent: Last Vital Signs Temp 36.7 C 12/18/20 07:54 Pulse 69 12/18/20 08:22 Resp 14 12/18/20 07:54 BP 117/90 12/18/20 08:22 Pulse Ox 95 12/18/20 08:20 Weight - Most Recent: 94.982 kg I&O - Last 24 Hours: Intake & Output 12/17/20 12/18/20 12/18/20 22:59 06:59 14:59 Intake Total 1190 400 Output Total 350 500 Balance 840 -100 Lab Results Last 24 Hours: Laboratory Results - last 24 hr 12/18/20 12/18/20 Range/Units 05:45 05:45 WBC 5.22 (3.98-10.04) K/mm3 RBC 3.86 L (3.98-5.22) M/mm3 Hgb 11.3 (11.2-15.7) gm/dl Hct 37.0 (34.1-44.9) % MCV 95.9 H (79.4-94.8) fl MCH 29.3 (25.6-32.2) pg MCHC 30.5 L (32.2-35.5) g/dl RDW Std Deviation 48.5 H (36.4-46.3) fL Plt Count 214 (182-369) K/mm3 MPV 9.8 (9.4-12.3) fl Neut % (Auto) 65.5 (34.0-71.1) % Lymph % (Auto) 18.4 L (19.3-51.7) % [place] % (Auto) 12.1 (4.7-12.5) % Eos % (Auto) 3.4 (0.7-5.8) Baso % (Auto) 0.6 (0.1-1.2) % Neut # (Auto) 3.42 (1.56-6.13) K/mm3 Lymph # (Auto) 0.96 L (1.18-3.74) K/mm3 [place] # (Auto) 0.63 H (0.24-0.36) K/mm3 Eos # (Auto) 0.18 (0.04-0.36) K/mm3 Baso # (Auto) 0.03 (0.01-0.08) K/mm3 Sodium 142 (136-145) mEq/L Potassium 3.7 (3.5-5.1) mEq/L Chloride 104 (98-107) mEq/L Carbon Dioxide 31 (21-32) mEq/L Anion Gap 10.7 (5-15) BUN 16 (7-18) mg/dL Creatinine 0.9 (0.55-1.02) mg/dL Est Cr Clr Drug Dosing 32.83 mL/min Estimated GFR (MDRD) 60 (>60) mL/min BUN/Creatinine Ratio 17.8 (14-18) Glucose 101 (83-115) mg/dL Calcium 8.3 L (8.5-10.1) mg/dL Zack Results Last 24 Hours: Microbiology 12/16/20 17:02 Aerobic Blood Culture - Preliminary Blood - Venous - Lab Draw NO GROWTH AFTER 1 DAY Anaerobic Blood Culture - Final 12/16/20 16:50 Aerobic Blood Culture - Preliminary Blood - Venous NO GROWTH AFTER 1 DAY Anaerobic Blood Culture - Preliminary NO GROWTH AFTER 1 DAY Med Orders - Current: Current Medications Acetaminophen (Acetaminophen 325 Mg Tab) 650 mg PO Q4H PRN PRN Reason: Pain (Mild 1-3)/fever Apixaban (Apixaban 5 Mg Tab) 5 mg PO BID [facility] Last Admin: 12/18/20 08:21 Dose: 5 mg Documented by: Carvedilol (Carvedilol 12.5 Mg Tab) 12.5 mg PO BIDMEALS [facility] Last Admin: 12/18/20 08:22 Dose: 12.5 mg Documented by: Furosemide (Furosemide 40 Mg/4 Ml Vial) 80 mg IVPUSH DAILY [facility] Last Admin: 12/18/20 08:25 Dose: 80 mg Documented by: Ceftriaxone Sodium 2 gm/ (Sodium Chloride) 100 mls @ 200 mls/hr IV Q24H [facility] Last Admin: 12/17/20 18:31 Dose: 200 mls/hr Documented by: Nystatin (Nystatin Crm 30 Gm Tube) 0 gm TOP BID [facility] Last Admin: 12/17/20 21:39 Dose: 1 applic Documented by: Ondansetron HCl (Ondansetron 4 Mg/2 Ml Sdv) 4 mg IV Q4H PRN PRN Reason: Nausea/Vomiting Potassium Chloride (Potassium Chloride 20 Meq Tab.Er) 20 meq PO BID [facility] Last Admin: 12/18/20 08:21 Dose: 20 meq Documented by: Sodium Chloride (Sodium Chloride 0.9% 10 Ml Syringe) 10 ml FLUSH ASDIRECTED PRN PRN Reason: Keep Vein Open Last Admin: 12/16/20 17:10 Dose: 10 ml Documented by: Discontinued Medications Furosemide (Furosemide 40 Mg/4 Ml Vial) 40 mg IV NOW ONE Stop: 12/16/20 18:01 Last Admin: 12/16/20 18:36 Dose: 40 mg Documented by: Furosemide (Furosemide 40 Mg/4 Ml Vial) 40 mg IVPUSH NOW ONE Stop: 12/16/20 18:40 Last Admin: 12/16/20 18:58 Dose: 40 mg Documented by: Ceftriaxone Sodium 2 gm/ (Sodium Chloride) 100 mls @ 200 mls/hr IV ONETIME ONE Stop: 12/16/20 18:29 Last Admin: 12/16/20 18:36 Dose: 200 mls/hr Documented by: - Exam Quality Assessment: Supplemental Oxygen General: Alert, Oriented HEENT: Pupils Equal, Pupils Reactive Neck: Supple, Trachea Midline Lungs: Normal Respiratory Effort, Rales Cardiovascular: Regular Rate, Regular Rhythm GI/Abdominal Exam: Normal Bowel Sounds, Soft, No Distention (Female) Exam: Deferred Back Exam: Normal Inspection, Full Range of Motion Extremities: Normal Inspection, Pedal Edema (Less edema today) Skin: Warm, Dry Neurological: No New Focal Deficit Psy/Mental Status: Alert, Normal Affect - Patient Data Lab Results Last 24 hrs: Laboratory Results - last 24 hr 12/18/20 12/18/20 Range/Units 05:45 05:45 WBC 5.22 (3.98-10.04) K/mm3 RBC 3.86 L (3.98-5.22) M/mm3 Hgb 11.3 (11.2-15.7) gm/dl Hct 37.0 (34.1-44.9) % MCV 95.9 H (79.4-94.8) fl MCH 29.3 (25.6-32.2) pg MCHC 30.5 L (32.2-35.5) g/dl RDW Std Deviation 48.5 H (36.4-46.3) fL Plt Count 214 (182-369) K/mm3 MPV 9.8 (9.4-12.3) fl Neut % (Auto) 65.5 (34.0-71.1) % Lymph % (Auto) 18.4 L (19.3-51.7) % [place] % (Auto) 12.1 (4.7-12.5) % Eos % (Auto) 3.4 (0.7-5.8) Baso % (Auto) 0.6 (0.1-1.2) % Neut # (Auto) 3.42 (1.56-6.13) K/mm3 Lymph # (Auto) 0.96 L (1.18-3.74) K/mm3 [place] # (Auto) 0.63 H (0.24-0.36) K/mm3 Eos # (Auto) 0.18 (0.04-0.36) K/mm3 Baso # (Auto) 0.03 (0.01-0.08) K/mm3 Sodium 142 (136-145) mEq/L Potassium 3.7 (3.5-5.1) mEq/L Chloride 104 (98-107) mEq/L Carbon Dioxide 31 (21-32) mEq/L Anion Gap 10.7 (5-15) BUN 16 (7-18) mg/dL Creatinine 0.9 (0.55-1.02) mg/dL Est Cr Clr Drug Dosing 32.83 mL/min Estimated GFR (MDRD) 60 (>60) mL/min BUN/Creatinine Ratio 17.8 (14-18) Glucose 101 (83-115) mg/dL Calcium 8.3 L (8.5-10.1) mg/dL Result Diagrams: 12/18/20 05:45 12/18/20 05:45 Zack Results Last 24 hrs: Microbiology 12/16/20 17:02 Aerobic Blood Culture - Preliminary Blood - Venous - Lab Draw NO GROWTH AFTER 1 DAY Anaerobic Blood Culture - Final 12/16/20 16:50 Aerobic Blood Culture - Preliminary Blood - Venous NO GROWTH AFTER 1 DAY Anaerobic Blood Culture - Preliminary NO GROWTH AFTER 1 DAY Sepsis Event Note - Evaluation Sepsis Screening Result: No Definite Risk - Focused Exam Vital Signs: Vital Signs Temp Pulse Resp BP Pulse Ox Pulse Ox 12/18/20 08:22 69 117/90 12/18/20 08:20 95 12/18/20 07:54 36.7 C 69 14 117/90 96 12/18/20 04:46 36.7 C 62 16 127/65 95 12/18/20 00:09 37.1 C 61 15 106/56 L 94 L - Problem List & Annotations (1) Bilateral cellulitis of lower leg SNOMED Code(s): 007881605 Code(s): L03.116 - CELLULITIS OF LEFT LOWER LIMB; L03.115 - CELLULITIS OF RIGHT LOWER LIMB Status: Acute Priority: High Current Visit: Yes (2) Acute exacerbation of CHF (congestive heart failure) SNOMED Code(s): 256887739, 50644850891540 Code(s): I50.9 - HEART FAILURE, UNSPECIFIED Status: Chronic Priority: High Current Visit: Yes Qualifiers: Heart failure type: diastolic Qualified Code(s): I50.33 - Acute on chronic diastolic (congestive) heart failure (3) Chronic atrial fibrillation SNOMED Code(s): 483771535 Code(s): I48.20 - CHRONIC ATRIAL FIBRILLATION, UNSPECIFIED Status: Acute Priority: High Current Visit: Yes - Problem List Review Problem List Initiated/Reviewed/Updated: Yes - Plan Plan:: Assessment 85-year-old female with heart failure with preserved ejection fraction presents to the emergency department with increasing lower extremity edema, increasing shortness of breath and dyspnea on exertion, lower extremity erythema with skin breakdown the right lower extremity. Acute exacerbation of heart failure with preserved ejection fraction Atrial fibrillation * Patient is slowly been getting worse over the last several weeks to months * Last echo was on 09/06/2020 which showed a normal left ventricular systolic function. * BNP 1700 * Chest x-ray shows increased vascular congestion consistent with CHF * Home dose of Lasix is 80 mg p.o. * Given Lasix 80 mg IV in the emergency department * Coreg for rate control * Eliquis for stroke prophylaxis Lower extremity cellulitis * Chronic dependent edema with stasis dermatitis and cellulitis * White blood cell count is normal at 7.14 with no significant left shift * C-reactive protein 1.5 * Lactic acid 0.8 * Received first dose of Rocephin in emergency department * Blood cultures drawn in the emergency department Prediabetes/diabetes * Random blood sugar is 118 * Unknown recent hemoglobin A1c * No home diabetic medications Chronic: Obstructive sleep apnea, restless leg syndrome, hypertension, urinary incontinence, anxiety, depression Plan * Admit to medical floor on telemetry * Lasix 80 mg every morning. Further dosing tomorrow as needed * Rocephin 2 g daily * Follow blood cultures * Strict I's and O's and daily weights * PT/OT consult * CBC, CMP, mag, hemoglobin A1c, C-reactive protein in the morning * VTE prophylaxis with Eliquis * CODE STATUS DNR/DNI * 12/17/2020 The patient is an 85-year-old lady who was admitted for acute on chronic congestive heart failure. She has a preserved ejection fraction. The patient is currently on ceftriaxone. This will be continued. Patient has 80 mg of Lasix ordered IV daily. Daily weights to be monitored for her fluid status. Repeat laboratory studies have been ordered. The patient is currently on the patient should be appropriate for discharge 1 to 2 days. 12/18/2020 The patient is a 85-year-old lady who was admitted secondary to heart failure. The patient is improving today. She has been ambulating. Now the patient will be continued on her ceftriaxone. Home health has been ordered. The patient will continue to have her weights monitored. The patient will also continue to ambulate. She should be appropriate for discharge 1 to 2 days. I am concerned that the patient does live by herself.
[2020-12-18] MEDS: cefTRIAXone 2 GM in Sodium Chloride 0.9% 100 ML IV SCH (17:01)
[2020-12-19] MEDS: Carvedilol 12.5 MG Tab PO SCH (05:59)
--- NOTE | 2020-12-19 09:21 | PCM.DCSUM1 ---
Discharge Summary - Hospital Course Diagnosis: Stroke: No - Discharge Data Discharge Date: 12/19/20 Discharge Disposition: Home, W Home Health Agency 06 Condition: Fair - Referral to Home Health Date of Face to Face Encounter: 12/19/20 Reason for Homebound Status: The patient has congestive heart failure, bilateral cellulitis of left lower leg and chronic atrial fibrillation. The patient is in need of home health care services for low activity tolerance, functional mobility, standing balance, strength, and transfers. Nursing for vitals, skilled assessment, medication education, disease education and disease management. Physical therapy for patient for gait training, neuromuscular reduction, therapeutic services, safety education and transfer training. Occupational therapy for therapeutic exercises, therapeutic activities, safety education, functional mobility and activities of daily living. The patient is currently homebound related to being walker dependent, decreased activity tolerance and a decreased level of endurance. The patient will be followed by her primary care physician Jaimie Sexton. Primary Care Physician: Jaimie Sexton PA-C Skilled Need: Nursing for skilled assessment. Physical therapy for patient for gait training. Occupational Therapy for therapeutic exercises. - Discharge Diagnosis/Problem(s) (1) Bilateral cellulitis of lower leg SNOMED Code(s): 923482056 ICD Code: L03.116 - CELLULITIS OF LEFT LOWER LIMB; L03.115 - CELLULITIS OF RIGHT LOWER LIMB Status: Acute Priority: High Current Visit: Yes (2) Acute exacerbation of CHF (congestive heart failure) SNOMED Code(s): 680499171, 32733739019879 ICD Code: I50.9 - HEART FAILURE, UNSPECIFIED Status: Chronic Priority: High Current Visit: Yes Qualifiers: Heart failure type: diastolic Qualified Code(s): I50.33 - Acute on chronic diastolic (congestive) heart failure (3) Chronic atrial fibrillation SNOMED Code(s): 228362507 ICD Code: I48.20 - CHRONIC ATRIAL FIBRILLATION, UNSPECIFIED Status: Acute Priority: High Current Visit: Yes (4) 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 SNOMED Code(s): 885357379055873 ICD Code: I87.332 - CHRONIC VENOUS HTN W ULCER AND INFLAMMATION OF L LOW EXTREM; L97.929 - NON-PRS CHRONIC ULC UNSP PRT OF L LOW LEG W UNSP SEVERITY Status: Chronic Priority: High Current Visit: Yes (5) Urinary tract infection SNOMED Code(s): 11211858 ICD Code: N39.0 - URINARY TRACT INFECTION, SITE NOT SPECIFIED Status: Acute Current Visit: Yes Qualifiers: Urinary tract infection type: acute cystitis Hematuria presence: without hematuria Qualified Code(s): N30.00 - Acute cystitis without hematuria - Patient Summary/Data Consults: Consultations 12/16/20 20:52 OT Evaluation and Treatment [CONS] Routine PT Evaluation and Treatment [CONS] Routine 12/18/20 12:32 Consult to Home Care [Consult to Home Health] [CONS] Routine Hospital Course: 85-year-old female with history of heart failure with preserved ejection fraction presents to the emergency department after worsening lower extremity cellulitis and edema. Patient has chronic venous stasis and recurrent lower extremity cellulitis. She had some ulceration on her left leg that was recently treated and healed on the right leg now has opened up and started weeping. She apparently has had a home health nurse come out and help her with her lower extremity cellulitis and dependent edema, but that stopped at the end of last month and they have been unable to restart her treatments. Patient is now here because of worsening symptoms. She does complain of some chills but no fever. She is known to the hospital service secondary to being admitted for similar issues in August of last year. Patient states that her shortness of breath has not worsened much, but on the note from the emergency department it appears it has worsened over the last 3 months. The patient also has what appeared to be a urinary tract infection and she was sent home on Bactrim 1 p.o. twice daily. She does have some orthopnea and she does have some dyspnea on exertion. The patient was treated with gentle diuresis. The patient continued to recover through her short course of hospitalization. She had blood cultures that were obtained on December 16, 2020 which were showing no growth. The patient had a chest x-ray initially with findings compatible with congestive heart failure. The patient had been retained in hospitalization due to requiring her to have home health care set up. It was also noted that the patient was on oxygen and would desaturate into the low 80s while ambulating. Home oxygen was also set up for the patient. The patient lives alone but she is able to maintain her ADLs. By day of discharge she was ambulating. She was tolerating her diet. She has been recommended to continue with the activity as tolerated and suggested by home health. She is also to have her diet as tolerated. The patient has been discharged from acute hospitalization with the recommendations listed above. The patient also had been retained in hospitalization greater than 96 hours due to arrangements needing to be made for home health and oxygen. - Patient Instructions Diet: Heart Healthy Diet Fluid Restriction: 1500 mL Activity: As Tolerated Wound/Incision Care: Keep Operative Site/Wound Site Clean and Dry - Discharge Plan *PRESCRIPTION DRUG MONITORING PROGRAM REVIEWED*: No *COPY OF PRESCRIPTION DRUG MONITORING REPORT IN PATIENT SAGE: No Prescriptions/Med Rec: Sulfamethoxazole/Trimethoprim [Bactrim 400-80 MG] 1 each PO BID #10 tablet Home Medications: Home Meds carvediloL [Carvedilol] 12.5 mg PO BIDMEALS 07/13/18 [History] B2/Vits A,C,E/Lut/Zeaxanth/Min [Icaps] 1 tab PO DAILY 09/29/18 [History] Furosemide 80 mg PO DAILY #0 11/09/18 [Rx] Apixaban [Eliquis] 5 mg PO BID 05/20/20 [History] Acetaminophen 500 mg PO ASDIRECTED PRN 09/05/20 [History] Calcium Carb/Vitamin D3/Vit K1 [Calcium + D Soft Chewable Tab] 1 tab PO BID 09/05/20 [History] Docusate Sodium [Dulcoease] 100 mg PO BID PRN 09/05/20 [History] Iron,Carbonyl/Ascorbic Acid [Vitron-C Tablet] 1 tab PO DAILY 09/05/20 [History] Multivitamin [Multi-Vitamin Daily] 1 tab PO DAILY 09/05/20 [History] Nystatin [Nystatin Crm] 15 gm TOP BID 09/05/20 [History] Potassium Chloride 20 meq PO BID 09/05/20 [History] Ubidecarenone [Co Q-10] 100 mg PO DAILY 09/05/20 [History] Sulfamethoxazole/Trimethoprim [Bactrim 400-80 MG] 1 each PO BID #10 tablet 12/19/20 [Rx] Oxygen Therapy Mode: Nasal Cannula (2 Liters per minute.) Patient Handouts: Heart Failure Action Plan, Sepsis, Diagnosis, Adult, Heart Failure Exacerbation Forms: ED Department Discharge Referrals: Olstad,Jaimie M, PA-C [Primary Care Provider] - 12/27/20 1:00 pm (Hospital follow-up appointment.) - Discharge Summary/Plan Comment DC Time >30 min.: Yes - General Info Date of Service: 12/19/20 Admission Dx/Problem (Free Text: Admission Diagnosis/Problem Admission Diagnosis/Problem Congestive heart failure Subjective Update: The patient is doing well. She feels like she can safely go home. Functional Status: Reports: Pain Controlled - Review of Systems General: Reports: No Symptoms HEENT: Reports: No Symptoms Pulmonary: Reports: No Symptoms Cardiovascular: Reports: No Symptoms Gastrointestinal: Reports: No Symptoms Genitourinary: Reports: No Symptoms Musculoskeletal: Reports: No Symptoms Skin: Reports: No Symptoms Neurological: Reports: No Symptoms Psychiatric: Reports: No Symptoms - Patient Data Vitals - Most Recent: Last Vital Signs Temp 36.6 C 12/19/20 05:59 Pulse 64 12/19/20 05:59 Resp 18 12/19/20 05:59 BP 101/58 L 12/19/20 05:59 Pulse Ox 93 L 12/19/20 05:59 Weight - Most Recent: 94.438 kg I&O - Last 24 hours: Intake & Output 12/18/20 12/19/20 12/19/20 22:59 06:59 14:59 Intake Total 2080 400 Output Total 700 300 Balance 1380 100 Lab Results - Last 24 hrs: Laboratory Results - last 24 hr 12/19/20 12/19/20 Range/Units 05:55 05:55 WBC 5.02 (3.98-10.04) K/mm3 RBC 3.78 L (3.98-5.22) M/mm3 Hgb 11.0 L (11.2-15.7) gm/dl Hct 36.4 (34.1-44.9) % MCV 96.3 H (79.4-94.8) fl MCH 29.1 (25.6-32.2) pg MCHC 30.2 L (32.2-35.5) g/dl RDW Std Deviation 47.3 H (36.4-46.3) fL Plt Count 229 (182-369) K/mm3 MPV 9.4 (9.4-12.3) fl Neut % (Auto) 63.4 (34.0-71.1) % Lymph % (Auto) 18.3 L (19.3-51.7) % [place] % (Auto) 12.5 (4.7-12.5) % Eos % (Auto) 4.8 (0.7-5.8) Baso % (Auto) 0.8 (0.1-1.2) % Neut # (Auto) 3.18 (1.56-6.13) K/mm3 Lymph # (Auto) 0.92 L (1.18-3.74) K/mm3 [place] # (Auto) 0.63 H (0.24-0.36) K/mm3 Eos # (Auto) 0.24 (0.04-0.36) K/mm3 Baso # (Auto) 0.04 (0.01-0.08) K/mm3 C-Reactive Protein 1.0 (<1.0) mg/dL FRAN Results - Last 24 hrs: Microbiology 12/16/20 17:02 Aerobic Blood Culture - Preliminary Blood - Venous - Lab Draw NO GROWTH AFTER 2 DAYS Anaerobic Blood Culture - Final 12/16/20 16:50 Aerobic Blood Culture - Preliminary Blood - Venous NO GROWTH AFTER 2 DAYS Anaerobic Blood Culture - Preliminary NO GROWTH AFTER 2 DAYS Med Orders - Current: Current Medications Acetaminophen (Acetaminophen 325 Mg Tab) 650 mg PO Q4H PRN PRN Reason: Pain (Mild 1-3)/fever Apixaban (Apixaban 5 Mg Tab) 5 mg PO BID [facility] Last Admin: 12/18/20 20:24 Dose: 5 mg Documented by: Carvedilol (Carvedilol 12.5 Mg Tab) 12.5 mg PO BIDMEALS [facility] Last Admin: 12/19/20 05:59 Dose: 12.5 mg Documented by: Furosemide (Furosemide 40 Mg/4 Ml Vial) 80 mg IVPUSH DAILY [facility] Last Admin: 12/18/20 08:25 Dose: 80 mg Documented by: Ceftriaxone Sodium 2 gm/ (Sodium Chloride) 100 mls @ 200 mls/hr IV Q24H [facility] Last Admin: 12/18/20 17:01 Dose: 200 mls/hr Documented by: Nystatin (Nystatin Crm 30 Gm Tube) 0 gm TOP BID [facility] Last Admin: 12/18/20 20:25 Dose: 1 applic Documented by: Ondansetron HCl (Ondansetron 4 Mg/2 Ml Sdv) 4 mg IV Q4H PRN PRN Reason: Nausea/Vomiting Potassium Chloride (Potassium Chloride 20 Meq Tab.Er) 20 meq PO BID [facility] Last Admin: 12/18/20 20:24 Dose: 20 meq Documented by: Sodium Chloride (Sodium Chloride 0.9% 10 Ml Syringe) 10 ml FLUSH ASDIRECTED PRN PRN Reason: Keep Vein Open Last Admin: 12/16/20 17:10 Dose: 10 ml Documented by: Discontinued Medications Furosemide (Furosemide 40 Mg/4 Ml Vial) 40 mg IV NOW ONE Stop: 12/16/20 18:01 Last Admin: 12/16/20 18:36 Dose: 40 mg Documented by: Furosemide (Furosemide 40 Mg/4 Ml Vial) 40 mg IVPUSH NOW ONE Stop: 12/16/20 18:40 Last Admin: 12/16/20 18:58 Dose: 40 mg Documented by: Ceftriaxone Sodium 2 gm/ (Sodium Chloride) 100 mls @ 200 mls/hr IV ONETIME ONE Stop: 12/16/20 18:29 Last Admin: 12/16/20 18:36 Dose: 200 mls/hr Documented by: - Exam Quality Assessment: Reports: Supplemental Oxygen General: Reports: Alert, Oriented, Cooperative HEENT: Reports: Pupils Equal, Pupils Reactive Neck: Reports: Supple Lungs: Reports: Clear to Auscultation, Normal Respiratory Effort Cardiovascular: Reports: Regular Rate, Irregular Rhythm GI/Abdominal Exam: Normal Bowel Sounds, No Distention (Female) Exam: Deferred Rectal (Female) Exam: Deferred Extremities: Pedal Edema, Redness, Other (Chronic venous stasis with ulcer to right leg.) Skin: Reports: Warm, Dry Neurological: Reports: No New Focal Deficit Psy/Mental Status: Reports: Alert, Normal Affect, Normal Mood
[2020-12-19] MEDS: Apixaban 5 MG Tab PO SCH (09:31)
[2020-12-19] MEDS: Potassium Chloride 20 MEQ Tab.ER PO SCH (09:31)
[2020-12-19] MEDS: Furosemide 40 MG/4 ML VIAL IVPUSH SCH (09:31)
[2020-12-19] MEDS: Nystatin Crm 30 GM Tube TOP SCH ×2 (09:32→09:35)
[2020-12-23 18:33] VITALS: BP 102/56; PULSE 61
== END 2020-12-19 14:15 | disposition home health service (06) | DRG 292 ==
LOC: JD.ED 15:57 → JD.MS 18:43
PROVIDERS: ADMIT Family Medicine; ATTEND Family Medicine
DX: I11.0 Hypertensive heart disease with heart failure (principal); L03.116 Cellulitis of left lower limb; I48.20 Chronic atrial fibrillation, unspecified; L03.115 Cellulitis of right lower limb; I87.332 Chronic venous hypertension (idiopathic) with ulcer and inflammation of left lower extremity; L97.929 Non-pressure chronic ulcer of unspecified part of left lower leg with unspecified severity; G47.30 Sleep apnea, unspecified; N30.00 Acute cystitis without hematuria; Z68.41 Body mass index [BMI] 40.0-44.9, adult; Z66 Do not resuscitate; I50.33 Acute on chronic diastolic (congestive) heart failure; I87.8 Other specified disorders of veins; H54.7 Unspecified visual loss; I48.91 Unspecified atrial fibrillation; R32 Unspecified urinary incontinence; F41.9 Anxiety disorder, unspecified; F32.9 Major depressive disorder, single episode, unspecified; M19.90 Unspecified osteoarthritis, unspecified site; G47.33 Obstructive sleep apnea (adult) (pediatric); G25.81 Restless legs syndrome; Z20.822 Contact with and (suspected) exposure to COVID-19; M81.0 Age-related osteoporosis without current pathological fracture; E11.9 Type 2 diabetes mellitus without complications; E66.9 Obesity, unspecified; Z79.01 Long term (current) use of anticoagulants; Z98.49 Cataract extraction status, unspecified eye; Z90.49 Acquired absence of other specified parts of digestive tract; Z90.710 Acquired absence of both cervix and uterus; Z79.899 Other long term (current) drug therapy; Z88.1 Allergy status to other antibiotic agents; Z88.6 Allergy status to analgesic agent; Z88.5 Allergy status to narcotic agent; Z88.0 Allergy status to penicillin; Z91.048 Other nonmedicinal substance allergy status; Z98.890 Other specified postprocedural states
CPT/HCPCS: 36415; 71046; 80053; 81001; 83605; 83880; 84484; 85025; 86140; 87040 ×2; 87086; 93005; 96374; 96375; 99285; J0696; J1940; U0002; 80048; 83036; 83735; 93010; 94761; 97110-GP; 97162-GP; 97165-GO; 99223; 99233; 99239; A9270-GY

== ENCOUNTER 2022-01-05 12:59 | Inpatient (IN) | payer MEDICARE, OTHER ==
[2022-01-05] MEDS ORDERED: Sodium Chloride 0.9% 10 ML Syringe FLUSH PRN (13:34)
[2022-01-05] MEDS ORDERED: Furosemide 40 MG/4 ML VIAL IVPUSH ONE ×2 (15:12→20:45)
[2022-01-05] MEDS ORDERED: Polyethylene Glycol 3350 Powder 17 GM Packet PO PRN (15:13)
[2022-01-05] MEDS ORDERED: Ondansetron 4 MG/2 ML SDV IV PRN (15:13)
[2022-01-05 15:42] LABS: HEMOGLOBIN A1C 6.3 %
[2022-01-05] MEDS ORDERED: Carvedilol 12.5 MG Tab PO SCH (17:00)
[2022-01-05] MEDS: Insulin Lispro 100 Unit/ML 3 ML KwikPen SUBCUT SCH ×2 (19:17→20:59)
[2022-01-05] MEDS: cefTRIAXone 2 GM in Sodium Chloride 0.9% 100 ML IV SCH (19:22)
[2022-01-05] MEDS: Carvedilol 12.5 MG Tab PO SCH (20:56)
[2022-01-05] MEDS: Apixaban 5 MG Tab PO SCH (20:56)
[2022-01-05] MEDS: Potassium Chloride 20 MEQ Tab.ER PO SCH (20:57)
[2022-01-05] MEDS ORDERED: Apixaban 5 MG Tab PO SCH (21:00)
[2022-01-06] MEDS: Acetaminophen 325 MG Tab PO PRN ×4 (01:08→22:46)
[2022-01-06] MEDS: Furosemide 40 MG/4 ML VIAL IVPUSH SCH ×2 (06:52→14:10)
[2022-01-06] MEDS: Apixaban 5 MG Tab PO SCH ×2 (08:50→20:09)
[2022-01-06] MEDS: Carvedilol 12.5 MG Tab PO SCH ×2 (08:51→17:08)
[2022-01-06] MEDS: Potassium Chloride 20 MEQ Tab.ER PO SCH ×2 (08:51→20:09)
[2022-01-06] MEDS: Insulin Lispro 100 Unit/ML 3 ML KwikPen SUBCUT SCH ×4 (08:52→20:11)
[2022-01-06] MEDS ORDERED: Non-Formulary Medication 1 Each (Iron,Carbonyl/Ascorbic Acid [Vitron-C Tablet] 1 EACH Tabl PO SCH (09:00)
[2022-01-06] MEDS: cefTRIAXone 2 GM in Sodium Chloride 0.9% 100 ML IV SCH (16:59)
[2022-01-07] MEDS: Carvedilol 12.5 MG Tab PO SCH ×2 (06:01→17:26)
[2022-01-07] MEDS: Furosemide 40 MG/4 ML VIAL IVPUSH SCH (06:01)
[2022-01-07] MEDS: Acetaminophen 325 MG Tab PO PRN (07:57)
[2022-01-07] MEDS: Apixaban 5 MG Tab PO SCH ×2 (08:00→20:12)
[2022-01-07] MEDS: Potassium Chloride 20 MEQ Tab.ER PO SCH ×4 (08:00→20:12)
[2022-01-07] MEDS: Insulin Lispro 100 Unit/ML 3 ML KwikPen SUBCUT SCH ×4 (08:01→22:57)
[2022-01-07] MEDS ORDERED: Spironolactone 25 MG Tab PO SCH (09:15)
[2022-01-07] MEDS: Sacubitril/Valsartan 1 EACH Tablet PO SCH ×2 (10:31→20:10)
[2022-01-07] MEDS: cefTRIAXone 2 GM in Sodium Chloride 0.9% 100 ML IV SCH (15:59)
[2022-01-08] MEDS: Carvedilol 12.5 MG Tab PO SCH ×2 (06:24→16:00)
[2022-01-08] MEDS: Insulin Lispro 100 Unit/ML 3 ML KwikPen SUBCUT SCH ×4 (07:32→20:46)
[2022-01-08] MEDS: Sacubitril/Valsartan 1 EACH Tablet PO SCH ×2 (08:21→20:41)
[2022-01-08] MEDS: Furosemide 40 MG/4 ML VIAL IVPUSH SCH (08:22)
[2022-01-08] MEDS: Apixaban 5 MG Tab PO SCH ×2 (08:22→20:42)
[2022-01-08] MEDS: Potassium Chloride 20 MEQ Tab.ER PO SCH ×2 (08:22→20:42)
[2022-01-08] MEDS ORDERED: Furosemide 40 MG/4 ML VIAL IVPUSH ONE (13:55)
[2022-01-08] MEDS: cefTRIAXone 2 GM in Sodium Chloride 0.9% 100 ML IV SCH (15:52)
[2022-01-09] MEDS: Insulin Lispro 100 Unit/ML 3 ML KwikPen SUBCUT SCH ×4 (07:32→21:15)
[2022-01-09] MEDS: Carvedilol 12.5 MG Tab PO SCH ×2 (08:16→17:44)
[2022-01-09] MEDS: Sacubitril/Valsartan 1 EACH Tablet PO SCH (08:17)
[2022-01-09] MEDS: Potassium Chloride 20 MEQ Tab.ER PO SCH ×2 (08:18→21:30)
[2022-01-09] MEDS: Apixaban 5 MG Tab PO SCH ×2 (08:19→21:31)
[2022-01-09] MEDS: Furosemide 40 MG/4 ML VIAL IVPUSH SCH (08:19)
[2022-01-09] MEDS ORDERED: Furosemide 40 MG/4 ML VIAL IVPUSH ONE (15:00)
[2022-01-09] MEDS: cefTRIAXone 2 GM in Sodium Chloride 0.9% 100 ML IV SCH (15:06)
[2022-01-09] MEDS: Acetaminophen 325 MG Tab PO PRN (21:30)
[2022-01-10] MEDS ORDERED: Furosemide 40 MG/4 ML VIAL IVPUSH SCH (06:00)
[2022-01-10] MEDS: Acetaminophen 325 MG Tab PO PRN ×2 (06:11→21:02)
[2022-01-10] MEDS: Carvedilol 12.5 MG Tab PO SCH ×2 (06:12→17:02)
[2022-01-10] MEDS: Insulin Lispro 100 Unit/ML 3 ML KwikPen SUBCUT SCH ×4 (07:48→21:04)
[2022-01-10] MEDS: Apixaban 5 MG Tab PO SCH ×2 (08:53→21:03)
[2022-01-10] MEDS: Potassium Chloride 20 MEQ Tab.ER PO SCH ×2 (08:53→21:03)
[2022-01-10] MEDS ORDERED: Fluconazole 150 MG Tab PO ONE (14:30)
[2022-01-10] MEDS: Nystatin Crm 30 GM Tube TOP SCH ×2 (14:55→21:05)
[2022-01-11] MEDS: Acetaminophen 325 MG Tab PO PRN (01:50)
[2022-01-11] MEDS: Carvedilol 12.5 MG Tab PO SCH ×2 (05:53→07:34)
[2022-01-11] MEDS: Insulin Lispro 100 Unit/ML 3 ML KwikPen SUBCUT SCH ×2 (07:35→11:46)
[2022-01-11] MEDS: Potassium Chloride 20 MEQ Tab.ER PO SCH (08:49)
[2022-01-11] MEDS: Apixaban 5 MG Tab PO SCH (08:49)
[2022-01-11] MEDS: Nystatin Crm 30 GM Tube TOP SCH (08:49)
[2022-01-11] MEDS ORDERED: Furosemide 40 MG Tab PO SCH (09:00)
[2022-01-11 12:27] VITALS: BP 123/80; PULSE 60
[2022-01-11] MEDS ORDERED: Cephalexin 250 MG Cap PO SCH (21:00)
== END 2022-01-11 14:12 | disposition home or self-care (01) | DRG 637 ==
LOC: JD.ED 12:59 → JD.MS 15:04
PROVIDERS: ADMIT Internal Medicine; ATTEND Internal Medicine
DX: L03.119 Cellulitis of unspecified part of limb (principal); E11.628 Type 2 diabetes mellitus with other skin complications; I48.91 Unspecified atrial fibrillation; I50.9 Heart failure, unspecified; I50.33 Acute on chronic diastolic (congestive) heart failure; G47.30 Sleep apnea, unspecified; L03.115 Cellulitis of right lower limb; I48.20 Chronic atrial fibrillation, unspecified; Z68.41 Body mass index [BMI] 40.0-44.9, adult; I87.332 Chronic venous hypertension (idiopathic) with ulcer and inflammation of left lower extremity; E46 Unspecified protein-calorie malnutrition; E11.9 Type 2 diabetes mellitus without complications; Z88.1 Allergy status to other antibiotic agents; Z88.8 Allergy status to other drugs, medicaments and biological substances; L03.116 Cellulitis of left lower limb; F41.9 Anxiety disorder, unspecified; E11.69 Type 2 diabetes mellitus with other specified complication; Z66 Do not resuscitate; F32.A Depression, unspecified; G25.81 Restless legs syndrome; G47.33 Obstructive sleep apnea (adult) (pediatric); M19.90 Unspecified osteoarthritis, unspecified site; E66.9 Obesity, unspecified; H54.7 Unspecified visual loss; I11.0 Hypertensive heart disease with heart failure; R32 Unspecified urinary incontinence; M54.9 Dorsalgia, unspecified; G89.29 Other chronic pain; B36.9 Superficial mycosis, unspecified; E11.622 Type 2 diabetes mellitus with other skin ulcer; E88.09 Other disorders of plasma-protein metabolism, not elsewhere classified; M81.0 Age-related osteoporosis without current pathological fracture; Z79.01 Long term (current) use of anticoagulants; Z88.6 Allergy status to analgesic agent; Z88.0 Allergy status to penicillin; Z88.5 Allergy status to narcotic agent; Z79.899 Other long term (current) drug therapy; Z90.710 Acquired absence of both cervix and uterus; Z90.49 Acquired absence of other specified parts of digestive tract; Z98.41 Cataract extraction status, right eye; Z98.42 Cataract extraction status, left eye
CPT/HCPCS: 36415; 71045; 71045-26; 80048; 80053; 81003; 82043; 82947; 83036; 83735; 83880; 84145; 84484; 85007; 85025; 85027; 85610; 85730; 86140; 87040; 87641; 93005; 93010; 93306; 94667; 94668; 94761; 97116-GP; 97161-GP; 99284; 99285-25; A9270-GY; J0696; J1815; J1940

== ENCOUNTER 2022-02-21 15:33 | Inpatient (IN) | payer MEDICARE, OTHER ==
[2022-02-21] MEDS ORDERED: Sodium Chloride 0.9% 10 ML Syringe FLUSH PRN ×2 (16:06→22:12)
[2022-02-21] MEDS ORDERED: cefTRIAXone 2 GM in Sodium Chloride 0.9% 100 ML IV ONE (18:14)
[2022-02-21] MEDS ORDERED: Vancomycin 2 GM in Sodium Chloride 0.9% 500 ML IV ONE (22:17)
[2022-02-21] MEDS ORDERED: Ondansetron 4 MG/2 ML SDV IVPUSH PRN (22:19)
[2022-02-21] MEDS ORDERED: Acetaminophen 325 MG Tab PO PRN (22:20)
[2022-02-21] MEDS ORDERED: Vancomycin 1 GM SDV ONE (23:30)
[2022-02-22] MEDS ORDERED: Vancomycin 2 GM in Sodium Chloride 0.9% 500 ML IV ONE ×2
[2022-02-22] MEDS ORDERED: Sodium Chloride 0.65% Nasal Spray 45 ML Bottle NAS PRN (06:31)
[2022-02-22] MEDS ORDERED: Acetaminophen 325 MG Tab PO PRN (07:05)
[2022-02-22] MEDS ORDERED: Loratadine 10 MG Tab PO SCH (09:00)
[2022-02-22] MEDS ORDERED: Furosemide 40 MG Tab PO SCH (09:00)
[2022-02-22] MEDS: Docusate Sodium 100 MG Cap PO SCH (09:01)
[2022-02-22] MEDS: Carvedilol 12.5 MG Tab PO SCH ×2 (09:01→16:30)
[2022-02-22] MEDS: Iron Polysaccharides Complex 150 MG Cap PO SCH (09:01)
[2022-02-22] MEDS: Potassium Chloride 20 MEQ Tab.ER PO SCH ×2 (09:02→21:34)
[2022-02-22] MEDS: Nystatin Crm 30 GM Tube TOP SCH ×3 (09:04→21:35)
[2022-02-22] MEDS: Apixaban 5 MG Tab PO SCH ×2 (14:31→21:34)
[2022-02-22] MEDS ORDERED: cefTRIAXone 2 GM in Sodium Chloride 0.9% 100 ML IV SCH (18:00)
[2022-02-23] MEDS ORDERED: Albuterol 0.083% 2.5 MG/3 ML Neb Soln NEB PRN (07:03)
[2022-02-23] MEDS: Carvedilol 12.5 MG Tab PO SCH (08:03)
[2022-02-23 08:04] VITALS: BP 98/71; PULSE 79
[2022-02-23] MEDS ORDERED: Furosemide 80 MG Tab PO SCH (09:00)
[2022-02-23] MEDS ORDERED: Metolazone 2.5 MG Tab PO SCH (09:00)
[2022-02-23] MEDS ORDERED: Cholecalciferol (Vitamin D3) 5,000 UNIT Tab PO SCH (09:00)
[2022-02-23] MEDS ORDERED: Polyethylene Glycol 3350 Powder 17 GM Packet PO SCH (09:00)
[2022-02-23] MEDS: Iron Polysaccharides Complex 150 MG Cap PO SCH (09:01)
[2022-02-23] MEDS: Potassium Chloride 20 MEQ Tab.ER PO SCH (09:01)
[2022-02-23] MEDS: Docusate Sodium 100 MG Cap PO SCH (09:02)
[2022-02-23] MEDS: Apixaban 5 MG Tab PO SCH (09:02)
[2022-02-23] MEDS: Nystatin Crm 30 GM Tube TOP SCH (09:03)
[2022-02-24] MEDS ORDERED: Loratadine 10 MG Tab PO SCH (09:00)
== END 2022-02-23 15:00 | disposition home or self-care (01) | DRG 189 ==
LOC: JD.ED 15:33 → SUPCPDRO 15:33 → JD.MS 20:36 → JD.ED 21:00 → JD.OB 02-22 16:21
PROVIDERS: ADMIT Emergency Medicine; ATTEND Internal Medicine
DX: J96.01 Acute respiratory failure with hypoxia (principal); N30.01 Acute cystitis with hematuria; L03.116 Cellulitis of left lower limb; E87.1 Hypo-osmolality and hyponatremia; I48.11 Longstanding persistent atrial fibrillation; Z68.41 Body mass index [BMI] 40.0-44.9, adult; Z20.822 Contact with and (suspected) exposure to COVID-19; E88.09 Other disorders of plasma-protein metabolism, not elsewhere classified; E66.01 Morbid (severe) obesity due to excess calories; E11.69 Type 2 diabetes mellitus with other specified complication; I87.8 Other specified disorders of veins; G25.81 Restless legs syndrome; I50.9 Heart failure, unspecified; I11.0 Hypertensive heart disease with heart failure; B96.89 Other specified bacterial agents as the cause of diseases classified elsewhere; F41.9 Anxiety disorder, unspecified; F32.A Depression, unspecified; M81.0 Age-related osteoporosis without current pathological fracture; Z88.6 Allergy status to analgesic agent; Z88.1 Allergy status to other antibiotic agents; Z79.01 Long term (current) use of anticoagulants; Z88.8 Allergy status to other drugs, medicaments and biological substances; Z88.5 Allergy status to narcotic agent; Z88.0 Allergy status to penicillin; Z90.710 Acquired absence of both cervix and uterus; Z90.49 Acquired absence of other specified parts of digestive tract
CPT/HCPCS: 36415; 71045; 71045-26; 80053; 81001; 83605; 83735; 85025; 85610; 85730; 86140; 87040; 87081; 87086; 87088; 87186; 94760; 96365; 97116-GP; 97162-GP; 99284; 99285-25; A9270-GY; J0696; J3370; J3490; J7040; U0002

== ENCOUNTER 2022-02-27 12:07 | Emergency (ER) | payer MEDICARE, OTHER ==
[2022-02-27] MEDS ORDERED: Sodium Chloride 0.9% 10 ML Syringe FLUSH PRN (13:11)
[2022-02-27 14:16] LABS: CORONAVIRUS COVID-19 NAA NEGATIVE (NEGATIVE)
[2022-02-27 15:36] VITALS: BP 106/59; PULSE 72
== END 2022-02-27 15:45 | disposition home or self-care (01) ==
LOC: JD.ED 12:07
DX: R53.83 Other fatigue (principal); I48.91 Unspecified atrial fibrillation; I11.0 Hypertensive heart disease with heart failure; I50.9 Heart failure, unspecified; Z88.0 Allergy status to penicillin; Z88.5 Allergy status to narcotic agent; Z88.8 Allergy status to other drugs, medicaments and biological substances; Z91.048 Other nonmedicinal substance allergy status; Z79.01 Long term (current) use of anticoagulants; Z79.899 Other long term (current) drug therapy; Z20.822 Contact with and (suspected) exposure to COVID-19
CPT/HCPCS: 0240U; 36415; 71045; 80053; 81003; 83735; 83880; 84484; 85025; 86140; 93005; 99284; J3490; 93010

== ENCOUNTER 2022-10-16 15:19 | Inpatient (IN) | payer MEDICARE, OTHER ==
[2022-10-16] MEDS ORDERED: fentaNYL 100 MCG/2 ML SDV IVPUSH ONE (18:44)
[2022-10-16] MEDS ORDERED: cefTRIAXone 2 GM in Sodium Chloride 0.9% 100 ML IV ONE (19:18)
[2022-10-16] MEDS ORDERED: Apixaban 5 MG Tab PO ONE (23:10)
[2022-10-16] MEDS ORDERED: diphenhydrAMINE 25 MG Cap PO ONE (23:34)
[2022-10-16] MEDS ORDERED: Furosemide 40 MG/4 ML VIAL IVPUSH ONE (23:45)
[2022-10-16] MEDS: Ibuprofen 200 MG Tab PO PRN (23:45)
[2022-10-16] MEDS: Furosemide 40 MG/4 ML VIAL IVPUSH ONE ×2 (23:45→23:54)
[2022-10-16] MEDS ORDERED: Furosemide 20 MG/2 ML VIAL IVPUSH ONE (23:45)
[2022-10-16] MEDS: Nystatin Topical Powder 15 GM Bottle TOP SCH (23:46)
[2022-10-17] MEDS: Acetaminophen 325 MG Tab PO PRN ×2 (04:35→11:42)
[2022-10-17] MEDS ORDERED: Furosemide 20 MG/2 ML VIAL IVPUSH ONE ×2 (07:00)
[2022-10-17] MEDS: Nystatin Topical Powder 15 GM Bottle TOP SCH ×3 (08:32→19:39)
[2022-10-17] MEDS ORDERED: Bumetanide 1 MG/4 ML MDV IVPUSH ONE (08:50)
[2022-10-17] MEDS ORDERED: Vancomycin 2 GM in Sodium Chloride 0.9% 500 ML IV ONE (10:00)
[2022-10-17] MEDS: Fluconazole 150 MG Tab PO SCH (10:16)
[2022-10-17] MEDS: Nystatin Crm 30 GM Tube TOP SCH ×2 (10:17→14:41)
[2022-10-17] MEDS: Docusate Sodium 100 MG Cap PO SCH (10:17)
[2022-10-17] MEDS: Apixaban 5 MG Tab PO SCH ×2 (10:17→19:39)
[2022-10-17] MEDS: Meropenem 1 GM in Sodium Chloride 0.9% 100 ML IV SCH ×2 (10:17→16:46)
[2022-10-17] MEDS: Insulin Lispro 100 Unit/ML 3 ML KwikPen SUBCUT SCH ×2 (11:44→17:26)
[2022-10-17] MEDS ORDERED: VANCOmycin 1.75 GM/350 ML 1.75 GM in Premix Bag 1 BAG IV ONE (12:00)
[2022-10-17 12:48] LABS: HEMOGLOBIN A1C 6.5 %
[2022-10-17] MEDS: Bumetanide 1 MG/4 ML MDV IVPUSH SCH (14:41)
[2022-10-17] MEDS: Carvedilol 6.25 MG Tab PO SCH (19:39)
[2022-10-18] MEDS: Carvedilol 6.25 MG Tab PO SCH ×3 (01:32→21:54)
[2022-10-18] MEDS: Apixaban 5 MG Tab PO SCH ×3 (01:32→21:52)
[2022-10-18] MEDS: Nystatin Crm 30 GM Tube TOP SCH ×4 (01:33→21:52)
[2022-10-18] MEDS: Insulin Lispro 100 Unit/ML 3 ML KwikPen SUBCUT SCH ×4 (01:33→16:55)
[2022-10-18] MEDS: Nystatin Topical Powder 15 GM Bottle TOP SCH ×4 (01:36→21:53)
[2022-10-18] MEDS: Meropenem 1 GM in Sodium Chloride 0.9% 100 ML IV SCH ×3 (01:44→16:55)
[2022-10-18] MEDS: Acetaminophen 325 MG Tab PO PRN (01:50)
[2022-10-18] MEDS: Bumetanide 1 MG/4 ML MDV IVPUSH SCH ×2 (05:56→14:28)
[2022-10-18] MEDS: Fluconazole 150 MG Tab PO SCH (09:06)
[2022-10-18] MEDS: Docusate Sodium 100 MG Cap PO SCH (09:07)
[2022-10-18] MEDS: VANCOmycin 1.25 GM/250 ML 1.25 GM in Premix Bag 1 BAG IV SCH (12:55)
[2022-10-19] MEDS: Meropenem 1 GM in Sodium Chloride 0.9% 100 ML IV SCH ×3 (00:07→17:58)
[2022-10-19] MEDS: Bumetanide 1 MG/4 ML MDV IVPUSH SCH ×2 (06:16→14:49)
[2022-10-19] MEDS: Insulin Lispro 100 Unit/ML 3 ML KwikPen SUBCUT SCH ×2 (07:54→17:57)
[2022-10-19] MEDS: Fluconazole 150 MG Tab PO SCH (08:42)
[2022-10-19] MEDS: Carvedilol 6.25 MG Tab PO SCH ×2 (08:42→21:27)
[2022-10-19] MEDS: Apixaban 5 MG Tab PO SCH ×2 (08:43→21:27)
[2022-10-19] MEDS: Docusate Sodium 100 MG Cap PO SCH (08:43)
[2022-10-19] MEDS: Nystatin Crm 30 GM Tube TOP SCH ×3 (08:43→21:28)
[2022-10-19] MEDS: Nystatin Topical Powder 15 GM Bottle TOP SCH ×3 (08:43→21:28)
[2022-10-19] MEDS: VANCOmycin 1.25 GM/250 ML 1.25 GM in Premix Bag 1 BAG IV SCH (12:32)
[2022-10-19] MEDS: Ibuprofen 200 MG Tab PO PRN (21:27)
[2022-10-20] MEDS: Meropenem 1 GM in Sodium Chloride 0.9% 100 ML IV SCH ×3 (00:53→17:53)
[2022-10-20] MEDS: Bumetanide 1 MG/4 ML MDV IVPUSH SCH ×2 (05:15→13:38)
[2022-10-20] MEDS: Insulin Lispro 100 Unit/ML 3 ML KwikPen SUBCUT SCH ×2 (07:30→17:53)
[2022-10-20] MEDS: Fluconazole 150 MG Tab PO SCH (10:28)
[2022-10-20] MEDS: Apixaban 5 MG Tab PO SCH ×2 (10:28→21:59)
[2022-10-20] MEDS: Carvedilol 6.25 MG Tab PO SCH ×2 (10:28→21:59)
[2022-10-20] MEDS: Docusate Sodium 100 MG Cap PO SCH (10:28)
[2022-10-20] MEDS: Nystatin Topical Powder 15 GM Bottle TOP SCH ×3 (10:32→21:55)
[2022-10-20] MEDS: Nystatin Crm 30 GM Tube TOP SCH ×3 (10:32→21:55)
[2022-10-20] MEDS: VANCOmycin 1.25 GM/250 ML 1.25 GM in Premix Bag 1 BAG IV SCH (13:42)
[2022-10-20] MEDS: Ibuprofen 200 MG Tab PO PRN (21:59)
[2022-10-21] MEDS: Meropenem 1 GM in Sodium Chloride 0.9% 100 ML IV SCH ×3 (01:54→18:03)
[2022-10-21] MEDS: Bumetanide 1 MG/4 ML MDV IVPUSH SCH ×2 (06:16→14:35)
[2022-10-21] MEDS: Insulin Lispro 100 Unit/ML 3 ML KwikPen SUBCUT SCH ×2 (06:52→18:03)
[2022-10-21] MEDS: Fluconazole 150 MG Tab PO SCH (08:16)
[2022-10-21] MEDS: Docusate Sodium 100 MG Cap PO SCH (08:16)
[2022-10-21] MEDS: Apixaban 5 MG Tab PO SCH ×2 (08:16→21:27)
[2022-10-21] MEDS: Carvedilol 6.25 MG Tab PO SCH ×2 (08:16→21:24)
[2022-10-21] MEDS: Nystatin Topical Powder 15 GM Bottle TOP SCH ×3 (08:22→21:27)
[2022-10-21] MEDS: Nystatin Crm 30 GM Tube TOP SCH ×3 (08:22→21:27)
[2022-10-21] MEDS: VANCOmycin 1.25 GM/250 ML 1.25 GM in Premix Bag 1 BAG IV SCH (12:19)
[2022-10-22] MEDS: Meropenem 1 GM in Sodium Chloride 0.9% 100 ML IV SCH ×3 (00:59→17:20)
[2022-10-22] MEDS: Ibuprofen 200 MG Tab PO PRN (01:05)
[2022-10-22] MEDS: Bumetanide 1 MG/4 ML MDV IVPUSH SCH ×2 (06:56→14:11)
[2022-10-22] MEDS: Insulin Lispro 100 Unit/ML 3 ML KwikPen SUBCUT SCH ×2 (07:32→17:19)
[2022-10-22] MEDS: Fluconazole 150 MG Tab PO SCH (08:36)
[2022-10-22] MEDS: Docusate Sodium 100 MG Cap PO SCH (08:36)
[2022-10-22] MEDS: Apixaban 5 MG Tab PO SCH ×2 (08:37→20:41)
[2022-10-22] MEDS: Carvedilol 6.25 MG Tab PO SCH ×2 (08:37→20:40)
[2022-10-22] MEDS: Nystatin Crm 30 GM Tube TOP SCH ×3 (09:48→20:47)
[2022-10-22] MEDS: Nystatin Topical Powder 15 GM Bottle TOP SCH ×3 (09:48→20:45)
[2022-10-22] MEDS: Potassium Chloride 20 MEQ Tab.ER PO SCH ×2 (09:59→20:41)
[2022-10-22] MEDS: VANCOmycin 1.25 GM/250 ML 1.25 GM in Premix Bag 1 BAG IV SCH (12:23)
[2022-10-22] MEDS: Acetaminophen 325 MG Tab PO PRN (21:37)
[2022-10-23] MEDS: Meropenem 1 GM in Sodium Chloride 0.9% 100 ML IV SCH ×2 (01:12→08:16)
[2022-10-23] MEDS: Insulin Lispro 100 Unit/ML 3 ML KwikPen SUBCUT SCH (06:13)
[2022-10-23] MEDS: Bumetanide 1 MG/4 ML MDV IVPUSH SCH (06:44)
[2022-10-23] MEDS: Docusate Sodium 100 MG Cap PO SCH (08:12)
[2022-10-23] MEDS: Fluconazole 150 MG Tab PO SCH (08:12)
[2022-10-23] MEDS: Potassium Chloride 20 MEQ Tab.ER PO SCH (08:12)
[2022-10-23] MEDS: Carvedilol 6.25 MG Tab PO SCH (08:13)
[2022-10-23] MEDS: Apixaban 5 MG Tab PO SCH (08:13)
[2022-10-23] MEDS: Nystatin Crm 30 GM Tube TOP SCH (08:14)
[2022-10-23] MEDS: Nystatin Topical Powder 15 GM Bottle TOP SCH (08:15)
[2022-10-23 13:52] VITALS: BP 149/93; PULSE 59
== END 2022-10-23 12:09 | disposition home health service (06) | DRG 602 ==
LOC: JD.ED 15:19 → JD.MS 20:48
PROVIDERS: ADMIT Internal Medicine Cardiovascular Disease; ATTEND Internal Medicine Cardiovascular Disease
DX: L03.116 Cellulitis of left lower limb (principal); I50.33 Acute on chronic diastolic (congestive) heart failure; N30.01 Acute cystitis with hematuria; L03.115 Cellulitis of right lower limb; I48.91 Unspecified atrial fibrillation; I48.11 Longstanding persistent atrial fibrillation; M10.9 Gout, unspecified; E66.9 Obesity, unspecified; H53.002 Unspecified amblyopia, left eye; Z68.41 Body mass index [BMI] 40.0-44.9, adult; Z79.01 Long term (current) use of anticoagulants; I87.332 Chronic venous hypertension (idiopathic) with ulcer and inflammation of left lower extremity; L97.929 Non-pressure chronic ulcer of unspecified part of left lower leg with unspecified severity; Z66 Do not resuscitate; I48.92 Unspecified atrial flutter; G47.33 Obstructive sleep apnea (adult) (pediatric); E66.01 Morbid (severe) obesity due to excess calories; I11.0 Hypertensive heart disease with heart failure; M81.0 Age-related osteoporosis without current pathological fracture; G25.81 Restless legs syndrome; I08.3 Combined rheumatic disorders of mitral, aortic and tricuspid valves; H54.7 Unspecified visual loss; E11.9 Type 2 diabetes mellitus without complications; B96.20 Unspecified Escherichia coli [E. coli] as the cause of diseases classified elsewhere; E87.6 Hypokalemia; M19.90 Unspecified osteoarthritis, unspecified site; E55.9 Vitamin D deficiency, unspecified; Z99.81 Dependence on supplemental oxygen; Z22.322 Carrier or suspected carrier of Methicillin resistant Staphylococcus aureus; Z88.0 Allergy status to penicillin; Z88.5 Allergy status to narcotic agent; Z88.8 Allergy status to other drugs, medicaments and biological substances; Z79.899 Other long term (current) drug therapy; Z90.710 Acquired absence of both cervix and uterus; Z90.49 Acquired absence of other specified parts of digestive tract
CPT/HCPCS: 29580-GP; 36415; 71045; 71045-26; 80048; 80053; 80202; 81001; 82947; 83036; 83605; 83690; 83735; 83880; 84145; 84484; 85025; 85610; 86140; 87040; 87070; 87075; 87077; 87086; 87088; 87186; 87205; 87641; 93005; 93010; 93307; 94760; 94761; 96365; 97116-GP; 97162-GP; 97166-GO; 97530-GO; 97530-GP; 97535-GO; 99223; 99233; 99239; 99285; 99285-25; A9270-GY; J0696; J1940; J2185; J3370; J3490

== ENCOUNTER 2023-06-07 22:01 | Emergency (ER) | payer MEDICARE, OTHER ==
[2023-06-07 22:40] LABS: BASOPHILS ABSOLUTE AUTO 0.1 K/mm3 (0.0-0.2); BASOPHILS PERCENT AUTO 0.7 % (0.0-1.0); EOSINOPHILS ABSOLUTE AUTO 0.2 K/mm3 (0.0-0.4); EOSINOPHILS PERCENT AUTO 2.3 % (0.0-6.0); HEMATOCRIT 42.7 % (37.0-47.0); HEMOGLOBIN 13.9 gm/dl (12.0-16.0); IMMATURE GRAN ABSOLUTE AUTO 0.03 K/mm3 (0.00-0.05); IMMATURE GRAN PERCENT AUTO 0.4 % (0.0-0.4); LYMPHOCYTES ABSOLUTE AUTO 0.8 K/mm3 (1.0-4.8); LYMPHOCYTES PERCENT AUTO 11.7 % (24.0-44.0); MEAN CORPUSCULAR HEMOGLOBIN 31.2 pg (28.0-32.0); MEAN CORPUSCULAR HGB CONC 32.6 g/dl (32.0-36.0); MEAN CORPUSCULAR VOLUME 95.7 fl (83.0-99.0); MEAN PLATELET VOLUME 9.4 fl (9.4-12.3); MONOCYTES ABSOLUTE AUTO 0.6 K/mm3 (0.0-0.8); MONOCYTES PERCENT AUTO 8.3 % (0.0-8.0); NEUTROPHILS ABSOLUTE AUTO 5.4 K/mm3 (1.8-7.7); NEUTROPHILS PERCENT AUTO 76.6 % (41.0-71.0); PLATELET COUNT,PLT 199 K/mm3 (150-400); RED BLOOD CELL COUNT 4.46 M/mm3 (4.10-5.30); WHITE BLOOD CELL COUNT,WBC 7.09 K/mm3 (3.9-11.3)
[2023-06-07 23:05] LABS: A/G RATIO 0.6 (1-2); ALBUMIN 3.2 g/dl (3.4-5.0); ANION GAP 10.3 (5-15); BILIRUBIN TOTAL 0.5 mg/dL (0.2-1.0); EST CRCL DRUG DOSING (CG) 27.93 mL/min; POTASSIUM,K 3.3 mEq/L (3.5-5.1); PROTEIN TOTAL,TP 8.6 g/dl (6.4-8.2)
[2023-06-08 01:27] VITALS: BP 183/92; PULSE 74
== END 2023-06-08 01:20 | disposition home or self-care (01) ==
LOC: JD.ED 22:01
DX: R09.89 Other specified symptoms and signs involving the circulatory and respiratory systems (principal); I48.91 Unspecified atrial fibrillation; I11.0 Hypertensive heart disease with heart failure; I50.9 Heart failure, unspecified; E66.9 Obesity, unspecified; Z68.41 Body mass index [BMI] 40.0-44.9, adult; Z79.01 Long term (current) use of anticoagulants; Z79.899 Other long term (current) drug therapy; Z88.0 Allergy status to penicillin; Z88.8 Allergy status to other drugs, medicaments and biological substances; Z88.5 Allergy status to narcotic agent; Z88.6 Allergy status to analgesic agent; Z91.048 Other nonmedicinal substance allergy status
CPT/HCPCS: 36415; 71045; 71045-26; 71250; 71250-26; 80053; 84484; 85025; 93005; 93010; 99284; 99285

== ENCOUNTER 2023-10-25 10:22 | Inpatient (IN) | payer MEDICARE, OTHER ==
[2023-10-25] MEDS: Sodium Chloride 0.9% 10 ML Syringe FLUSH PRN (11:47)
[2023-10-25] MEDS: Sodium Chloride 0.9% 1,000 ML IV ONE (11:48)
[2023-10-25 11:56] LABS: HEMATOCRIT 40.1 % (37.0-47.0); HEMOGLOBIN 12.9 gm/dl (12.0-16.0); MEAN CORPUSCULAR HEMOGLOBIN 31.2 pg (28.0-32.0); MEAN CORPUSCULAR HGB CONC 32.2 g/dl (32.0-36.0); MEAN CORPUSCULAR VOLUME 97.1 fl (83.0-99.0); MEAN PLATELET VOLUME 9.4 fl (9.4-12.3); PLATELET COUNT,PLT 201 K/mm3 (150-400); RED BLOOD CELL COUNT 4.13 M/mm3 (4.10-5.30); WHITE BLOOD CELL COUNT,WBC 8.24 K/mm3 (3.9-11.3)
[2023-10-25] MEDS: cefTRIAXone 2 GM in Sodium Chloride 0.9% 100 ML IV ONE (11:57)
[2023-10-25 12:19] LABS: INR 1.17; PROTHROMBIN TIME 12.4 SECONDS (9.7-12.0)
[2023-10-25 12:21] LABS: A/G RATIO 0.6 (1-2); ALBUMIN 3.3 g/dl (3.4-5.0); ANION GAP 11.5 (5-15); BILIRUBIN TOTAL 0.8 mg/dL (0.2-1.0); C-REACTIVE PROTEIN 3.7 mg/dL (<1.0); CALCIUM 9.4 mg/dL (8.5-10.1); EST CRCL DRUG DOSING (CG) 27.93 mL/min; POTASSIUM,K 3.5 mEq/L (3.5-5.1); PROTEIN TOTAL,TP 8.5 g/dl (6.4-8.2)
[2023-10-25 12:23] LABS: LACTIC ACID 0.7 mmol/L (0.4-2.0)
[2023-10-25 12:37] LABS: BAND PERCENT MAN 0 % (0-10); BASOPHILS PERCENT MAN 0 (0.1-1.2); EOSINOPHILS PERCENT MAN 4 % (0.7-5.8); LYMPHOCYTES % ATYPICAL MANUAL 0 %; LYMPHOCYTES PERCENT MAN 11 % (20-40); MONOCYTES PERCENT MAN 5 % (2-10); PLATELET COUNT ESTIMATE ADEQUATE
[2023-10-25 12:40] LABS: CORONAVIRUS COVID-19 NAA NEGATIVE (NEGATIVE); INFLUENZA A NAA NEGATIVE (NEGATIVE); RESPIRATORY SYNCYTIAL VIR NAA NEGATIVE (NEGATIVE)
[2023-10-25] MEDS ORDERED: Ondansetron 4 MG/2 ML SDV IV PRN (14:05)
[2023-10-25] MEDS ORDERED: Docusate Sodium 100 MG Cap PO PRN (14:05)
[2023-10-25] MEDS ORDERED: Ondansetron 4 MG Tab.DIS PO PRN (14:05)
[2023-10-25] MEDS ORDERED: Polyethylene Glycol 3350 Powder 17 GM Packet PO PRN (14:10)
[2023-10-25] MEDS ORDERED: Sodium Chloride 0.65% Nasal Spray 45 ML Bottle NAS PRN (14:22)
[2023-10-25] MEDS: Linezolid 600 MG in Premix Bag 1 BAG IV SCH (16:35)
[2023-10-25] MEDS: VANCOmycin 2 GM/400 ML 2 GM in Premix Bag 1 BAG IV ONE (20:14)
[2023-10-25] MEDS: Potassium Chloride 20 MEQ Tab.ER PO SCH (21:24)
[2023-10-25] MEDS: Apixaban 5 MG Tab PO SCH (21:24)
[2023-10-25] MEDS: Carvedilol 6.25 MG Tab PO SCH (21:24)
[2023-10-25] MEDS: Nystatin Topical Powder 15 GM Bottle TOP SCH (21:25)
[2023-10-26] MEDS: Linezolid 600 MG in Premix Bag 1 BAG IV SCH (04:40)
[2023-10-26 06:24] LABS: BASOPHILS PERCENT AUTO 0.7 % (0.0-1.0); EOSINOPHILS ABSOLUTE AUTO 0.3 K/mm3 (0.0-0.4); EOSINOPHILS PERCENT AUTO 4.7 % (0.0-6.0); HEMATOCRIT 34.4 % (37.0-47.0); IMMATURE GRAN ABSOLUTE AUTO 0.02 K/mm3 (0.00-0.05); IMMATURE GRAN PERCENT AUTO 0.4 % (0.0-0.4); LYMPHOCYTES ABSOLUTE AUTO 1.3 K/mm3 (1.0-4.8); LYMPHOCYTES PERCENT AUTO 23.5 % (24.0-44.0); MEAN CORPUSCULAR HEMOGLOBIN 31.2 pg (28.0-32.0); MEAN CORPUSCULAR HGB CONC 32.3 g/dl (32.0-36.0); MEAN CORPUSCULAR VOLUME 96.6 fl (83.0-99.0); MEAN PLATELET VOLUME 9.5 fl (9.4-12.3); MONOCYTES ABSOLUTE AUTO 0.7 K/mm3 (0.0-0.8); MONOCYTES PERCENT AUTO 12.8 % (0.0-8.0); NEUTROPHILS ABSOLUTE AUTO 3.2 K/mm3 (1.8-7.7); NEUTROPHILS PERCENT AUTO 57.9 % (41.0-71.0); PLATELET COUNT,PLT 183 K/mm3 (150-400); RED BLOOD CELL COUNT 3.56 M/mm3 (4.10-5.30); WHITE BLOOD CELL COUNT,WBC 5.54 K/mm3 (3.9-11.3)
[2023-10-26 06:32] LABS: HEMOGLOBIN 11.1 gm/dl (12.0-16.0)
[2023-10-26 06:47] LABS: ANION GAP 10.1 (5-15); BUN/CREATININE RATIO 16.4 (14-18); C-REACTIVE PROTEIN 3.7 mg/dL (<1.0); CALCIUM 8.8 mg/dL (8.5-10.1); CREATININE 1.1 mg/dL (0.55-1.02); EST CRCL DRUG DOSING (CG) 25.39 mL/min; POTASSIUM,K 3.1 mEq/L (3.5-5.1)
[2023-10-26] MEDS: Potassium Chloride 20 MEQ Tab.ER PO ONE (08:49)
[2023-10-26] MEDS: Docusate Sodium 100 MG Cap PO SCH (08:49)
[2023-10-26] MEDS ORDERED: Furosemide 20 MG Tab PO SCH (09:00)
[2023-10-26] MEDS: Cefepime 1 GM in Sodium Chloride 0.9% 50 ML IV SCH (11:00)
[2023-10-26] MEDS: Iopamidol 612 MG/ML 100 ML Bottle IVPUSH ONE (11:01)
[2023-10-26] MEDS: Acetaminophen 325 MG Tab PO PRN (12:36)
[2023-10-26] MEDS: Potassium Chloride 20 MEQ Tab.ER PO SCH (21:21)
[2023-10-26] MEDS: Lactated Ringers 1,000 ML IV SCH (21:23)
[2023-10-27 05:53] LABS: BASOPHILS PERCENT AUTO 0.4 % (0.0-1.0); EOSINOPHILS ABSOLUTE AUTO 0.4 K/mm3 (0.0-0.4); EOSINOPHILS PERCENT AUTO 8.6 % (0.0-6.0); HEMATOCRIT 33.7 % (37.0-47.0); HEMOGLOBIN 10.7 gm/dl (12.0-16.0); IMMATURE GRAN ABSOLUTE AUTO 0.01 K/mm3 (0.00-0.05); IMMATURE GRAN PERCENT AUTO 0.2 % (0.0-0.4); LYMPHOCYTES ABSOLUTE AUTO 1.1 K/mm3 (1.0-4.8); LYMPHOCYTES PERCENT AUTO 23.3 % (24.0-44.0); MEAN CORPUSCULAR HEMOGLOBIN 30.9 pg (28.0-32.0); MEAN CORPUSCULAR HGB CONC 31.8 g/dl (32.0-36.0); MEAN CORPUSCULAR VOLUME 97.4 fl (83.0-99.0); MEAN PLATELET VOLUME 9.7 fl (9.4-12.3); MONOCYTES ABSOLUTE AUTO 0.6 K/mm3 (0.0-0.8); MONOCYTES PERCENT AUTO 12.5 % (0.0-8.0); NEUTROPHILS ABSOLUTE AUTO 2.6 K/mm3 (1.8-7.7); PLATELET COUNT,PLT 180 K/mm3 (150-400); RED BLOOD CELL COUNT 3.46 M/mm3 (4.10-5.30); WHITE BLOOD CELL COUNT,WBC 4.64 K/mm3 (3.9-11.3)
[2023-10-27 06:33] LABS: ANION GAP 8.7 (5-15); BUN/CREATININE RATIO 32.2 (14-18); CALCIUM 8.9 mg/dL (8.5-10.1); CREATININE 0.9 mg/dL (0.55-1.02); EST CRCL DRUG DOSING (CG) 31.04 mL/min; MAGNESIUM 1.8 mg/dL (1.8-2.4); POTASSIUM,K 3.7 mEq/L (3.5-5.1)
[2023-10-27] MEDS: diphenhydrAMINE 25 MG Cap PO ONE (22:32)
[2023-10-28 06:14] LABS: BASOPHILS PERCENT AUTO 0.7 % (0.0-1.0); EOSINOPHILS ABSOLUTE AUTO 0.4 K/mm3 (0.0-0.4); EOSINOPHILS PERCENT AUTO 6.5 % (0.0-6.0); HEMATOCRIT 34.4 % (37.0-47.0); HEMOGLOBIN 11.5 gm/dl (12.0-16.0); IMMATURE GRAN ABSOLUTE AUTO 0.02 K/mm3 (0.00-0.05); IMMATURE GRAN PERCENT AUTO 0.3 % (0.0-0.4); LYMPHOCYTES ABSOLUTE AUTO 1.2 K/mm3 (1.0-4.8); LYMPHOCYTES PERCENT AUTO 20.8 % (24.0-44.0); MEAN CORPUSCULAR HEMOGLOBIN 31.1 pg (28.0-32.0); MEAN CORPUSCULAR HGB CONC 33.4 g/dl (32.0-36.0); MEAN PLATELET VOLUME 10.1 fl (9.4-12.3); MONOCYTES ABSOLUTE AUTO 0.5 K/mm3 (0.0-0.8); MONOCYTES PERCENT AUTO 9.4 % (0.0-8.0); NEUTROPHILS ABSOLUTE AUTO 3.6 K/mm3 (1.8-7.7); NEUTROPHILS PERCENT AUTO 62.3 % (41.0-71.0); PLATELET COUNT,PLT 157 K/mm3 (150-400); WHITE BLOOD CELL COUNT,WBC 5.73 K/mm3 (3.9-11.3)
[2023-10-28 06:38] LABS: ANION GAP 10.2 (5-15); CALCIUM 9.2 mg/dL (8.5-10.1); CREATININE 0.8 mg/dL (0.55-1.02); EST CRCL DRUG DOSING (CG) 34.91 mL/min
[2023-10-28 06:43] LABS: POTASSIUM,K 4.2 mEq/L (3.5-5.1)
[2023-10-28] MEDS: diphenhydrAMINE 25 MG Cap PO PRN (13:56)
[2023-10-28] MEDS: Cefepime 1 GM in Sodium Chloride 0.9% 50 ML IV SCH (20:46)
[2023-10-29 06:58] LABS: BASOPHILS ABSOLUTE AUTO 0.1 K/mm3 (0.0-0.2); BASOPHILS PERCENT AUTO 1.1 % (0.0-1.0); EOSINOPHILS ABSOLUTE AUTO 0.4 K/mm3 (0.0-0.4); EOSINOPHILS PERCENT AUTO 6.5 % (0.0-6.0); HEMATOCRIT 35.3 % (37.0-47.0); HEMOGLOBIN 11.3 gm/dl (12.0-16.0); IMMATURE GRAN ABSOLUTE AUTO 0.02 K/mm3 (0.00-0.05); IMMATURE GRAN PERCENT AUTO 0.4 % (0.0-0.4); LYMPHOCYTES ABSOLUTE AUTO 1.2 K/mm3 (1.0-4.8); LYMPHOCYTES PERCENT AUTO 21.9 % (24.0-44.0); MEAN CORPUSCULAR HEMOGLOBIN 31.3 pg (28.0-32.0); MEAN PLATELET VOLUME 9.4 fl (9.4-12.3); MONOCYTES ABSOLUTE AUTO 0.5 K/mm3 (0.0-0.8); MONOCYTES PERCENT AUTO 9.3 % (0.0-8.0); NEUTROPHILS ABSOLUTE AUTO 3.3 K/mm3 (1.8-7.7); NEUTROPHILS PERCENT AUTO 60.8 % (41.0-71.0); PLATELET COUNT,PLT 186 K/mm3 (150-400); RED BLOOD CELL COUNT 3.61 M/mm3 (4.10-5.30); WHITE BLOOD CELL COUNT,WBC 5.38 K/mm3 (3.9-11.3)
[2023-10-29 07:10] LABS: MEAN CORPUSCULAR VOLUME 97.8 fl (83.0-99.0)
[2023-10-29 07:14] LABS: ANION GAP 10.1 (5-15); BUN/CREATININE RATIO 27.8 (14-18); C-REACTIVE PROTEIN 1.2 mg/dL (<1.0); CALCIUM 9.3 mg/dL (8.5-10.1); CREATININE 0.9 mg/dL (0.55-1.02); EST CRCL DRUG DOSING (CG) 31.04 mL/min; POTASSIUM,K 4.1 mEq/L (3.5-5.1)
[2023-10-29] MEDS: Levofloxacin 750 MG Tab PO SCH (08:46)
[2023-10-29] MEDS: Linezolid 600 MG Tab PO SCH (18:17)
[2023-10-30 05:50] LABS: BASOPHILS PERCENT AUTO 0.7 % (0.0-1.0); EOSINOPHILS ABSOLUTE AUTO 0.3 K/mm3 (0.0-0.4); EOSINOPHILS PERCENT AUTO 4.9 % (0.0-6.0); HEMATOCRIT 35.2 % (37.0-47.0); HEMOGLOBIN 11.4 gm/dl (12.0-16.0); IMMATURE GRAN ABSOLUTE AUTO 0.02 K/mm3 (0.00-0.05); IMMATURE GRAN PERCENT AUTO 0.4 % (0.0-0.4); LYMPHOCYTES PERCENT AUTO 18.6 % (24.0-44.0); MEAN CORPUSCULAR HEMOGLOBIN 31.1 pg (28.0-32.0); MEAN CORPUSCULAR HGB CONC 32.4 g/dl (32.0-36.0); MEAN CORPUSCULAR VOLUME 96.2 fl (83.0-99.0); MEAN PLATELET VOLUME 9.8 fl (9.4-12.3); MONOCYTES ABSOLUTE AUTO 0.6 K/mm3 (0.0-0.8); MONOCYTES PERCENT AUTO 10.8 % (0.0-8.0); NEUTROPHILS ABSOLUTE AUTO 3.6 K/mm3 (1.8-7.7); NEUTROPHILS PERCENT AUTO 64.6 % (41.0-71.0); PLATELET COUNT,PLT 183 K/mm3 (150-400); RED BLOOD CELL COUNT 3.66 M/mm3 (4.10-5.30); WHITE BLOOD CELL COUNT,WBC 5.54 K/mm3 (3.9-11.3)
[2023-10-30 05:54] LABS: ANION GAP 10.1 (5-15); BUN/CREATININE RATIO 22.5 (14-18); C-REACTIVE PROTEIN 1.1 mg/dL (<1.0); CALCIUM 9.1 mg/dL (8.5-10.1); CREATININE 0.8 mg/dL (0.55-1.02); EST CRCL DRUG DOSING (CG) 34.91 mL/min; POTASSIUM,K 4.1 mEq/L (3.5-5.1)
[2023-10-30 07:57] VITALS: BP 132/68; PULSE 73
== END 2023-10-30 13:35 | disposition other institution (70) | DRG 603 ==
LOC: JD.ED 10:22 → JD.MS 13:15
PROVIDERS: ADMIT Student in an Organized Health Care Education/Training Program; ATTEND Internal Medicine
DX: L03.116 Cellulitis of left lower limb (principal); Z68.41 Body mass index [BMI] 40.0-44.9, adult; L97.829 Non-pressure chronic ulcer of other part of left lower leg with unspecified severity; E66.9 Obesity, unspecified; I48.20 Chronic atrial fibrillation, unspecified; I87.332 Chronic venous hypertension (idiopathic) with ulcer and inflammation of left lower extremity; J96.11 Chronic respiratory failure with hypoxia; Z66 Do not resuscitate; J44.9 Chronic obstructive pulmonary disease, unspecified; I11.0 Hypertensive heart disease with heart failure; I50.9 Heart failure, unspecified; G25.81 Restless legs syndrome; M10.9 Gout, unspecified; F41.9 Anxiety disorder, unspecified; F32.A Depression, unspecified; I73.9 Peripheral vascular disease, unspecified; E88.09 Other disorders of plasma-protein metabolism, not elsewhere classified; G47.33 Obstructive sleep apnea (adult) (pediatric); E66.01 Morbid (severe) obesity due to excess calories; M19.011 Primary osteoarthritis, right shoulder; M19.012 Primary osteoarthritis, left shoulder; Z99.81 Dependence on supplemental oxygen; Z88.1 Allergy status to other antibiotic agents; Z88.8 Allergy status to other drugs, medicaments and biological substances; Z88.5 Allergy status to narcotic agent; Z88.0 Allergy status to penicillin; Z79.01 Long term (current) use of anticoagulants; Z79.899 Other long term (current) drug therapy; Z98.49 Cataract extraction status, unspecified eye; Z90.49 Acquired absence of other specified parts of digestive tract; Z90.710 Acquired absence of both cervix and uterus; Z90.79 Acquired absence of other genital organ(s); Z90.722 Acquired absence of ovaries, bilateral; Z98.890 Other specified postprocedural states; Z11.52 Encounter for screening for COVID-19
CPT/HCPCS: 0241U; 29580; 36415; 71045; 73590; 73702; 80048; 80053; 83605; 83735; 85007; 85025; 85027; 85610; 86140; 87040; 94760; 94761; 96365; 97116; 97162; 97530; 99285; A9270-GY; J0692; J0696; J2020; J3490; J7030; J7120; Q9967